=== PATIENT | female | born 1950 | race Caucasian/White ===

== ENCOUNTER 2018-09-29 16:20 | Outpatient (CLI) | payer MEDICARE, BC, SELFPAY ==
[2018-09-29 18:20] LABS: BUN 15 mg/dL (7-18); CREATININE 1.19 mg/dL (0.55-1.02); Chloride 104 mmol/L (98-107); Cholesterol 222 mg/dL (50-200); Estimated GFR 44.97 (mL/min/1.73m2); Glucose 95 mg/dL (70-100); HDL Cholesterol 60 mg/dL (40-60); LDL CHOLESTEROL 135 mg/dL (<100); Sodium 141 mmol/L (136-145); Triglyceride 174 mg/dL (30-150)
== END 2018-09-29 16:40 ==
PROVIDERS: PCP Family Medicine; Visit Provider Family Medicine
DX: E78.5 Hyperlipidemia, unspecified (principal); E74.39 Other disorders of intestinal carbohydrate absorption
CPT/HCPCS: 36415; 80048; 80061; 83721

== ENCOUNTER 2018-10-05 07:52 | Outpatient (CLI) | payer MEDICARE, BC, SELFPAY ==
--- NOTE | 2018-10-05 08:30 | DI.MAMMO_ITS ---
SYMPTOM/DIAGNOSIS: SCREENING, Z12.31 MAMMOGRAMS: Mammograms were interpreted according to the usual protocol including computer analysis with CAD system, tomosynthesis and C view imaging. Comparison is made with prior examinations. Breast density, category B. No suspicious masses or microcalcifications are seen. There is no definite evidence of malignancy. IMPRESSION: Negative mammogram. Routine screening is recommended. Category 1. BI-RADS category B. There are scattered areas of fibroglandular density.
== END 2018-10-05 08:12 ==
PROVIDERS: PCP Family Medicine; Visit Provider Family Medicine
DX: Z12.31 Encounter for screening mammogram for malignant neoplasm of breast (principal)
CPT/HCPCS: 77063; 77067

== ENCOUNTER 2018-11-07 06:18 | Day surgery (SDC) | payer MEDICARE, BC, SELFPAY ==
[2018-11-07 06:34] VITALS: BP 143/102; PULSE 85; RESP 18; TEMP 37; O2SAT 99
--- NOTE | 2018-11-07 07:09 | W.COLOREPORT ---
Date of service: 11/07/18 Time of Service: 07:40 Colonoscopy Report Date of procedure: 11/07/18 Pre-op diagnosis general: Family History of colon Cancer/ Colon Cancer Screening Procedure: Colonoscopy with polypectomy by cold forceps Surgeon: Sarai Lebron Anesthesia proc note operative: MAC (Estella Tay, ANUEL/ ASA 2) Estimated blood loss (mL): 3 Pathology: other (descending polyp) Complications: None Disposition: same day Indications: Mrs. Duque is a 68 year old female with a family history of rectal cancer and BRCA positive. Her last Colonoscopy was in 1998 and was normal. Risks, benefits and complications have been reviewed. Complications include but are not limited to bleeding, pain, perforation, missed small lesion/polyp, sore throat, aspiration and adverse reaction to the medications. Questions were entertained and answered to their satisfaction and they wished to proceed. No guarantees were given or implied. Prep: Miralax/Dulcolax Procedure Start Time: 07:40 Procedure End Time: 08:04 Retraction Time: 19 minutes Findings: small polyp in the descending colon Procedure Description: After informed consent was obtained the patient was taken to the procedure room and placed in a left decubitous position. Monitors were applied and a time out was done. The patients name, date of , procedure, allergies to medications and metal in their body was reviewed. The patient was then sedated. Once sedated and comfortable a rectal exam was done. External exam was normal. Internal exam revealed a normal sphincter tone and no palpable masses. The scope was then introduced and retro-flexed. No internal hemorrhoids were identified. The scope was then advanced to the cecum without difficulty. The TI and appendiceal orifice were identified. The prep was good. The scope was then slowly retracted over 19 minutes back into the rectum. Polyps were removed in the descending colon. The scope was removed and the patient was woken up and taken back to Same day surgery in stable condition. The patient tolerated the procedure well and there were no immediate complications. Follow up: The patient should follow up in 3-5 years unless they develop changes in bowel habits or other new gastrointestinal complaints.
[2018-11-07] MEDS: Lactated Ringers 1,000 ML 80 ML IV (07:11)
--- NOTE | 2018-11-07 07:25 | W.PM.DSUDISC ---
Discharge Plan Disposition Patient Disposition: HOME Condition: Good Discharge Details Reason For Visit: colonoscopy Attending Provider: Sarai Lebron Primary Care Provider: Edin Conner Home Meds and New Rx's Prescriptions: Continued lisinopril 20 mg tablet 20 mg PO DAILY Qty: 90 RF: 4 Prevnar 13 (PF) 0.5 mL syringe 0.5 ml IM ONCE Qty: 0.5 RF: 0 Shingrix Adjuvant Component-PF suspension 0.5 ml IM DAILY Qty: 0.5 RF: 1 multivitamin [Once Daily] 1 EACH tablet 1 ea PO DAILY RF: 0 aspirin [Aspir-81] 81 MG tablet,delayed release (DR/EC) 81 mg PO DAILY RF: 0 GELATIN 1 EACH tablet 1 ea PO DAILY RF: 0 lamotrigine [Lamictal] 200 MG tablet 200 mg PO DAILY Qty: 90 RF: 3 lamotrigine [Lamictal] 25 MG tablet 50 mg PO DAILY Qty: 180 RF: 3 pravastatin [Pravachol] 80 MG tablet 80 mg PO DAILY Qty: 90 RF: 4 Discontinued bisacodyl [Dulcolax (bisacodyl)] 5 mg tablet,delayed release (DR/EC) 5 mg PO ONCE Qty: 4 RF: 0 polyethylene glycol 3350 17 gram/dose powder 255 g PO ONCE Qty: 255 RF: 0 Discharge Instructions Instructions: Colonoscopy (DC), Colorectal Polyps (DC) Additional Instructions: Findings: one polyp- I will send you a letter in the mail with the pathology results and my final recommendation for when to have another colonoscopy Follow up:3-5 years Please call if you develop: fevers >101.5 Nausea or Vomiting Abdominal pain that is not transient DAY SURGERY UNIT POST COLONOSCOPY INSTRUCTIONS 1. Because there will be medication in your system for the next 24 hours, you may feel a little sleepy. Your coordination will be affected. Therefore: a. Do not drive or operate dangerous equipment for 24 hours. b. Do not drink alcohol beverages for 24 hours (not even beer). c. Plan to go home and rest for the day. 2. Generally there are no restrictions on your activity after a day or so has gone by, but you may feel a bit fatigued for a few days. 3 After you arrive home you may have a light meal and return to a normal diet as you can tolerate it without feeling sick to your stomach. 4. After surgery, you may feel pain or discomfort. This should be only transient, but if it persists please contact your doctor. 5. If there are any questions regarding the findings of your procedure, please feel free to contact your doctor. 6. If you are unable to contact your doctor with a problem, contact the hospital at [phone]. 7. Continue all your regular medications unless directed otherwise. I understand the above instructions and have no questions. Signature of Patient or Responsible Adult Escort Date/Time Name of Responsible Adult Escort Signature of Nurse Date/Time Activity:: Activity as Tolerated Diet:: As Tolerated DS: Diagnosis Discharge Diagnosis (1) S/P colonoscopy: Status: Acute (2) Colorectal polyps: Status: Acute
--- NOTE | 2018-11-07 07:56 | BOWEL_PTH ---
PATIENT: Dorene Duque LOC: [facility] U#:[id number] AGE/SX: 68/F ROOM: RE11/07/[address]: Sarai Lebron MD : 1950 BED: DIS: 11/07/2018 SPEC #: [id number] RECD: 11/07/18 12:52 STATUS: KAT REQ #: [id number] JOHANNY: 11/07/18 07:[address]: Sarai Lebron DEPT: Surgical Specimen RECD BY: Mare Monson ENTERED: 11/07/18 12:53 SP TYPE: Bowel OTHR DR: Edin Conner MD Tissues: 1 - BIOPSY BOWEL Procedures: GROSS AND MICRO LEVEL 4 Comments: [id number]
[2018-11-07 08:41] VITALS: BP 155/80; PULSE 68; RESP 16; TEMP 36; O2SAT 100
== END 2018-11-07 09:26 | disposition home or self-care (01) ==
PROVIDERS: PCP Family Medicine; Visit Provider Surgery
PROC: 0DJD8ZZ Inspection of Lower Intestinal Tract, Via Natural or Artificial Opening Endoscopic (ICD-10-PCS; CPT 45378; principal; 2018-11-07 07:30)
DX: Z12.11 Encounter for screening for malignant neoplasm of colon (principal); D12.4 Benign neoplasm of descending colon; Z80.0 Family history of malignant neoplasm of digestive organs
CPT/HCPCS: 45380; 88305

== ENCOUNTER → 2019-01-02 10:37 | Outpatient (BNVA) | payer MEDICARE, BC, SELFPAY | PROVIDERS: PCP Family Medicine; Visit Provider Psychiatry & Neurology Neurology | DX: G40.109 Localization-related (focal) (partial) symptomatic epilepsy and epileptic syndromes with simple partial seizures, not intractable, without status epilepticus (principal); I10 Essential (primary) hypertension | CPT/HCPCS: 99213 ==

== ENCOUNTER 2019-10-02 12:45 | Outpatient (CLI) | payer MEDICARE, BC, SELFPAY ==
[2019-10-02 13:56] LABS: CREATININE 1.13 mg/dL (0.55-1.02); Calculated LDL 140 mg/dL; Cholesterol 220 mg/dL (<200); Glucose 100 mg/dL (74-106); HDL Cholesterol 61 mg/dL (40-60); Potassium 4.4 mmol/L (3.5-5.1); Triglyceride 95 mg/dL (<150)
== END 2019-10-02 13:05 ==
PROVIDERS: PCP Family Medicine; Visit Provider Family Medicine
DX: E78.5 Hyperlipidemia, unspecified (principal); I63.9 Cerebral infarction, unspecified
CPT/HCPCS: 36415; 80061; 82947; 82565; 84132

== ENCOUNTER → 2020-01-07 10:56 | Outpatient (BNVA) | payer MEDICARE, BC, SELFPAY | PROVIDERS: PCP Family Medicine; Referring Provider Family Medicine; Visit Provider Psychiatry & Neurology Neurology | DX: G40.109 Localization-related (focal) (partial) symptomatic epilepsy and epileptic syndromes with simple partial seizures, not intractable, without status epilepticus (principal); G25.0 Essential tremor | CPT/HCPCS: 99214 ==

== ENCOUNTER 2020-10-07 04:15 | Outpatient (CLI) | payer MEDICARE, BC, SELFPAY ==
[2020-10-07 13:04] LABS: CREATININE 1.26 mg/dL (0.55-1.02); Calculated LDL 140 mg/dL (<100); Cholesterol 233 mg/dL (<200); Estimated GFR 41.86 (mL/min/1.73m2); HDL Cholesterol 67 mg/dL (40-60); Potassium 4.5 mmol/L (3.5-5.1); Triglyceride 130 mg/dL (<150)
[2020-10-07 14:59] LABS: BUN 17 mg/dL (7-18)
== END 2020-10-07 04:35 ==
PROVIDERS: PCP Family Medicine; Visit Provider Family Medicine
DX: I10 Essential (primary) hypertension (principal); E78.5 Hyperlipidemia, unspecified; G40.109 Localization-related (focal) (partial) symptomatic epilepsy and epileptic syndromes with simple partial seizures, not intractable, without status epilepticus; Z51.81 Encounter for therapeutic drug level monitoring; Z79.899 Other long term (current) drug therapy
CPT/HCPCS: 36415; 80061; 80175; 84520; 82565; 84132

== ENCOUNTER → 2021-01-05 07:58 | Outpatient (BNVA) | payer MEDICARE, BC, SELFPAY | PROVIDERS: PCP Family Medicine; Referring Provider Family Medicine; Visit Provider Psychiatry & Neurology Neurology | DX: G40.109 Localization-related (focal) (partial) symptomatic epilepsy and epileptic syndromes with simple partial seizures, not intractable, without status epilepticus (principal); G25.0 Essential tremor | CPT/HCPCS: 99443 ==

== ENCOUNTER 2021-03-18 13:59 | Outpatient (CLI) | payer MEDICARE, BC, SELFPAY ==
--- NOTE | 2021-03-18 13:45 | RT.EKG_ITS ---
APPROVED REPORT Exam: Resting ECG Reason for Exam: shortness of breath Patient Location: O HR:68 bpm ECG Measurements Heart Rate 68 AXIS NV 186 P 17 QRSd 79 QRS 2 QT 387 T 62 QTc 412 Conclusion Sinus rhythm...normal P axis, V-rate 60- 99
== END 2021-03-18 14:00 | disposition home or self-care (01) ==
LOC: DI.CM 14:00
PROVIDERS: PCP Family Medicine; Visit Provider Nurse Practitioner Family
DX: R07.89 Other chest pain (principal)
CPT/HCPCS: 93010

== ENCOUNTER 2021-03-27 10:46 | Inpatient (IN) | payer MEDICARE, BC, SELFPAY ==
[2021-03-27] VITALS (71 sets, daily range): BP systolic 130–191; BP diastolic 56–136; PULSE 54–90; RESP 7–32; TEMP 36–37; O2SAT 96–100
--- NOTE | 2021-03-27 10:45 | RT.EKG_ITS ---
APPROVED REPORT Exam: Resting ECG Reason for Exam: dizzy Patient Location: E HR:69 bpm ECG Measurements Heart Rate 69 AXIS DE 186 P 51 QRSd 75 QRS 4 QT 406 T 84 QTc 434 Conclusion Sinus rhythm...normal P axis, V-rate 60- 99. I have reviewed and interpreted ECG and agree with software generated interpretation.
[2021-03-27 11:12] LABS: Abs Immature Grans 0.01 10^3/uL (0.0-0.06); Absolute Basophil Count 0.03 10^3/uL (0.0-0.2); Absolute Eosinophil Count 0.16 10^3/uL (0.0-0.7); Absolute Lymphocyte Count 2.17 10^3/uL (1.2-3.4); Absolute Monocyte Count 0.53 10^3/uL (0.1-0.8); Absolute Neutrophil Count 3.44 10^3/uL (1.2-6.7); Basophils % 0.5; Eosinophils % 2.5; HCT 43.9 % (36.0-46.0); Immature Grans % 0.2; Lymphocytes % 34.2; MCH 30.3 pg (27.0-33.0); MCHC 34.2 % (32.0-36.0); MCV 88.7 fL (80-95); MPV 10.2 fL (8.0-11.0); Monocytes % 8.4; Neutrophils % 54.2; Nucleated RBC 0 %; Platelet Count 264 10^3/uL (130-400); RBC 4.95 10^6/uL (3.93-5.22); RDW 12.1 % (11.7-14.6); WBC 6.34 10^3/uL (4.4-10.8)
--- NOTE | 2021-03-27 11:20 | ED.GENADUL_ITS ---
Discharge Plan Disposition Patient Disposition: [facility] INPATIENT Condition: Stable Discharge Details Clinical Impression: NSTEMI (non-ST elevated myocardial infarction), Vertigo, Vomiting Admit Date/Time: 03/27/21 12:36 Admit Provider: Pete Nunez Attending Provider: Pete Nunez Primary Care Provider: Edin Conner ED Provider: Allegra Vera Medical Decision Making 70-year-old female with a history of hypertension, hyperlipidemia, CVA presents for 2 weeks of dyspnea on exertion, worse over the past week and associated with bilateral arm heaviness and weakness, intermittent chest tightness and 1 day of vertigo and vomiting x3 times today EKG on arrival notes a rate of 69, sinus with [address] depression and T wave inversion in aVL. No STEMI, nondiagnostic. Patient has nystagmus and appears uncomfortable with dizziness and nausea. Differential diagnosis includes vertigo, ACS, CVA, TIA, electrolyte abnormality, arrhythmia. Will place an IV, bolus IV fluids, meclizine, Zofran, screening labs, CT head and chest. Labs reviewed. White blood cell count 6. Troponin 0.24. BNP 172. Concern for NSTEMI. Contacted [facility] and [facility] transfer centers and no beds available for transfer, [facility] looking at 24 hours and [facility] at 24-48hrs. CT head notes an old occipital CVA but no acute findings. Chest x-ray negative for acute findings. Discussed with [facility] cardiology who agrees that patient needs transfer there for NSTEMI. There are currently no beds available there but can accept in the next 24 hours. Agrees with plan for 325mg aspirin, 300 mg Plavix and heparin bolus and drip. Discussed with patient and she is agreeable with plan. Discussed with hospitalist who accepts patient for admission to the floor while awaiting transfer to [facility]. Medical Records Medical records reviewed: Yes I reviewed the patient's medical records. Imaging Data Radiologic Study: Radiologist's impression: CT HEAD WO CLINICAL HISTORY: dizziness, vomiting, r/o cva. TECHNIQUE: Imaging Protocol: Axial computed tomography images with coronal and sagittal reformatted images were created and reviewed COMPARISON: CT HEAD WITHOUT STROKE PROTOCOL from 04/01/2016 FINDINGS: There is moderate generalized cerebral atrophy. Note is made of an old right temporal occipital infarct, presumed subcortical insular infarcts, and small bilateral basal ganglia infarcts. No interval change in appearance comparison with prior scan of March 2016. No evidence of acute intracranial hemorrhage, mass effect, or midline shift. The orbital structures are unremarkable. The temporal bone structures appear intact. Calvarium: Normal. Visualized Paranasal sinuses/Mastoids: Clear. IMPRESSION: No evidence of acute intracranial process. XR CHEST 2V PA LATERAL CLINICAL HISTORY: shortness of breath, dizzy, r/o acute disease TECHNIQUE: 2D digital imaging was performed. COMPARISON: CR CHEST 2 VIEWS PA,LAT from 11/05/2016 FINDINGS: The heart is not enlarged. The lungs are clear and well expanded. No pleural effusion seen. Mediastinal contours appear intact. IMPRESSION: Normal chest. Lab Data Lab results reviewed: Yes I reviewed the patient's lab results. ECG Data Attestation: I personally reviewed and interpreted this ECG (s) as follows: Interpretation: rate of 69, sinus, [address] depression and T wave inversion in aVL. No STEMI. HPI General Mode of arrival: ambulatory . Date/Time Provider Initiated Documentation: 03/27/21 10:50 . Limitations to Documentation: no limitations . Information obtained by: patient . HPI Narrative: Patient is a 70-year-old female with a history of hypertension, high cholesterol, TIA and CVA presents for dyspnea on exertion for the past 2 weeks, worse over the past week and associated with occasional chest tightness, heaviness and weakness in both arms with dizziness and vomiting x3 today. Patient states the dizziness feels like a spinning sensation. She denies any fever or cough. She denies any abdominal pain, urinary symptoms or diarrhea. Related Data Home Medications Medication Instructions Recorded Confirmed Gelatin 1 ea PO DAILY 04/04/13 03/27/21 aspirin [Aspir-81] 81 mg PO DAILY tab-cap 04/04/13 03/27/21 multivitamin [Once Daily] 1 ea PO DAILY 04/04/13 03/27/21 pravastatin 80 mg tablet 80 mg PO DAILY #90 tab-cap 04/04/20 03/27/21 lisinopril 20 mg tablet 20 mg PO DAILY #90 tab-cap 10/06/20 03/27/21 lamotrigine 200 mg tablet 200 mg PO DAILY #90 tab-cap 01/08/21 03/27/21 lamotrigine 25 mg tablet 50 mg PO DAILY #180 tab-cap 01/08/21 03/27/21 Previous Rx's Medication Instructions Recorded pravastatin 80 mg tablet 80 mg PO DAILY #90 tab-cap 04/04/20 lisinopril 20 mg tablet 20 mg PO DAILY #90 tab-cap 10/06/20 lamotrigine 200 mg tablet 200 mg PO DAILY #90 tab-cap 01/08/21 lamotrigine 25 mg tablet 50 mg PO DAILY #180 tab-cap 01/08/21 Allergies Allergy/AdvReac Type Severity Reaction Status Date / Time amoxicillin Allergy Intermediate Verified 03/27/21 10:56 latex Allergy Verified 03/27/21 10:56 atorvastatin AdvReac Unknown ELEVATED Verified 03/27/21 10:56 LFT'S General Stated Complaint: SOB SUMMER: 2 Review of Systems All systems reviewed & are unremarkable except as noted in HPI and below Constitutional Constitutional: Reports as per HPI, Denies chills and Denies fever(s) Eyes Eyes: Denies blurry vision ENT Ears, Nose, Mouth, and Throat: Reports dizziness, Denies sore throat and Denies throat swelling Cardiovascular Cardiovascular: Denies chest pain and Reports dyspnea Respiratory Respiratory: Denies cough and Reports dyspnea Gastrointestinal Gastrointestinal: Denies abdominal pain, Denies diarrhea and Denies vomiting Genitourinary Genitourinary: Denies hematuria and Denies dysuria Musculoskeletal Musculoskeletal: Denies back pain and Denies numbness Integumentary/Breasts Skin/Breast: Denies lesions and Denies rash Neurologic Neurologic: Reports dizziness, Denies localized weakness and Denies numbness Allergic/Immunologic Allergic/Immunologic: Denies throat swelling [facility] Medical History (Updated 03/27/21 @ 15:38 by Allegra Vera DO) Anemia Complete edentulism, unspecified upper CVA (cerebral vascular accident) (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 Essential hypertension (10/04/13) Essential tremor Family history of breast cancer gene mutation in first degree relative BRCA2 gene carrier Family history of colon cancer son Focal epilepsy Gastritis (09/29/02) per EGD Hyperlipidemia (04/09/13) Kidney stone Tubular adenoma of colon (~10/2018) Surgical History Abdominal hysterectomy and bladder suspension; endometriosis S/P colonoscopy (~11/07/18) Family History Mother , age 74 Stroke Sister Breast cancer BRCA-2 Ovarian cancer Father , age 69 Prostate cancer Sister No problems noted. Sister No problems noted. Brother , age 69 Stroke Brother , age 70+ Pancreatic cancer Brother No problems noted. Brother No problems noted. Brother No problems noted. Brother No problems noted. Brother No problems noted. Son Rectal cancer Son Stroke Daughter No problems noted. Daughter , 27 hours No problems noted. Paternal Grandfather Cancer Maternal Grandmother , age 70+ No problems noted. Paternal Grandmother No problems noted. 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 Pets and animals: No Sexually active: No Do you think of yourself as: straight/heterosexual Current gender identity: female What is your relationship status?: How often do you talk on the phone with friends or family?: three or more times per week How often do you attend zoroastrianism or caodaism services?: 4 or more times per year Do you belong to any clubs or organized social groups?: no Panel score (0-1 are the most socially isolated patients): 3 What type of physical activity do you participate in: walking Duration: 60-90 minutes/day Frequency: daily Minerva/Yazidi: Zoroastrian Seatbelt use: always Helmet use: Yes Helmet use: always Drive intox or ride w/intox tow motor driver: No Do you feel safe in your relationship?: Yes Victim of physical abuse: No Victim of emotional abuse: No Victim of sexual abuse: No Would you like helpful sources: No Exam Const General: cooperative and no acute distress HENMT Head: normal to inspection Face and sinus: normal facial exam Eyes General: appearance normal, both eyes and all related structures Pupils: PERRL EOM: EOM intact bilaterally Neck Neck: normal visual inspection and No submandibular swelling Lymphatic: no lymphadenopathy noted Chest Chest: normal inspection of the chest and no tenderness Resp Effort & Inspection: normal respiratory effort and able to speak in complete sentences Auscultation: clear to auscultation bilaterally Cardio Rate: regular rate Rhythm: regular rhythm GI Inspection: normal to inspection Palpation: soft, not firm, not rigid and nontender Auscultation: normal bowel sounds Skin General skin exam: no rashes or lesions noted Neuro General: patient alert, patient awake, patient oriented x3, moves all extremities, no meningeal signs and no focal motor deficits Cranial Nerves: CN's II-XI intact bilaterally and nystagmus horizontal Cognition: normal cognition Speech: speech normal Motor: muscle tone normal throughout Sensory Exam: no sensory deficits noted Extrem General: normal to inspection, full ROM, capillary refill normal, no calf tenderness bilaterally and no edema Psych Appearance: grossly normal Mental Status: mental status grossly normal Speech and Movement: speech and movement normal Affect: normal affect Course Vital Signs Vital signs: Vital Signs Temperature 98.1 F 03/27/21 10:54 Pulse 70 03/27/21 10:54 Respiratory Rate 22 03/27/21 10:54 Blood Pressure 166/93 H 03/27/21 10:54 Pulse Oximetry 99 03/27/21 10:54 Temperature 98.1 F 03/27/21 10:54 Temperature Source Skin 03/27/21 10:54 Pulse 70 03/27/21 10:54 Respiratory Rate 22 03/27/21 10:59 Respiratory Effort 03/27/21 10:59 Respiratory Depth Shallow 03/27/21 10:59 Respiratory Pattern Normal 03/27/21 10:59 Blood Pressure 166/93 H 03/27/21 10:54 Blood Pressure Position Supine 03/27/21 10:54 Pulse Oximetry 99 03/27/21 10:54 Oxygen Delivery Method Room Air 03/27/21 10:54 Oxygen Flow Rate 0 03/27/21 10:54 Pain Level 0 03/27/21 10:54 Lab/Test Results Lab/Test Results: Laboratory Tests Range/Units 03/27/21 11:00 WBC (4.4-10.8) 10^3/uL 6.34 RBC (3.93-5.22) 10^6/uL 4.95 Hgb (11.2-15.7) g/dL 15.0 Hct (36.0-46.0) % 43.9 MCV (80-95) fL 88.7 MCH (27.0-33.0) pg 30.3 MCHC (32.0-36.0) % 34.2 RDW (11.7-14.6) % 12.1 Plt Count (130-400) 10^3/uL 264 MPV (8.0-11.0) fL 10.2 Immature Gran % 0.2 Neutrophils % 54.2 Lymphocytes % 34.2 Monocytes % 8.4 Eosinophils % 2.5 Basophils % 0.5 Nucleated RBC % % 0 Absolute Neutrophils (1.2-6.7) 10^3/uL 3.44 Absolute Lymphocytes (1.2-3.4) 10^3/uL 2.17 Absolute Monocytes (0.1-0.8) 10^3/uL 0.53 Absolute Eosinophils (0.0-0.7) 10^3/uL 0.16 Absolute Basophils (0.0-0.2) 10^3/uL 0.03
[2021-03-27 11:25] LABS: ALT 35 U/L (14-59); AST 24 U/L (15-37); Alkaline Phosphatase 98 U/L (46-116); Anion Gap 10.8 mmol/L (3-11); BUN 11 mg/dL (7-18); Bilirubin, Total 0.6 mg/dL (0.2-1.0); CO2 25.2 mmol/L (21.0-32.0); CREATININE 1.2 mg/dL (0.55-1.02); Calcium 9.6 mg/dL (8.5-10.1); Chloride 106 mmol/L (98-107); Estimated GFR 44.29 (mL/min/1.73m2); Glucose 130 mg/dL (74-106); Magnesium 2.1 mg/dL (1.8-2.4); Potassium 3.7 mmol/L (3.5-5.1); Sodium 142 mmol/L (136-145); Total Protein 7.6 g/dL (6.4-8.2)
[2021-03-27 11:27] LABS: Troponin I 0.24 ng/mL (<0.06)
[2021-03-27 11:29] LABS: NT-proBNP 172 pg/mL (<300)
--- NOTE | 2021-03-27 11:30 | DI.CT_ITS ---
Exam(s) CT HEAD WO EXAM: CT HEAD WO CLINICAL HISTORY: dizziness, vomiting, r/o cva. TECHNIQUE: Imaging Protocol: Axial computed tomography images with coronal and sagittal reformatted images were created and reviewed COMPARISON: CT HEAD WITHOUT STROKE PROTOCOL from 04/01/2016 FINDINGS: There is moderate generalized cerebral atrophy. Note is made of an old right temporal occipital infa rct, presumed subcortical insular infarcts, and small bilateral basal ganglia infarcts. No interval change in appearance comparison with prior scan of March 2016. No evidence of acute intracranial hemorrhage, mass effect, or midline shift. The orbital structures are unremarkable. The temporal bone structures appear intact. Calvarium: Normal. Visualized Paranasal sinuses/Mastoids: Clear. IMPRESSION: No evidence of acute intracranial process. RADIATION DOSE DELIVERED: 706.88mGy.cm Total DLP 706.88mGy.cm Total DLP DATA REPOSITORY: All CT scans at this facility are submitted to the National Radiology Data Registry (NRDR) Dose Index Registry (DIR) with the [employer] (ACR). RADIATION OPTIMIZATION: All CT scans at this facility use at least one of these dose optimization te chniques: automated exposure control; mA and/or kV adjustment per patient size (includes targeted exa ms where dose is matched to clinical indication); or iterative reconstruction.
[2021-03-27 11:33] LABS: PTT Activated 21.3 sec (21.0-27.5); Prothrombin Time 9.9 sec (9.3-11.0)
[2021-03-27] MEDS: Ondansetron 4 MG/2 ML VIAL IVP (11:53)
[2021-03-27] MEDS: Aspirin 325 MG TAB PO (11:53)
[2021-03-27] MEDS: Normal Saline 500 ML IV (11:53)
[2021-03-27] MEDS: Meclizine 25 MG TAB PO (11:53)
--- NOTE | 2021-03-27 12:34 | DI.RAD_ITS ---
Exam(s) XR CHEST 2V PA LATERAL EXAM: XR CHEST 2V PA LATERAL CLINICAL HISTORY: shortness of breath, dizzy, r/o acute disease TECHNIQUE: 2D digital imaging was performed. COMPARISON: CR CHEST 2 VIEWS PA,LAT from 11/05/2016 FINDINGS: The heart is not enlarged. The lungs are clear and well expanded. No pleural effusion seen. Mediastin al contours appear intact. IMPRESSION: Normal chest. RADIATION DOSE DELIVERED: Total DLP
[2021-03-27 13:18] LABS: Source Nasal/Nares
[2021-03-27] MEDS: Clopidogrel 300 MG TAB PO (13:22)
[2021-03-27 13:26] LABS: Troponin I 0.22 ng/mL (<0.06)
--- NOTE | 2021-03-27 13:56 | W.PM.HP.N ---
Date of service: 03/27/21 Time of Service: 13:56 Assessment and Plan Assessment and plan (1) CVA (cerebral vascular accident): Status: Acute Assessment and plan: Pt presented on aspirin 81mg daily and pravastatin 80mg daily; continue both CT head was performed because of vertiginous sxs. No acute findings. (2) Essential hypertension: Status: Acute Assessment and plan: No significant elevations noted on presentation Cont lisinopril 20mg daily. Monitor (3) Hyperlipidemia: Status: Acute Assessment and plan: Continuing Pravastatin 80mg daily. (4) Seizure disorder: Status: Acute Assessment and plan: Controlled on Lamictal; continue. (5) NSTEMI (non-ST elevated myocardial infarction): Status: Acute Assessment and plan: ASA, statin, heparin drip. Has been accepted at [facility] but bed likely not available until appx 24H. ICU admission. Serial troponin levels: 0.24 > 0.22 > pending. History of Present Illness History of Present Illness Chief Complaint: Chest tightness and dyspnea on exertion Narrative: This is a 70 yo female with a PMH of TIA/CVA, HTN, HLD, essential tremor, seizure disorder. She endorsed not feeling right for appx 2 weeks. She described chest tightness with exertion as if she wasn't getting a full breath. She also endorsed feeling more weak/tired. Over the previous 24 hours she described vertigo / spinning sensation and then had emesis x 3 on day of admission. She denied palpitations, cough, F/C, abd pain. CT head w/o any acute processes noted. EKG showed NSR with rate of 69. There was [address] depression and T wave inversion in aVL. No ST elevation. Troponin elevated at 0.24. Creatinine of 1.2, BUN 11. CBC normal. CXR was normal. She was accepted at [facility] when bed available; estimated wait of 24 hours. She was ASA 81mg, Plavix 300mg and a heparin drip initiated. Admitted to the ICU for monitoring, serial troponin levels. 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 Essential hypertension (10/04/13) Essential tremor Family history of breast cancer gene mutation in first degree relative BRCA2 gene carrier Family history of colon cancer son Focal epilepsy Gastritis (09/29/02) per EGD Hyperlipidemia (04/09/13) Kidney stone Tubular adenoma of colon (~10/2018) Surgical History Abdominal hysterectomy and bladder suspension; endometriosis S/P colonoscopy (~11/07/18) Family History Mother , age 74 Stroke Sister Breast cancer BRCA-2 Ovarian cancer Father , age 69 Prostate cancer Sister No problems noted. Sister No problems noted. Brother , age 69 Stroke Brother , age 70+ Pancreatic cancer Brother No problems noted. Brother No problems noted. Brother No problems noted. Brother No problems noted. Brother No problems noted. Son Rectal cancer Son Stroke Daughter No problems noted. Daughter , 27 hours No problems noted. Paternal Grandfather Cancer Maternal Grandmother , age 70+ No problems noted. Paternal Grandmother No problems noted. 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 Pets and animals: No Sexually active: No Do you think of yourself as: straight/heterosexual Current gender identity: female What is your relationship status?: How often do you talk on the phone with friends or family?: three or more times per week How often do you attend orthodox or sabianist services?: 4 or more times per year Do you belong to any clubs or organized social groups?: no Panel score (0-1 are the most socially isolated patients): 3 What type of physical activity do you participate in: walking Duration: 60-90 minutes/day Frequency: daily Minerva/Orthodoxy: Temple Seatbelt use: always Helmet use: Yes Helmet use: always Drive intox or ride w/intox jukebox route driver: No Do you feel safe in your relationship?: Yes Victim of physical abuse: No Victim of emotional abuse: No Victim of sexual abuse: No Would you like helpful sources: No Meds Allergies and Home Medications Allergies Allergy/AdvReac Type Severity Reaction Status Date / Time amoxicillin Allergy Intermediate Verified 03/27/21 10:56 latex Allergy Verified 03/27/21 10:56 atorvastatin AdvReac Unknown ELEVATED Verified 03/27/21 10:56 LFT'S Home Medications Medication Instructions Recorded Confirmed Type Gelatin 1 ea PO DAILY 04/04/13 03/27/21 History aspirin [Aspir-81] 81 mg PO DAILY tab-cap 04/04/13 03/27/21 History multivitamin [Once Daily] 1 ea PO DAILY 04/04/13 03/27/21 History pravastatin 80 mg tablet 80 mg PO DAILY #90 tab-cap 04/04/20 03/27/21 Rx lisinopril 20 mg tablet 20 mg PO DAILY #90 tab-cap 10/06/20 03/27/21 Rx lamotrigine 200 mg tablet 200 mg PO DAILY #90 tab-cap 01/08/21 03/27/21 Rx lamotrigine 25 mg tablet 50 mg PO DAILY #180 tab-cap 01/08/21 03/27/21 Rx Exam Const General: cooperative and no acute distress Nutritional Appearance: overweight Orientation: alert and oriented x3 HENMT Head: normocephalic and atraumatic Neck Neck: full ROM and no JVD Resp Effort & Inspection: normal respiratory effort Auscultation: clear to auscultation bilaterally Cardio Rate: regular rate Rhythm: regular rhythm Heart Sounds: S1 normal and S2 normal GI Palpation: soft and nontender Neuro General: no focal motor deficits Cognition: normal cognition Speech: speech normal Extrem General: no pedal edema and no calf tenderness Results Labs Result diagrams: 03/27/21 11:00 03/27/21 11:00 Labs: Laboratory Results - last 24 hr 03/27/21 03/27/21 03/27/21 11:00 11:00 11:00 WBC 6.34 RBC 4.95 Hgb 15.0 Hct 43.9 MCV 88.7 MCH 30.3 MCHC 34.2 RDW 12.1 Plt Count 264 MPV 10.2 Immature Gran % 0.2 Neutrophils % 54.2 Lymphocytes % 34.2 Monocytes % 8.4 Eosinophils % 2.5 Basophils % 0.5 Nucleated RBC % 0 Absolute Neutrophils 3.44 Absolute Lymphocytes 2.17 Absolute Monocytes 0.53 Absolute Eosinophils 0.16 Absolute Basophils 0.03 PT 9.9 INR 1.0 APTT 21.3 Sodium 142 Potassium 3.7 Chloride 106 Carbon Dioxide 25.2 Anion Gap 10.8 BUN 11 Creatinine 1.2 H Estimated GFR/1.73 m2 44.29 Glucose 130 H Calcium 9.6 Magnesium 2.1 Total Bilirubin 0.6 AST 24 ALT 35 Alkaline Phosphatase 98 Troponin I 0.24 H* NT-Pro-B Natriuret Pep Total Protein 7.6 Albumin 4.0 COVID-19 Source 03/27/21 03/27/21 03/27/21 11:00 13:05 13:05 WBC RBC Hgb Hct MCV MCH MCHC RDW Plt Count MPV Immature Gran % Neutrophils % Lymphocytes % Monocytes % Eosinophils % Basophils % Nucleated RBC % Absolute Neutrophils Absolute Lymphocytes Absolute Monocytes Absolute Eosinophils Absolute Basophils PT INR APTT Sodium Potassium Chloride Carbon Dioxide Anion Gap BUN Creatinine Estimated GFR/1.73 m2 Glucose Calcium Magnesium Total Bilirubin AST ALT Alkaline Phosphatase Troponin I 0.22 H* NT-Pro-B Natriuret Pep 172 Total Protein Albumin COVID-19 Source Nasal/nares Last Vital Signs Temp 36.7 C 03/27/21 10:54 Pulse 54 L 03/27/21 11:46 Resp 13 03/27/21 11:40 BP 148/74 H 03/27/21 11:46 Pulse Ox 98 03/27/21 11:50 COVID-19 Screening Have you, or household traveled for leisure in last 14 days?: No Had IN PERSON contact w/suspected or confirmed C-19 person: No
[2021-03-27 15:34] LABS: Troponin I 0.23 ng/mL (<0.06)
[2021-03-27 17:21] LABS: Troponin I 0.23 ng/mL (<0.06)
[2021-03-27 20:13] LABS: PTT Activated 68.4 sec (21.0-27.5)
[2021-03-27 20:49] LABS: COVID-19 PCR Negative (Negative)
[2021-03-28] VITALS (30 sets, daily range): BP systolic 117–153; BP diastolic 53–124; PULSE 49–106; RESP 6–25; TEMP 36.2–36.6; O2SAT 95–99
[2021-03-28 03:13] LABS: PTT Activated 53.3 sec (21.0-27.5)
[2021-03-28 06:57] LABS: Anion Gap 8.6 mmol/L (3-11); BUN 17 mg/dL (7-18); CO2 26.4 mmol/L (21.0-32.0); CREATININE 1.2 mg/dL (0.55-1.02); Calcium 9.1 mg/dL (8.5-10.1); Chloride 109 mmol/L (98-107); Estimated GFR 44.29 (mL/min/1.73m2); Glucose 116 mg/dL (74-106); Potassium 4.3 mmol/L (3.5-5.1); Sodium 144 mmol/L (136-145)
--- NOTE | 2021-03-28 08:00 | RT.EKG_ITS ---
APPROVED REPORT Exam: Resting ECG Reason for Exam: f/u NSTEMI Patient Location: I HR:58 bpm ECG Measurements Heart Rate 58 AXIS RI 180 P -2 QRSd 79 QRS 11 QT 403 T 97 QTc 395 Conclusion Sinus bradycardia...rate< 60 Nonspecific T abnrm, anterolateral leads...T <-0.10mV, I aVL V2-V6
--- NOTE | 2021-03-28 08:24 | PDOC.CMIN ---
- If Service Date Differs Date of service: 03/28/21 Time of Service: 08:24 Care Management Initial Assess REASON FOR HOSPITALIZATION:: Non ST elevation myocardial infarction PAST MEDICAL HISTORY/PAST SURGICAL HISTORY:: Medical History: Anemia, Complete edentulism, unspecified - upper,. CVA (cerebral vascular accident) (10/08/13) - 2005 with residual left upper quadrantanopsia, Essential hypertension (10/04/13), Essential tremor,. Family history of breast cancer gene mutation in first degree relative - BRCA2 gene carrier, Family history of colon cancer - son, Focal epilepsy,. Gastritis (09/29/02) - per EGD, Hyperlipidemia (04/09/13), Kidney stone, and Tubular adenoma of colon (~10/2018). Surgical History: Abdominal hysterectomy, and bladder suspension; endometriosis, and S/P colonoscopy (~11/07/18). PREVIOUS FUNCTIONAL STATUS/SOCIAL/FAMILY SUPPORTS:: Dorene lives in [facility] with her , Josué. ADVANCE DIRECTIVES:: On file; Josué Duque, , is appointed as Health Care Agent. Has patient been provided with info about the portal/API?: Yes CODE STATUS:: Full Code INSURANCE COVERAGE / FINANCIAL ISSUES:: BCBS and Medicare. PRIMARY CARE PHYSICIAN:: Edin Conner MD. POTENTIAL DISCHARGE NEEDS:: Follow up appointments with PCP and perch machine inspector. PATIENT/FAMILY EDUCATION NEEDS:: Discharge instructions, limitations, follow up plan of care, including Ask Me Three and self-management. ANTICIPATED BARRIERS TO DISCHARGE:: None anticipated at this time. TRANSPORTATION:: Via ambulance coordinated by nursing polymerization supervisor. PLAN:: Plan is for Dorene to be transferred to [facility] when a bed becomes available. She will transport via ambulance coordinated by nursing polymerization supervisor. Dorene will follow the plan of care as prescribed by [facility] providers.
--- NOTE | 2021-03-28 08:27 | PGE_ITS ---
Subjective Subjective Interval history since last seen: SB mid 50s at night when asleep, 70s when awake. SBP 130s-140s. No CP, no nausea, no SOB overnight. Awaiting a bed at [facility]. Heparin gtt. Objective Last Vital Signs Temp 36.3 C L 03/28/21 03:18 Pulse 99 H 03/28/21 08:01 Resp 13 03/28/21 08:01 BP 146/124 H 03/28/21 08:01 Pulse Ox 97 03/28/21 08:01 Laboratory Results - last 24 hr 03/27/21 03/27/21 03/27/21 11:00 11:00 11:00 WBC 6.34 RBC 4.95 Hgb 15.0 Hct 43.9 MCV 88.7 MCH 30.3 MCHC 34.2 RDW 12.1 Plt Count 264 MPV 10.2 Immature Gran % 0.2 Neutrophils % 54.2 Lymphocytes % 34.2 Monocytes % 8.4 Eosinophils % 2.5 Basophils % 0.5 Nucleated RBC % 0 Absolute Neutrophils 3.44 Absolute Lymphocytes 2.17 Absolute Monocytes 0.53 Absolute Eosinophils 0.16 Absolute Basophils 0.03 PT 9.9 INR 1.0 APTT 21.3 Sodium 142 Potassium 3.7 Chloride 106 Carbon Dioxide 25.2 Anion Gap 10.8 BUN 11 Creatinine 1.2 H Estimated GFR/1.73 m2 44.29 Glucose 130 H Calcium 9.6 Magnesium 2.1 Total Bilirubin 0.6 AST 24 ALT 35 Alkaline Phosphatase 98 Troponin I 0.24 H* NT-Pro-B Natriuret Pep Total Protein 7.6 Albumin 4.0 COVID-19 Source SARS-CoV-2 (PCR) 03/27/21 03/27/21 03/27/21 11:00 13:05 13:05 WBC RBC Hgb Hct MCV MCH MCHC RDW Plt Count MPV Immature Gran % Neutrophils % Lymphocytes % Monocytes % Eosinophils % Basophils % Nucleated RBC % Absolute Neutrophils Absolute Lymphocytes Absolute Monocytes Absolute Eosinophils Absolute Basophils PT INR APTT Sodium Potassium Chloride Carbon Dioxide Anion Gap BUN Creatinine Estimated GFR/1.73 m2 Glucose Calcium Magnesium Total Bilirubin AST ALT Alkaline Phosphatase Troponin I 0.22 H* NT-Pro-B Natriuret Pep 172 Total Protein Albumin COVID-19 Source Nasal/nares SARS-CoV-2 (PCR) Negative 03/27/21 03/27/21 03/27/21 15:10 16:55 19:40 WBC RBC Hgb Hct MCV MCH MCHC RDW Plt Count MPV Immature Gran % Neutrophils % Lymphocytes % Monocytes % Eosinophils % Basophils % Nucleated RBC % Absolute Neutrophils Absolute Lymphocytes Absolute Monocytes Absolute Eosinophils Absolute Basophils PT INR APTT 68.4 H D Sodium Potassium Chloride Carbon Dioxide Anion Gap BUN Creatinine Estimated GFR/1.73 m2 Glucose Calcium Magnesium Total Bilirubin AST ALT Alkaline Phosphatase Troponin I 0.23 H* 0.23 H* NT-Pro-B Natriuret Pep Total Protein Albumin COVID-19 Source SARS-CoV-2 (PCR) 03/28/21 03/28/21 02:55 06:36 WBC RBC Hgb Hct MCV MCH MCHC RDW Plt Count MPV Immature Gran % Neutrophils % Lymphocytes % Monocytes % Eosinophils % Basophils % Nucleated RBC % Absolute Neutrophils Absolute Lymphocytes Absolute Monocytes Absolute Eosinophils Absolute Basophils PT INR APTT 53.3 H D Sodium 144 Potassium 4.3 Chloride 109 H Carbon Dioxide 26.4 Anion Gap 8.6 BUN 17 D Creatinine 1.2 H Estimated GFR/1.73 m2 44.29 Glucose 116 H Calcium 9.1 Magnesium Total Bilirubin AST ALT Alkaline Phosphatase Troponin I NT-Pro-B Natriuret Pep Total Protein Albumin COVID-19 Source SARS-CoV-2 (PCR)
[2021-03-28 09:36] LABS: Calculated LDL 127 mg/dL (<100); Cholesterol 212 mg/dL (<200); HDL Cholesterol 60 mg/dL (40-60); Triglyceride 129 mg/dL (<150)
[2021-03-28] MEDS: lamoTRIgine 100 MG TAB 200 MG PO (09:41)
[2021-03-28] MEDS: Pravastatin 40 MG TAB 80 MG PO (09:41)
[2021-03-28] MEDS: Clopidogrel 75 MG TAB PO (09:41)
[2021-03-28] MEDS: Lisinopril 20 MG TAB PO (09:42)
[2021-03-28] MEDS: Pantoprazole 40 MG TABCR PO (09:43)
[2021-03-28] MEDS: Aspirin E.C. 81 MG TABEC PO (09:45)
[2021-03-28] MEDS: lamoTRIgine 25 MG TAB 50 MG PO (09:46)
--- NOTE | 2021-03-28 10:33 | PHA.REVIEW ---
Pharmacy Admission Review - Admission Clinical Review (Last Reviewed 03/27/21 @ 14:08 by Pete Nunez MD) NSTEMI (non-ST elevated myocardial infarction) (Acute) Vertigo (Acute) Vomiting (Acute) NSTEMI (non-ST elevated myocardial infarction) (Acute) CVA (cerebral vascular accident) (Acute 10/08/13) Essential hypertension (Acute 10/04/13) Hyperlipidemia (Acute 04/09/13) Seizure disorder (Acute 04/05/16) amoxicillin Allergy (Intermediate, Verified 03/27/21 10:56) latex Allergy (Verified 03/27/21 10:56) atorvastatin Adverse Reaction (Unknown, Verified 03/27/21 10:56) ELEVATED LFT'S Height 5 ft 5 in Weight 80.5 kg - Renal Dosing Renal Dosing: BUN 17 mg/dL (7-18) D 03/28/21 06:36 Creatinine 1.2 mg/dL (0.55-1.02) H 03/28/21 06:36 Medications needing adjustments: Reviewed List of meds needing interventions: eCrCL 38.7 ml/min, current orders ok - Anticoagulation Anticoagulation: Hgb 15.0 g/dL (11.2-15.7) 03/27/21 11:00 Hct 43.9 % (36.0-46.0) 03/27/21 11:00 Plt Count 264 10^3/uL (130-400) 03/27/21 11:00 INR 1.0 (0.9-1.1) 03/27/21 11:00 Creatinine 1.2 mg/dL (0.55-1.02) H 03/28/21 06:36 DVT Prohphylaxis: Reviewed Medications: Heparin - Opiate Usage Evaluate Pain Scale/Pains Meds: N/A - Relevant Labs Sodium 144 mmol/L (136-145) 03/28/21 06:36 Potassium 4.3 mmol/L (3.5-5.1) 03/28/21 06:36 Chloride 109 mmol/L (98-107) H 03/28/21 06:36 Magnesium 2.1 mg/dL (1.8-2.4) 03/27/21 11:00 Electrolytes, C-Reactive P, ESR: Reviewed - DM Control DM Control: Glucose 116 mg/dL (74-106) H 03/28/21 06:36 Insulin Dosing: N/A - Heart Failure/MN Heart Failure/MN: Troponin I 0.23 ng/mL (<0.06) H* 03/27/21 16:55 NT-Pro-B Natriuret Pep 172 pg/mL (<300) 03/27/21 11:00 EF%, ANNAMARIE's, B-Blockers, Diuretics: Reviewed (lisinopril, hydralazine prn) - BP Control BP Control: Blood Pressure 146/124 Blood Pressure 139/65 Blood Pressure 144/63 Blood Pressure 137/69 Blood Pressure 125/69 Blood Pressure 127/67 Blood Pressure 117/53 Blood Pressure 128/60 Blood Pressure 146/68 Blood Pressure 153/64 Blood Pressure 158/69 If elevated: Reviewed (hydralazine prn for SBP > 180) - Qtc Review If Elevated: Reviewed List meds needing interventions: QTc 434 on admission - IV to PO Switch IV Medications: Reviewed - Home Meds Home Med List reviewed: Reviewed Relevent Home Meds Not ordered & why?: MVI, otherwise all ordered - Current meds Current Medication Order Review: Reviewed - Comments Comments/Follow Ups: waiting for bed to open @ [facility]
--- NOTE | 2021-03-28 12:51 | W.PM.DS.N ---
Date of service: 03/28/21 Time of Service: 12:51 DS: Diagnosis Discharge Diagnosis (1) NSTEMI (non-ST elevated myocardial infarction): Status: Acute (2) Vertigo: Status: Acute Asessment and Plan: BPPV vs central, resolved (3) Essential hypertension: Status: Chronic (4) Hyperlipidemia: Status: Chronic (5) Seizure disorder: Status: Chronic (6) COVID-19 ruled out by laboratory testing: Status: Ruled-out Discharge Plan Disposition Patient Disposition: [facility] Condition: Stable Discharge Details Reason For Visit: Non ST elevation myocardial infarction Admit Date/Time: 03/27/21 12:36 Admit Provider: Pete Nunez Attending Provider: Pete Nunez Primary Care Provider: Edin Conner Hospital Course Hospital Course: Ms Duque is a 70 year old female with PMHx of prior CVA, HTN, hyperlipidemia, and epilepsy, who was admitted to [facility] ICU under the hospitalist service on 03/27/21 having presented with vertiginous symptoms accompanied by vomiting as well as chest tightness and burning. She did have an elevated troponin I of 0.24 and her EKG showed ST depression and T wave inversion in AVL. She as initiated on aspirin, plavix, and heparin gtt and accepted in transfer at [facility] by Dr Vega of cardiology for an evaluation for a cardiac catheterization, unavailable at our facility. Repeat troponins were 0.24, 0.22, and 0.23. Her traffic monitor specialist did not reveal arrhythmias. Her EKG today is unchanged from yesterday. Her vertiginous symptoms as well as her chest tightness and burning have now resolved. Meclizine seems to have resolved her vertiginous symptoms. Her workup of this consisted of negative CT and physical exam (did have nystagmus in the ED). She may benefit from outpatient follow up for vertigo if this recurs. She is hemodynamically stable for transfer and agrees to transfer to [facility] today. Care for patient as well as completion of her transfer summary on day of transfer took 45 minutes. Please, see MAR for list of outpatient medications. The list below reflects the patient's outpatient medications. Home Meds and New Rx's Prescriptions: No Action multivitamin [Once Daily] 1 EACH tablet 1 ea PO DAILY RF: 0 aspirin [Aspir-81] 81 MG tablet,delayed release (DR/EC) 81 mg PO DAILY RF: 0 GELATIN 1 EACH tablet 1 ea PO DAILY RF: 0 pravastatin 80 mg tablet 80 mg PO DAILY Qty: 90 RF: 4 lisinopril 20 mg tablet 20 mg PO DAILY Qty: 90 RF: 4 lamotrigine [Lamictal] 200 mg tablet 200 mg PO DAILY Qty: 90 RF: 3 lamotrigine [Lamictal] 25 mg tablet 50 mg PO DAILY Qty: 180 RF: 3 Discharge Instructions Activity:: OOB to chair Diet:: heart healthy Discharge Orders Discharge Orders: Discharge Order (Routine); Ordered 03/28/21 Ordered By: Celina Sandoval DS: Summary Time Spent with Patient providing and/or coordinating discharge services: Greater than 30 minutes Status at Discharge Functional status at discharge: independent ambulation Overall status at discharge: patient is progressing back to baseline Mental Status: mental status grossly normal Speech and Movement: speech and movement normal Mood: congruent mood Affect: normal affect Exam Narrative Exam Narrative: General: Pleasant elderly female who appears comfortable in bed HEENT: EOMI, MMM Heart: RRR, no m/r/g Lungs: very slightly coarse breath sounds B, no crackles Abdomen: soft, nontender, nondistended Extremities: trace edema BLE's, +1 pedal pulses B, felt better on the R. no c/c. Psych Mental Status: mental status grossly normal Speech and Movement: speech and movement normal Mood: congruent mood Affect: normal affect DS: Data Vitals/I&O Vitals and I&O: Vital Signs Temperature 36.2 C L 03/28/21 08:30 Temperature Source Tympanic 03/28/21 08:30 Pulse 99 H 03/28/21 08:01 Pulse 67 03/28/21 08:01 Respiratory Rate 13 03/28/21 08:01 Respiratory Effort 03/28/21 08:30 Respiratory Depth Normal 03/28/21 08:30 Respiratory Pattern Normal 03/28/21 08:30 Blood Pressure 146/124 H 03/28/21 08:01 Blood Pressure Mean 128 03/28/21 08:01 Blood Pressure Position Supine 03/28/21 08:30 Pulse Oximetry 97 03/28/21 08:01 Oxygen Delivery Method Room Air 03/28/21 08:30 Oxygen Flow Rate 0 03/28/21 08:30 Pain Level 0 05/29/21 08:30 Intake & Output 03/27/21 03/28/21 03/28/21 23:59 11:59 23:59 Intake Total 1433.167 / 1443.167 Output Total 700 / 700 600 / 600 Balance 733.167 / 743.167 -600 / -600 Weight 81.647 kg 80.5 kg Intake: IV 1073.167 / 1083.167 Oral 360 / 360 Output: Urine 700 / 700 600 / 600 Other: Urine Color Light Steffi Yellow Urine Appearance Clear Clear Urine Odor Normal Normal Stool Size Small Stool Characteristics Soft Voiding Methods Bedside Commode Bedside Commode Data Completed and Pending Completed studies during hospitalization [Text1]: CT head: No evidence of acute intracranial process. CXR: The heart is not enlarged. The lungs are clear and well expanded. No pleural effusion seen. Mediastinal contours appear intact. Labs on day of discharge: Labs from last 24 hours 03/28/21 03/28/21 03/28/21 10:13 06:36 02:55 APTT 53.0 H 53.3 H D Sodium 144 Potassium 4.3 Chloride 109 H Carbon Dioxide 26.4 Anion Gap 8.6 BUN 17 D Creatinine 1.2 H Estimated GFR/1.73 m2 44.29 Glucose 116 H Calcium 9.1 Troponin I Triglycerides 129 Total Cholesterol 212 H LDL Cholesterol, Calc 127 H HDL Cholesterol 60 COVID-19 Source SARS-CoV-2 (PCR) 03/27/21 03/27/21 03/27/21 19:40 16:55 15:10 APTT 68.4 H D Sodium Potassium Chloride Carbon Dioxide Anion Gap BUN Creatinine Estimated GFR/1.73 m2 Glucose Calcium Troponin I 0.23 H* 0.23 H* Triglycerides Total Cholesterol LDL Cholesterol, Calc HDL Cholesterol COVID-19 Source SARS-CoV-2 (PCR) 03/27/21 03/27/21 13:05 13:05 APTT Sodium Potassium Chloride Carbon Dioxide Anion Gap BUN Creatinine Estimated GFR/1.73 m2 Glucose Calcium Troponin I 0.22 H* Triglycerides Total Cholesterol LDL Cholesterol, Calc HDL Cholesterol COVID-19 Source Nasal/nares SARS-CoV-2 (PCR) Negative [facility] Medical History (Updated 03/28/21 @ 13:02 by Ceilna Sandoval MD) Anemia Complete edentulism, unspecified upper CVA (cerebral vascular accident) (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 Essential hypertension (10/04/13) Essential tremor Family history of breast cancer gene mutation in first degree relative BRCA2 gene carrier Family history of colon cancer son Focal epilepsy Gastritis (09/29/02) per EGD Hyperlipidemia (04/09/13) Kidney stone Tubular adenoma of colon (~10/2018) Surgical History Abdominal hysterectomy and bladder suspension; endometriosis S/P colonoscopy (~11/07/18) Family History Mother , age 74 Stroke Sister Breast cancer BRCA-2 Ovarian cancer Father , age 69 Prostate cancer Sister No problems noted. Sister No problems noted. Brother , age 69 Stroke Brother , age 70+ Pancreatic cancer Brother No problems noted. Brother No problems noted. Brother No problems noted. Brother No problems noted. Brother No problems noted. Son Rectal cancer Son Stroke Daughter No problems noted. Daughter , 27 hours No problems noted. Paternal Grandfather Cancer Maternal Grandmother , age 70+ No problems noted. Paternal Grandmother No problems noted. 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 Pets and animals: No Sexually active: No Do you think of yourself as: straight/heterosexual Current gender identity: female What is your relationship status?: How often do you talk on the phone with friends or family?: three or more times per week How often do you attend jain or congregation services?: 4 or more times per year Do you belong to any clubs or organized social groups?: no Panel score (0-1 are the most socially isolated patients): 3 What type of physical activity do you participate in: walking Duration: 60-90 minutes/day Frequency: daily Minerva/Cheondoism: Yazidi Seatbelt use: always Helmet use: Yes Helmet use: always Drive intox or ride w/intox route delivery driver: No Do you feel safe in your relationship?: Yes Victim of physical abuse: No Victim of emotional abuse: No Victim of sexual abuse: No Would you like helpful sources: No
== END 2021-03-28 14:20 | disposition short-term general hospital (02) | DRG 281 ==
LOC: ER 13:01 → ICU 14:16
PROVIDERS: Internal Medicine; Admitting Provider Family Medicine; Emergency Provider Physician Assistant; PCP Family Medicine; Visit Provider Family Medicine
DX: I21.4 Non-ST elevation (NSTEMI) myocardial infarction (principal); G40.109 Localization-related (focal) (partial) symptomatic epilepsy and epileptic syndromes with simple partial seizures, not intractable, without status epilepticus; I10 Essential (primary) hypertension; E78.5 Hyperlipidemia, unspecified; H53.462 Homonymous bilateral field defects, left side; E78.00 Pure hypercholesterolemia, unspecified; D64.9 Anemia, unspecified; H81.10 Benign paroxysmal vertigo, unspecified ear; G25.0 Essential tremor; Z20.822 Contact with and (suspected) exposure to COVID-19; Z87.891 Personal history of nicotine dependence; Z87.442 Personal history of urinary calculi; Z86.010 Personal history of colon polyps
CPT/HCPCS: 36415; 80048; 80053; 80061; 87635; 93005; 70450; 71046; 83735; 83880; 84484; 85025; 85610; 85730; 93010; 99223; 99239; J2405

== ENCOUNTER 2021-04-24 08:42 | Outpatient (CLI) | payer MEDICARE, BC, SELFPAY ==
[2021-04-24 12:47] LABS: Anion Gap 5.1 mmol/L (3-11); BUN 17 mg/dL (7-18); CO2 28.9 mmol/L (21.0-32.0); CREATININE 1.1 mg/dL (0.55-1.02); Calcium 9.4 mg/dL (8.5-10.1); Chloride 108 mmol/L (98-107); Estimated GFR 48.96 (mL/min/1.73m2); Glucose 114 mg/dL (74-106); Potassium 4.3 mmol/L (3.5-5.1); Sodium 142 mmol/L (136-145)
== END 2021-04-24 08:43 | disposition home or self-care (01) ==
PROVIDERS: PCP Family Medicine; Referring Provider Internal Medicine; Visit Provider Orthopaedic Surgery
DX: I21.4 Non-ST elevation (NSTEMI) myocardial infarction (principal)
CPT/HCPCS: 36415; 80048

== ENCOUNTER 2021-10-13 02:59 | Outpatient (CLI) | payer MEDICARE, BC, SELFPAY ==
[2021-10-15 11:01] LABS: Lamotrigine 8.9 mcg/mL (2.5 - 15.0)
== END 2021-10-13 03:00 | disposition home or self-care (01) ==
LOC: LBO 02:59
PROVIDERS: PCP Family Medicine; Visit Provider Family Medicine
DX: G40.909 Epilepsy, unspecified, not intractable, without status epilepticus (principal); Z51.81 Encounter for therapeutic drug level monitoring
CPT/HCPCS: 36415; 80175

== ENCOUNTER 2021-11-13 08:20 | Outpatient (CLI) | payer MEDICARE, BC, SELFPAY ==
--- NOTE | 2021-11-13 08:15 | RT.EKG_ITS ---
APPROVED REPORT Exam: Resting ECG Reason for Exam: mi Patient Location: O HR:60 bpm ECG Measurements Heart Rate 60 AXIS NC 207 P 7 QRSd 78 QRS -3 QT 398 T 58 QTc 398 Conclusion Sinus rhythm...normal P axis, V-rate 50- 99 Abnormal R-wave progression, early transition...QRS area>0 in V2 Baseline wander in lead(s) I,III,aVL,V2,V4,V6 Borderline first-degree AV block
== END 2021-11-13 08:21 | disposition home or self-care (01) ==
LOC: DI.CARD 08:21
PROVIDERS: PCP Family Medicine; Visit Provider Internal Medicine Cardiovascular Disease
DX: I25.2 Old myocardial infarction (principal); R94.31 Abnormal electrocardiogram [ECG] [EKG]
CPT/HCPCS: 93010

== ENCOUNTER → 2021-11-13 09:27 | Outpatient (BNVA) | payer MEDICARE, BC, SELFPAY | PROVIDERS: PCP Family Medicine; Referring Provider Family Medicine; Visit Provider Internal Medicine Cardiovascular Disease | DX: I25.2 Old myocardial infarction (principal); I10 Essential (primary) hypertension; I25.10 Atherosclerotic heart disease of native coronary artery without angina pectoris | CPT/HCPCS: 93005; 99203; 99213 ==

== ENCOUNTER → 2022-01-04 11:33 | Outpatient (BNVA) | payer MEDICARE, BC, SELFPAY | PROVIDERS: PCP Family Medicine; Referring Provider Family Medicine; Visit Provider Psychiatry & Neurology Neurology | DX: G40.109 Localization-related (focal) (partial) symptomatic epilepsy and epileptic syndromes with simple partial seizures, not intractable, without status epilepticus (principal); G25.0 Essential tremor | CPT/HCPCS: 99213 ==

== ENCOUNTER 2022-04-07 10:59 | Outpatient (CLI) | payer MEDICARE, BC, SELFPAY ==
[2022-04-07 15:04] LABS: Anion Gap 10.4 mmol/L (3-11); BUN 15 mg/dL (7-18); CO2 25.6 mmol/L (21.0-32.0); CREATININE 1.3 mg/dL (0.55-1.02); Calcium 9.4 mg/dL (8.5-10.1); Calculated LDL 116 mg/dL (<100); Chloride 104 mmol/L (98-107); Cholesterol 211 mg/dL (<200); Estimated GFR 40.26 (mL/min/1.73m2); Glucose 115 mg/dL (74-106); HDL Cholesterol 59 mg/dL (40-60); Potassium 5.2 mmol/L (3.5-5.1); Sodium 140 mmol/L (136-145); Triglyceride 183 mg/dL (<150)
== END 2022-04-07 11:00 | disposition home or self-care (01) ==
LOC: LOS 10:59
PROVIDERS: PCP Family Medicine; Referring Provider Family Medicine; Visit Provider Family Medicine
DX: E87.1 Hypo-osmolality and hyponatremia (principal); E78.5 Hyperlipidemia, unspecified
CPT/HCPCS: 36415; 80048; 80061

== ENCOUNTER → 2022-05-11 09:24 | Outpatient (BNVA) | payer MEDICARE, BC, SELFPAY | PROVIDERS: PCP Family Medicine; Referring Provider Family Medicine; Visit Provider Internal Medicine Cardiovascular Disease | DX: I25.10 Atherosclerotic heart disease of native coronary artery without angina pectoris (principal); I10 Essential (primary) hypertension; E78.5 Hyperlipidemia, unspecified | CPT/HCPCS: 99214; 99213 ==

== ENCOUNTER 2022-07-16 12:07 | Outpatient (CLI) | payer MEDICARE, BC, SELFPAY ==
[2022-07-16 12:29] LABS: Potassium 4.2 mmol/L (3.5-5.1)
== END 2022-07-16 12:08 | disposition home or self-care (01) ==
LOC: LBO 12:12
PROVIDERS: PCP Family Medicine; Visit Provider Family Medicine
DX: I10 Essential (primary) hypertension (principal)
CPT/HCPCS: 36415; 84132

== ENCOUNTER 2022-09-14 03:28 | Outpatient (CLI) | payer MEDICARE, BC, SELFPAY ==
[2022-09-14 09:15] LABS: ALT 26 U/L (14-59); AST 21 U/L (15-37); Albumin 3.8 g/dL (3.4-5.0); Alkaline Phosphatase 85 U/L (46-116); Bilirubin, Direct 0.2 mg/dL (0.0-0.2); Bilirubin, Total 0.5 mg/dL (0.2-1.0); Total Protein 7.4 g/dL (6.4-8.2)
== END 2022-09-14 03:29 | disposition home or self-care (01) ==
LOC: LBO 03:28
PROVIDERS: PCP Family Medicine; Visit Provider Family Medicine
DX: G72.89 Other specified myopathies (principal)
CPT/HCPCS: 36415; 80076

== ENCOUNTER 2022-10-13 10:02 | Outpatient (CLI) | payer MEDICARE, BC, SELFPAY ==
[2022-10-13 12:35] LABS: Calculated LDL 96 mg/dL (<100); Cholesterol 200 mg/dL (<200); HDL Cholesterol 60 mg/dL (40-60); Triglyceride 221 mg/dL (<150)
[2022-10-14 09:35] LABS: Lyme Ab w Rflx to Lyme Confirm Negative (Negative)
== END 2022-10-13 10:03 | disposition home or self-care (01) ==
LOC: LOS 10:02
PROVIDERS: PCP Family Medicine; Visit Provider Family Medicine
DX: E78.5 Hyperlipidemia, unspecified (principal); R53.83 Other fatigue
CPT/HCPCS: 36415; 80061; 86618

== ENCOUNTER → 2023-01-05 11:07 | Outpatient (BNVA) | payer MEDICARE, BC, SELFPAY | PROVIDERS: PCP Family Medicine; Visit Provider Psychiatry & Neurology Neurology | DX: I69.398 Other sequelae of cerebral infarction (principal); I10 Essential (primary) hypertension; G43.109 Migraine with aura, not intractable, without status migrainosus; G25.0 Essential tremor | CPT/HCPCS: 99214 ==

== ENCOUNTER 2023-05-13 08:15 | Outpatient (CLI) | payer MEDICARE, BC, SELFPAY | END 2023-05-13 08:16 | disposition home or self-care (01) | LOC: DI.CARD 08:16 | PROVIDERS: PCP Family Medicine; Visit Provider Internal Medicine Cardiovascular Disease | DX: I25.10 Atherosclerotic heart disease of native coronary artery without angina pectoris (principal) | CPT/HCPCS: 93010 ==

== ENCOUNTER → 2023-05-13 10:03 | Outpatient (BNVA) | payer MEDICARE, BC, SELFPAY | PROVIDERS: PCP Family Medicine; Visit Provider Internal Medicine Cardiovascular Disease | DX: I25.10 Atherosclerotic heart disease of native coronary artery without angina pectoris (principal); I10 Essential (primary) hypertension; E78.5 Hyperlipidemia, unspecified | CPT/HCPCS: 99214 ==

== ENCOUNTER 2023-11-03 04:08 | Outpatient (CLI) | payer MEDICARE, BC, SELFPAY ==
[2023-11-03 13:31] LABS: Calculated LDL 106 mg/dL (<100); Cholesterol 204 mg/dL (<200); HDL Cholesterol 64 mg/dL (40-60); Triglyceride 173 mg/dL (<150)
[2023-11-03 14:01] LABS: Lab Add On Test DONE
[2023-11-03 14:07] LABS: CREATININE 1.5 mg/dL (0.55-1.02); Estimated GFR 36.34 (mL/min/1.73m2); Potassium 4.2 mmol/L (3.5-5.1)
[2023-11-05 12:43] LABS: Lamotrigine 8.2 mcg/mL (3.0-15.0)
== END 2023-11-03 04:09 | disposition home or self-care (01) ==
LOC: LOS 04:08
PROVIDERS: PCP Family Medicine; Visit Provider Family Medicine
DX: E11.51 Type 2 diabetes mellitus with diabetic peripheral angiopathy without gangrene (principal); I70.209 Unspecified atherosclerosis of native arteries of extremities, unspecified extremity; G40.909 Epilepsy, unspecified, not intractable, without status epilepticus; E78.5 Hyperlipidemia, unspecified; I10 Essential (primary) hypertension
CPT/HCPCS: 36415; 80061; 80175; 82565; 83036; 84132

== ENCOUNTER → 2024-01-18 10:47 | Outpatient (BNVA) | payer MEDICARE, BC, SELFPAY | PROVIDERS: PCP Family Medicine; Referring Provider Family Medicine; Visit Provider Psychiatry & Neurology Neurology | DX: G40.109 Localization-related (focal) (partial) symptomatic epilepsy and epileptic syndromes with simple partial seizures, not intractable, without status epilepticus (principal); G25.0 Essential tremor | CPT/HCPCS: 99214 ==

== ENCOUNTER 2024-04-12 13:01 | Outpatient (CLI) | payer MEDICARE, BC, SELFPAY ==
--- NOTE | 2024-04-12 13:00 | RT.EKG_ITS ---
APPROVED REPORT Exam: Resting ECG Reason for Exam: CAD Patient Location: O HR:66 bpm ECG Measurements Heart Rate 66 AXIS MT 205 P 11 QRSd 75 QRS -16 QT 386 T 42 QTc 405 Conclusion Sinus rhythm...normal P axis, V-rate 50- 99 Normal Electrocardiogram
== END 2024-04-12 13:02 | disposition home or self-care (01) ==
LOC: DI.CARD 13:02
PROVIDERS: PCP Family Medicine; Visit Provider Internal Medicine Cardiovascular Disease
DX: I25.10 Atherosclerotic heart disease of native coronary artery without angina pectoris (principal)
CPT/HCPCS: 93010

== ENCOUNTER → 2024-04-12 13:14 | Outpatient (BNVA) | payer MEDICARE, BC, SELFPAY | PROVIDERS: PCP Family Medicine; Visit Provider Internal Medicine Cardiovascular Disease | DX: I25.10 Atherosclerotic heart disease of native coronary artery without angina pectoris (principal); I10 Essential (primary) hypertension; E78.5 Hyperlipidemia, unspecified | CPT/HCPCS: 93005; 99213 ==

== ENCOUNTER 2024-05-25 09:40 | Day surgery (SDC) | payer MEDICARE, BC, SELFPAY ==
[2024-05-25 10:38] VITALS: BP 171/82; PULSE 58; RESP 16; TEMP 36.5; O2SAT 98
[2024-05-25] MEDS: Tropicam./Phenyleph. (1/2.5%) 5 ML BTL OD ×3 (10:48→11:00)
--- NOTE | 2024-05-25 11:23 | ANES.PREOP_ITS ---
General Info Date of Service Date Performed: 05/25/24 Height: 5 ft 4.75 in Weight: 81.5 kg Body Mass Index (BMI): 30.1 Surgical Procedure: Operation Date: 05/25/24 12:40 Proposed Procedure Side Surgeon p Cataract Extraction with IOL Implant Right Pete Fernando MD Meds Allergies and Home Medications Allergies Allergy/AdvReac Type Severity Reaction Status Date / Time amoxicillin Allergy Intermediate Other (See Verified 05/25/24 10:27 Comment) latex Allergy Other (See Verified 05/25/24 10:27 Comment) atorvastatin AdvReac Unknown ELEVATED Verified 05/25/24 10:27 LFT'S Home Medication ?Medication ?Instructions ?Recorded Gelatin 1 ea PO DAILY 04/04/13 aspirin 81 mg tablet,delayed 81 mg PO DAILY 04/04/13 release (Aspir-) nitroglycerin 0.4 mg sublingual 0.4 mg sublingual Q5M PRN 04/03/21 tablet lisinopril 20 mg tablet 20 mg PO DAILY #90 tabs 04/20/23 rosuvastatin 40 mg tablet 40 mg PO DAILY #90 tabs 06/15/23 lamotrigine 200 mg tablet 200 mg PO DAILY #90 tab-caps 10/18/23 (Lamictal) lamotrigine 25 mg tablet (Lamictal) 50 mg (2 x 25 mg) PO DAILY #180 10/18/23 tab-caps metoprolol succinate 25 mg 25 mg PO DAILY #90 tabs 10/18/23 tablet,extended release 24 hr (Toprol XL) vitamins A,C,X-srkh-hvfrlw 4,296 1 cap PO DAILY 01/18/24 mcg-226 mg-90 mg capsule (PreserVision AREDS) ibuprofen 200 mg capsule 200 mg PO ONCE 05/25/24 Current Visit Medications: Current Medications Generic Name Dose Route Start Last Admin Trade Name Freq PRN Reason Stop Dose Admin Acetaminophen 1,000 mg 05/25/24 06:00 Acetaminophen 500 Mg Tab PO 06/24/24 05:59 Q4H PRN PRN Balanced Salt Solution 500 ml 05/25/24 06:00 Balanced Salt Soln.-Plus 500 Ml Bag OP 06/24/24 05:59 DIRECTED AUN Miscellaneous Medication 0 ml 05/25/24 06:00 Prednisolone 1%, Moxifloxacin 0.5%, Bromfenac 0.09% 5ml Btl OD 06/24/24 05:59 DIRECTED [facility] Miscellaneous Medication 0 ml 05/25/24 06:00 05/25/24 11:00 Tropicam./Phenyleph. (1/2.5%) 5 Ml Btl OD 06/24/24 05:59 1 drp DIRECTED ANU Administration Tetracaine HCl 0 ml 05/25/24 06:00 Tetracaine 0.5% 4 Ml Btl OD 06/24/24 05:59 DIRECTED [facility] PFSH Active Problems Active Problems: Problem Status Onset Code Cortical age-related cataract, right eye Acute H25.011 Nuclear age-related cataract, right eye Acute H25.11 Prediabetes Acute R73.03 Sciatica Acute M54.30 Cold sore Acute B00.1 Skin lesion Acute L98.9 Fatigue Acute R53.83 Low back pain Acute M54.50 Coronary artery disease Chronic I25.10 Gait disturbance Acute R26.9 NSTEMI (non-ST elevated myocardial infarction) Acute I21.4 Vertigo Acute R42 Vomiting Acute R11.10 NSTEMI (non-ST elevated myocardial infarction) Acute I21.4 Essential tremor Acute G25.0 Anemia Acute D64.9 Complete edentulism, unspecified Acute K08.109 CVA (cerebral vascular accident) Acute 10/08/13 I63.9 Essential hypertension Chronic 10/04/13 I10 Gastritis Acute 09/29/02 K29.70 Hyperlipidemia Chronic 04/09/13 E78.5 Kidney stone Acute N20.0 Family history of colon cancer Acute Z80.0 Tubular adenoma of colon Acute ~10/2018 D12.6 Focal epilepsy Chronic G40.109 Family history of breast cancer gene mutation in first degree relative Acute Z84.81 S/P colonoscopy Acute ~11/07/18 Z98.890 Seizure disorder Chronic 04/05/16 G40.909 Surgical History Surgical History Hx of bladder repair surgery Abdominal hysterectomy and bladder suspension; endometriosis Tobacco Smoking/Tobacco Use Status: Former Tobacco Use Passive smoking exposure: Yes Second hand exposure: Yes Alcohol Alcohol Intake: current Alcohol intake frequency: holidays/special occasions only Alcohol type: beer and wine Substance Use Substance use: Never Substance use type: does not use Details: alcohol: a week ago Vital Signs and Lab Results Vital Signs Most Recent Vital Signs in EMR: Most Recent Vital Signs Temp Pulse Resp BP Pulse Ox 36.5 C 58 L 16 171/82 H 98 05/25/24 10:38 05/25/24 10:38 05/25/24 10:38 05/25/24 10:38 05/25/24 10:38 Lab Results Blood Type / Crossmatch: No Data to Display Complete Blood Count: No Data to Display Complete Metabolic Panel: Hemoglobin A1c 6.4 % (4.5-5.7) H 04/26/24 09:20 Liver Function Panel: No Data to Display Coagulation Panel: No Data to Display Cardiac Panel: No Data to Display Arterial Blood Gas: No Data to Display Venous Blood Gas: No Data to Display Pancreas Panel: No Data to Display Thyroid Panel: No Data to Display Infectious Disease: No Data to Display Blood Cultures: No Data to Display Toxicology Panel: No Data to Display Anesthesia Assessment and Plan Anesthesia History Personal History: No History of Anesthesia Complications Family History: No Family History of Anesthesia Complications Exercise Tolerance Exercise Tolerance: Metabolic Equivalents>4 Pertinent Negatives Pertinent Negatives: No Symptoms of GERD and No Major Pulmonary Symptoms or Complaints Cardiac & Pulmonary Exam Cardiac Exam: Normal S1/S2 Heart Sounds Pulmonary Exam: Clear Bilateral Breath Sounds Implantable Cardiac Device Does patient have a Pacemaker or an ICD?: No Airway Exam Known Difficult Airway: No Mallampati Class: 2 Mouth Opening: Normal (> 3cm) Thyromental Distance: Greater than 3 cm Neck Range of Motion: Full ROM Neck Circumference: Normal Teeth Condition: Normal Dentition ASA Classification ASA Score: ASA 3 Emergency Case?: No NPO Status NPO Status: NPO Clears >2 hours, Solids >8 hours Anesthesia Plan Resuscitation Status: Full Code Anesthesia Technique: MAC Anesthesia Airway Planned: Natural Airway Monitors Used: Standard Monitors Preoperative Comments:: 2 stents for previous IN
[2024-05-25 11:29] VITALS: BMI 30.1
[2024-05-25] MEDS: Tetracaine 0.5% 4 ML BTL OD (12:25)
[2024-05-25] MEDS: Povidone-Iodine Ophth 30 ML BTL (12:26)
[2024-05-25] MEDS: Duovisc Viscoelastic System EACH 1 EACH (12:31)
[2024-05-25] MEDS: Balanced Salt Soln.-PLUS 500 ML BAG OP (12:32)
[2024-05-25] MEDS: Lidocaine 1% Pres-Free 5 ML VIAL (12:32)
--- NOTE | 2024-05-25 12:51 | W.PM.DSUDISC ---
Date of service: 05/25/24 Time of Service: 12:51 Discharge Plan Disposition Patient Disposition: Home Discharge Details Attending Provider: Pete Fernando Primary Care Provider: Edin Conner Home Meds and New Rx's Prescriptions: No Action PreserVision AREDS 4,296 mcg-226 mg-90 mg capsule 1 cap PO DAILY nitroglycerin 0.4 mg tablet, sublingual 0.4 mg sublingual Q5M PRN Rx Instructions: do not exceed 3 doses per episode lamotrigine [Lamictal] 200 mg tablet 200 mg PO DAILY Qty: 90 3RF lamotrigine [Lamictal] 25 mg tablet 50 mg PO DAILY Qty: 180 3RF Rx Instructions: In addition to 200mg tab. Total daily dose = 250mg daily. metoprolol succinate [Toprol XL] 25 mg tablet extended release 24 hr 25 mg PO DAILY Qty: 90 3RF aspirin [Aspir-81] 81 MG tablet,delayed release (DR/EC) 81 mg PO DAILY GELATIN 1 EACH tablet 1 ea PO DAILY lisinopril 20 mg tablet 20 mg PO DAILY Qty: 90 3RF rosuvastatin 40 mg tablet 40 mg PO DAILY Qty: 90 3RF ibuprofen 200 mg capsule 200 mg PO ONCE Discharge Instructions Stand Alone Forms: DSU Post-Op CataractJose (DSU) Discharge Orders Discharge Orders: Discharge Order (Routine); Ordered 05/25/24 Ordered By: Pete Fernando DS: Diagnosis Discharge Diagnosis (1) Cortical age-related cataract, right eye: Status: Resolved (2) Nuclear age-related cataract, right eye: Status: Resolved (3) Posterior subcapsular age-related cataract, right eye: Status: Resolved
[2024-05-25 12:52] VITALS: BP 158/70; PULSE 53; RESP 16; TEMP 36.3; O2SAT 100
--- NOTE | 2024-05-25 12:52 | ROE_ITS ---
Date of service: 05/25/24 Time of Service: 12:52 Operative Note Operative Note DATE OF PROCEDURE: 05/25/24 PRE-OP DIAGNOSIS: Nuclear/cortical/posterior subcapsular cataract, right eye POST-OP DIAGNOSIS: same PROCEDURE: Cataract extraction using phacoemulsification with intraocular lens implant, right eye SURGEON: Pete Fernando ANESTHESIA TYPE: Local By Surgeon and MAC Refer to Anesthesia Record ESTIMATED BLOOD LOSS: 0 PATHOLOGY: none sent COMPLICATIONS: None Patient was transported to: same day Patient's condition: stable Implants: Braden Clareon [id number] Indications: Progressive decreased vision due to cataract, right eye Procedure Description: CATARACT SURGERY OPERATIVE REPORT PREOPERATIVE DIAGNOSIS: Nuclear/cortical/posterior subcapsular cataract, right eye POSTOPERATIVE DIAGNOSIS: Same OPERATION: Cataract extraction using phacoemulsification with posterior chamber intraocular lens implant, right eye. IOL: IOL Aircraft Landing Gear Inspector/Model: Braden Clareon [id number] IOL Power: + 19.5 diopters IOL Serial Number: [id number] Optic Diameter: 6.0mm Haptic/Overall Diameter: 13.0mm PHACO INFO: Braden Atigeourion Vision System with OZil and Active Fluidics Cumulative Dispersed Energy (CDE): 14.51 seconds SURGEON: Pete Fernando MD, SHIRA ANESTHESIA: Monitored Anesthesia Care (MAC), with local sub-tenon's anesthetic infiltration COMPLICATIONS: None SPECIMENS: None INDICATIONS FOR PROCEDURE: The patient is a 73-year-old lady with history of diminished visual acuity in her right eye secondary to the development of nuclear/cortical/posterior subcapsular cataract. She is significantly symptomatic that she desires c ataract surgery and attempt to improve and maximize her vision. The option of surgery was offered to the patient and she wished to proceed. See office notes for detailed information. PROCEDURE: The correct surgical eye was identified and marked as the right eye and the pupil was dilated in the preoperative area using mydriatics and cycloplegics. The dilated pupil size was 7.0 mm. The patient elected to proceed without oral sedation. The patient was brought to the operating room where cardiopulmonary monitoring was instituted and surgical time-out was performed, confirming the correct operative eye and IOL power. Topical anesthesia was administered and ophthalmic povidone-iodine 5% was instilled into the conjunctival fornices. The alexis-ocular area was prepped with Betadine 10% solution and draped in the usual sterile fashion for intraocular surgery, including an aperture drape. A Tegaderm transparent film dressing was cut in half and used to cover the lashes and lid margins. Care was taken to sequester the lashes and lid margins under the Tegaderm dressing. A lid speculum was placed between the lids of the operative eye and the Braden LuxOR Revalia operating microscope was maneuvered into position. Vj scissors were then used to make a conjunctival buttonhole approximately 6mm posterior to the limbus in the inferonasal quadrant. Blunt dissection was carried out to expose bare sclera, and a blunt-tipped sub-tenon?s anesthesia cannula was introduced and passed posteriorly along the globe where non- preserved plain lidocaine was injected into posterior sub-Tenon?s space. A sideport knife was used to make a paracentesis port. Intraocular phenylephrine/lidocaine was injected into the anterior chamber. The anterior chamber was then filled with viscoelastic. A keratome knife was used to construct a two--plane clear corneal tunnel extending 2.0mm into clear cornea. A flap was raised on the anterior capsule and capsulorhexis forceps were used to complete a continuous curvilinear capsulorhexis of 5.0 mm. Balanced salt solution was then used to perform cortical cleaving hydrodissection and nuclear hydrodelineation until the lens could be freely rotated within the capsular bag. The lens nucleus was then disassembled and removed within the capsular bag and iris plane using phacoemulsification. Residual cortical material was removed using the I/A handpiece. The posterior capsule was carefully polished to remove as much residual lens epithelial cells as safely possible. The capsular bag was then inflated and the anterior chamber deepened with cohesive viscoelastic. The lens implant described above was inserted into the capsular bag using the Braden Autonome Injector. A Kuglen hook was used to dial the IOL into position. Residual viscoelastic was then removed first from posterior to the IOL, then from the anterior chamber using the I/A handpiece. The lens implant was noted to center nicely within the capsular bag. The incisions were stromally hydrated, and the anterior chamber was reformed using BSS. Then 0.5cc of moxifloxacin 1.0mg/ml were injected into the capsular bag and anterior chamber. The incisions were checked with a Weck spear and found to be secure. Several drops of ophthalmic povidone-iodine 5% were then applied to the eye followed by two drops of combination steroid/NSAID/antibiotic solution. The drapes were removed and a clear plastic protective eye shield was placed over the eye. The patient was then returned to Same Day Surgery in stable condition.
--- NOTE | 2024-05-25 13:15 | W.ANESPOSTOP ---
Postoperative Evaluation Date, Time and Location Date Performed: 05/25/24 Time Performed: 13:05 Patient Location: Day Surgery Unit Vital Signs Most Recent Imported Vital Signs: Most Recent Vital Signs Temp Pulse Resp BP Pulse Ox 36.3 C L 53 L 16 158/70 H 100 05/25/24 12:52 05/25/24 12:52 05/25/24 12:52 05/25/24 12:52 05/25/24 12:52 Pain Score Most Recent Pain Score: Most Recent Pain Score Pain Level 0 05/25/24 12:52 Assessment Mental Status: Awake (Alert & Oriented to Patient Baseline) Airway and Respiratory Function: Patent airway with normal (patient baseline) respiratory exam Cardiovascular Function: Hemodynamically Stable Hydration Status: Adequately Hydrated Nausea & Vomiting: No Nausea or Vomiting Pain: Pt. Denies Any Pain Peripheral Nerve Block: Patient did not receive a nerve block
== END 2024-05-25 13:25 | disposition home or self-care (01) ==
PROVIDERS: PCP Family Medicine; Visit Provider Ophthalmology
PROC: (CPT 66984; principal; 2024-05-25 12:30)
DX: H25.011 Cortical age-related cataract, right eye (principal); H25.11 Age-related nuclear cataract, right eye; H25.041 Posterior subcapsular polar age-related cataract, right eye
CPT/HCPCS: 66984; 00123; V2632; J2003

== ENCOUNTER 2024-09-14 00:22 | Outpatient (CLI) | payer MEDICARE, BC, SELFPAY ==
--- OUTSIDE RECORDS SUMMARY | 2024-09-14 00:24 | XMS_ITS | Encounter Summary ---
[place] [address] Care Team Providers Care Crystalizer Tender Name Role Phone Edin Conner MD Primary Care Provider [phone] Reason for Referral * Consultation (Routine) - Closed Specialty Diagnoses / Procedures Referred By Contact Referred To Contact Cardiac Rehabilitation Diagnoses S/P coronary artery stent placement Kevon Vega MD [facility] [place] [address] Cardiac Rehab, [address] [place] [address] Referral ID Status Reason Start Date Expiration Date V isits Requested Visits Authorized [id number] Closed Consult, Test & Treat 04/06/2021 10/03/2021 36 36 Encounter Details Date Type Department Care Team (Late st Contact Info) Description 04/06/2021 Orders [place] [address] Sirisha Gifford RN S/p bare metal coronary artery stent; S/P coronary artery stent placement Social History Tobacco Use Types Packs/Day Years Used Date Smoking Tobacco: Former Cigarettes Q uit: 07/23/2006 Smokeless Tobacco: Never Comments:social smoker for 1 0 years, about 3 cigarettes a week Alcohol Use Standard Drinks/Week Comments Yes 0 (1 standard drink = 0.6 oz pur e alcohol) 1 drink every other week Sex and Gender Information Value Date Recorded Sex Assigned at Not on file Gender Identity Not on file Sexual Orientation Not on file documented as of this encounter Progress Notes * Sirisha Gifford RN - 04/06/2021 12:18 PM EDT Cardiac rehab referral sent to [facility] per patient request. documented in this encounter Plan of Treatment Scheduled Referrals Name Type Priority Associated Diagnoses Orde r Schedule Referral to Cardiac Rehab Outpatient Referral Routine S/P coronary artery stent placement Ordered: 04/06/2021 documented as of this encounter Visit Diagnoses Diagnosis S/p bare metal coronary artery stent S/P coronary artery stent placement Postsurgical percutaneous transluminal coronary angioplasty status documented in this encounter Care Teams Crystalizer Tender Relationship Specialty Start Date End Date Edin Conner MD [address] [place] [address] PCP - General Family Medicine 02/28/21 documented as of this encounter
--- OUTSIDE RECORDS SUMMARY | 2024-09-14 00:24 | XMS_ITS | Encounter Summary ---
Author Organization [facility] Address [address] [place] [address] Care Team Providers Care Doughmaker Name Role Phone Teofilo Aguila MD Primary Care Provider [phone] Encounter Details Date Type Department Care Team (Late st Contact Info) Description 10/13/2022 Lab Requisition [facility] Pathology & Laboratory Medicine - [facility] [address], [place] [id number] Outr Resulting Lab, Provider Social History Tobacco Use Types Packs/Day Years Used Date Smoking Tobacco: Never Assessed Interpersonal Safety Answer Date Record ed Physically Hurt Never 06/01/2020 Verbally Threaten Not on file 06/01/2020 Comments Unknown Sex and Gender Information Value Date Recorded Sex Assigned at Not on file Legal Sex Female 18:23 EST Gender Identity Not on file Sexual Orientation Not on file documented as of this encounter Plan of Treatment Not on file documented as of this encounter Procedures Procedure Name Priority Date/Time Associated Diagnosis Comments LYME AB Routine 10/13/2022 10:46 EST documented in this encounter Results * LYME AB (10/13/2022 10:46 EST) Lyme Ab Negative Negative 10/14/2022 9:30 EST [facility] Blood VENOUS BLOOD / Unknown 10/13/2022 10:46 EST 10/13/2022 21:42 EST us Provider Outr Resulting Lab IMMUNOLOGY AND SEROL OGY ORDERABLES Final Result [facility] [address] [place] [address] documented in this encounter Visit Diagnoses Not on filedocumented in this encounter Care Teams Doughmaker Relationship Specialty Start Date End Date Teofilo Aguila MD PCP - General 07/10/15 documented as of this encounter
--- OUTSIDE RECORDS SUMMARY | 2024-09-14 00:24 | XMS_ITS | Encounter Summary ---
Author Organization [facility] [place] [address] Care Team Providers Care Cleaning Professional Name Role Phone Edin Conner MD Primary Care Provider [phone] Encounter Details Date Type Department Care Team (Latest Contact Info) Description 01/13/2023 Travel Social History Tobacco Use Types Packs/Day Years [...] on file documented as of this encounter Visit Diagnoses Not on filedocumented in this encounter Care Teams Cleaning Professional Relationship Specialty Start Date End Date Edin Conner MD [address] [place], [place] [id number] PCP - General Family Medicine 02/28/21 documented as of this encounter
--- OUTSIDE RECORDS SUMMARY | 2024-09-14 00:24 | XMS_ITS | Encounter Summary ---
Author Organization [facility] [address] Care Team Providers Care Human Resources Hr Generalist Name Role Phone Edin Conner MD Primary Care Provider [phone] Encounter Details Date Type Department Care Team (Latest Contact Info) Description 12/31/2022 8:39 PM EST - 12/31/2022 11:59 PM EST Hospital [place] [id number] Discharge Disposition: Home Social History Tobacco Use Types Packs/Day Years [...] on file documented as of this encounter Medications at Time of Discharge Medication Sig Dispensed Refills Start Date End Date lisinopriL (Zestril) 10 mg Tablet Take 10 mg by mouth daily. 11/14/2022 rosuvastatin (Crestor) 40 mg Tablet Take 40 mg by mouth daily. 12/11/2022 aspirin EC 81 mg Tablet, Delayed Release (E.C.) Take 81 mg by mouth daily. 04/04/2013 lamoTRIgine (LaMICtal) 25 mg Tablet Take 50 mg by mouth daily. 01/22/2021 lamoTRIgine (LaMICtal) 200 mg Tablet Take 200 mg by mouth daily. 01/10/2021 metoprolol succinate XL (Toprol-XL) 25 mg Tablet Sustained Release 24 hr Take 1 tablet by mouth daily. 30 tablet 12 03/30/2021 nitroGLYcerin (Nitrostat) 0.4 mg Tablet, Sublingual Place 1 tablet under the tongue every 5 minutes as needed for Chest pain. 90 tablet 12 03/30/2021 documented as of this encounter Plan of Treatment Not on file documented as of this encounter Procedures Procedure Name Priority Date/Time Associated Diagnosis Comments SURGICAL PATHOLOGY REPORT Routine 12/31/2022 11:20 AM EST documented in this encounter Results * Surgical Pathology Report (12/31/2022 11:20 AM EST) Final Diagnosis [id number] ? Location: [facility] The signing pathologist has (i) examined the relevant preparation(s) for the specimen(s) and (ii) rendered or confirmed the diagnosis(es). . ?Surgical Pathology DIAGNOSIS Right breast, skin punch biopsy: - Superficial dermal pigment incontinence and sparse superficial perivascular lymphocytic infiltrate (see discussion) Electronically signed by: ?Janis NAVAS, PhD, Frandy Salvador Verified: ??01/18/2023 11:31 ??Dermatopathologist, Bone & Soft Tissue Pathologist Performed at: ??-[facility] [place], [place] [address] Squadron Worker: Ainsley Bowers MD, FCAP, ??CLIA Certificate: [id number] DISCUSSION The histopathologic findings are non-specific. There is prominent pigment incontinence in the dermis likely leading to the clinical appearance of a pigmented lesion. The histologic and immunohistochemical sections do not show a melanocytic proliferation. The differential diagnosis includes a resolving inflammatory process leading to post-inflammatory hyperpigmentation. The etiology of the inciting inflammatory process is not identified in the biopsy. Clinical correlation is recommended. ADDITIONAL STUDIES No fungi are seen in PAS-reacted sections. Immunohistochemistry Studies: Formalin-fixed, paraffin-embedded tissue sections are studied using the polymer technique with appropriate positive and negative controls. ?These IHC studies provide the pathologist with adjunctive diagnostic information. Antibody specificity has been verified by testing antibodies on a series of in-house tissues with known immunohistochemical performance characteristics. The clinical interpretation of any antibody positive staining or its absence is evaluated within the context of clinical presentation, morphology, histopathological criteria and other diagnostic tests. Block ? Antibody ?Result (Positive/Negative) A1 ? [id number] ?No increase in melanocytes SPECIMEN(S) SUBMITTED A - R breast, 4 mm punch Referring Identifier: ?(not provided) CLINICAL INFORMATION 2 cm pigmented patch; favor lentigo, seborrheic keratosis SPECIMEN PROCESSING A - Labeled/Fixative: Patient demographics, formalin. Quantity/Size: ??Single, 0.5 cm excised to a depth of 0.3 cm. Tissue Description: Punch of coleman skin. Sections/Processing: Bisected and entirely submitted in 1 cassette labeled A1. ??sdy 01/18/2023 11:31 AM EDT [facility] SPECIMEN FROM SKIN / Unknown 12/31/2022 11:20 AM EST 12/31/2022 11:20 AM EST Josué Hernandez MD PATHOLOGY/CYTOLOGY [facility] [place] [id number] [facility] [place] [address] documented in this encounter Visit Diagnoses Not on filedocumented in this encounter Care Teams Human Resources Hr Generalist Relationship Specialty Start Date End Date Edin Conner MD [address] [place] [address] PCP - General Family Medicine 02/28/21 documented as of this encounter
--- OUTSIDE RECORDS SUMMARY | 2024-09-14 00:24 | XMS_ITS | Encounter Summary ---
[place] [address] Care Team Providers Care Marine Firer Name Role Phone Edin Conner MD Primary Care Provider [phone] Reason for Visit * Auth/Cert Specialty Diagnoses / Procedures Referred By Charisma vergara Referred To Contact Diagnoses NSTEMI, initial episode of care NSTEMI Procedures PRO PERC TRLUML CORONRY TOT OCCLUS REVASC MO ONE VESSEL Referral ID Status Reason Start Date Expiration Date Visits Re quested Visits Authorized [id number] 1 1 Encounter Details Date Type Department Care Team (Late st Contact Info) Description 03/29/2021 11:55 AM EDT - 03/29/2021 1:29 PM EDT Surgery [place] [address] Tl Johnston MD [facility] [address] CARDIAC CATHETERIZATION Social History Tobacco Use Types Packs/Day Years [...] on file documented as of this encounter Last Filed Vital Signs Vital Sign Reading Time Taken Comments Blood Pressure 149/81 03/29/2021 1:20 PM EDT Pulse 64 03/29/2021 1:20 PM EDT Temperature 36.7 ??C (98.1 ??F) 03/29/2021 11:51 AM E DT Respiratory Rate 9 03/29/2021 1:05 PM EDT Oxygen Saturation 95% 03/29/2021 1:20 PM EDT Inhaled Oxygen Concentration - - Weight 79.9 kg (176 lb 2.4 oz) 03/29/2021 4:00 A M EDT Height 162.6 cm (5' 4) 03/28/2021 6:28 PM EDT Body Mass Index 30.31 03/28/2021 6:28 PM EDT documented in this encounter Discharge Summaries * Taran Kim MD - 03/30/2021 10:37 AM EDT Inpatient - Discharge Summary Patient Name: Deysi Strange Patient Age: 70 y.o. Birthdate: 1950 Admit date: 03/28/2021 Discharge date and time: 03/30/21, 10am Attending Physician: Clair att. providers found Follow-up Recommendations for Providers: - FYI Patient was admitted with NSTEMI. Had PCI to pLAD and mRCA. Discharged on guideline directed medical therapy (see below for list of new meds). Please ensure patient is taking her medications asdirected. - Please ensure patient is on appropriate dose of lisinopril. Patient was confused about her dose though confirmed that it was 20 mg daily. She was normotensive on the morning of discharge soshe was advised to continue on lisinopril 10 mg daily and follow up with her PCP. Discharge Diagnoses (Hospital Problems) and Secondary Diagnoses (Chronic Problems): Active Hospital Problems Diagnosis ??? NSTEMI (non-ST elevated myocardial infarction) Resolved Hospital Problems No resolved problems to display. There are no active non-hospital problems to display for this patient. Operations/Major Procedures: Operations: Procedure(s): CARDIAC CATHETERIZATION Procedures: * Coronary Angiography * Left Heart Catheterization * Coronary Stent Insertion History DEYSI STRANGE is a 70 year old woman. The patient's smoking status is Former. The patient has hypercholesterolemia. She has diabetes managed with oral medication. The patient is also status post a recent non-ST elevation myocardial infarction. Prior to the initiation of this procedure, the patient was designated as ASA Class III. The [facility] clinical frailty scale is 3: Managing Well. Diagnostic Tests: Medications Prior to Procedure: Aspirin, Beta Alicia and Statin. Indications for Diagnostic Cath: The priority of the diagnostic procedure was Urgent. The indication for the slabber visit is ACS less than or equal to 24 hrs. Chest pain symptom assessment was: Typical Angina. Technique: A 6 SLFr sheath was inserted in the right radial artery utilizing the Seldinger technique. The left coronary artery was injected utilizing a 5Fr SONIA RADIAL catheter. A 5Fr SONIA RADIAL catheter was used to inject the right coronary artery. Left ventricular pressure was performed with a 5Fr SONIA RADIAL catheter. Coronary stent insertion was performed and the equipment utilized will be described in the intervention summary section. 7,000 units of heparin were administered. A total of 200cc of Omnipaque were opened, 130cc of Omnipaque were administered and 70cc of Omnipaque were wasted. Radiation: Fluoro time was 14.8 minutes, dose area product was 58,600 mGYcm2 and air kerma was 773 mGY. See the case log for additional details. The patient received the following medications prior to and during the procedure: Unfractionated Heparin and Clopidogrel. Hemodynamics: Left Heart Pressures Resting: Syst Diast EDP a v m Ao 131 59 86 LV 126 20 Comments: Ao Opening- 108/54(76). Coronary Angiography: Dominance: Right Left Main There was mild diffuse (<=25% stenosis) disease of the entire vessel segment of the left main artery. Left Anterior Descending There was mild diffuse (<=25% stenosis) disease of the entire vessel segment of the left anterior descending artery (LAD). The proximal segment of the LAD had a hazy single discrete 90% stenosis. Very tortuous LAD. Left Circumflex There was mild diffuse (<=25% stenosis) disease of the entire vessel segment of the left circumflex artery (LCX). Very tortuos Lcx. Right Coronary Artery There was mild diffuse (<=25% stenosis) disease of the entire vessel segment of the right coronary artery (RCA). The mid segment of the RCA had a hazy 75% stenosis. As a consequence of the catheterization/intervention procedures, a 99% single discrete stenosis developed in the proximal segment of the acute marginal branch (AcM) of the RCA. Very tortuos RCA. Indication for Intervention: Coronary intervention was indicated for treatment of high risk unstable angina. The priority for the procedure was Urgent. The NCDR indication for the procedure was NSTE-ACS. Syntax Score was Low. Intervention Summary: Left Anterior Descending Artery Proximal 90% Stent insertion was performed on the 90% stenosis in the proximal segment of the LAD. This was a de andrei lesion. According to the ACC/AHA classification system, this lesion was a type B2 moderate risk lesion. Primary prevention of restenosis was the indication for stent insertion. This was the culprit lesion. A guidewire was placed across this lesion. Vessel flow pre intervention was JUANITA 3. Lesion length was 10mm. Stent insertion was accomplished through a 6 Fr. EBU 3.0 guide. The lesion was predilated with a 2.25mm NC EUPHORA 12 MM balloon with a maximum inflation pressure of 20 atmospheres. A premounted 2.50 x 12 mm Resolute JAN (ENMANUEL) was deployed with a maximum inflation pressure of 20 atmospheres. Following stent deployment, the lesion was dilated using a 3.00mm NC EUPHORA 08 MM balloon with a maximum inflation pressure of 25 atmospheres. The final outcome was defined as successful. The residual stenosis following this intervention was 5%. The final JUANITA flow was 3. Right Coronary Artery Mid 75% Stent insertion was performed on the 75% stenosis in the mid segment of the RCA. This was a de andrei lesion. This lesion was designated a type B1 moderate risk lesion based on ACC/AHA classification system. Primary prevention of restenosis was the indication for stent insertion. This was the culprit lesion. A guidewire was placed across this lesion. Vessel flow pre intervention was JUANITA 3. Lesion length was 12mm. Stent insertion was accomplished through a 6 Fr. JR 4.0 guide. The lesion was predilated with a 2.25mm EUPHORA 12 MM balloon with a maximum inflation pressure of 20 atmospheres. A premounted 2.50 x 15 mm Resolute JAN (ENMANUEL) was deployed with a maximum inflation pressure of 18 atmospheres. The final outcome was defined as successful. The residual stenosis following this intervention was 5%. The final JUANITA flow was 3. Vascular Access: Vascular Access Management: Mechanical Compression of the right radial artery access site was performed. Dual Antiplatelet (DAPT) Recommendations: Drug eluting stent (ENMANUEL) inserted. P2Y12 Loading dose administered prior to arrival in the slabber. Recommended anti-platelet/anti-thrombotic regimen: Start aspirin 81 mg daily now and continue for indefinitely. Start clopidogrel 75 mg daily now and continue for 12 months then stop. These recommendations are made at the time of the intervention. Patient and provider preferences or a changing clinical situation may require modification of this regimen. Consult [facility] Interventional Cardiology for questions. The 1 year bleeding risk as calculated by the PRECISE DAPT score is High risk. This patient may be at high bleeding risk. In patients treated with DAPT after coronary stent implantation who develop a high risk of bleeding, or are at high risk of severe bleeding complication, or develop significant overt bleeding, discontinuation of P2Y12 inhibitor therapy after 3 months for stable ischemic heart disease (SIHD) or after 6 months for acute coronary syndrome (ACS) may be reasonable. 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 At baseline, she is very active, shovels, gardens, snowshoes, walks 2.5 miles, walks up 2+ flights of stairs without symptoms. ?? On 03/24, she had repeated and persitent symptoms, that concerned her where she felt like chest tightness where she could not get enough air in and it felt like sucking in cold air, but denies anychest pain. This prompted her to go to [facility] on 03/24 and had an EKG that was reportedly normal and she was discharged home. ?? On , patient was mowing her lawn and she had another episode of chest tightness, that improved with rest. On Tuesday, she developed dizziness with vision changes and nausea which led to 3 episodes of clear emesis, which prompted her to present to the [facility]. At that time, she reported some chest tightness, but denies any shortness of breath. ?? In the [facility] ED, EKG notable for HR 69, 1mm STD and TWI in aVL. On exam patient had nystagmus. Labs notable for WBC 6, Hgb 15, Plt 264, Bun 11, Cr 1.2, CO2 25, K 3.7, Ca 9.6, Mag 2.1, Troponin 0.24, BNP 172 with concern for NSTEMI. CT head demonstrated an old ocipital CV. CXR negative. Patient was given fluids, meclizine, ASA 325mg, plavix 300mg and started on a heparin bolus and gtt. Patient was initially admitted to the [facility] ICU. Troponin-I remained flat (0.24, 0.22, 0.23). Heparin gtt was continued, and patient's vertiginous symptoms and chest pain resolved. Patient was transferred to [facility]. ?? At [facility], patient reports feeling well, back to her baseline. She reports mild chest tightness with deep inspiration. Otherwise, patient denied any chest pain, palpitations, shortness of breath, cough, nausea, vomiting, abdominal pain, constipation, diarrhea, dysuria, numbness or tingling, vision changes. ?? Currently lives in [place], [place] with her . Able to perform ADLs. Is the youngest of 11 children, has 8 siblings in the area. Family history notable for several CVAs, brother with an MO in 50s.Hx of smoking 3cigarettes/week x 10 years. Drinks 1 alcoholic beverage every other week. Hospital Course: #NSTEMI Patient was admitted to cardiology. Troponin was reported to be 0.24 at the outside hospital but was negative on recheck here. She was hemodynamically stable and largely asymptomatic upon arrival here. Cardiac catheterization was performed on 03/29 (see above for full report). In short, had successful uncomplicated stent insertion of the proximal LAD and mid RCA.. Patient was monitored after the procedure and continued to do well. She was transitioned off of the heparin drip to DAPT. An echo wasalso obtained during her admission which did not show any new wall motion abnormalities and an LVEFof 67% (see below for full report). Was deemed appropriate for discharge the following day on guidel ine directed medical therapy. She was discharged with careful instructions to take her dual antiplatelet medications. Follow up was scheduled with her PCP and with cardiology here at [facility]. Important Studies and Lab Data: Labs: Recent Labs 03/30/21 0532 03/29/21 0352 WBC 7.6 5.7 HGB 13.1 13.5 HCT 39.0 40.4 PLATELET 208 209 Recent Labs 03/30/21 0532 03/29/21 0352 NA 140 139 K 4.3 4.2 CL 106 107 CO2 24 23 BUN 15 19* CREATININE 1.09 1.26* GLUCOSE 114 111 Recent Labs 03/30/21 0532 03/29/21 0352 CALCIUM 9.4 9.4 MAGNESIUM 0.89 0.89 Recent Labs 03/30/21 0636 03/30/21 0532 03/29/21 0352 AST 42* Not Perf 19 ALT -- 28 19 ALKPHOS -- 77 77 BILITOT -- 0.4 0.3 BILIDIR 0.1 Not Perf 0.1 Studies: ECHO: SUMMARY: 1. The left ventricular chamber size is normal. There is normal global left ventricular systolic function. The quantitative left ventricular ejection fraction by biplane Carter's method is 67%. There are no left ventricular segmental wall motion abnormalities. 2. The right ventricle is normal in size. Right ventricular global systolic function is normal. The estimated pulmonary artery systolic pressure is 32 mmHg. 3. The atria are normal in size. 4. There is mild (1+/4+) mitral regurgitation. 5. There is mild (1+/4+) tricuspid regurgitation. 6. See remainder of report for additional findings. No prior study for comparison. ? Findings : ?? Study Quality: Adequate ?? Left Ventricle: The left ventricular chamber size is normal. Basal septal hypertrophy is observed. There is no evidence of LVOT obstruction. No ventricular septal defect is visualized. There is normal global left ventricular systolic function. The quantitative left ventricular ejection fraction by biplane Carter's method is 67%. There are no left ventricular segmental wall motion abnormalities. The left ventricular diastolic filling pattern is consistent with impaired LV relaxation. Left sided filling pressure could not be assessed by Doppler. ?? Left Atrium: The left atrium is normal in size.25.3 ml/m2 ?? Right Ventricle: The right ventricle is normal in size. Right ventricular global systolic function is normal. The estimated pulmonary artery systolic pressure is 32 mmHg. The estimated right atrial pressure is 15 mmHg. ?? Right Atrium: The right atrium appears normal. ?? Aortic Valve: The aortic valve is tricuspid. Systolic excursion of the aortic valve is normal. There is aortic annular calcification. There is no evidence of aortic valve stenosis. There is no evidence of aortic regurgitation. ?? Mitral Valve: The mitral valve leaflets are mildly thickened. There is posterior mitral annular calcification. There is no evidence of mitral stenosis. There is mild (1+/4+) mitral regurgitation present. ?? Tricuspid Valve: The tricuspid valve appears normal in structure and function. There is mild (1+/4+) tricuspid regurgitation present. ?? Pulmonic Valve: The pulmonic valve is not well visualized. The pulmonic valve is probably normal. There is trace pulmonic regurgitation present. ?? Pericardium: There is no pericardial effusion. A pericardial fat pad is visualized. ?? Aorta: The aortic root is normal in size. The ascending aorta is normal in size. ?? Pulmonary Artery: The main pulmonary artery is not well visualized. ?? Venous: The inferior vena cava appears dilated. There is less than 50% respiratory change in the inferior vena cava dimension consistent with elevated right atrial pressure. ?? Misc: There is no hemodynamically significant valve disease. See remainder of report for additional findings. Two-dimensional echo, spectral Doppler and color Doppler performed. ? Chambers 2D Value Units (Range) IVSd (2D) 1.12 cm LVPWd (2D) 1.02 cm IVS:LVPW ratio (2D) 1.1 ratio RWT (2D) 0.55 ratio RWT PW (2D) 0.53 ratio LVIDd (2D) 3.87 cm LVIDs (2D) 2.63 cm LVIDd (2D) index 2.08 cm/m2 LVIDs (2D) index 1.42 cm/m2 LV FS (2D) 32.04 % EF Teichholz (2D) 60.88 % Ao root diameter (2D2.8 cm (2.1 - 3.6) Ascending Ao 3.4 cm (2 - 3.5) Aortic arch 2.7 cm ?? Volumes/Mass Value Units (Range) LA Area 4 CH 16 cm2 (<21) RA AREA 4CH 12 cm2 LA ESV BP (MOD) inde25.3 ml/m2 LV ESV SP 4CH (MOD) 22.8 ml LV ESV SP 2CH (MOD) 17.8 ml LV EDV BP 62.2 ml LV ESV BP 20.6 ml LV EDV BP index 33.48 ml/m2 LV ESV BP index 11.09 ml/m2 BP EF (MOD) 66.88 % LV mass (2D) 132.99 g LV mass (2D) index 71.58 g/m2 ?? Diastolic/Systolic Function Value Units (Range) MV E-wave Vmax 0.73 m/sec MV deceleration [id number] msec MV A-wave Vmax 0.79 m/sec MV E:A ratio 0.92 ratio LV septal e' Vmax 0.05 m/sec LV lateral e' Vmax 0.06 m/sec LV average e' Vmax 0.06 m/sec LV E:e' septal ratio14.56 ratio LV E:e' lateral rati12.13 ratio LV average E:e' rati13.24 ratio ?? Aortic Valve Value Units (Range) LVOT diameter 1.8 cm ?? Mitral Valve Value Units (Range) MV PHT 62 msec MVA (PHT) 3.55 cm2 ?? Tricuspid Valve Value Units (Range) TR Vmax 2.09 m/sec TR peak gradient 17.47 mmHg RAP 15 mmHg RVSP 32 mmHg ? Wall Motion: ?? Segment Name Rest ?? Base-Anteroseptal Normal Base-Anterior Normal Base-Anterolateral Normal Base-Posterolateral Normal Base-Inferior Normal Base-Inferoseptal Normal Mid-Anteroseptal Normal Mid-Anterior Normal Mid-Anterolateral Normal Mid-Posterolateral Normal Mid-Inferior Normal Mid-Inferoseptal Normal [place]-Septal Normal [place]-Anterior Normal [place]-Lateral Normal [place]-Inferior Normal [place]-Tip Normal ?? Pending Studies and Lab Data: No current labs Discharge Conditions/Prognosis: Stable. Discharge to: Home Discharge Medications: Your Medications New Medications Dose Details clopidogreL 75 mg Tab Commonly known as: Plavix Take 1 tablet by mouth daily. 75 mg Quantity: 90 tablet Refills: 3 metoprolol succinate XL 25 mg Tablet sr Commonly known as: Toprol-XL Take 1 tablet by mouth daily. 25 mg Quantity: 30 tablet Refills: 12 nitroGLYcerin 0.4 mg Subl Commonly known as: Nitrostat Place 1 tablet under the tongue every 5 minutes as needed for Chest pain. 0.4 mg Quantity: 90 tablet Refills: 12 rosuvastatin 20 mg Tab Commonly known as: Crestor Take 1 tablet by mouth daily. 20 mg Quantity: 90 tablet Refills: 3 Continued medications with new dosing Dose Details lisinopriL 10 mg Tab Commonly known as: Prinivil;Zestril Take 1 tablet by mouth daily. What changed: See the new instructions. 10 mg Quantity: 30 tablet Refills: 3 Continued medications, unchanged Dose Details aspirin 81 mg Chew Refills: 0 STOPPED Medications PravachoL 20 mg Tab Generic drug: pravastatin Updated Allergies/ADRs: Allergies Allergen Reactions ??? Latex CIS - Localized Reaction ??? Amoxicillin Trihydrate CIS - Rash ??? Gloves, Latex CIS - Localized Reaction ??? Latex Dams CIS - Localized Reaction Instructions Given to Patient at Discharge: Patient Instructions Patient Instructions on Discharge to Home Why you were hospitalized: You had a heart attack, which was caused by a blockage in one of your heart arteries. This was fixed with a stent that was placed during a cardiac catheretization. Because you had this procedure, youshouldn't lift anything greater than 10 lbs for the next week and nothing greater than 20 lbs for 2 weeks. After that time you may go back to regular activity and work. Call your doctor if your Right groin pain gets worse, or you develop swelling or redness in that area. Also, call your doctor if you develop sudden chest pain or shortness of breath, especially chestpain that does not go away with nitroglycerin. It is important that you take your aspirin 81mg daily forever and clopidogrel 75mg daily for at least 1 year. Do not miss any doses of these medicationsor the stent could clog and cause another heart attack which could be deadly. New Medications: Clopidogrel (Plavix): this is a second platelet inhibitor that will help prevent clot build up inthe stent that was placed. It is very important that you take this medication every day at least for one year to help keep your stent open. Follow up with your doctor before stopping this medication. Rosuvastatin (Crestor): this is a cholesterol-lowering medication that helps prevent build up of plaque in your arteries. Take this every evening. Metoprolol (Toprol): this is a beta alicia, that helps protect your heart. Take this every day. Nitroglycerin: this is a medication that can be placed under your tongue as needed for chest pain. If you experience chest pain, especially that similar to what you had before you were admitted to the hospital, sit down and place one tab under your tongue (it may make you dizzy, so sitting down before taking this is safest). If your chest pain does not improve, call your doctor. Continue taking: Aspirin: this is a platelet inhibitor that will help prevent clot build up in your arteries, as well as in the stent that was placed. Continue taking 81mg daily indefinitely. Medication Changes: STOP taking pravastatin (we are replacing this with the rosuvastatin aka Crestor) Lisinopril: Increase to 10 mg daily. This is an ANNAMARIE inhibitor that also helps protect your heart, as well as help control your blood pressure. Take this every day. When to call your doctor: - Chest pain, worsening shortness of breath, fatigue with usual exertion, or new rest/night time symptoms. - Weigh yourself daily and record; if you note an increase of more than 2-3 pounds in 2 days, or 5 pounds over a week, contact your health care provider. - If you become short of breath, cannot lie down to sleep, or have swelling in your legs/ankles or abdomen, contact your health care provider. - Call if you have reduced urination during the day or increased urination at night. - Call for signs of increased wound drainage, redness, swelling, or increased pain at the site of your cardiac cath. - Call if you develop a temperature of >100.5 If you have non-emergent questions between now and the time of your follow up appointments: During 8am-5pm Tuesday through Tuesday call [phone] to speak with a nurse in the cardiology clinic All other times call [phone] and ask to speak to the chain splitter bridge ironworker helper. Activity level: - No heavy lifting (more than five pounds) for 48 hours; no more than 10 pounds for one week. - You may return to work in 1 week. Use common sense. Don't exhaust yourself. - No hunting, skiing, jogging, snow shoveling, snowmobiling, lawn mowing, swimming, golf or tennis until after your return appointment with your primary care doctor. - Do not ride motorcycles, tractors or horses until cleared by your doctor. Diet: - Heart healthy diet: low salt, low fat, low concentrated sweets. Remember to avoid added salt, canned foods, processed foods (ie hot dogs, sausage, cold meats), and foods naturally high in salt, such as potato chips or pizza. Driving: - Per your routine after [address] if you feel dizzy, light headed, or are taking narcotic medications (ie/ Oxycodone, Morphine, Dilaudid, etc). Shower/Bath: - You may shower 24 hours after cardiac catheterization. - You may not sit in water for 5 days (tub bath, hot tub or pool). Wound Care: - Cath site dressing may be removed in 24 hours. Site may be washed with soap/water. A dressing does not need to be reapplied unless irritation occurs with underclothes. If irritation occurs, apply clean band-aid daily. Exercise: - Exercise 5-7 days per week as tolerated with gradual increase to 30 minutes per day. Smoking cessation: - If you are currently a smoker, you are strongly urged to stop smoking! Smoking increases the severity and incidence of heart disease, and is a risk factor for cancer and emphysema. Your health careprovider can provide specific measures to assist you, including nicotine supplements, anti-anxiety meds, and support groups in your community. Home oxygen therapy: none Arrangements for VNA/home care: none Follow up Appointments: Reproductive Endocrinologist: 04/10/[address] Haider at [facility] Cardiology PCP: scheduled for 03/03/21 Your Inpatient Doctor(s) at [facility]: MD Taran Rodriguez MD Your Primary Care Provider: Edin Conner MD [address] [place] [address] / [facility] [id number] For questions regarding issues relating to your hospitalization on the Hospital Medicine Service, please contact your inpatient physician through the [facility] Sliding Joint Maker [phone]. Issues after hours and on weekends will be handled by the Hospitalist staff on-call. General Instructions None Future Appointments and Orders Future Appointments and Orders Future Appointments Provider Department Dept Phone 04/10/2021 11:20 AM El Sawyer MD Cardiology at [facility] Arrive at: Remedial Teacher Area 4A [phone] Discharge References/Attachments: Discharge References/Attachments Cardiac Rehabilitation (Fijian) PCI (Percutaneous Coronary Intervention): Post-op (Fijian) Heart Attack: Medicine for Secondary Prevention (Fijian) Statins (Fijian) Inpatient Provider Contact Information: Please call the hospital power sweeper operator at [phone] and ask to be connected with Cardiology Team S1 (pager [phone]). Electronically Signed By: Taran Kim MD 03/31/2021 Associated attestation - Kevon Vega MD - 04/01/2021 10:37 AM EDT Dear Colleagues, I was the attending at the time of discharge. Please call or email me if you have questions. Kevon Vega MD, SHIRA Cardiovascular Medicine [phone] documented in this encounter Discharge Instructions * Patient Instructions* Luis E Najera MD - 03/30/2021 10:23 AM EDT Patient Instructions on Discharge to Home Why you were hospitalized: You had a heart attack, which was caused by a blockage in one of your heart arteries. This was fixed with a stent that was placed during a cardiac catheretization. Because you had this procedure, youshouldn't lift anything greater than 10 lbs for the next week and nothing greater than 20 lbs for 2 weeks. After that time you may go back to regular activity and work. Call your doctor if your Right groin pain gets worse, or you develop swelling or redness in that area. Also, call your doctor if you develop sudden chest pain or shortness of breath, especially chestpain that does not go away with nitroglycerin. It is important that you take your aspirin 81mg daily forever and clopidogrel 75mg daily for at least 1 year. Do not miss any doses of these medicationsor the stent could clog and cause another heart attack which could be deadly. New Medications: Clopidogrel (Plavix): this is a second platelet inhibitor that will help prevent clot build up inthe stent that was placed. It is very important that you take this medication every day at least for one year to help keep your stent open. Follow up with your doctor before stopping this medication. Rosuvastatin (Crestor): this is a cholesterol-lowering medication that helps prevent build up of plaque in your arteries. Take this every evening. Metoprolol (Toprol): this is a beta alicia, that helps protect your heart. Take this every day. Nitroglycerin: this is a medication that can be placed under your tongue as needed for chest pain. If you experience chest pain, especially that similar to what you had before you were admitted to the hospital, sit down and place one tab under your tongue (it may make you dizzy, so sitting down before taking this is safest). If your chest pain does not improve, call your doctor. Continue taking: Aspirin: this is a platelet inhibitor that will help prevent clot build up in your arteries, as well as in the stent that was placed. Continue taking 81mg daily indefinitely. Medication Changes: STOP taking pravastatin (we are replacing this with the rosuvastatin aka Crestor) Lisinopril: Increase to 10 mg daily. This is an ANNAMARIE inhibitor that also helps protect your heart, as well as help control your blood pressure. Take this every day. When to call your doctor: - Chest pain, worsening shortness of breath, fatigue with usual exertion, or new rest/night time symptoms. - Weigh yourself daily and record; if you note an increase of more than 2-3 pounds in 2 days, or 5 pounds over a week, contact your health care provider. - If you become short of breath, cannot lie down to sleep, or have swelling in your legs/ankles or abdomen, contact your health care provider. - Call if you have reduced urination during the day or increased urination at night. - Call for signs of increased wound drainage, redness, swelling, or increased pain at the site of your cardiac cath. - Call if you develop a temperature of >100.5 If you have non-emergent questions between now and the time of your follow up appointments: During 8am-5pm Tuesday through Tuesday call [phone] to speak with a nurse in the cardiology clinic All other times call [phone] and ask to speak to the chain splitter bridge ironworker helper. Activity level: - No heavy lifting (more than five pounds) for 48 hours; no more than 10 pounds for one week. - You may return to work in 1 week. Use common sense. Don't exhaust yourself. - No hunting, skiing, jogging, snow shoveling, snowmobiling, lawn mowing, swimming, golf or tennis until after your return appointment with your primary care doctor. - Do not ride motorcycles, tractors or horses until cleared by your doctor. Diet: - Heart healthy diet: low salt, low fat, low concentrated sweets. Remember to avoid added salt, canned foods, processed foods (ie hot dogs, sausage, cold meats), and foods naturally high in salt, such as potato chips or pizza. Driving: - Per your routine after [address] if you feel dizzy, light headed, or are taking narcotic medications (ie/ Oxycodone, Morphine, Dilaudid, etc). Shower/Bath: - You may shower 24 hours after cardiac catheterization. - You may not sit in water for 5 days (tub bath, hot tub or pool). Wound Care: - Cath site dressing may be removed in 24 hours. Site may be washed with soap/water. A dressing does not need to be reapplied unless irritation occurs with underclothes. If irritation occurs, apply clean band-aid daily. Exercise: - Exercise 5-7 days per week as tolerated with gradual increase to 30 minutes per day. Smoking cessation: - If you are currently a smoker, you are strongly urged to stop smoking! Smoking increases the severity and incidence of heart disease, and is a risk factor for cancer and emphysema. Your health careprovider can provide specific measures to assist you, including nicotine supplements, anti-anxiety meds, and support groups in your community. Home oxygen therapy: none Arrangements for VNA/home care: none Follow up Appointments: No future appointments. Reproductive Endocrinologist: Our Cardiology department will call you to set up an appointment. PCP: Edin Conner MD at [phone] Your Inpatient Doctor(s) at [facility]: MD Taran Rodriguez MD Your Primary Care Provider: Edin Conner MD [address] [place] [address] 1 / [facility] [id number] For questions regarding issues relating to your hospitalization on the Hospital Medicine Service, please contact your inpatient physician through the [facility] Sliding Joint Maker [phone]. Issues after hours and on weekends will be handled by the Hospitalist staff on-call. * Attachments The following attachments cannot be sent through Care Everywhere. * Cardiac Rehabilitation (Fijian) * PCI (Percutaneous Coronary Intervention): Post-op (Fijian) * Heart Attack: Medicine for Secondary Prevention (Fijian) * Statins (Fijian) documented in this encounter Medications at Time of Discharge Medication Sig Dispensed Refills Start Date End Date aspirin EC 81 mg Tablet, Delayed Release [...] for Chest pain. 90 tablet 12 03/30/2021 lisinopriL (Prinivil;Zestril) 10 mg Tablet TAKE ONE TABLET BY MOUTH EVERY DAY 03/30/2021 04/10/2021 clopidogreL (Plavix) 75 mg Tablet Take 1 tablet by mouth daily. 90 tablet 3 03/31/2021 12/31/2022 rosuvastatin (Crestor) 20 mg Tablet Take 1 tablet by mouth daily. 90 tablet 3 03/30/2021 12/31/2022 lisinopriL (Prinivil;Zestril) 5 mg Tablet Take 1 tablet by mouth daily. 30 tablet 3 03/30/2021 04/10/2021 aspirin 81 mg chewable tablet 12/27/2006 04/10/2021 documented as of this encounter Progress Notes * Shira Ha MD - 03/29/2021 8:18 PM EDT Post-Catheterization Progress Note Subjective: Patient denies lightheadedness, dyspnea, chest pain, palpitations, abdominal pain, wrist pain, or back pain. Dressing clean and dry, no signs of infection, no bleeding from right radial access site. Objective: Vitals: Last value Range last 8 hrs Temperature Temp: 36.6 ??C (97.9 ??F) Temp: [36.5 ??C (97.7 ??F)-36.6 ??C (97.9 ??F)] Heart Rate Heart Rate: 64 Heart Rate: [53-96] Blood Pressure BP: 146/75 BP: (114-177)/(59-92) Respiratory Rate Resp: 16 Resp: [7-16] SpO2 SpO2: 97 % SpO2: [93 %-100 %] Gen: Laying in bed in NAD Wrist: Right radial access site without hematoma or ecchymosis. No active bleeding. Dressing c/d/i.No tenderness to palpation. Abd: No Divide's sign. Ext: UE and LE warm with warm and well perfused. Sensation intact in all extremities. Back: No flank or back tenderness. No retroperitoneal ecchymosis/ Goff Pruett's sign. A/P: S/p cardiac catheterization with benign appearing right radial access site. Shira Ha MD Internal Medicine, PGY-2 S1 Team, Pager #[phone] * Serge Palaico RN - 03/29/2021 6:52 PM EDT OUTCOME EVALUATION NOTE: OUTCOME SUMMARY: VSS. RA. AUOP, occurences. -BM. Tolerating diet. Denies pain. TR band removed following guidelines. Some swelling noted and outlined, team notified and assessed.Plan to monitor overnight. labor/excavator with stenting today. Tolerated well. See OR notes for details. Tele: S: I feel fine O: pt denies chest pain, nausea and SOB A: Tolerating current rate and rythm P: Continue to monitor See tele sheet in pt's chart for details. PLAN MOVING FORWARD: Assess R radial site, encourage ambulation. Monitor for signs and symptoms of infection, bleeding, and pain. Encourage IS. INDIVIDUALIZED FALL PREVENTION INTERVENTIONS: Patient-specific fall risk factors per assessment: [current deficits]: IV lines, recent surgery, generalized weakness, chronic conditio, age extreme. Assistance [level of assistance required for transfers and ambulation]: SBA. Supervision [direct monitoring required during toileting and ADLs]: Eyes on. Surveillance [continuous indirect monitoring]: Call baig in reach, purposeful rounding, masimo. Patient-specific fall prevention interventions for sensory deficits provided, if applicable: [X] Yes Lighting adjusted for tasks, nonskid socks when out of bed. CPG GOAL OUTCOME EVALUATION: Ongoing. Thank you for the opportunity to participate in this patient's care. * Serge Palacio RN - 03/29/2021 2:06 PM EDT Report received, Pt returned from slabber, A+O, VSS. RA. TR band intact. Denies Numbness/ [place]lingon R hand. CMST intact, hand appropriately cool. R arm labeled, no BP's for 24 hrs post cath. TR band to remain on per conversation with charger tester r/t ACT level. Patient updated. Per report: 7K units Heparin contrast 130/ limit 102 ACT 283 @ 1303 LVEDP 20 TR band on at 1310 with 12 cc air EKG completed Will continue to monitor. * Kevon Vega MD - 03/29/2021 1:56 PM EDT Inpatient Cardiology Progress Note Patient Name: Deysi Strange Date of Admission: 03/28/2021 ( Hospital Day 1 day ) Service: S1 ID: Deysi Strange is a 70 y.o. female with history of prior CVA, HTN, HLD, and epilepsy who was transferred from [facility] for an NSTEMI. 24 hr events/Subjective: -Changed from pravastatin to rosuvastatin 40mg qd -Started on metoprolol 12.5mg BID -Cathed today, with stents put in pLAD (95% stenosis) and mRCA (75% stenosis) Telemetry: NSR, with some nate to 50s Meds: Continuous Infusions: ??? sodium chloride 0.9% 50 mL/hr (03/29/21 1340) ??? heparin (porcine) infusion 850 Units/hr (03/29/21 1154) Scheduled Meds: ??? aspirin 81 mg Oral Daily ??? clopidogreL 75 mg Oral Daily ??? metoprolol tartrate 12.5 mg Oral 2 times per day ??? lamoTRIgine 250 mg Oral Daily ??? rosuvastatin 40 mg Oral QAM PRN Meds:.atropine, midazolam (PF), fentaNYL (PF), acetaminophen, oxyCODONE- acetaminophen, nitroGLYcerin, heparin (porcine) AND heparin (porcine) infusion, meclizine Physical Exam: Last value Range last 24 hrs Temperature Temp: 36.7 ??C (98.1 ??F) Temp: [36.5 ??C (97.7 ??F)-36.7 ??C (98.1 ??F)] Heart Rate Heart Rate: 64 Heart Rate: [50-96] Blood Pressure BP: 149/81 BP: (112-177)/(62-92) Respiratory Rate Resp: 9 Resp: [7-20] SpO2 SpO2: 95 % SpO2: [93 %-100 %] Intake/Output Summary (Last 24 hours) at 03/29/2021 1400 Last data filed at 03/29/2021 1152 Gross per 24 hour Intake 358 ml Output -- Net 358 ml Patient Vitals for the past 168 hrs: Weight 03/29/21 0400 79.9 kg (176 lb 2.4 oz) 03/28/21 1828 80.4 kg (177 lb 4 oz) 03/28/21 1546 80.4 kg (177 lb 4 oz) General: Comfortable-appearing female laying in bed in no acute distress. HEENT: Normocephalic and atraumatic. Mucosal membranes are moist. Cardiovascular: Regular rate and rhythm, no gallops or murmurs. Respiratory: Lungs clear to auscultation bilaterally. Abdomen: Soft, non-tender, and non-distended. Extremities: Warm and well-perfused. No cyanosis or peripheral edema. Integument: Skin is warm and dry, no rashes or lesions. Neurological: Awake, alert, and fully oriented. No focal deficits. Labs Recent Labs 03/29/21 0352 03/28/21 1658 WBC 5.7 5.8 HGB 13.5 13.7 HCT 40.4 41.6 PLATELET 209 235 Recent Labs 03/29/21 0352 03/28/21 1658 NA 139 140 K 4.2 4.0 CL 107 106 CO2 23 23 BUN 19* 16 CREATININE 1.26* 1.40* Recent Labs 03/29/21 0352 03/28/21 1658 AST 19 21 ALT 19 23 ALKPHOS 77 84 BILITOT 0.3 0.3 BILIDIR 0.1 0.1 Recent Labs 03/29/21 0352 03/28/21 1658 CALCIUM 9.4 9.8 MAGNESIUM 0.89 0.86 No results for input(s): INR, PT, PTT in the last 168 hours. Recent Labs 03/28/21 1658 TROPONINT <0.01 No results for input(s): POCGLU in the last 168 hours. Imaging/Studies: EKG w/ NSR here ASSESSMENT: Deysi Strange is a 70 y.o. female with history of prior CVA, HTN, HLD, and epilepsy who was transferred from [facility] for an NSTEMI. Received two stents today in slabber without apparent complication. Will monitor overnight post-cath, no further need for heparin gtt. Will start ANNAMARIE/ARB tomorrow AM to fully capitulate GDMT if renal function continues to improve. Rest of plan per below. PLAN: #Acute scp-DE-litywqqcc myocardial infarction #Hypertension #Hyperlipidemia #History of cerebrovascular accident -Aspirin 81mg qd -Plavix 75mg qd -Rosuvastatin 40mg qhs -Metoprolol 12.5mg BID -Will likely start lisinopril 20mg qd back up tomorrow AM (day team's discretion) -TTE pending #Epilepsy -Lamotrigine 250mg qd Code Status: FULL Dispo: Floors Tl Chowdhury MD Internal Medicine PGY-2 Cardiology S1, Pager #[phone] 03/29/2021 Cardiology Staff Addendum ?? Deysi Strange is a 70 y.o. female whom I saw today with Dr. Chowdhury. ??I have personally interviewed and examined the patient and reviewed appropriate data, including labs, ECGs, and other diagnosticstudies. I agree with the principal findings documented above, with additions and exceptions as below. ??The assessment and plan were formulated in discussion with me. ?? Patient admitted in transfer for management of NSTE-ACS. Now status post PCI to a very tight proximal LAD, likely culprit, as well as severe RCA stenosis. Clinically stable and without cardiac complaints. ?? Kevon Vega MD, SHIRA, FACC, FACP Cardiovascular Medicine documented in this encounter H&P Notes * Kevon Vega MD - 03/28/2021 3:58 PM EDT Images from the original note were not included. Cardiology H&P Patient info: Name: Deysi Strange : 1950 PCP: Edin Conner MD PCP phone number: [phone] Date of Admission: 03/28/2021 ( Hospital Day 0 days ) Attending:Kevon Vega MD ID: Deysi Strange is a 70 y.o. female with history of prior CVA, HTN, HLD, CKD 3, epilepsy who [facility]. HPI: Patient initially presented with 2 weeks of dyspnea on exertion after walking 1 mile associated with bilateral arm heaviness and weakness, which is not normal for her. At baseline, she is very active, shovels, gardens, snowshoes, walks 2.5 miles, walks up 2+ flights of stairs without symptoms. On 03/24, she had repeated and persitent symptoms, that concerned her where she felt like chest tightness where she could not get enough air in and it felt like sucking in cold air, but denies anychest pain. This prompted her to go to [facility] on 03/24 and had an EKG that was reportedly normal and she was discharged home. On , patient was mowing her lawn and she had another episode of chest tightness, that improved with rest. On Tuesday, she developed dizziness with vision changes and nausea which led to 3 episodes of clear emesis, which prompted her to present to the [facility]. At that time, she reported some chest tightness, but denies any shortness of breath. In the [facility] ED, EKG notable for HR 69, 1mm STD and TWI in aVL. On exam patient had nystagmus. Labs notable for WBC 6, Hgb 15, Plt 264, Bun 11, Cr 1.2, CO2 25, K 3.7, Ca 9.6, Mag 2.1, Troponin 0.24, BNP 172 with concern for NSTEMI. CT head demonstrated an old ocipital CV. CXR negative. Patient was given fluids, meclizine, ASA 325mg, plavix 300mg and started on a heparin bolus and gtt. Patient was initially admitted to the [facility] ICU. Troponin-I remained flat (0.24, 0.22, 0.23). Heparin gtt was continued, and patient's vertiginous symptoms and chest pain resolved. Patient was transferred to [facility]. At [facility], patient reports feeling well, back to her baseline. She reports mild chest tightness with deep inspiration. Otherwise, patient denied any chest pain, palpitations, shortness of breath, cough, nausea, vomiting, abdominal pain, constipation, diarrhea, dysuria, numbness or tingling, vision changes. Currently lives in [place], [place] with her . Able to perform ADLs. Is the youngest of 11 children, has 8 siblings in the area. Family history notable for several CVAs, brother with an MO in 50s.Hx of smoking 3cigarettes/week x 10 years. Drinks 1 alcoholic beverage every other week. Home meds: Asa 81mg qAM pravastatin 80mg qAM Lisinopril 20mg qAM lamotirigne 250mg qAM Hx of transaminitis with atorvastatin reported at OSH Review of Systems Per HPI PMH No past medical history on file. PSH No past surgical history on file. Family History No family history on file. Social History Social History Socioeconomic History ??? Marital status: Spouse name: Not on file ??? Number of children: Not on file ??? Years of education: Not on file ??? Highest education level: Not on file Occupational History ??? Not on file Tobacco Use ??? Smoking status: Not on file Substance and Sexual Activity ??? Alcohol use: Not on file ??? Drug use: Not on file ??? Sexual activity: Not on file Other Topics Concern ??? Not on file Social History Narrative ??? Not on file Social Determinants of Health Financial Resource Strain: ??? Difficulty of Paying Living Expenses: Food Insecurity: ??? Worried About Running Out of Food in the Last Year: ??? Ran Out of Food in the Last Year: Transportation Needs: ??? Lack of Transportation (Medical): ??? Lack of Transportation (Non-Medical): Physical Activity: ??? Days of Exercise per Week: ??? Minutes of Exercise per Session: Allergies: Allergies Allergen Reactions ??? Latex CIS - Localized Reaction ??? Amoxicillin Trihydrate CIS - Rash ??? Gloves, Latex CIS - Localized Reaction ??? Latex Dams CIS - Localized Reaction Meds ??? heparin (porcine) nitroGLYcerin, acetaminophen, heparin (porcine) AND heparin (porcine) infusion ??? heparin (porcine) infusion Objective: Vitals Last value Range last 24 hrs Temperature Temp: 36.6 ??C (97.9 ??F) Temp: [36.6 ??C (97.9 ??F)] Heart Rate Heart Rate: 60 Heart Rate: [60] Blood Pressure BP: 126/70 BP: (126)/(70) Art Line BP BP (Arterial Line): -- MAP (NBP): [82 mmHg] Respiratory Rate Resp: -- SpO2 SpO2: 98 % SpO2: [98 %] Oxygen Delivery Oxygen Therapy O2 Device: None (Room air) No intake or output data in the 24 hours ending 03/28/21 1558 Patient Vitals for the past 168 hrs: Weight 03/28/21 1546 80.4 kg (177 lb 4 oz) Admit wt: 80.4 kg Physical Exam: Gen: in bed in NAD. HEENT: anicteric, EOMI intact, CV: RRR, no murmurs/rubs/gallops Resp: CTAB, no crackles/wheezes/ronchi, normal work of breathing Abd: normal bowel sounds, soft, non-tender to palpation, no rebound or guarding Ext: 2+ distal pulses, trace pedal edema Neuro: no focal deficits noted, CN II-XII grossly intact, moves all extremities spontaneously Psych: cooperative. Skin: no rashes, lesions, or ulcerations noted Lines/Drains/Airways Lines: Labs: No results for input(s): WBC, HGB, HCT, PLATELET, MCV in the last 168 hours. No results for input(s): NA, CL, CO2, K, MAGNESIUM, PHOS, CALCIUM, BUN, CREATININE in the last 168 hours. LFTs No results for input(s): PROT, ALBUMIN, AST, ALT, ALKPHOS, BILITOT, BILIDIR in the last 168 hours. Coags No results for input(s): INR, PT, PTT, FIBRINOGEN, DDIMER in the last 168 hours. Invalid input(s): THROMBIN TIME Cardiac Enzymes No results for input(s): CK, TROPONINT, PROBNP in the last 168 hours. Endocrine No results for input(s): TSH, CORTISOL in the last 7068 hours. Invalid input(s): [id number] No results for input(s): POCGLU in the last 168 hours. Heme No results for input(s): LDH, HAPTOGLOBIN, URICACID in the last 168 hours. ABG (Arterial Blood Gas) No results found for: PHART, PO2ART, APM2AEC, BTL1VNN Microbiology: Microbiology Results (Last 30 days) No results found for the last 720 hours. Imaging: No results found for this visit on 03/28/21. Medications Scheduled Meds: ??? heparin (porcine) Continuous Infusions: ??? heparin (porcine) infusion PRN Meds:.nitroGLYcerin, acetaminophen, heparin (porcine) AND heparin (porcine) infusion Assessment & Plan: Deysi Strange is a 70 y.o. female with history of prior CVA, HTN, HLD, epilepsy who was transferred from [facility] for an NSTEMI. Patient initially presented with 2 weeks of dyspnea on exertion after walking 1 mile associated with chest tightness and bilateral arm heaviness and weakness; at baseline she is able to walk 2.5 miles + without symptoms. On Tuesday, she developed dizziness with vision changes and nausea which led to3 episodes of clear emesis, which prompted her to present to the [facility]. In the [facility] ED, EKG notable for HR 69, 1mm STD and TWI in aVL. On exam patient had nystagmus. Labs notable for WBC 6, Hgb 15, Plt 264, Bun 11, Cr 1.2, CO2 25, K 3.7, Ca 9.6, Mag 2.1, Troponin 0.24, BNP 172 with concern for N[address]I. CT head demonstrated an old ocipital CV. CXR negative. Patient was given fluids, meclizine, ASA 325mg, plavix 300mg and started on a heparin bolus and gtt. Patient was initially admitted to the [facility] ICU. Troponin-I remained flat (0.24, 0.22, 0.23). Heparin gtt was continued, and patient's vertiginous symptoms and chest pain resolved. Patient was transferred to [facility]. Anticipate cardiac cath tomorrow. Plan to continue ASA 81mg qd indefinitely and clopidogrel 75mg qd for 1 year. Will start low-dose metoprolol today given HR in 60s. Holding home lisinopril pending cath. Will also check HbA1c, TSH, Lipid panel for cardiac risk stratification and plan for cardiac rehab. #NSTEMI, type I vs II #HTN #HLD #Hx of CVA --ASA 81mg qd --clopidogrel 75mg --switch pravastatin 80mg qd to rosuvastatin 40mg qhs --start Metoprolol 12.5mg bid --restart home lisinopril 20mg qd after cath --Heparin gtt x48h (started on 03/27 ~afternoon? at OSH) --TTE --Troponin q6h to peak --Chest pain protocol: nitro, ekg prn --Daily EKGs Cardiac Risk Stratification --HbA1c: Pending --TSH: Pending --Lipid panel: Pending #Epilepsy --lamotrigine 250mg qd #Routine Diet: NPO diet (Give Meds) DVT Prophylaxis: heparin gtt GI Prophylaxis: not indicated Code Status: Attempt Cardiopulmonary Resuscitation - Inpatient Dispo: Pending clinical course Rosalee Birmingham MD Internal Medicine, PGY-2 Cardiology, M1-S1, #[id number] 03/28/21 3:58 PM Cardiology Staff Addendum Deysi Strange is a 70 y.o. female whom I saw today with Dr. Birmingham. I have personally interviewed and examined the patient and reviewed appropriate data, including labs, ECGs, and other diagnostic studies. I agree with the principal findings documented above, with additions and exceptions as below. The assessment and plan were formulated in discussion with me. Patient admitted in transfer for management of NSTEACS. Chest pain free. Plan for early invasive management. Kevon Vega MD, SHIRA, FACC, FACP Cardiovascular Medicine documented in this encounter Miscellaneous Notes * Initial Assessments - Romi Mayo RN - 03/30/2021 10:04 AM EDT Office of Care Management Initial Assessment & DC note Romi Mayo RN reviewed record and discussed patient with Care Team. Source of Information: Team, bedside nurse, medical record, and Patient Introduced self/reviewed role; services accepted. Reason for Hospitalization: problems with the heart Last COVID test: Lab Results Component Value Date [id number] Not Detected 03/28/2021 Past medical History: Past Medical History: Diagnosis Date ??? BRCA gene mutation positive ??? CVA (cerebral vascular accident) 2005 ??? HLD (hyperlipidemia) ??? HTN (hypertension) ??? NSTEMI (non-ST elevated myocardial infarction) ??? Seizure Hospitalizations Within the Past 30 Days: no previous admission in last 30 days Current Decision-Making Capacity: Self Advance Care Planning: Attempt Cardiopulmonary Resuscitation - Inpatient <no information> -Advanced Directive: No, declines If AD's have not been completed spouse would be surrogate decision maker per [place] surrogate decision making law. (Only good for 90 days) Any patient receiving care at [facility] must abide by [place] law. The hierarchy for surrogate decision making is: (a) Patient???s spouse, or civil union partner or common law spouse unless there is a divorce proceeding, separation agreement, or restraining order limiting that person???s relationship with the patient. (b) Any adult son or daughter of the patient. (c) Either parent of the patient. (d) Any adult brother or sister of the patient. (e) Any adult grandchild of the patient. (f) Any grandparent of the patient. (g) Any adult aunt, uncle, niece, or nephew of the patient. (h) A close friend of the patient. (i) The agent with financial power of corrugator helper or a conservator appointed in accordance with RSA 464-A. (j) The guardian of the patient???s estate. Current Coping/Education/Information Needs: No questions or concerns Current Functional Ability: Independent Functional Status Prior to Admission: Independent Home Environment: People in home: spouse. Current Living Arrangements: home/apartment/condo. Accessibility Concerns:2 story home. No reported issues with mobility. Current DME: none Home Address confirmed as: [address] [facility] [address] Social & Family Supports: All names listed below confirmed with patient as current and correct Extended Emergency Contact Information Primary Emergency Contact: JOSUÉ STRANGE Address: [address] [place], [place] [id number] [place] [address] Mobile Relation: Spouse Secondary Emergency Contact: GILDARDO STRANGE Address: [address] [place] [address] [facility] [employer] [facility] Mobile Relation: Child Current Care Provided by: self Provides Primary Care For: no one Caregiver if needed: spouse Quality of Family relationships: helpful, involved, supportive Community Resources being provided currently: none Behavioral Health History: Substance Use/Abuse listed: Social History Tobacco Use Smoking Status Former Smoker ??? Types: Cigarettes ??? Quit date: 07/23/2006 ??? Years since quittin.6 Tobacco Comment social smoker for 10 years, about 3 cigarettes a week Substance Use Screen In the past year have you used an illegal drug or used a prescription medication for non-medical reaons?: No In the past year have you used opioids (oxycodone, Vicodin, heroin, fentanyl, buprenorphine, methadone, etc.) for non-medical reasons?: No Alcohol Use Screen In the past year have you had 4 or more drinks a day containing alcohol?: No Other Pertinent/Service Specific Information: None Health/Prescription Coverage: Primary Insurance: MEDICARE Payor: MEDICARE / Plan: MEDICARE PART A & B / Product Type: *No Product type* / Secondary Insurance: [employer] [facility] Prescription Coverage: Yes Preferred Pharmacy: [email or web address] [address] [address] Status: Patient is a : No Primary Care Provider: Edin Conner MD [phone] Patient/Caregiver Goals of Treatment: DC home Potential Needs for Transition of Care: none Agency Referrals: none Transportation: car, none Transportation Anticipated: family or friend will provide Concerns to be Addressed: no discharge needs identified, denies needs/concerns at this time Assessment: Patient is admitted to cardiology service for NSTEMI. Got a cardiac cath and reported as stable this AM and anticipate discharge today. Plan: DC home with family. Patient with no apparent RNCM/SW needs at this time. No housing, transportation, insurance, resources concerns identified at this time. Supports in place to achieve a safe post-hospital transition. No identified barriers to accessing necessary care and/or follow-up after discharge. A member of the Care Management team will continue to monitor progress, follow for continuity of care and assist with transition of care planning. Romi Mayo RN, MSN Special Education Teaching Assistant - Cardiology Office of Care Management Pager: [phone] * Brief Op Note - Tl Johnston MD - 03/29/2021 1:14 PM EDT Images from the original note were not included. Preliminary Cardiac Catheterization Procedure Note: Patient Name: Deysi Strange : [id number] MR#: [id number] Case Date: 03/29/2021 Sliding Joint Maker: Surgeon(s) and Role: * Tl Johnston MD - Primary * Srinivas Moore MD - Fellow Preoperative diagnosis: NSTEMI Postoperative diagnosis: * NSTEMI* Procedure(s) performed: Coronary angio Left heart cath Stent insertion, coronary Access: right radial A time-out was conducted prior to the start of the procedure to verify the correct patient and procedure, procedure location, and all relevant critical information. Preliminary findings: Right dominant LM: mild LAD: proximal 95%, distal mild Lcx: mild RCA: mid 75% LVEDP 15 Stents placed in proximal LAD and mid RCA: The patient tolerated the procedures smoothly and was transferred from the cardiac catheterization lab to the next level of care in stable condition. No evident early complications. Full report to follow. Tl Johnston MD * Plan of Care - Dane Reaves MD - 03/29/2021 9:39 AM EDTSummary: Cath consent Pre Cardiac Catheterization Note 70 y.o. female presents for NSTEMI. Please see H&P dated 03/28 for full details No planned upcoming surgeries. No recent or ongoing bleeding events. No black stools. BP 112/64 (BP Location (NBP): Left arm) Pulse 57 Temp 36.6 ??C (97.9 ??F) (Oral) Resp 18 Ht162.6 cm (5' 4) Wt 79.9 kg (176 lb 2.4 oz) SpO2 97% BMI 30.24 kg/m?? Gen: Pleasant female in no apparent distress, able to lay flat Cor: rrr, s1/s2 of nl character and amplitude, no m/r/g. jvp not elevated Pulm: CTAB Ext: Bilateral Agusto's Test positive (both the radial and ulnar arteries alone provide ample circulation to the hand arcade). Femoral arteries are with adequate upstroke and without overlying evidence of infection. DP/PT ++ Neuro: No focal deficit ASA: 3: Patient with severe systemic disease Mallampati: III: only the base of the uvula can be seen Last 3 wbc, hgb, hct plt Recent Labs 03/29/21 0352 03/28/21 1658 WBC 5.7 5.8 HGB 13.5 13.7 HCT 40.4 41.6 PLATELET 209 235 Last 3 Lytes Recent Labs 03/29/21 0352 03/28/21 1658 NA 139 140 K 4.2 4.0 CL 107 106 CO2 23 23 BUN 19* 16 CREATININE 1.26* 1.40* Previous Catheterization: None The indications, expected benefits, and potential risks of heart catheterization were reviewed in detail with the patient. The potential for , heart attack, stroke, kidney failure, hemorrhage, allergic reaction, vascular complications and infection were reviewed in detail. The possibility of stenting and other percutaneous intervention, with associated risk, was reviewed. The possible need for emergent coronary artery bypass surgery was reviewed. Alternatives were discussed and the patient's questions were answered in full. Following this discussion, the patient consented to the procedure and signed a form attesting to this, which is in the chart. Plan: Coronary Angio via Radial vs. Femoral No C/I to long-term DAPT Moderate Sedation OK Dane Reaves MD 03/29/2021 documented in this encounter Plan of Treatment Not on file documented as of this encounter Procedures Procedure Name Priority Date/Time Associated Diagnosis Comments ECHO COMPLETE Routine 03/30/2021 12:48 PM EDT NSTEMI (non-ST elevated myocardial infarction) HC BILIRUBIN DIRECT Routine 03/30/2021 6 :36 AM EDT HC VENIPUNCTURE Routine 03/30/2021 6:36 AM EDT HEMOGRAM Routine 03/30/2021 5:32 AM EDT DIFFERENTIAL, AUTOMATED Routine 03/30/20 5:32 AM EDT HC CBC,PLT & AUTO DIFF Routine 5:32 AM EDT HC MAGNESIUM, SERUM Routine 03/30/2021 5 :32 AM EDT HC VENIPUNCTURE Routine 03/30/2021 5:32 AM EDT BASIC METABOLIC PANEL Routine 03/30/2021 5:32 AM EDT CARDIAC CATHETERIZATION Routine 03/29/20 1:10 PM EDT HC UNFRACTIONATED HEPARIN (HEP UFH) STAT 03/29/2021 11:19 AM EDT HC VENIPUNCTURE STAT 03/29/2021 3:52 AM EDT HEMOGRAM Routine 03/29/2021 3:52 AM EDT DIFFERENTIAL, AUTOMATED Routine 03/29/20 3:52 AM EDT HC CBC,PLT & AUTO DIFF Routine 3:52 AM EDT HC MAGNESIUM, SERUM Routine 03/29/2021 3 :52 AM EDT HEPATIC FUNCTION PANEL Routine 3:52 AM EDT LIPID PANEL (REFLEX DIRECT LDL) Routine 03/29/2021 3:52 AM EDT BASIC METABOLIC PANEL Routine 03/29/2021 3:52 AM EDT HC VENIPUNCTURE STAT 03/28/2021 9:44 PM EDT EKG 12-LEAD Routine 03/28/2021 5:49 PM EDT NSTEMI (non-ST elevated myocardial infarction) RAPID COVID-19 PCR ([facility]) Routine 03/28/2021 5:38 PM EDT HC THYROID STIMULATING HORMONE, SERUM Routine 03/28/2021 4:58 PM EDT HEMOGRAM Routine 03/28/2021 4:58 PM EDT DIFFERENTIAL, AUTOMATED Routine 03/28/20 4:58 PM EDT HC VENIPUNCTURE Routine 03/28/2021 4:58 PM EDT HC TROPONIN T STAT 03/28/2021 4:58 PM EDT HC MAGNESIUM, SERUM Routine 03/28/2021 4 :58 PM EDT HC HEMOGLOBIN A1C Routine 03/28/2021 4:5 8 PM EDT HEPATIC FUNCTION PANEL Routine 4:58 PM EDT BASIC METABOLIC PANEL Routine 03/28/2021 4:58 PM EDT documented in this encounter Results * ECHO COMPLETE (03/30/2021 12:48 PM EDT) Anatomical Region Laterality Modality Other 03/30/2021 Narrative 03/30/2021 12:57 PM EDT Procedure: ?Transthoracic Echocardiogram Patient: ?CAMBER DEYSI R ?(Age): 1950(70y) Med Rec#: ? [id number] ?Sex: ?F ? Site Loc: ? [facility] ?Ht / Wt: ??163(cm)/80(kg) Pt. Loc: ?Adult Floor ? BSA: ?1.86 Study Date: ?? 03/30/2021 ?Pt. Type: Inpatient Tape: ? Referring: GLENNETAJ Reading: Kevon Vega ??([id number]) Research Project Manager: Gildardo Lowe RDCS Diagnosis: *Non-ST elevation (NSTEMI) myocardial infarction (I21.4) BP: ? 115/54 SUMMARY: 1. The left ventricular chamber size is normal. There is normal global left ventricular systolic function. The quantitative left ventricular ejection fraction by biplane Carter's method is 67%. There are no left ventricular segmental wall motion abnormalities. 2. The right ventricle is normal in size. Right ventricular global systolic function is normal. The estimated pulmonary artery systolic pressure is 32 mmHg. 3. The atria are normal in size. 4. There is mild (1+/4+) mitral regurgitation. 5. There is mild (1+/4+) tricuspid regurgitation. 6. See remainder of report for additional findings. No prior study for comparison. Findings ? : Study Quality: ? Adequate Left Ventricle: ? The left ventricular chamber size is normal. ?Basal septal hypertrophy is observed. ?There is no evidence of LVOT obstruction. ?No ventricular septal defect is visualized. ?There is normal global left ventricular systolic function. ?The quantitative left ventricular ejection fraction by biplane Carter's method is 67%. ?There are no left ventricular segmental wall motion abnormalities. ?The left ventricular diastolic filling pattern is consistent with impaired LV relaxation. ?Left sided filling pressure could not be assessed by Doppler. Left Atrium: ? The left atrium is normal in size.25.3 ml/m2 Right Ventricle: ? The right ventricle is normal in size. ?Right ventricular global systolic function is normal. ?The estimated pulmonary artery systolic pressure is 32 mmHg. ?The estimated right atrial pressure is 15 mmHg. Right Atrium: ? The right atrium appears normal. Aortic Valve: ? The aortic valve is tricuspid. ?Systolic excursion of the aortic valve is normal. ?There is aortic annular calcification. ?There is no evidence of aortic valve stenosis. ?There is no evidence of aortic regurgitation. Mitral Valve: ? The mitral valve leaflets are mildly thickened. ?There is posterior mitral annular calcification. ?There is no evidence of mitral stenosis. ?There is mild (1+/4+) mitral regurgitation present. Tricuspid Valve: ? The tricuspid valve appears normal in structure and function. ?There is mild (1+/4+) tricuspid regurgitation present. Pulmonic Valve: ? The pulmonic valve is not well visualized. ?The pulmonic valve is probably normal. ?There is trace pulmonic regurgitation present. Pericardium: ? There is no pericardial effusion. ?A pericardial fat pad is visualized. Aorta: ? The aortic root is normal in size. ?The ascending aorta is normal in size. Pulmonary Artery: ? The main pulmonary artery is not well visualized. Venous: ? The inferior vena cava appears dilated. ?There is less than 50% respiratory change in the inferior vena cava dimension consistent with elevated right atrial pressure. Misc: ? There is no hemodynamically significant valve disease. ?See remainder of report for additional findings. ?Two-dimensional echo, spectral Doppler and color Doppler performed. Chambers 2D ?Value ?Units (Range) ? IVSd (2D) ? 1.12 ? cm ? LVPWd (2D) ?1.02 ? cm ? IVS:LVPW ratio (2D) 1.1 ?ratio ? RWT (2D) ?0.55 ? ratio ? RWT PW (2D) ? 0.53 ? ratio ? LVIDd (2D) ?3.87 ? cm ? LVIDs (2D) ?2.63 ? cm ? LVIDd (2D) index ?2.08 ? cm/m2 ? LVIDs (2D) index ?1.42 ? cm/m2 ? LV FS (2D) ?32.04 ?% ? EF Teichholz (2D) ?? 60.88 ?% ? Ao root diameter (2D2.8 ?cm (2.1 - 3.6) ? Ascending Ao ?3.4 ?cm (2 - 3.5) ? Aortic arch ? 2.7 ?cm ? Volumes/Mass ?Value ?Units (Range) ? LA Area 4 CH ?16 ? cm2 (<21) ? RA AREA 4CH ? 12 ? cm2 ? LA ESV BP (MOD) inde25.3 ? ml/m2 ? LV ESV SP 4CH (MOD) 22.8 ? ml ? LV ESV SP 2CH (MOD) 17.8 ? ml ? LV EDV BP ? 62.2 ? ml ? LV ESV BP ? 20.6 ? ml ? LV EDV BP index ? 33.48 ?ml/m2 ? LV ESV BP index ? 11.09 ?ml/m2 ? BP EF (MOD) ? 66.88 ?% ? LV mass (2D) ?132.99 ? g ? LV mass (2D) index ??71.58 ?g/m2 ? Diastolic/Systolic Function ?Value ?Units (Range) ? MV E-wave Vmax ?0.73 ? m/sec ? MV deceleration [id number] ?msec ? MV A-wave Vmax ?0.79 ? m/sec ? MV E:A ratio ?0.92 ? ratio ? LV septal e' Vmax ?? 0.05 ? m/sec ? LV lateral e' Vmax ??0.06 ? m/sec ? LV average e' Vmax ??0.06 ? m/sec ? LV E:e' septal ratio14.56 ?ratio ? LV E:e' lateral rati12.13 ?ratio ? LV average E:e' rati13.24 ?ratio ? Aortic Valve ?Value ?Units (Range) ? LVOT diameter ? 1.8 ?cm ? Mitral Valve ?Value ?Units (Range) ? MV PHT ?62 ? msec ? MVA (PHT) ? 3.55 ? cm2 ? Tricuspid Valve ?Value ?Units (Range) ? TR Vmax ? 2.09 ? m/sec ? TR peak gradient ?17.47 ?mmHg ? RAP ? 15 ? mmHg ? RVSP ?32 ? mmHg ? Wall Motion: Segment Name ?Rest ? Base-Anteroseptal ?? Normal ? Base-Anterior ? Normal ? Base-Anterolateral ??Normal ? Base-Posterolateral Normal ? Base-Inferior ? Normal ? Base-Inferoseptal ?? Normal ? Mid-Anteroseptal ?Normal ? Mid-Anterior ?Normal ? Mid-Anterolateral ?? Normal ? Mid-Posterolateral ??Normal ? Mid-Inferior ?Normal ? Mid-Inferoseptal ?Normal ? [place]-Septal ? Normal ? [place]-Anterior ? Normal ? [place]-Lateral ?Normal ? [place]-Inferior ? Normal ? [place]-Tip ?Normal ? This report has been electronically signed by: Kevon Vega MD ? 03/30/2021 12:56:23 Images reviewed and interpretation verified [facility] Cardiac Ultrasound Laboratory Procedure Note Kevon Vega MD - 03/30/2021 Procedure: Transthoracic Echocardiogram Patient: ALIE Quintana DOB(Age): 1950(70y) Med Rec#: [id number] Sex: F Site Loc: [facility] Ht / Wt: 163(cm)/80(kg) Pt. Loc: Adult Floor BSA: 1.86 Study Date: 03/30/2021 Pt. Type: Inpatient Tape: Referring: KENJIBEETARAMarlon Reading: Kevon Vega ([id number]) Research Project Manager: Gildardo Lowe [facility] Diagnosis: *Non-ST elevation (NSTEMI) myocardial infarction (I21.4) BP: 115/54 SUMMARY: 1. The left ventricular chamber size is normal. There is normal global left ventricular systolic function. The quantitative left ventricular ejection fraction by biplane Carter's method is 67%. There are no left ventricular segmental wall motion abnormalities. 2. The right ventricle is normal in size. Right ventricular global systolic function is normal. The estimated pulmonary artery systolic pressure is 32 mmHg. 3. The atria are normal in size. 4. There is mild (1+/4+) mitral regurgitation. 5. There is mild (1+/4+) tricuspid regurgitation. 6. See remainder of report for additional findings. No prior study for comparison. Findings : Study Quality: Adequate Left Ventricle: The left ventricular chamber size is normal. Basal septal hypertrophy is observed. There is no evidence of LVOT obstruction. No ventricular septal defect is visualized. There is normal global left ventricular systolic function. The quantitative left ventricular ejection fraction by biplane Carter's method is 67%. There are no left ventricular segmental wall motion abnormalities. The left ventricular diastolic filling pattern is consistent with impaired LV relaxation. Left sided filling pressure could not be assessed by Doppler. Left Atrium: The left atrium is normal in size.25.3 ml/m2 Right Ventricle: The right ventricle is normal in size. Right ventricular global systolic function is normal. The estimated pulmonary artery systolic pressure is 32 mmHg. The estimated right atrial pressure is 15 mmHg. Right Atrium: The right atrium appears normal. Aortic Valve: The aortic valve is tricuspid. Systolic excursion of the aortic valve is normal. There is aortic annular calcification. There is no evidence of aortic valve stenosis. There is no evidence of aortic regurgitation. Mitral Valve: The mitral valve leaflets are mildly thickened. There is posterior mitral annular calcification. There is no evidence of mitral stenosis. There is mild (1+/4+) mitral regurgitation present. Tricuspid Valve: The tricuspid valve appears normal in structure and function. There is mild (1+/4+) tricuspid regurgitation present. Pulmonic Valve: The pulmonic valve is not well visualized. The pulmonic valve is probably normal. There is trace pulmonic regurgitation present. Pericardium: There is no pericardial effusion. A pericardial fat pad is visualized. Aorta: The aortic root is normal in size. The ascending aorta is normal in size. Pulmonary Artery: The main pulmonary artery is not well visualized. Venous: The inferior vena cava appears dilated. There is less than 50% respiratory change in the inferior vena cava dimension consistent with elevated right atrial pressure. Misc: There is no hemodynamically significant valve disease. See remainder of report for additional findings. Two-dimensional echo, spectral Doppler and color Doppler performed. Chambers 2D Value Units (Range) IVSd (2D) 1.12 cm LVPWd (2D) 1.02 cm IVS:LVPW ratio (2D) 1.1 ratio RWT (2D) 0.55 ratio RWT PW (2D) 0.53 ratio LVIDd (2D) 3.87 cm LVIDs (2D) 2.63 cm LVIDd (2D) index 2.08 cm/m2 LVIDs (2D) index 1.42 cm/m2 LV FS (2D) 32.04 % EF Teichholz (2D) 60.88 % Ao root diameter (2D2.8 cm (2.1 - 3.6) Ascending Ao 3.4 cm (2 - 3.5) Aortic arch 2.7 cm Volumes/Mass Value Units (Range) LA Area 4 CH 16 cm2 (<21) RA AREA 4CH 12 cm2 LA ESV BP (MOD) inde25.3 ml/m2 LV ESV SP 4CH (MOD) 22.8 ml LV ESV SP 2CH (MOD) 17.8 ml LV EDV BP 62.2 ml LV ESV BP 20.6 ml LV EDV BP index 33.48 ml/m2 LV ESV BP index 11.09 ml/m2 BP EF (MOD) 66.88 % LV mass (2D) 132.99 g LV mass (2D) index 71.58 g/m2 Diastolic/Systolic Function Value Units (Range) MV E-wave Vmax 0.73 m/sec MV deceleration [id number] msec MV A-wave Vmax 0.79 m/sec MV E:A ratio 0.92 ratio LV septal e' Vmax 0.05 m/sec LV lateral e' Vmax 0.06 m/sec LV average e' Vmax 0.06 m/sec LV E:e' septal ratio14.56 ratio LV E:e' lateral rati12.13 ratio LV average E:e' rati13.24 ratio Aortic Valve Value Units (Range) LVOT diameter 1.8 cm Mitral Valve Value Units (Range) MV PHT 62 msec MVA (PHT) 3.55 cm2 Tricuspid Valve Value Units (Range) TR Vmax 2.09 m/sec TR peak gradient 17.47 mmHg RAP 15 mmHg RVSP 32 mmHg Wall Motion: Segment Name Rest Base-Anteroseptal Normal Base-Anterior Normal Base-Anterolateral Normal Base-Posterolateral Normal Base-Inferior Normal Base-Inferoseptal Normal Mid-Anteroseptal Normal Mid-Anterior Normal Mid-Anterolateral Normal Mid-Posterolateral Normal Mid-Inferior Normal Mid-Inferoseptal Normal [place]-Septal Normal [place]-Anterior Normal [place]-Lateral Normal [place]-Inferior Normal [place]-Tip Normal This report has been electronically signed by: Kevon Vega MD 03/30/2021 12:56:23 Images reviewed and interpretation verified [facility] Cardiac Ultrasound Laboratory Kevon Vega MD ECHO ORDERABLES * Bilirubin, Direct (03/30/2021 6:36 AM EDT) Bilirubin, Direct 0.1 0.0 - 0.3 mg/dL [facility] Blood 03/30/2021 6:36 AM EDT 03/30/2021 6:41 AM EDT Narrative Resulting Agency Comment Spec In Lab Kevon Vega MD CHEMISTRY ORDERABLES Performing Organization Address City/[facility]/ZIP Co de Phone Number [facility] [place] [place] [address] * (ABNORMAL) Aspartate Aminotransferase (03/30/2021 6:36 AM EDT) Aspartate Aminotransferase 42(H) 0 - 30 unit/L [facility] Comment:result rechecked- vh Blood 03/30/2021 6:36 AM EDT 03/30/2021 6:41 AM EDT Narrative Resulting Agency Comment Spec In Lab Kevon Vega [place] [address] * Differential, Automated (03/30/2021 5:32 AM EDT) Pathologist [facility] Neutrophil % 73.4 % [facility] Neutrophil Absolute 5.60 1.70 - 6.10 x10(3)/[facility] Lymph % 16.5 % [facility] Lymphocytes Abs 1.3 0.9 - 3.2 x10(3)/[facility] Monocyte % 7.1 % [facility] Monocyte Abs 0.5 0.3 - 0.9 x10(3)/[facility] Eos % 2.5 % [facility] Eosinophils Abs 0.2 0.0 - 0.4 x10(3)/[facility] Basophil % 0.4 % [facility] Baso Absolute 0.0 0.0 - 0.1 x10(3)/[facility] Immature Gran % 0.10 % [facility] Comment: Immature granulocytes(IG's)percentage and absolute count will include metamyelocytes, myelocytes, and promyelocytes. Blood smears from CBCs yielding IG's will be scanned manually for concordance. If this scan disagrees with the automated IG or if promyelocytes are noted, a manual differential will be performed. Immature Gran Absolute 0.01 0.00 - 0.04 x10(3)/[facility] Blood 03/30/2021 5:32 AM EDT 03/30/2021 5:44 AM EDT Narrative Resulting Agency Comment Spec In Lab Rosalee Birmingham MD [place] [address] * Hemogram (03/30/2021 5:32 AM EDT) [facility] White Blood Cell 7.6 4.0 - 9.5 x10(3)/[facility] [facility] Red Blood Cell 4.31 4.00 - 5.21 x10(6)/[facility] LABORATORY Hemoglobin 13.1 11.7 - 15.5 gm/dL [facility] Hematocrit 39.0 35.7 - 45.8 % [facility] Mean Cell Volume 90.5 82.6 - 94.4 fL [facility] Mean Cell Hemoglobin 30.4 27.1 - 32.0 pg [facility] Mean Cell Hemoglobin Concentration 33.6 31.7 - 35.0 gm/dL [facility] Platelet 208 145 - 357 x10(3)/[facility] LABORATORY RDW Standard Deviation 40.3 37.0 - 46.0 [facility] LABORATORY RDW coefficient of variation 12.1 11.5 - 14.1 % [facility] Mean Platelet Volume 10.4 7.6 - 12.9 [facility] LABORATORY NRBC% auto 0.0 % [facility] LABOR[facility] NRBC Absolute 0.000 0.000 - 0.000 x10(3)/[facility] LABORATORY Blood 03/30/2021 5:32 AM EDT 03/30/2021 5:44 AM EDT Narrative Resulting Agency Comment Spec In Lab Rosalee Birmingham MD HEMATOLOGY ORDERAB LES [facility] [place] [address] * (ABNORMAL) Basic Metabolic Panel (non-fasting) (03/30/2021 5:32 AM EDT) Glucose 114 65 - 199 mg/dL [facility] Comment:Diabetes: >=200 mg/d L plus symptoms Blood Urea Nitrogen 15 8 - 18 mg/dL [facility] Creatinine 1.09 0.70 - 1.20 mg/dL [facility] Sodium 140 135 - 145 mmol/L [facility] Potassium 4.3 3.5 - 5.0 mmol/L [facility] Comment: Please note: ??Patients with WBC >100,000 may have falsely elevated Potassium levels. ??For accurate Potassium quantification in these patients send serum separator tube (gold top) for subsequent determinations. ??Contact the Clinical Chemistry Laboratory if there are any questions. Chloride 106 98 - 107 mmol/L [facility] Carbon Dioxide 24 22 - 31 mmol/L [facility] Anion Gap 10 5 - 15 mmol/L [facility] Calcium 9.4 8.5 - 10.5 mg/dL [facility] Est Glomerular Filtration Rate 51(L) >=60 mL/min/1. 73 m?? [facility] Comment: This patient? s estimated glomerular filtration rate (eGFR) is between 51 mL/min/1.73 m2 (patients with less muscle mass) and 59 mL/min/1.73 m2 (patients with more muscle mass) as determined by the CKD-EPI equation. Assessment of eGFR is not appropriate when creatinine concentrations are rapidly changing. For clinical decisions where creatinine clearance will affect therapy, a 24-hour urine creatinine clearance may be advised. Assignment of CKD stage 1 - 5 for patients with an eGFR near the transition point between stages may be based on clinical assessment of muscle mass and symptoms in addition to eGFR. Blood 03/30/2021 5:32 AM EDT 03/30/2021 5:44 AM EDT Narrative Resulting Agency Comment Spec In Lab Kevon Vega MD CHEMISTRY ORDERABLES [facility] [place] [address] * Magnesium (03/30/2021 5:32 AM EDT) Magnesium 0.89 0.69 - 1.07 mmol/L [facility] Blood 03/30/2021 5:32 AM EDT 03/30/2021 5:44 AM EDT Narrative Resulting Agency Comment Spec In Lab Kevon Vega MD CHEMISTRY ORDERABLES Performing Organization Address [facility] Co de Phone Number [facility] [place] [address] * Hepatic Function Panel (03/30/2021 5:32 AM EDT) Protein, Total 6.4 6.1 - 8.0 gm/dL [facility] Albumin 3.9 3.2 - 5.2 gm/dL [facility] Aspartate Aminotransferase Not Perf 0 - 30 [facility] Comment: Unable to quantitate due to sample hemolysis. ??Sample redraw suggested. Called by: cliff, Read back by: jorje casillas, Date/Time:03/30/21 06:19. Alanine Aminotransferase 28 0 - 30 unit/L [facility] Alkaline Phosphatase 77 35 - 105 unit/L [facility] Bilirubin, Total 0.4 0.2 - 1.3 mg/dL [facility] Bilirubin, Direct Not Perf 0.0 - 0.3 [facility] Comment: Unable to quantitate due to sample hemolysis. ??Sample redraw suggested. Called by: cliff, Read back by: jorje casillas, Date/Time:03/30/21 06:19. Blood 03/30/2021 5:32 AM EDT 03/30/2021 5:44 AM EDT Narrative Resulting Agency Comment Spec In Lab Kevon Vega MD CHEMISTRY ORDERABLES Performing Organization Address [facility]/ZIP Co de Phone Number [facility] [place] [address] * CARDIAC CATHETERIZATION (03/29/2021 1:10 PM EDT) Anatomical Region Laterality Modality Other Narrative 03/29/2021 3:29 PM EDT ?[facility] ? Cardiac Catheterization/Intervention Report ? Patient Name: CAMBER, DEYSI R. ? Procedure Date: 03/29/2021 ? A #: [id number] ? Primary Physician: Preston, Tl T ? Case #: [id number] ? File Name: [id number] ? Catheterization Order Number: [id number] ? [facility] ? Final Report [place], [place] ? Patient Name: ? DEYSI R. CAMBER ?ID#: ?[id number] ? : ?1950 ? Procedure Date: ? March 29, 2021 ? Case #: ? [id number] ? Room: ? 6 ? Case Physician: ? Tl Johnston M.D. ?Start: ?12:24 ?Fellow: ? Srinivas Moore M.D. ?Admission: ??03/28/2021 ? Discharge: ??03/30/2021 ? Referring Physician: ??Edin Conner M.D. ? Procedures: ?* Coronary Angiography ?* Left Heart Catheterization ?* Coronary Stent Insertion ? History ?DEYSI STRANGE is a 70 year old woman. She has a family history of ?coronary artery disease. The patient's smoking status is Former. She has ?hypercholesterolemia. The patient has diabetes managed with oral ?medication. She is also status post a recent non-ST elevation myocardial ?infarction. Prior to the initiation of this procedure, the patient was ?designated as ASA Class III. The CSHA clinical frailty scale is 3: ?Managing Well. ? Diagnostic Tests: ?Electrocardiography: ? EKG was assessed by ECG. EKG was Abnormal. EKG showed other ? abnormality. ?Medications Prior to Procedure: ? Aspirin, Beta Alicia and Statin. ? Indications for Diagnostic Cath: ?The priority of the diagnostic procedure was Urgent. The indication for ?the slabber visit is ACS less than or equal to 24 hrs. Chest pain ?symptom assessment was: Typical Angina. ? Technique: ?A 6 SLFr sheath was inserted in the right radial artery utilizing the ?Seldinger technique. The left coronary artery was injected utilizing a ?5Fr SONIA RADIAL catheter. A 5Fr SONIA RADIAL catheter was used to inject ?the right coronary artery. Left ventricular pressure was performed with a ?5Fr SONIA RADIAL catheter. Coronary stent insertion was performed and the ?equipment utilized will be described in the intervention summary section. ?7,000 units of heparin were administered. A total of 200cc of Omnipaque ?were opened, 130cc of Omnipaque were administered and 70cc of Omnipaque ?were wasted. Radiation: Fluoro time was 14.8 minutes, dose area product ?was 58,600 mGYcm2 and air kerma was 773 mGY. See the case log for ?additional details. ?The patient received the following medications prior to and during the ?procedure: ? Unfractionated Heparin and Clopidogrel. ? Hemodynamics: ?Left Heart Pressures ? Resting: ? Syst Diast ? EDP ?a ?v ? m ?Ao 131 ?? 59 ?86 ?LV 126 ? 20 ?Comments: ??Ao Opening- 108/54(76). ? Coronary Angiography: ?Dominance: Right ?Left Main ? There was mild diffuse (<=25% stenosis) disease of the entire vessel ? segment of the left main artery. ?Left Anterior Descending ? There was mild diffuse (<=25% stenosis) disease of the entire vessel ? segment of the left anterior descending artery (LAD). ??The proximal ? segment of the LAD had a hazy single discrete 90% stenosis. ? Very tortuous LAD. ?Left Circumflex ? There was mild diffuse (<=25% stenosis) disease of the entire vessel ? segment of the left circumflex artery (LCX). ? Very tortuos Lcx. ?Right Coronary Artery ? There was mild diffuse (<=25% stenosis) disease of the entire vessel ? segment of the right coronary artery (RCA). ??The mid segment of the ? RCA had a hazy 75% stenosis. ? As a consequence of the catheterization/intervention procedures, a ? 99% single discrete stenosis developed in the proximal segment of ? the acute marginal branch (AcM) of the RCA. ? Very tortuos RCA. ? Indication for Intervention: ?Coronary intervention was indicated for treatment of high risk unstable ?angina. The priority for the procedure was Urgent. The NCDR indication ?for the procedure was NSTE-ACS. Syntax Score was Low. ? Intervention Summary: ?Left Anterior Descending Artery ? Proximal 90% ? Stent insertion was performed on the 90% stenosis in the ? proximal segment of the LAD. This was a de andrei lesion. ? According to the ACC/AHA classification system, this lesion ? was a type B2 moderate risk lesion. Primary prevention of ? restenosis was the indication for stent insertion. This was ? the culprit lesion. A guidewire was placed across this lesion. ? Vessel flow pre intervention was JUANITA 3. Lesion length was ? 10mm. ? Stent insertion was accomplished through a 6 Fr. EBU 3.0 ? guide. ??The lesion was predilated with a 2.25mm NC EUPHORA 12 ? MM balloon with a maximum inflation pressure of 20 ? atmospheres. ??A premounted 2.50 x 12 mm Resolute JAN (ENMANUEL) ? was deployed with a maximum inflation pressure of 20 ? atmospheres. ??Following stent deployment, the lesion was ? dilated using a 3.00mm NC EUPHORA 08 MM balloon with a maximum ? inflation pressure of 25 atmospheres. ? The final outcome was defined as successful. The residual ? stenosis following this intervention was 5%. The final JUANITA ? flow was 3. ?Right Coronary Artery ? Mid 75% ? Stent insertion was performed on the 75% stenosis in the mid ? segment of the RCA. This was a de andrei lesion. This lesion was ? designated a type B1 moderate risk lesion based on ACC/AHA ? classification system. Primary prevention of restenosis was ? the indication for stent insertion. This was the culprit ? lesion. A guidewire was placed across this lesion. Vessel flow ? pre intervention was JUANITA 3. Lesion length was 12mm. ? Stent insertion was accomplished through a 6 Fr. JR 4.0 guide. ?The lesion was predilated with a 2.25mm EUPHORA 12 MM balloon ? with a maximum inflation pressure of 20 atmospheres. ??A ? premounted 2.50 x 15 mm Resolute JAN (ENMANUEL) was deployed with ? a maximum inflation pressure of 18 atmospheres. ? The final outcome was defined as successful. The residual ? stenosis following this intervention was 5%. The final JUANITA ? flow was 3. ? Vascular Access: ?Vascular Access Management: ? Mechanical Compression of the right radial artery access site was ? performed. ? Dual Antiplatelet (DAPT) Recommendations: ?Drug eluting stent (ENMANUEL) inserted. ?P2Y12 Loading dose administered prior to arrival in the slabber. ?Recommended anti-platelet/anti-thrombotic regimen: ?Start aspirin 81 mg daily now and continue for indefinitely. ?Start clopidogrel 75 mg daily now and continue for 12 months then stop. ?These recommendations are made at the time of the intervention. Patient ?and provider preferences or a changing clinical situation may require ?modification of this regimen. Consult [facility] Interventional Cardiology for ?questions. ?The 1 year bleeding risk as calculated by the PRECISE DAPT score is High ?risk. ?This patient may be at high bleeding risk. In patients treated with DAPT ?after coronary stent implantation who develop a high risk of bleeding, or ?are at high risk of severe bleeding complication, or develop significant ?overt bleeding, discontinuation of P2Y12 inhibitor therapy after 3 months ?for stable ischemic heart disease (SIHD) or after 6 months for acute ?coronary syndrome (ACS) may be reasonable. ? 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 Complications/Events: ?The patient had no complications during these procedures. ?The attending physician was present for the entire procedure. ?Dr. Tl Johnston M.D. was present during the moderate sedation ?intraservice time as documented by the sedation nurse. ??Case time = 00:46. ?Dr. Tl Johnston M.D. performed the coronary angiography, left heart ?catheterization and stent insertion-coronary. ? Tl Johnston M.D. ? Electronically Signed by: Tl Johnston M.D. ? Report Finalized: 03/29/2021 ??15:26 ? Report Last Ammended: 06/04/2021 ??16:27 ? Procedure Note Tl Johnston MD - 06/04/2021 [facility] Cardiac Catheterization/Intervention Report Patient Name: DEYSI STRANGE Procedure Date: 03/29/2021 A #: [id number] Primary Physician: Tl Johnston Case #: [id number] File Name: [id number] Catheterization Order Number: [id number] [facility] FinalReport [place], [place] Patient Name: DEYSI STRANGE ID#:[id number] :1950 Procedure Date: March 29, 2021 Case #: [id number] Room: 6 Case Physician: Tl Johnston M.D. Start: 12:24 Fellow: Srinivas Moore M.D. Admission:03/28/2021 Discharge:03/30/2021 Referring Physician: Edin Conner M.D. Procedures: * Coronary Angiography * Left Heart Catheterization * Coronary Stent Insertion History DEYSI STRANGE is a 70 year old woman. She has a family history of coronary artery disease. The patient's smoking status is Former. Shehas hypercholesterolemia. The patient has diabetes managed with oral medication. She is also status post a recent non-ST elevationmyocardial infarction. Prior to the initiation of this procedure, the patientwas designated as ASA Class III. The [facility] clinical frailty scale is 3: Managing Well. Diagnostic Tests: Electrocardiography: EKG was assessed by ECG. EKG was Abnormal. EKG showed other abnormality. Medications Prior to Procedure: Aspirin, Beta Alicia and Statin. Indications for Diagnostic Cath: The priority of the diagnostic procedure was Urgent. The indicationfor the slabber visit is ACS less than or equal to 24 hrs. Chest pain symptom assessment was: Typical Angina. Technique: A 6 SLFr sheath was inserted in the right radial artery utilizingthe Seldinger technique. The left coronary artery was injected utilizinga 5Fr SONIA RADIAL catheter. A 5Fr SONIA RADIAL catheter was used toinject the right coronary artery. Left ventricular pressure was performedwith a 5Fr SONIA RADIAL catheter. Coronary stent insertion was performedand the equipment utilized will be described in the intervention summarysection. 7,000 units of heparin were administered. A total of 200cc ofOmnipaque were opened, 130cc of Omnipaque were administered and 70cc ofOmnipaque were wasted. Radiation: Fluoro time was 14.8 minutes, dose areaproduct was 58,600 mGYcm2 and air kerma was 773 mGY. See the case log for additional details. The patient received the following medications prior to and duringthe procedure: Unfractionated Heparin and Clopidogrel. Hemodynamics: Left Heart Pressures Resting: Syst Diast EDP a v m Ao 131 59 86 LV 126 20 Comments: Ao Opening- 108/54(76). Coronary Angiography: Dominance: Right Left Main There was mild diffuse (<=25% stenosis) disease of the entirevessel segment of the left main artery. Left Anterior Descending There was mild diffuse (<=25% stenosis) disease of the entirevessel segment of the left anterior descending artery (LAD). Theproximal segment of the LAD had a hazy single discrete 90% stenosis. Very tortuous LAD. Left Circumflex There was mild diffuse (<=25% stenosis) disease of the entirevessel segment of the left circumflex artery (LCX). Very tortuos Lcx. Right Coronary Artery There was mild diffuse (<=25% stenosis) disease of the entirevessel segment of the right coronary artery (RCA). The mid segment ofthe RCA had a hazy 75% stenosis. As a consequence of the catheterization/interventionprocedures, a 99% single discrete stenosis developed in the proximal segmentof the acute marginal branch (AcM) of the RCA. Very tortuos RCA. Indication for Intervention: Coronary intervention was indicated for treatment of high riskunstable angina. The priority for the procedure was Urgent. The NCDRindication for the procedure was NSTE-ACS. Syntax Score was Low. Intervention Summary: Left Anterior Descending Artery Proximal 90% Stent insertion was performed on the 90% stenosis in the proximal segment of the LAD. This was a de andrei lesion. According to the ACC/AHA classification system, thislesion was a type B2 moderate risk lesion. Primary prevention of restenosis was the indication for stent insertion. Thiswas the culprit lesion. A guidewire was placed across thislesion. Vessel flow pre intervention was JUANITA 3. Lesion lengthwas 10mm. Stent insertion was accomplished through a 6 Fr. EBU 3.0 guide. The lesion was predilated with a 2.25mm NCEUPHORA 12 MM balloon with a maximum inflation pressure of 20 atmospheres. A premounted 2.50 x 12 mm Resolute JAN(ENMANUEL) was deployed with a maximum inflation pressure of 20 atmospheres. Following stent deployment, the lesion was dilated using a 3.00mm NC EUPHORA 08 MM balloon with amaximum inflation pressure of 25 atmospheres. The final outcome was defined as successful. The residual stenosis following this intervention was 5%. The finalTIMI flow was 3. Right Coronary Artery Mid 75% Stent insertion was performed on the 75% stenosis in themid segment of the RCA. This was a de andrei lesion. Thislesion was designated a type B1 moderate risk lesion based onACC/AHA classification system. Primary prevention of restenosiswas the indication for stent insertion. This was the culprit lesion. A guidewire was placed across this lesion. Vesselflow pre intervention was JUANITA 3. Lesion length was 12mm. Stent insertion was accomplished through a 6 Fr. JR 4.0guide. The lesion was predilated with a 2.25mm EUPHORA 12 MMballoon with a maximum inflation pressure of 20 atmospheres. A premounted 2.50 x 15 mm Resolute JAN (ENMANUEL) was deployedwith a maximum inflation pressure of 18 atmospheres. The final outcome was defined as successful. The residual stenosis following this intervention was 5%. The finalTIMI flow was 3. Vascular Access: Vascular Access Management: Mechanical Compression of the right radial artery access sitewas performed. Dual Antiplatelet (DAPT) Recommendations: Drug eluting stent (ENMANUEL) inserted. P2Y12 Loading dose administered prior to arrival in the slabber. Recommended anti-platelet/anti-thrombotic regimen: Start aspirin 81 mg daily now and continue for indefinitely. Start clopidogrel 75 mg daily now and continue for 12 months thenstop. These recommendations are made at the time of the intervention.Patient and provider preferences or a changing clinical situation mayrequire modification of this regimen. Consult [facility] Interventional Cardiologyfor questions. The 1 year bleeding risk as calculated by the PRECISE DAPT score isHigh risk. This patient may be at high bleeding risk. In patients treated withDAPT after coronary stent implantation who develop a high risk ofbleeding, or are at high risk of severe bleeding complication, or developsignificant overt bleeding, discontinuation of P2Y12 inhibitor therapy after 3months for stable ischemic heart disease (SIHD) or after 6 months for acute coronary syndrome (ACS) may be reasonable. Conclusions: * Two vessel coronary artery disease (LAD and RCA) * Elevated left ventricular end diastolic pressure * Successful stent insertion of the proximal LAD lesion * Successful stent insertion of the mid RCA lesion * See Dual Antiplatelet (DAPT) Recommendations above Complications/Events: The patient had no complications during these procedures. The attending physician was present for the entire procedure. Dr. Tl Johnston M.D. was present during the moderate sedation intraservice time as documented by the sedation nurse. Case time =00:46. Dr. Tl Johnston M.D. performed the coronary angiography, leftheart catheterization and stent insertion-coronary. Tl Johnston M.D. Electronically Signed by: Tl Johnston M.D. Report Finalized: 03/29/2021 15:26 Report Last Ammended: 06/04/2021 16:27 Tl Johnston MD CARDIAC CATH ORDERAB LES * Heparin (unfractionated) Level (03/29/2021 11:19 AM EDT) UF Heparin 0.62 IU/mL [facility] Comment: Guidelines for therapeutic unfractionated heparin levels are summarized below. Heparin (Anti-Xa) levels should be determined in a plasma sample that has been drawn 6 hours after a dose change i.e., steady-state has been reached. DRUG ?Dosing Schedule ? Target Peak Steady-State ?Heparin (Anti-Xa) Levels (Units/mL) Unfractionated ?Continuous infusion ?0.3-0.7 Heparin ?0.3-0.6 for some neurology indications Blood 03/29/2021 11:1 9 AM EDT 03/29/2021 11:35 AM EDT Narrative Resulting Agency Comment Spec In Lab Kevon Vega MD HEMATOLOGY ORDERABLE S [facility] [place] [address] * Differential, Automated (03/29/2021 3:52 AM EDT) Pathologist [facility] Neutrophil % 53.7 % [facility] Neutrophil Absolute 3.07 1.70 - 6.10 x10(3)/[facility] Lymph % 34.6 % [facility] Lymphocytes Abs 2.0 0.9 - 3.2 x10(3)/[facility] Monocyte % 7.7 % [facility] Monocyte Abs 0.4 0.3 - 0.9 x10(3)/[facility] Eos % 3.1 % [facility] Eosinophils Abs 0.2 0.0 - 0.4 x10(3)/[facility] Basophil % 0.7 % [facility] Baso Absolute 0.0 0.0 - 0.1 x10(3)/[facility] Immature Gran % 0.20 % [facility] Comment: Immature granulocytes(IG's)percentage and absolute count will include metamyelocytes, myelocytes, and promyelocytes. Blood smears from CBCs yielding IG's will be scanned manually for concordance. If this scan disagrees with the automated IG or if promyelocytes are noted, a manual differential will be performed. Immature Gran Absolute 0.01 0.00 - 0.04 x10(3)/[facility] Blood 03/29/2021 3:52 AM EDT 03/29/2021 4:16 AM EDT Narrative Resulting Agency Comment Spec In Lab Rosalee Birmingham MD HEMATOLOGY ORDERAB LES [facility] [place] [address] * Hemogram (03/29/2021 3:52 AM EDT) [facility] White Blood Cell 5.7 4.0 - 9.5 x10(3)/[facility]OR[facility] Red Blood Cell 4.42 4.00 - 5.21 x10(6)/[facility] Hemoglobin 13.5 11.7 - 15.5 gm/dL [facility] Hematocrit 40.4 35.7 - 45.8 % [facility] Mean Cell Volume 91.4 82.6 - 94.4 fL [facility] Mean Cell Hemoglobin 30.5 27.1 - 32.0 pg [facility] Mean Cell Hemoglobin Concentration 33.4 31.7 - 35.0 gm/dL [facility] Platelet 209 145 - 357 x10(3)/[facility] RDW Standard Deviation 40.9 37.0 - 46.0 fL [facility] RDW coefficient of variation 12.2 11.5 - 14.1 % [facility] Mean Platelet Volume 10.5 7.6 - 12.9 fL [facility] LABORATORY NRBC% auto 0.0 % [facility] NRBC Absolute 0.000 0.000 - 0.000 x10(3)/[facility] LABORATORY Blood 03/29/2021 3:52 AM EDT 03/29/2021 4:16 AM EDT Narrative Resulting Agency Comment Spec In Lab Rosalee Birmingham MD HEMATOLOGY ORDERAB LES [facility] [place] [place] [address] * Heparin (unfractionated) Level (03/29/2021 3:52 AM EDT) UF Heparin 0.75 IU/mL [facility] Comment: Guidelines for therapeutic unfractionated heparin levels are summarized below. Heparin (Anti-Xa) levels should be determined in a plasma sample that has been drawn 6 hours after a dose change i.e., steady-state has been reached. DRUG ?Dosing Schedule ? Target Peak Steady-State ?Heparin (Anti-Xa) Levels (Units/mL) Unfractionated ?Continuous infusion ?0.3-0.7 Heparin ?0.3-0.6 for some neurology indications Blood 03/29/2021 3:52 AM EDT 03/29/2021 4:16 AM EDT Narrative Resulting Agency Comment Spec In Lab Kevon Vega MD HEMATOLOGY ORDERABLE S Performing Organization Address [facility] de Phone Number [facility] [place] [place] [address] * Hepatic Function Panel (03/29/2021 3:52 AM EDT) Protein, Total 6.2 6.1 - 8.0 gm/dL [facility] Albumin 3.8 3.2 - 5.2 gm/dL [facility] Aspartate Aminotransferase 19 0 - 30 unit/L [facility] Alanine Aminotransferase 19 0 - 30 unit/L [facility] Alkaline Phosphatase 77 35 - 105 unit/L [facility] Bilirubin, Total 0.3 0.2 - 1.3 mg/dL [facility] Bilirubin, Direct 0.1 0.0 - 0.3 mg/dL [facility] Blood 03/29/2021 3:52 AM EDT 03/29/2021 4:16 AM EDT Narrative Resulting Agency Comment Spec In Lab Kevon Vega MD CHEMISTRY ORDERABLES Performing Organization Address [facility] Phone Number [facility] [place] [place] [address] * (ABNORMAL) Basic Metabolic Panel (non-fasting) (03/29/2021 3:52 AM EDT) Glucose 111 65 - 199 mg/dL [facility] Comment:Diabetes: >=200 mg/d L plus symptoms Blood Urea Nitrogen 19(H) 8 - 18 mg/dL [facility] Creatinine 1.26(H) 0.70 - 1.20 mg/dL [facility] Sodium 139 135 - 145 mmol/L [facility] Potassium 4.2 3.5 - 5.0 mmol/L [facility] Comment: Please note: ??Patients with WBC >100,000 may have falsely elevated Potassium levels. ??For accurate Potassium quantification in these patients send serum separator tube (gold top) for subsequent determinations. ??Contact the Clinical Chemistry Laboratory if there are any questions. Chloride 107 98 - 107 mmol/L [facility] Carbon Dioxide 23 22 - 31 mmol/L [facility] Anion Gap 9 5 - 15 mmol/L [facility] Calcium 9.4 8.5 - 10.5 mg/dL [facility] Est Glomerular Filtration Rate 43(L) >=60 mL/min/1. 73 m?? [facility] Comment: This patient? s estimated glomerular filtration rate (eGFR) is between 43 mL/min/1.73 m2 (patients with less muscle mass) and 50 mL/min/1.73 m2 (patients with more muscle mass) as determined by the CKD-EPI equation. Assessment of eGFR is not appropriate when creatinine concentrations are rapidly changing. For clinical decisions where creatinine clearance will affect therapy, a 24-hour urine creatinine clearance may be advised. Assignment of CKD stage 1 - 5 for patients with an eGFR near the transition point between stages may be based on clinical assessment of muscle mass and symptoms in addition to eGFR. Blood 03/29/2021 3:52 AM EDT 03/29/2021 4:16 AM EDT Narrative Resulting Agency Comment Spec In Lab Kevon Vega MD CHEMISTRY ORDERABLES [facility] [place] [place] [address] * Magnesium (03/29/2021 3:52 AM EDT) Magnesium 0.89 0.69 - 1.07 mmol/L [facility] Blood 03/29/2021 3:52 AM EDT 03/29/2021 4:16 AM EDT Narrative Resulting Agency Comment Spec In Lab Kevon Vega MD CHEMISTRY ORDERABLES [facility] [place] [place] [address] * Lipid Panel (Reflex Direct LDL) (03/29/2021 3:52 AM EDT) Cholesterol, Total 187 mg/dL [facility] Comment: Lower Risk: <200 mg/dL Average Risk: 200-239 mg/dL Higher Risk: >ks=848 mg/dL Triglyceride 144 mg/dL [facility] Comment: Average Risk/Lower Risk: <150 mg/dL Borderline High Risk: 150-199 mg/dL High Risk: 200-499 mg/dL Very High Risk: >kx=751 mg/dL HDL Cholesterol 57 mg/dL [facility] Comment: Males: ?? Higher Risk: <40 mg/dL Females: ?? Higher Risk: <50 mg/dL LDL Cholesterol 101 mg/dL [facility] Comment: Lowest Risk: <100 mg/dL Lower Risk: 100-129 mg/dL Borderline High Risk: 130-159 mg/dL High Risk: 160-189 mg/dL Very High Risk: >ye=342 mg/dL Cholesterol/HDL Ratio 3.3 ratio [facility] Lipid Interpretation See Note [facility] Comment: Lipid management should be guided by a patient? s ASCVD risk, goals and preferences. ACC/AHA Guidelines recommend high intensity statin if clinical ASCVD or LDL greater than or equal to 190 mg/dL. http://Ecozen Solutionsurl.com/BRN-ZML-Cwxiizxqx Adults aged 40-75 with LDL 70-189 mg/dL should have their 10 year ASCVD risk estimated with the ACC/AHA ASCVD risk semaphore operator http://tools.acc.org/IYKUK-Wesz-Anskjaftc/ Statin should be discussed if risk greater than or equal to 7.5% in non-diabetics. With diabetes, moderate intensity statin is recommended if risk less than 7.5%, high intensity if risk greater than or equal to 7.5%. Annual lipid monitoring on statins is not necessary. Evaluate secondary causes of Triglycerides greater than 500 mg/dL or LDL greater than 190 mg/dL: See table 6 of ACC/AHA Guideline. Lifestyle modification is a critical component of ASCVD risk reduction. Blood 03/29/2021 3:52 AM EDT 03/29/2021 4:16 AM EDT Narrative Resulting Agency Comment Spec In Lab Kevon Vega MD CHEMISTRY ORDERABLES [facility] [place] [place] [address] * Heparin (unfractionated) Level (03/28/2021 9:44 PM EDT) UF Heparin 0.65 IU/mL [facility] Comment: Guidelines for therapeutic unfractionated heparin levels are summarized below. Heparin (Anti-Xa) levels should be determined in a plasma sample that has been drawn 6 hours after a dose change i.e., steady-state has been reached. DRUG ?Dosing Schedule ? Target Peak Steady-State ?Heparin (Anti-Xa) Levels (Units/mL) Unfractionated ?Continuous infusion ?0.3-0.7 Heparin ?0.3-0.6 for some neurology indications Blood 03/28/2021 9:44 PM EDT 03/28/2021 9:50 PM EDT Narrative Resulting Agency Comment Spec In Lab Kevon Vega MD HEMATOLOGY ORDERABLE S Performing Organization Address [facility] Co de Phone Number [facility] [place] [address] * EKG 12 Lead (03/28/2021 5:49 PM EDT) Pathologist [facility] Ventricular rate 62 BPM MUSE SYSTEM Atrial Rate 62 BPM MUSE SYSTEM P-R Interval 178 ms MUSE SYSTEM QRS Duration 74 ms MUSE SYSTEM Q-T Interval 408 ms MUSE SYSTEM QTC Calculated (Bezet) 414 ms MUSE SYSTEM Calculated P [place] 35 degrees MUSE SYSTEM Calculated R [place] 7 degrees MUSE SYSTEM Calculated T [place] 83 degrees MUSE SYSTEM INTERPRETATION Normal sinus rhythm Nonspecific ST and T wave abnormality Abnormal ECG No previous ECGs available Confirmed by MD Edmond, Camilo Quintana () on 03/29/2021 9:41:01 AM MUSE SYSTEM 03/28/2021 5:49 PM EDT 03/29/2021 9:41 AM EDT Kevon Vega MD ECG ORDERABLES Performing Organization Address [facility] de Phone Number MUSE SYSTEM * COVID-19 PCR (03/28/2021 5:38 PM EDT) [facility] SARS-CoV-2 RNA (Rapid) Not Detected Not Detected [facility] Comment: This result should be interpreted in combination with the clinical observations, patient history and epidemiological information. For testing of asymptomatic individuals, assay performance characteristics and clinical utility have not been evaluated. Testing for SARS-CoV-2 (Severe acute respiratory syndrome coronavirus 2, formerly known as 2019 novel coronavirus or 2019-nCoV) to aid in the diagnosis of COVID-19 is performed using the Simplexa COVID-19 Direct Assay by [employer] as authorized by the FDA issued Emergency Use Authorization (EUA). This assay is intended for In-vitro Diagnostic (IVD) use with nasopharyngeal swabs collected from individuals meeting the CDC criteria for testing. The assay is performed based on the instructions for use and additional guidance provided by the FDA. Testing is performed in the Microbiology Laboratory within the Department of Pathology and Laboratory Medicine at [facility], certified under the Clinical Laboratory Improvement Amendments of 1988 (CLIA), 42 U.S.C. section 263a, to perform high complexity tests. Assay performance has been verified according to clinical laboratory regulatory requirements. Test results are provided above. A result of Not Detected indicates that the viral RNA target is not present but does not preclude SARS-CoV-2 infection. False negative results may occur if a specimen is improperly collected, transported or handled; if amplification inhibitors are present; or if inadequate numbers of viral particles are present in the specimen. A result of Detected suggests a current or recent infection and the patient is presumed to be infected. Positive and negative predictive values for this test are highly dependent on disease prevalence. A result of Invalid indicates the inability to conclusively determine the presence or absence of SARS-CoV-2 RNA in the sample which can be due to a variety of factors. Recollection is recommended in the case of an invalid result. CDC COVID-19 criteria for testing on human specimens and clinical management guidance information are available at the CDC Coronavirus Disease 2019 (COVID-19) webpage under Information for Healthcare Professionals (https://www.cdc.gov/coronavirus/2019-ncov/hcp/index.html). Additional information about this and other EUA tests can be found in provider and patient fact sheets at the following FDA website: https://www.fda.gov/medical-devices/iytgmrxedrz-jdjieer-4480-ioudx-90-uhzbicnen- use-a ywqypkvwadcpl-krtbenn-enqsera/fxwez-xvkpnmpwlob-sgoi SARS-CoV-2 Source [employer] Swab [facility] Nasopharyngeal Swab 03/28/20 5:38 PM EDT 03/28/2021 6:03 PM EDT Comment:Symptoms->Surveillan ce Narrative Resulting Agency Comment Spec In Lab Kevon Vega MD MICROBIOLOGY - GENER AL ORDERABLES [facility] [place] [place] [address] * Hepatic Function Panel (03/28/2021 4:58 PM EDT) [facility] Protein, Total 6.8 6.1 - 8.0 gm/dL [facility] Albumin 4.4 3.2 - 5.2 gm/dL [facility] Aspartate Aminotransferase 21 0 - 30 unit/L [facility] Alanine Aminotransferase 23 0 - 30 unit/L [facility] Alkaline Phosphatase 84 35 - 105 unit/L [facility] Bilirubin, Total 0.3 0.2 - 1.3 mg/dL [facility] Bilirubin, Direct 0.1 0.0 - 0.3 mg/dL [facility] Blood Venous Draw / Unknown 03/28/2021 4:58 PM EDT 03/28/2021 5:09 PM EDT Narrative Resulting Agency Comment Spec In Lab Rosalee Birmingham MD CHEMISTRY ORDERABL ES Performing Organization Address City/State/[facility] Co de Phone Number [facility] [place] [phone] * Differential, Automated (03/28/2021 4:58 PM EDT) [facility] Neutrophil % 54.7 % [facility] Neutrophil Absolute 3.18 1.70 - 6.10 x10(3)/[facility] Lymph % 32.9 % [facility] Lymphocytes Abs 1.9 0.9 - 3.2 x10(3)/[facility] Monocyte % 8.1 % [facility] Monocyte Abs 0.5 0.3 - 0.9 x10(3)/[facility] Eos % 3.3 % [facility] Eosinophils Abs 0.2 0.0 - 0.4 x10(3)/[facility] Basophil % 0.7 % [facility] Baso Absolute 0.0 0.0 - 0.1 x10(3)/[facility] Immature Gran % 0.30 % [facility] Comment: Immature granulocytes(IG's)percentage and absolute count will include metamyelocytes, myelocytes, and promyelocytes. Blood smears from CBCs yielding IG's will be scanned manually for concordance. If this scan disagrees with the automated IG or if promyelocytes are noted, a manual differential will be performed. Immature Gran Absolute 0.02 0.00 - 0.04 x10(3)/[facility]ATORY Blood 03/28/2021 4:58 PM EDT 03/28/2021 5:04 PM EDT Narrative Resulting Agency Comment Spec In Lab Rosalee Birmingham MD HEMATOLOGY ORDERAB LES [facility] [place] [place] [address] * Hemogram (03/28/2021 4:58 PM EDT) White Blood Cell 5.8 4.0 - 9.5 x10(3)/[facility] Red Blood Cell 4.61 4.00 - 5.21 x10(6)/[facility] Hemoglobin 13.7 11.7 - 15.5 gm/dL [facility] Hematocrit 41.6 35.7 - 45.8 % [facility] Mean Cell Volume 90.2 82.6 - 94.4 fL [facility] Mean Cell Hemoglobin 29.7 27.1 - 32.0 pg [facility] Mean Cell Hemoglobin Concentration 32.9 31.7 - 35.0 gm/dL [facility] Platelet 235 145 - 357 x10(3)/[facility] RDW Standard Deviation 40.5 37.0 - 46.0 fL [facility] RDW coefficient of variation 12.2 11.5 - 14.1 % [facility] Mean Platelet Volume 10.0 7.6 - 12.9 fL [facility] NRBC% auto 0.0 % [facility] NRBC Absolute 0.000 0.000 - 0.000 x10(3)/mcL [facility] Blood 03/28/2021 4:58 PM EDT 03/28/2021 5:04 PM EDT Narrative Resulting Agency Comment Spec In Lab Rosalee Birmingham MD HEMATOLOGY ORDERAB LES Performing Organization Address City/[facility]/ZIP Co de Phone Number [facility] [place] [place] [address] * Troponin (03/28/2021 4:58 PM EDT) Pathologist [facility] Troponin-T <0.01 0.00 - 0.00 ng/mL [facility] Comment: The 99th percentile for Troponin T is less than 0.01 ng/mL, any detectable cTnT concentration using this assay should be considered elevated. According to the third universal definition of myocardial infarction the following criteria with a clinical presentation consistent with acute myocardial ischemia meets the diagnosis for a myocardial infarction (MO). Detection of a rise and/or fall of cTnT, with at least one value greater than the 99th percentile (> or = 0.01) and with at least one of the following ?? Symptoms of ischemia ?? New or presumed new significant AJ-ufaifbn-N wave (ST-T) changes or new left bundle branch block (LBBB) ?? Development of pathologic Q waves in the ECG ?? Imaging evidence of new loss of viable myocardium or new regional wall motion abnormality ?? Identification of an intracoronary thrombus by angiography or autopsy Samples for cTnT testing should be obtained serially upon first assessment and again 3 to 6 hours later. If the clinical suspicion is high and previous samples have been negative an additional sample may be indicated. Reference: Third Cheney Definition of Myocardial Infarction. Journal of the [place] [employer] 2012;60:1581-98 Blood 03/28/2021 4:58 PM EDT 03/28/2021 5:04 PM EDT Narrative Resulting Agency Comment Spec In Lab Kevon Vega MD CHEMISTRY ORDERABLES Performing Organization Address [facility]/ZIP Co de Phone Number [facility] [place] [place] [address] * (ABNORMAL) Basic Metabolic Panel (non-fasting) (03/28/2021 4:58 PM EDT) Glucose 97 65 - 199 mg/dL [facility] Comment:Diabetes: >=200 mg/d L plus symptoms Blood Urea Nitrogen 16 8 - 18 mg/dL [facility] Creatinine 1.40(H) 0.70 - 1.20 mg/dL [facility] Sodium 140 135 - 145 mmol/L [facility] Potassium 4.0 3.5 - 5.0 mmol/L [facility] Comment: Please note: ??Patients with WBC >100,000 may have falsely elevated Potassium levels. ??For accurate Potassium quantification in these patients send serum separator tube (gold top) for subsequent determinations. ??Contact the Clinical Chemistry Laboratory if there are any questions. Chloride 106 98 - 107 mmol/L [facility] Carbon Dioxide 23 22 - 31 mmol/L [facility] Anion Gap 11 5 - 15 mmol/L [facility] Calcium 9.8 8.5 - 10.5 mg/dL [facility] Est Glomerular Filtration Rate 38(L) >=60 mL/min/1. 73 m?? [facility] Comment: This patient? s estimated glomerular filtration rate (eGFR) is between 38 mL/min/1.73 m2 (patients with less muscle mass) and 44 mL/min/1.73 m2 (patients with more muscle mass) as determined by the CKD-EPI equation. Assessment of eGFR is not appropriate when creatinine concentrations are rapidly changing. For clinical decisions where creatinine clearance will affect therapy, a 24-hour urine creatinine clearance may be advised. Assignment of CKD stage 1 - 5 for patients with an eGFR near the transition point between stages may be based on clinical assessment of muscle mass and symptoms in addition to eGFR. Blood 03/28/2021 4:58 PM EDT 03/28/2021 5:04 PM EDT Narrative Resulting Agency Comment Spec In Lab Kevon Vega MD CHEMISTRY ORDERABLES [facility] [place] [place] [address] * Magnesium (03/28/2021 4:58 PM EDT) Pathologist [facility] Magnesium 0.86 0.69 - 1.07 mmol/L [facility] Blood 03/28/2021 4:58 PM EDT 03/28/2021 5:04 PM EDT Narrative Resulting Agency Comment Spec In Lab Kevon Vega MD CHEMISTRY ORDERABLES Performing Organization Address [facility] Co de Phone Number [facility] [place] [address] * Hemoglobin A1c (03/28/2021 4:58 PM EDT) [facility] Hemoglobin A1c 5.5 4.3 - 5.6 % [facility] Comment: Reference Range: 4.3 - 5.6% 5.7 - 6.4% - Increased Risk of Developing Diabetes Mellitus >= 6.5% - Consistent with diagnosis of Diabetes Mellitus In the absence of hyperglycemia (i.e. plasma glucose > 200 mg/dL) or classic symptoms of hyperglycemia a repeat measurement of HbA1c should be performed on a separate sample to confirm the diagnosis. Diagnosis and Classification of Diabetes Mellitus, Diabetes Care 2013; 36: Suppl. 1, S67-73 Estimated Average Glucose See note mg/dL [facility] Comment: Estimated Average Glucose not appropriate for patients over 70 years of age. eAG equivalents for HbA1c percentages: HbA1c(%) ?eAG(mg/dL) 6.0 ?126 6.5 ?140 7.0 ?154 7.5 ?169 8.0 ?183 8.5 ?197 9.0 ?212 9.5 ?226 10.0 ? 240 Limitations: The eAG calculation has not been validated on women, individuals below 18 years old and above 70 years old, and individuals with hemoglobinopathies. Additional resources are available on the ADA website. Eamon MADRIGAL, Marcus J, Stefan R, et al. ??Translating the A1C assay into estimated average glucose values. ??Diabetes Care 2008:31(8):6997-2007. Blood 03/28/2021 4:58 PM EDT 03/28/2021 5:04 PM EDT Narrative Resulting Agency Comment Spec In Lab Kevon Vega MD CHEMISTRY ORDERABLES Performing Organization Address [facility] Co de Phone Number [facility] [place] [address] * TSH [place] (03/28/2021 4:58 PM EDT) Thyroid Stimulating Hormone 2.05 0.27 - 4.20 mcIU/mL [facility] Blood 03/28/2021 4:58 PM EDT 03/28/2021 5:04 PM EDT Narrative Resulting Agency Comment Spec In Lab Kevon Vega MD CHEMISTRY ORDERABLES Performing Organization Address [facility] Co de Phone Number [facility] [place] [address] documented in this encounter Visit Diagnoses Not on filedocumented in this encounter Admitting Diagnoses Diagnosis NSTEMI (non-ST elevated myocardial infarction) Acute myocardial infarction, subendocardial infarction, episode of care unspecified documented in this encounter Administered Medications Inactive Administered Medications - up to 3 most recent administrations Medication Order MAR Action Action Date Dose Rate Site aspirin chewable tablet 81 mg 81 mg, Oral, DAILY, First dose on 03/29/21 at 0900, Until Discontinued, Routine Given 03/30/2021 8:58 AM EDT 81 mg Given 03/29/2021 8:51 AM EDT 81 mg clopidogreL (Plavix) tablet 75 mg 75 mg, Oral, DAILY, First dose on 03/29/21 at 0900, Until Discontinued, Routine Given 03/30/2021 8:58 AM EDT 75 mg Given 03/29/2021 8:51 AM EDT 75 mg fentaNYL (pf) (50 mcg/mL) multi-dose injection ONCE PRN, Starting on 03/29/21 at 1218, Until Snyder 03/29/21 at 1316, Cath (Intra-Procedure), Routine Given 03/29/2021 12:49 PM EDT 25 mcg Given 03/29/2021 12:19 PM EDT 25 mcg heparin (porcine) (1,000 units/mL) injection 0-4,000 Units 0-4,000 Units, Intravenous, BOLUS PER HEPARIN PROTOCOL, Starting on 03/28/21 at 1609, Until 03/30/21 at 1537, Per Protocol, START ADJUSTMENT SCHEDULE 6 HOURS AFTER STARTING INFUSION Heparin UFH Level between 0.1 - 0.29 IU/mL: Bolus 2,000 units Heparin UFH Level less than 0.1 IU/mL: Bolus 4,000 units, Routine heparin (porcine) (1,000 units/mL) injection ONCE PRN, Starting on 03/29/21 at 1228, Until Snyder 03/29/21 at 1316, Cath (Intra-Procedure), Routine Given 03/29/2021 1:05 PM EDT 1,500 Units Given 03/29/2021 12:28 PM EDT 5,500 Units heparin (porcine) 50 units/mL in sodium chloride 0.45% 500 mL infusion 0-5,000 Units/hr (0-100 mL/hr), Intravenous, CONTINUOUS, Starting on 03/28/21 at 1700, Until 03/30/21 at 1537, BEGIN infusion at 950 units per hr (12 units/kg/hr). MAX INITIAL infusion rate is 1,000 units/hr. Target Heparin UFH Level (anti-Xa activity) = 0.3 - 0.7 IU/mL Start adjustment schedule 6 hours after starting infusion. If Heparin UFH Level is: - less than 0.1 IU/mL, administer PRN bolus and increase rate by 300 units per hr (4 units/kg/hr) - 0.1 - 0.29 IU/mL, administer PRN bolus and increase rate by 150 units per hr (2 units/kg/hr) - 0.3 - 0.7 IU/mL, No Change - 0.71 - 0.85 IU/mL, decrease rate by 100 units per hr (1 units/kg/hr) - 0.86 - 1.05 IU/mL, stop infusion for 30 minutes, then decrease rate by 150 units per hr (2 units/kg/hr) - Greater than 1.05 IU/mL, stop infusion for 60 minutes, then decrease rate by 250 units per hour (3 units/kg/hr) Repeat Heparin UFH Level 6 hours after initiating heparin. Then 6 hours after each dose adjustment. When 2 consecutive Heparin UFH Level within target range of 0.3 - 0.7 IU/mL, change Heparin UFH Level to once every 24 hours with A.M. labs while on heparin. RN to order required Heparin UFH Level - Per Protocol, Routine Rate/Dose Verify 03/29/2021 11:54 AM EDT 850 Units/hr 17 mL/hr Rate/Dose Verify 03/29/2021 9:05 AM EDT 850 Units/hr 17 mL /hr Rate/Dose Change 03/29/2021 4:32 AM EDT 850 Units/hr 17 mL /hr iohexoL (Omnipaque) (350 mg/mL) injection solution ONCE PRN, Starting on 03/29/21 at 1312, Until 03/29/21 at 1316, Cath (Intra-Procedure), Routine Given 03/29/2021 1:12 PM EDT 130 mLs lamoTRIgine (LaMICtal) tablet 250 mg 250 mg, Oral, DAILY, First dose on 03/29/21 at 0900, Until Discontinued, Routine Given 03/30/2021 9:00 AM EDT 250 mg Given 03/29/2021 8:51 AM EDT 250 mg meclizine (Antivert) tablet 25 mg 25 mg, Oral, 3 TIMES DAILY PRN, Starting on 03/28/21 at 1614, Until 03/30/21 at 1537, Dizziness, Routine melatonin tablet 6 mg 6 mg, Oral, NIGHTLY, First dose on 03/30/21 at 0130, Until Discontinued, Routine Given 03/30/2021 1:27 AM EDT 6 mg metoprolol tartrate (Lopressor) tablet 12.5 mg 12.5 mg, Oral, EVERY 12 HOURS SCHEDULED (2 times per day), First dose on 03/28/21 at 1715, Until Discontinued, Routine Given 03/29/2021 9:12 PM EDT 12.5 mg Given 03/29/2021 8:54 AM EDT 12.5 mg Given 03/28/2021 5:19 PM EDT 12.5 mg midazolam (pf) (Versed) (1 mg/mL) multi-dose injection ONCE PRN, Starting on 03/29/21 at 1218, Until Snyder 03/29/21 at 1316, Cath (Intra-Procedure), Routine Given 03/29/2021 12:49 PM EDT 1 mg Given 03/29/2021 12:18 PM EDT 1 mg nitroGLYcerin (Nitrostat) disintegrating tablet 0.4 mg 0.4 mg, Sublingual, EVERY 5 MIN PRN, Starting on 03/29/21 at 1337, Until 03/30/21 at 1537, Chest pain, May repeat every 5 minutes for a total of three doses. Notify provider if chest pain not relieved with nitroglycerin. Do not administer nitroglycerin if the patient has received or taken phosphodiesterase (PDE-5) inhibitors such as sildenafil, tadalafil or vardenafil within the last 24 to 72 hours., Recovery (Recovery-Hospital Unit), Routine nitroGLYcerin 100 mcg/mL intracoronary dilution ONCE PRN, Starting on 03/29/21 at 1225, Until Snyder 03/29/21 at 1316, Cath (Intra-Procedure), Routine Given 03/29/2021 12:58 PM EDT 150 mcg Given 03/29/2021 12:25 PM EDT 150 mcg rosuvastatin (Crestor) tablet 40 mg 40 mg, Oral, EVERY MORNING, First dose on 03/29/21 at 0900, Until Discontinued, Routine Given 03/30/2021 8:59 AM EDT 40 mg Given 03/29/2021 8:51 AM EDT 40 mg verapamiL (Isoptin) (2.5 mg/mL) injection ONCE PRN, Starting on 03/29/21 at 1225, Until 03/29/21 at 1316, Administer over 2 Minutes, Cath (Intra-Procedure) Given 03/29/2021 12:25 PM EDT 2.5 mg documented in this encounter Active and Recently Administered Medications Times are shown in EDT. Scheduled Medication Order 03/28/2021 03/29/2021 03/30/2021 aspirin chewable tablet 81 mg 81 mg, Oral, DAILY, First dose on 03/29/21 at 0900, Until Discontinued, Routine 0851 (Given - Provider: Serge Palacio RN)1228 ([facility] Hold - Provider: Admin Adt - Reason: Transfer to a Procedural area)1339 ([facility] Unhold - Provider: Admin Adt) 0858 (Given - Provider: Elvia Lui RN) clopidogreL (Plavix) tablet 75 mg 75 mg, Oral, DAILY, First dose on 03/29/21 at 0900, Until Discontinued, Routine 0851 (Given - Provider: Serge Palacio RN)1228 ([facility] Hold - Provider: Admin Adt - Reason: Transfer to a Procedural area)1339 ([facility] Unhold - Provider: Admin Adt) 0858 (Given - Provider: Elvia Lui RN) lamoTRIgine (LaMICtal) tablet 250 mg 250 mg, Oral, DAILY, First dose on 03/29/21 at 0900, Until Discontinued, Routine 0851 (Given - Provider: Serge Palacio RN)1228 ([facility] Hold - Provider: Admin Adt - Reason: Transfer to a Procedural area)1339 ([facility] Unhold - Provider: Admin Adt) 0900 (Given - Provider: Elvia Lui RN) melatonin tablet 6 mg 6 mg, Oral, NIGHTLY, First dose on 03/30/21 at 0130, Until Discontinued, Routine 0127 (Given - Provider: Alexi Guzman RN) metoprolol tartrate (Lopressor) tablet 12.5 mg 12.5 mg, Oral, EVERY 12 HOURS SCHEDULED (2 times per day), First dose on 03/28/21 at 1715, Until Discontinued, Routine 1719 (Given - Provider: Mariajose Luong RN) 0854 (Given - Provider: Serge Palacio RN)1228 ([facility] Hold - Provider: Admin Adt - Reason: Transfer to a Procedural area)1339 ([facility] Unhold - Provider: Admin Adt)2112 (Given - Provider: Alexi Guzman, RN) 0900 (Not Given - Provider: Elvia Lui, TREY - Reason: See comment - Comment: HR in low 40s overnight) rosuvastatin (Crestor) tablet 40 mg 40 mg, Oral, EVERY MORNING, First dose on 03/29/21 at 0900, Until Discontinued, Routine 0851 (Given - Provider: Serge Palacio RN)1228 ([facility] Hold - Provider: Admin Adt - Reason: Transfer to a Procedural area)1339 ([facility] Unhold - Provider: Admin Adt) 0859 (Given - Provider: Elvia Lui, TREY) Continuous Medication Order 03/28/2021 03/29/2021 03/30/2021 heparin (porcine) 50 units/mL in sodium chloride 0.45% 500 mL infusion(Linked Group 1) 0-5,000 Units/hr (0-100 mL/hr), Intravenous, CONTINUOUS, Starting on 03/28/21 at 1700, Until 03/30/21 at 1537, BEGIN infusion at 950 units per hr (12 units/kg/hr). MAX INITIAL infusion rate is 1,000 units/hr. Target Heparin UFH Level (anti-Xa activity) = 0.3 - 0.7 IU/mL Start adjustment schedule 6 hours after starting infusion. If Heparin UFH Level is: - less than 0.1 IU/mL, administer PRN bolus and increase rate by 300 units per hr (4 units/kg/hr) - 0.1 - 0.29 IU/mL, administer PRN bolus and increase rate by 150 units per hr (2 units/kg/hr) - 0.3 - 0.7 IU/mL, No Change - 0.71 - 0.85 IU/mL, decrease rate by 100 units per hr (1 units/kg/hr) - 0.86 - 1.05 IU/mL, stop infusion for 30 minutes, then decrease rate by 150 units per hr (2 units/kg/hr) - Greater than 1.05 IU/mL, stop infusion for 60 minutes, then decrease rate by 250 units per hour (3 units/kg/hr) Repeat Heparin UFH Level 6 hours after initiating heparin. Then 6 hours after each dose adjustment. When 2 consecutive Heparin UFH Level within target range of 0.3 - 0.7 IU/mL, change Heparin UFH Level to once every 24 hours with A.M. labs while on heparin. RN to order required Heparin UFH Level - Per Protocol, Routine 1619 (New Bag - Provider: Mariajose Luong RN) 0432 (Rate/Dose Change - Provider: Alexi Guzman RN)0905 (Rate/Dose Verify - Provider: Serge Palacio RN)1154 (Rate/Dose Verify - Provider: Serge Palacio RN)1228 ([facility] Hold - Provider: Admin Adt - Reason: Transfer to a Procedural area)1339 ([facility] Unhold - Provider: Admin Adt)1817 (Stopped - Provider: Serge Palacio RN - Comment: per discussion with care team) sodium chloride 0.9% infusion () 50 mL/hr, Intravenous, CONTINUOUS, Starting on 03/29/21 at 1400, Until 03/29/21 at 1759, Recovery (Recovery-Hospital Unit) 1340 (New Bag - Provider: Serge Palacio RN)1816 (Stopped - Provider: Serge Palacio RN) PRN Medication Order 03/28/2021 03/29/2021 03/30/2021 fentaNYL (pf) (50 mcg/mL) multi-dose injection (CANCELED) ONCE PRN, Starting on 03/29/21 at 1218, Until 03/29/21 at 1316, Cath (Intra-Procedure), Routine 1219 (Given - Provider: Devika Smith RN)1249 (Given - Provider: Suleman Smith RN) heparin (porcine) (1,000 units/mL) injection 0-4,000 Units(Linked Group 1) 0-4,000 Units, Intravenous, BOLUS PER HEPARIN PROTOCOL, Starting on 03/28/21 at 1609, Until 03/30/21 at 1537, Per Protocol, START ADJUSTMENT SCHEDULE 6 HOURS AFTER STARTING INFUSION Heparin UFH Level between 0.1 - 0.29 IU/mL: Bolus 2,000 units Heparin UFH Level less than 0.1 IU/mL: Bolus 4,000 units, Routine 1228 ([facility] Hold - Provider: Admin Adt - Reason: Transfer to a Procedural area)1339 ([facility] Unhold - Provider: Admin Adt) heparin (porcine) (1,000 units/mL) injection (CANCELED) ONCE PRN, Starting on 03/29/21 at 1228, Until 03/29/21 at 1316, Cath (Intra-Procedure), Routine 1228 (Given - Provider: Devika Smith RN)1305 (Given - Provider: Suleman Smith RN) iohexoL (Omnipaque) (350 mg/mL) injection solution (CANCELED) ONCE PRN, Starting on 03/29/21 at 1312, Until 03/29/21 at 1316, Cath (Intra-Procedure), Routine 1312 (Given - Provider: Tl Johnston MD) meclizine (Antivert) tablet 25 mg 25 mg, Oral, 3 TIMES DAILY PRN, Starting on 03/28/21 at 1614, Until 03/30/21 at 1537, Dizziness, Routine 1228 ([facility] Hold - Provider: Admin Adt - Reason: Transfer to a Procedural area)1339 ([facility] Unhold - Provider: Admin Adt) midazolam (pf) (Versed) (1 mg/mL) multi-dose injection (CANCELED) ONCE PRN, Starting on 03/29/21 at 1218, Until 03/29/21 at 1316, Cath (Intra-Procedure), Routine 1218 (Given - Provider: Devika Smith RN)1249 (Given - Provider: Suleman Smith RN) nitroGLYcerin (Nitrostat) disintegrating tablet 0.4 mg 0.4 mg, Sublingual, EVERY 5 MIN PRN, Starting on 03/29/21 at 1337, Until 03/30/21 at 1537, Chest pain, May repeat every 5 minutes for a total of three doses. Notify provider if chest pain not relieved with nitroglycerin. Do not administer nitroglycerin if the patient has received or taken phosphodiesterase (PDE-5) inhibitors such as sildenafil, tadalafil or vardenafil within the last 24 to 72 hours., Recovery (Recovery-Hospital Unit), Routine nitroGLYcerin 100 mcg/mL intracoronary dilution (CANCELED) ONCE PRN, Starting on 03/29/21 at 1225, Until 03/29/21 at 1316, Cath (Intra-Procedure), Routine 1225 (Given - Provider: Tl Johnston MD)1258 (Given - Provider: Srinivas Moore MD) verapamiL (Isoptin) (2.5 mg/mL) injection (CANCELED) ONCE PRN, Starting on 03/29/21 at 1225, Until 03/29/21 at 1316, Administer over 2 Minutes, Cath (Intra-Procedure) 1225 (Given - Provider: Tl Johnston MD) Linked Groups Order Group 1: heparin (porcine) (1,000 units/mL) injection 0-4,000 UnitsJump to med 0-4,000 Units, Intravenous, BOLUS PER HEPARIN PROTOCOL, Starting on 03/28/21 at 1609, Until 03/30/21 at 1537, Per Protocol, START ADJUSTMENT SCHEDULE 6 HOURS AFTER STARTING INFUSION Heparin UFH Level between 0.1 - 0.29 IU/mL: Bolus 2,000 units Heparin UFH Level less than 0.1 IU/mL: Bolus 4,000 units, Routine And heparin (porcine) 50 units/mL in sodium chloride 0.45% 500 mL infusionJump to med 0-5,000 Units/hr (0-100 mL/hr), Intravenous, CONTINUOUS, Starting on 03/28/21 at 1700, Until 03/30/21 at 1537, BEGIN infusion at 950 units per hr (12 units/kg/hr). MAX INITIAL infusion rate is 1,000 units/hr. Target Heparin UFH Level (anti-Xa activity) = 0.3 - 0.7 IU/mL Start adjustment schedule 6 hours after starting infusion. If Heparin UFH Level is: - less than 0.1 IU/mL, administer PRN bolus and increase rate by 300 units per hr (4 units/kg/hr) - 0.1 - 0.29 IU/mL, administer PRN bolus and increase rate by 150 units per hr (2 units/kg/hr) - 0.3 - 0.7 IU/mL, No Change - 0.71 - 0.85 IU/mL, decrease rate by 100 units per hr (1 units/kg/hr) - 0.86 - 1.05 IU/mL, stop infusion for 30 minutes, then decrease rate by 150 units per hr (2 units/kg/hr) - Greater than 1.05 IU/mL, stop infusion for 60 minutes, then decrease rate by 250 units per hour (3 units/kg/hr) Repeat Heparin UFH Level 6 hours after initiating heparin. Then 6 hours after each dose adjustment. When 2 consecutive Heparin UFH Level within target range of 0.3 - 0.7 IU/mL, change Heparin UFH Level to once every 24 hours with A.M. labs while on heparin. RN to order required Heparin UFH Level - Per Protocol, Routine documented in this encounter Care Teams Marine Firer Relationship Specialty Start Date End Date Edin Conner MD [address] [place] [address] PCP - General Family Medicine 02/28/21 documented as of this encounter
--- OUTSIDE RECORDS SUMMARY | 2024-09-14 00:24 | XMS_ITS | Encounter Summary ---
Author Organization [facility] [place] [address] Care Team Providers Care Technology Instructor Name Role Phone Edin Conner MD Primary Care Provider [phone] Encounter Details Date Type Department Care Team (Late st Contact Info) Description 04/10/2021 11:20 AM EDT Office Visit Cardiology at [address] [id number] El Sawyer MD [facility] [address] NSTEMI (non-ST elevated myocardial infarction) Social History Tobacco Use Types Packs/Day Years [...] Sign Reading Time Taken Comments Blood Pressure 152/68 04/10/2021 11:29 AM EDT Pulse 50 04/10/2021 11:29 AM EDT Temperature - - Respiratory Rate - - Oxygen Saturation 100% 04/10/2021 11:29 AM EDT Inhaled Oxygen Concentration - - Weight 80.3 kg (177 lb) 04/10/2021 11:29 AM EDT Height 162.6 cm (5' 4) 04/10/2021 11:29 AM EDT Body Mass Index 30.38 04/10/2021 11:29 AM EDT documented in this encounter Patient Instructions * Patient Instructions* El Sawyer MD - 04/10/2021 11:20 AM EDT Increase your lisinopril to 20mg daily. Call me with your blood pressures. Our goal is that all of them are <130/80. [phone] Get your labs done at [facility] in 2 weeks. documented in this encounter Progress Notes * El Sawyer MD - 04/10/2021 11:20 AM EDT Images from the original note were not included. CARDIOLOGY OUTPATIENT NEW PATIENT NOTE PRIMARY CARE PROVIDER: Edin Conner MD Chief Complaint: Dorene Duque is a 70 y.o. female here for the evaluation of CAD. 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 LVEF 67%. Normal diastolic function. Mild MR/TR -LHC: 02/2021: PCI to proximal LAD and mid RCA 02/2021 (2.5 x 15 mm resolute [place] x 2). No residual obstructive disease. Constellation of symptoms over the course of a week prior to [place]: [place] like I had been running and sucking in cold air. No chest heaviness, back pain, diaphoresis, chest pain/pressure. Fatigue. [place] with stomach upset,vomiting, cold sweats. Since discharge, she has not returned to work. She's been gardening. Has been walking daily increasing up to 20 minutes. Cardiac rehab has not yet started. Denies interim hospitalizations, procedures, cardiac testing, new allergies. HR at home: 50s. BP 129-140/60s. Cardiac ROS: Denies chest pain, chest tightness, chest pressure, dyspnea on exertion, orthopnea, PND, LE edema, palpitations, presyncope, syncope Bleeding ROS: Denies nose bleeding, GI bleeding, bleeding GI ROS: Denies stomach upset, nausea, vomiting Systemic: Denies side effects to medications. Social: Work at the [employer] 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 Lives with Josué. She is 1 of 11 children. OB: 3 children, 1 other full term pregnancies: no medical issues FH: Brother: Jani POTTER, age [id number] Brother: Joe, 3 stents, physically fit, non-smoker Brother: Jarred, smoked, 2 stents Brother: Kortney, stroke between age 60-70 Sisters: Two heavy smokers, no events Mother: Stroke 54, smoker Father: smoker MEDICATIONS: Current Outpatient Medications Medication Sig Dispense Refill ??? aspirin EC 81 mg Tablet, Delayed Release (E.C.) Take 81 mg by mouth daily. ??? lamoTRIgine (LaMICtal) 25 mg Tablet Take 50 mg by mouth daily. ??? lamoTRIgine (LaMICtal) 200 mg Tablet Take 200 mg by mouth daily. ??? lisinopriL (Prinivil;Zestril) 20 mg Tablet Take 1 tablet by mouth daily. 90 tablet 3 ??? clopidogreL (Plavix) 75 mg Tablet Take 1 tablet by mouth daily. 90 tablet 3 ??? metoprolol succinate XL (Toprol-XL) 25 mg Tablet Sustained Release 24 hr Take 1 tablet by mouthdaily. 30 tablet 12 ??? nitroGLYcerin (Nitrostat) 0.4 mg Tablet, Sublingual Place 1 tablet under the tongue every 5 minutes as needed for Chest pain. 90 tablet 12 ??? rosuvastatin (Crestor) 20 mg Tablet Take 1 tablet by mouth daily. 90 tablet 3 No current facility-administered medications for this visit. Family history: Family History Problem Relation Age of Onset ??? Cerebrovascular Accident Mother ??? Cerebrovascular Accident Sister ??? Breast Cancer Sister ??? Ovarian Cancer Sister ??? Uterine Cancer Sister ??? Cerebrovascular Accident Brother ??? Diabetes Brother ??? Cerebrovascular Accident Maternal Grandmother ??? Prostate Cancer Father ??? Myocardial Infarction Brother [place] in 50-60s ??? Heart Disease Neg Hx Social history: Social History Tobacco Use ??? Smoking status: Former Smoker Types: Cigarettes Quit date: 07/23/2006 Years since quittin.7 ??? Smokeless tobacco: Never Used ??? Tobacco comment: social smoker for 10 years, about 3 cigarettes a week Vaping Use ??? Vaping Use: Never used Substance Use Topics ??? Alcohol use: Yes Comment: 1 drink every other week ??? Drug use: Never ROS: 11 point ros either negative or per HPI Objective: Patient Vitals for the past 24 hrs: Pulse BP SpO2 04/10/21 1129 50 152/68 100 % Gen: pleasant female in NAD Eyes: Non-injected, no scleral icterus HEENT: atraumatic, MMM Cor: rrr, s1/s2 of nl character and amplitude, no m/r/g. Estimated RAP 5. Carotids without bruit. Pulm: CTAB. Normal diaphragmatic movement without use of accessory muscles Ab: soft, nt, no hernias Ext: no c/c/e. Dp/pt ++, right radial site c/d/intact Neuro: without focal deficit Skin: WWP, no rashes nor ulcers Psych: Well kempt, normal affect and insight TESTING: I have reviewed the pertinent outside records, laboratory data, and imaging studies. I personally reviewed the images and developed my own interpretation of the echocardiogram, stress tests,and CT scan if available, as well as the chest xray, and ECG. Pertinent results for this evaluationinclude: TTE: Per HPI LHC: Images reviewed with Timothy. Assessment and Plan: CAD status post recent NSTEMI with PCI x2. Normal ventricular function. CCS 0. NYHA I. -Continue aspirin, statin, clopidogrel, metoprolol -increase lisinopril to 20mg daily. Call in with Bps. If <130/80 will get BMP in 1 week and leave at that dose. RTC 6 months El Sawyer MD 04/10/2021 12:55 PM Thank you for the opportunity to participate in this patient's cardiovascular care. All questions were answered and I look forward to the next visit. documented in this encounter Plan of Treatment Not on file documented as of this encounter Visit Diagnoses Diagnosis NSTEMI (non-ST elevated myocardial infarction) Acute myocardial infarction, subendocardial infarction, episode of care unspecified documented in this encounter Care Teams Technology Instructor Relationship Specialty Start Date End Date Edin Conner MD [address] [place] [address] PCP - General Family Medicine 02/28/21 documented as of this encounter
--- OUTSIDE RECORDS SUMMARY | 2024-09-14 00:24 | XMS_ITS | Encounter Summary ---
Author Organization [facility] Address [address] [place] [address] Care Team Providers Care Surgical Instrument Mechanic Name Role Phone Teofilo Aguila MD Primary Care Provider [phone] Encounter Details Date Type Department Care Team (Late st Contact Info) Description 11/07/2018 Results Only [facility] [phone] Danilo Brown MD [address] [place] [address] [place] [address] Social History Tobacco Use Types Packs/Day Years Used Date Smoking Tobacco: Never Assessed Comments Unknown Sex and Gender Information Value Date Recorded Sex Assigned at Not on file Legal Sex Female 18:23 EST Gender Identity Not on file Sexual Orientation Not on file documented as of this encounter Plan of Treatment Not on file documented as of this encounter Procedures Procedure Name Priority Date/Time Associated Diagnosis Comments SURGICAL PATHOLOGY Routine 11/07/2018 9:11 EST documented in this encounter Results * SURGICAL PATHOLOGY (11/07/2018 9:11 EST) Pathology Report: SURGICAL PATHOLOGY REPORT Reports generated via electronic interface contain original data; however they are lacking the format of the original report. Caution should be taken when reading/interpret ing unformatted reports. Name: ? DORENE STRANGE ? Accession #: ? [id number] ? : ? 1950 (Age: 68) ??F ? Collect Date: ? 11/07/2018 ? Location: ? [facility] ? Receive Date: ? 11/07/2018 ? Provider: DANILO BROWN MD Copy to: KEN SAINZ MD ? Final Pathologic Diagnosis: COLON, DESCENDING, POLYP, BIOPSY: - Fragment of tubular adenoma. Document reviewed and electronically signed by: SINAN WOODS MD PHD Report ??Date: 11/09/2018 16:38 By the signature above, the attending physician certifies that he/she has personally conducted a gross and/or microscopic examination of the described specimens and rendered or confirmed the above diagnosis. Specimen(s) Received: Descending colon polyp Clinical History: F/H rectal cancer; P/H BRCA gene Gross Description: ? Received in formalin labelled with proper patient identification (initials C, D) and descending colon polyp is a single coleman-brown tissue fragment (0.3 x 0.3 x 0.2 cm). Submitted intact in 1Sarwat Arnold 11/08/2018 9:20 AM End of Report [facility] 11/07/2018 9:11 EST 11/07/2018 9:11 EST us Danilo Brown MD PATHOLOGY ORDERABLES Fin al Result [facility] [address] [place] [address] documented in this encounter Visit Diagnoses Not on filedocumented in this encounter Care Teams Surgical Instrument Mechanic Relationship Specialty Start Date End Date Teofilo Aguila MD PCP - General 07/10/15 documented as of this encounter
--- OUTSIDE RECORDS SUMMARY | 2024-09-14 00:24 | XMS_ITS | Encounter Summary ---
Author Organization [facility] Address [address] [place] [address] Care Team Providers Care Fact Checker Name Role Phone Unavailable Primary Care Provider Unavailabl e Encounter Details Date Type Department Care Team (Late st Contact Info) Description 12/05/2000 Results Only [facility] [address] [place] [address] Teofilo Bird MD [address] [place], [place] [id number] Social History Tobacco Use Types Packs/Day Years [...] Date/Time Associated Diagnosis Comments SURGICAL PATHOLOGY Routine 12/05/2000 0:00 EST documented in this encounter Results * SURGICAL PATHOLOGY (12/05/2000 0:00 EST) Pathology Report: SURGICAL PATHOLOGY REPORT Reports generated via electronic interface contain original data; however they are lacking the format of the original report. Caution should be taken when reading/interpreti ng unformatted reports. Name: ? DORENE STRANGE ? Accession #: ? [id number] ? : ? 1950 (Age: 50) ??F ? Collect Date: ? 12/05/2000 ? Location: ? [facility] ? Receive Date: ? 12/06/2000 ? Provider: TEOFILO BIRD MD Copy to: GWEN CHEUNG MD ? Final Pathologic Diagnosis: ? Vaginal mucosa, excision: - Mild acanthosis with mild focal chronic inflammation. Document reviewed and electronically signed by: [facility] Report ??Date: 12/08/2000 17:37 By the signature above, the attending physician certifies that he/she has personally conducted a gross and/or microscopic examination of the described specimens and rendered or confirmed the above diagnosis. Specimen(s) Received: ? Vaginal mucosa Clinical History: ? Vaginal enterocele Gross Description: ? Received in formalin labelled [place] and #1 vaginal mucosa are two firm irregular portions of coleman-white mucosal covered tissue measuring 3.2 x 0.6 x 0.4 cm and 2.6 x 1.3 x 0.7 cm. ??Neither portion of tissue bears grossly discernible mucosal lesions. ??The smaller portion of tissue is bisected and submitted entirely as (A1), and the larger portion of tissue is trisected and submitted entirely as (A2). ??(Dr. Noonan)/lawrence End of Report TAMER[facility] PEREZ 12/05/2000 12/06/2000 15: 48 EST us Teofilo Bird MD PATHOLOGY ORDERABLES Final Resul t TAMERA PEREZ [address] [place] [address] documented in this encounter Visit Diagnoses Not on filedocumented in this encounter
--- OUTSIDE RECORDS SUMMARY | 2024-09-14 00:24 | XMS_ITS | Encounter Summary ---
Author Organization [facility] Address [address] [place] [address] Care Team Providers Care Product Development Assistant Name Role Phone Unavailable Primary Care Provider Unavailabl e Encounter Details Date Type Department Care Team (Late st Contact Info) Description 02/19/2008 Results Only [facility] [address] [place] [address] El Goetz MD [address] [place] [address] [address] [place] [address] Social History Tobacco Use Types Packs/Day Years [...] Procedure Name Priority Date/Time Associated Diagnosis Comments CYTOPATHOLOGY Routine 02/19/2008 0:00 EDT documented in this encounter Results * CYTOPATHOLOGY (02/19/2008 0:00 EDT) Pathology Report: CYTOPATHOLOGY REPORT Reports generated via electronic interface contain original data; however they are lacking the format of the original report. Caution should be taken when reading/interpreti ng unformatted reports. Name: ? DORENE STRANGE ? Accession #: ? [id number] : ? 1950 (Age: 57) ??F ?Collect Date: ? 02/19/2008 Location: ? [facility] ? Receive Date: ? 02/19/2008 Provider: ?EL GOETZ MD Copy to: ? Specimen/Source: ?ThinPrep Pap Test, Vagina, processed on 8th Story ThinPrep Imaging System, with manual evaluation Last Menstrual Period: ? Treatment History: ? Hysterectomy Other: ? HPVA - HPV testing requested if ASC-US on the current ThinPrep Pap test. ? SPECIMEN ADEQUACY ? Unsatisfactory for Evaluation - obscuring contamination, possibly lubricant, which precludes interpretation of 75% or more of the epithelial cells GENERAL CATEGORIZATION ? Specimen processed and examined, but unsatisfactory for evaluation of epithelial abnormality. Recommend repeat Pap test or further follow up, as clinically indicated. ? Document reviewed and electronically signed by: ? DEREK Stack(ASCP) ? Report Date: ??02/27/2008 08:07 End of Report TAMERA PEREZ 02/19/2008 02/19/2008 us El Goetz MD PATHOLOGY ORDERABLES Final Resu lt TAMERA PEREZ [address] [place] [address] documented in this encounter Visit Diagnoses Not on filedocumented in this encounter
--- OUTSIDE RECORDS SUMMARY | 2024-09-14 00:24 | XMS_ITS | Encounter Summary ---
Author Organization [facility] [address] Care Team Providers Care Geothermal Electrical Engineer Name Role Phone Edin Conner MD Primary Care Provider [phone] Reason for Visit * Auth/Cert Specialty Diagnoses / Procedures Referred By Charisma t Referred To Contact Diagnoses NSTEMI, initial episode of care NSTEMI Procedures PRO PERC TRLUML CORONRY TOT OCCLUS REVASC TX ONE VESSEL Referral ID Status Reason Start Date Expiration Date Visits Re quested Visits Authorized [id number] 1 1 Encounter Details Date Type Department Care Team (Latest Contact Info) Description 03/28/2021 3:35 PM EDT - 03/30/2021 1:37 PM EDT Hospital Encounter Intermediate [place] [phone] Wallace Vega MD [facility] [place] [address] NSTEMI (non-ST elevated myocardial infarction) Discharge Disposition: Home Social History Tobacco Use [...] Sign Reading Time Taken Comments Blood Pressure 115/54 03/30/2021 10:51 AM EDT Pulse 61 03/30/2021 10:51 AM EDT Temperature 36.6 ??C (97.9 ??F) 03/30/2021 10:51 AM E DT Respiratory Rate 18 03/30/2021 10:51 AM EDT Oxygen Saturation 98% 03/30/2021 10:51 AM EDT Inhaled Oxygen Concentration - - Weight 80.1 kg (176 lb 9.4 oz) 03/30/2021 3:58 A M EDT Height 162.6 cm (5' 4) 03/28/2021 6:28 PM EDT Body Mass Index 30.31 03/28/2021 6:28 PM EDT documented in this encounter Discharge Summaries * Taran Kim MD - 03/30/2021 10:37 AM EDT Inpatient - Discharge Summary Patient Name: Deysi Strange Patient Age: 70 y.o. Birthdate: 1950 Admit date: 03/28/2021 Discharge date and time: 03/30/21, 10am Attending Physician: Clair boyd. providers found Follow-up Recommendations for Providers: - [...] was designated as ASA Class III. The [facility] clinical frailty scale is 3: Managing Well. Diagnostic Tests: Medications Prior to Procedure: Aspirin, Beta Alicia and Statin. Indications for Diagnostic Cath: The priority of the diagnostic procedure was Urgent. The indication for the technology lab teacher visit is ACS less than or equal [...] dose administered prior to arrival in the technology lab teacher. Recommended anti-platelet/anti-thrombotic regimen: Start aspirin 81 mg daily now and continue for indefinitely. Start clopidogrel 75 mg daily now and continue for 12 months then stop. These recommendations are made at the time of the intervention. Patient and provider preferences or a changing clinical situation may require modification of this regimen. Consult [facility] Interventional Cardiology for questions. The 1 year [...] pain. This prompted her to go to [facility] on 03/24 and had an EKG that was reportedly normal and she was discharged home. ?? On , patient was mowing her lawn and she had another episode of chest tightness, that improved with rest. On Tuesday, she developed dizziness with vision changes and nausea which led to 3 episodes of clear emesis, which prompted her to present to the [facility]. At that time, she reported some chest tightness, but denies any shortness of breath. ?? In the [facility] ED, EKG notable for HR 69, 1mm [...] gtt. Patient was initially admitted to the [facility] ICU. Troponin-I remained flat (0.24, 0.22, 0.23). Heparin gtt was continued, and patient's vertiginous symptoms and chest pain resolved. Patient was transferred to [facility]. ?? At [facility], patient reports feeling well, back to her baseline. She reports mild chest tightness with deep inspiration. Otherwise, patient denied any chest pain, palpitations, shortness of breath, cough, nausea, vomiting, abdominal pain, constipation, diarrhea, dysuria, numbness or tingling, vision changes. ?? Currently lives in [place], [place] with her . Able to perform ADLs. Is the youngest of 11 children, has 8 siblings in the area. Family history notable for several CVAs, brother with an TX in 50s.Hx of smoking 3cigarettes/week x 10 [...] her PCP and with cardiology here at [facility]. Important Studies and Lab Data: Labs: Recent [...] MV E-wave Vmax 0.73 m/sec MV deceleration [id number] msec MV A-wave Vmax 0.79 m/sec MV [...] Normal Mid-Posterolateral Normal Mid-Inferior Normal Mid-Inferoseptal Normal Thornfield-Septal Normal Thornfield-Anterior Normal Thornfield-Lateral Normal Thornfield-Inferior Normal Thornfield-Tip Normal ?? Pending Studies and Lab Data: [...] appointments: During 8am-5pm Tuesday through Tuesday call [phone] to speak with a nurse in the cardiology clinic All other times call [phone] and ask to speak to the golf superintendent animal control supervisor. Activity level: - No heavy lifting (more [...] for VNA/home care: none Follow up Appointments: Mill Feeder: 04/10/[address] Haider at [facility] Cardiology PCP: scheduled for 03/03/21 Your Inpatient Doctor(s) at [facility]: MD Taran Rodriguez MD Your Primary Care Provider: Edin Conner MD [address] [facility] [id number] For questions regarding issues relating to your hospitalization on the Hospital Medicine Service, please contact your inpatient physician through the [facility] Kapok Machine Operator [phone]. Issues after hours and on weekends will be handled by the Hospitalist staff on-call. General Instructions None Future Appointments and Orders Future Appointments and Orders Future Appointments Provider Department Dept Phone 04/10/2021 11:20 AM El Sawyer MD Cardiology at [facility] Arrive at: Resolution Analyst Area 4A [phone] Discharge References/Attachments: Discharge References/Attachments Cardiac Rehabilitation (Pakistani) PCI (Percutaneous Coronary Intervention): Post-op (Pakistani) Heart Attack: Medicine for Secondary Prevention (Pakistani) Statins (Pakistani) Inpatient Provider Contact Information: Please call the hospital tracer bullet charging machine operator at [phone] and ask to be connected with Cardiology Team S1 (pager [phone]). Electronically Signed By: Taran Kim MD 03/31/2021 Associated attestation - Wallace Vega MD - 04/01/2021 10:37 AM EDT Dear Colleagues, I was the attending at the time of discharge. Please call or email me if you have questions. Wallace Vega MD, SHIRA Cardiovascular Medicine [phone] documented in this encounter Discharge Instructions * [...] appointments: During 8am-5pm Tuesday through Tuesday call [phone] to speak with a nurse in the cardiology clinic All other times call [phone] and ask to speak to the golf superintendent animal control supervisor. Activity level: - No heavy lifting (more [...] none Follow up Appointments: No future appointments. Mill Feeder: Our Cardiology department will call you to set up an appointment. PCP: Edin Conner MD at [phone] Your Inpatient Doctor(s) at [facility]: MD Taran Rodriguez MD Your Primary Care Provider: Edin Conner MD [address] [facility] [id number] For questions regarding issues relating to your hospitalization on the Hospital Medicine Service, please contact your inpatient physician through the [facility] Kapok Machine Operator [phone]. Issues after hours and on weekends will be handled by the Hospitalist staff on-call. * Attachments The following attachments cannot be sent through Care Everywhere. * Cardiac Rehabilitation (Pakistani) * PCI (Percutaneous Coronary Intervention): Post-op (Pakistani) * Heart Attack: Medicine for Secondary Prevention (Pakistani) * Statins (Pakistani) documented in this encounter Medications at Time [...] Dressing c/d/i.No tenderness to palpation. Abd: No Feliz's sign. Ext: UE and LE warm with warm and well perfused. Sensation intact in all extremities. Back: No flank or back tenderness. No retroperitoneal ecchymosis/ Goff Pruett's sign. A/P: S/p cardiac catheterization with benign appearing right radial access site. Shira Ha MD Internal Medicine, PGY-2 S1 Team, Pager #[phone] * Serge Palacio RN - 03/29/2021 6:52 PM EDT OUTCOME EVALUATION NOTE: OUTCOME SUMMARY: VSS. RA. AUOP, occurences. -BM. Tolerating diet. Denies pain. TR band removed following guidelines. Some swelling noted and outlined, team notified and assessed.Plan to monitor overnight. analytical lab analyst with stenting today. Tolerated well. See OR [...] PM EDT Report received, Pt returned from technology lab teacher, A+O, VSS. RA. TR band intact. Denies Numbness/ [place]lingon R hand. CMST intact, hand appropriately cool. R arm labeled, no BP's for 24 hrs post cath. TR band to remain on per conversation with harvesting manager r/t ACT level. Patient updated. Per report: 7K units Heparin contrast 130/ limit 102 ACT 283 @ 1303 LVEDP 20 TR band on at 1310 with 12 cc air EKG completed Will continue to monitor. * Wallace Vega MD - 03/29/2021 1:56 PM EDT Inpatient Cardiology Progress Note Patient Name: Deysi Strange Date of Admission: 03/28/2021 ( Hospital Day 1 day ) Service: S1 ID: Deysi Strange is a 70 y.o. female with history of prior CVA, HTN, HLD, and epilepsy who was transferred from [facility] for an NSTEMI. 24 hr events/Subjective: [...] HLD, and epilepsy who was transferred from [facility] for an NSTEMI. Received two stents today in technology lab teacher without apparent complication. Will monitor overnight post-cath, no further need for heparin gtt. Will start ANNAMARIE/ARB tomorrow AM to fully capitulate GDMT if renal function continues to improve. Rest of plan per below. PLAN: #Acute eit-FS-gmocjrghr myocardial infarction #Hypertension #Hyperlipidemia #History of cerebrovascular accident -Aspirin 81mg qd -Plavix 75mg qd -Rosuvastatin 40mg qhs -Metoprolol 12.5mg BID -Will likely start lisinopril 20mg qd back up tomorrow AM (day team's discretion) -TTE pending #Epilepsy -Lamotrigine 250mg qd Code Status: FULL Dispo: Floors Tl Chowdhury MD Internal Medicine PGY-2 Cardiology S1, Pager #[phone] 03/29/2021 Cardiology Staff Addendum ?? Deysi Strange [...] Clinically stable and without cardiac complaints. ?? Wallace Vega MD, SHIRA, FACC, FACP Cardiovascular Medicine documented in this encounter H&P Notes * Wallace Vega MD - 03/28/2021 3:58 PM EDT Images from the original note were not included. Cardiology H&P Patient info: Name: Deysi Strange : 1950 PCP: Edin Conner MD PCP phone number: [phone] Date of Admission: 03/28/2021 ( Hospital Day 0 days ) Attending:Wallace Vega MD ID: Deysi Strange is a 70 y.o. female with history of prior CVA, HTN, HLD, CKD 3, epilepsy who wastransferred from [facility] for an NSTEMI. HPI: Patient initially [...] pain. This prompted her to go to [facility] on 03/24 and had an EKG that was reportedly normal and she was discharged home. On , patient was mowing her lawn and she had another episode of chest tightness, that improved with rest. On Tuesday, she developed dizziness with vision changes and nausea which led to 3 episodes of clear emesis, which prompted her to present to the [facility]. At that time, she reported some chest tightness, but denies any shortness of breath. In the [facility] ED, EKG notable for HR 69, 1mm [...] gtt. Patient was initially admitted to the [facility] ICU. Troponin-I remained flat (0.24, 0.22, 0.23). Heparin gtt was continued, and patient's vertiginous symptoms and chest pain resolved. Patient was transferred to [facility]. At [facility], patient reports feeling well, back to her baseline. She reports mild chest tightness with deep inspiration. Otherwise, patient denied any chest pain, palpitations, shortness of breath, cough, nausea, vomiting, abdominal pain, constipation, diarrhea, dysuria, numbness or tingling, vision changes. Currently lives in [place], [place] with her . Able to perform ADLs. Is the youngest of 11 children, has 8 siblings in the area. Family history notable for several CVAs, brother with an TX in 50s.Hx of smoking 3cigarettes/week x 10 [...] in the last 7068 hours. Invalid input(s): [id number] No results for input(s): POCGLU in the last 168 hours. Heme No results for input(s): LDH, HAPTOGLOBIN, URICACID in the last 168 hours. ABG (Arterial Blood Gas) No results found for: PHART, PO2ART, FAG0SIC, TPL0PPA Microbiology: Microbiology Results (Last 30 days) No [...] HTN, HLD, epilepsy who was transferred from [facility] for an NSTEMI. Patient initially presented [...] which prompted her to present to the [facility]. In the [facility] ED, EKG notable for HR 69, 1mm [...] gtt. Patient was initially admitted to the [facility] ICU. Troponin-I remained flat (0.24, 0.22, 0.23). Heparin gtt was continued, and patient's vertiginous symptoms and chest pain resolved. Patient was transferred to [facility]. Anticipate cardiac cath tomorrow. Plan to continue [...] pain free. Plan for early invasive management. Wallace Vega MD, SHIRA, FACC, FACP Cardiovascular Medicine [...] COVID test: Lab Results Component Value Date [id number] Not Detected 03/28/2021 Past medical History: Past [...] spouse would be surrogate decision maker per [place] surrogate decision making law. (Only good for 90 days) Any patient receiving care at [facility] must abide by [place] law. The hierarchy for surrogate decision making [...] (i) The agent with financial power of attorney at law or a conservator appointed in accordance with RSA 464-A. (j) The guardian of the patient???s estate. Current Coping/Education/Information Needs: No questions or concerns Current Functional Ability: Independent Functional Status Prior to Admission: Independent Home Environment: People in home: spouse. Current Living Arrangements: home/apartment/condo. Accessibility Concerns:2 story home. No reported issues with mobility. Current DME: none Home Address confirmed as: [address] [address] Social & Family Supports: All names listed below confirmed with patient as current and correct Extended Emergency Contact Information Primary Emergency Contact: ALIEJOSUÉ Address: [address] [place] [address] [facility] [place] Relation: Spouse Secondary Emergency Contact: GILDARDO STRANGE Address: [address] [place] [address] [facility] Mobile Relation: Child Current Care Provided by: [...] Type: *No Product type* / Secondary Insurance: [employer] [facility] Prescription Coverage: Yes Preferred Pharmacy: [facility] [address] [address] Status: Patient is a : No Primary Care Provider: Edin Conner MD [phone] Patient/Caregiver Goals of Treatment: DC home Potential [...] of care planning. Romi Mayo RN, MSN Records Management Manager - Cardiology Office of Care Management Pager: [phone] * Brief Op Note - Tl Johnston MD - 03/29/2021 1:14 PM EDT Images from the original note were not included. Preliminary Cardiac Catheterization Procedure Note: Patient Name: Deysi Strange : [id number] MR#: [id number] Case Date: 03/29/2021 Kapok Machine Operator: Surgeon(s) and Role: * Tl Johnston MD [...] DEYSI R ?(Age): 1950(70y) Med Rec#: ? [id number] ?Sex: ?F ? Site Loc: ? [facility] ?Ht / Wt: ??163(cm)/80(kg) Pt. Loc: ?Adult Floor ? BSA: ?1.86 Study Date: ?? 03/30/2021 ?Pt. Type: Inpatient Tape: ? Referring: RITESH Reading: Wallace Vega ??([id number]) Daytime Babysitter: Gildardo Lowe [facility] Diagnosis: *Non-ST elevation (NSTEMI) myocardial infarction (I21.4) [...] Vmax ?0.73 ? m/sec ? MV deceleration [id number] ?msec ? MV A-wave Vmax ?0.79 ? [...] ? Mid-Inferior ?Normal ? Mid-Inferoseptal ?Normal ? Thornfield-Septal ? Normal ? [place]-Anterior ? Normal ? [place]field-Lateral ?Normal ? [place]field-Inferior ? Normal ? Thornfield-Tip ?Normal ? This report has been electronically signed by: Wallace Vega MD ? 03/30/2021 12:56:23 Images reviewed and interpretation verified [facility] Cardiac Ultrasound Laboratory Procedure Note Wallace Vega MD - 03/30/2021 Procedure: Transthoracic Echocardiogram Patient: ALIE Quintana (Age): 1950(70y) Med Rec#: [id number] Sex: F Site Loc: [facility] Ht / Wt: 163(cm)/80(kg) Pt. Loc: Adult Floor BSA: 1.86 Study Date: 03/30/2021 Pt. Type: Inpatient Tape: Referring: RITESH Reading: Wallace Vega ([id number]) Daytime Babysitter: Gildardo Lowe, [facility] Diagnosis: *Non-ST elevation (NSTEMI) myocardial infarction (I21.4) [...] MV E-wave Vmax 0.73 m/sec MV deceleration [id number] msec MV A-wave Vmax 0.79 m/sec MV [...] Normal Mid-Posterolateral Normal Mid-Inferior Normal Mid-Inferoseptal Normal Thornfield-Septal Normal Thornfield-Anterior Normal [place]-Lateral Normal Thornfield-Inferior Normal Thorn[place]-Tip Normal This report has been electronically signed by: Wallace Vega MD 03/30/2021 12:56:23 Images reviewed and interpretation verified [facility] Cardiac Ultrasound Laboratory Wallace Vega MD ECHO ORDERABLES * Bilirubin, Direct (03/30/2021 6:36 AM EDT) Bilirubin, Direct 0.1 0.0 - 0.3 mg/dL [facility] Blood 03/30/2021 6:36 AM EDT 03/30/2021 6:41 AM EDT Narrative Resulting Agency Comment Spec In Lab Wallace Vega MD CHEMISTRY ORDERABLES [facility] [place] [address] * (ABNORMAL) Aspartate Aminotransferase (03/30/2021 6:36 AM EDT) Aspartate Aminotransferase 42(H) 0 - 30 unit/L [facility] Comment:result rechecked- Blood 03/30/2021 6:36 AM EDT 03/30/2021 6:41 AM EDT Narrative Resulting Agency Comment Spec In Lab Wallace Vega MD CHEMISTRY ORDERABLES Performing Organization Address City/[facility]/ZIP Co de Phone Number [facility] [place] [address] * Differential, Automated (03/30/2021 5:32 AM EDT) [facility] Neutrophil % 73.4 % [facility] Neutrophil Absolute 5.60 1.70 - 6.10 x10(3)/[facility] Lymph % 16.5 % [facility] Lymphocytes Abs 1.3 0.9 - 3.2 x10(3)/[facility] Monocyte % 7.1 % [facility] Monocyte Abs 0.5 0.3 - 0.9 x10(3)/[facility] Eos % 2.5 % [facility] Eosinophils Abs 0.2 0.0 - 0.4 x10(3)/[facility] Basophil % 0.4 % [facility] Baso Absolute 0.0 0.0 - 0.1 x10(3)/[facility] Immature Gran % 0.10 % [facility] Comment: Immature granulocytes(IG's)percentage and absolute count will include metamyelocytes, myelocytes, and promyelocytes. Blood smears from CBCs yielding IG's will be scanned manually for concordance. If this scan disagrees with the automated IG or if promyelocytes are noted, a manual differential will be performed. Immature Gran Absolute 0.01 0.00 - 0.04 x10(3)/[facility] Blood 03/30/2021 5:32 AM EDT 03/30/2021 5:44 AM EDT Narrative Resulting Agency Comment Spec In Lab Rosalee Birmingham MD HEMATOLOGY ORDERAB LES Performing Organization Address City/[facility]/ZIP Co de Phone Number [facility] [place] [address] * Hemogram (03/30/2021 5:32 AM EDT) [facility] White Blood Cell 7.6 4.0 - 9.5 x10(3)/[facility] Red Blood Cell 4.31 4.00 - 5.21 x10(6)/[facility] Hemoglobin 13.1 11.7 - 15.5 gm/dL [facility] Hematocrit 39.0 35.7 - 45.8 % [facility] Mean Cell Volume 90.5 82.6 - 94.4 fL [facility] Mean Cell Hemoglobin 30.4 27.1 - 32.0 pg [facility] Mean Cell Hemoglobin Concentration 33.6 31.7 - 35.0 gm/dL [facility] Platelet 208 145 - 357 x10(3)/[facility] RDW Standard Deviation 40.3 37.0 - 46.0 fL [facility] RDW coefficient of variation 12.1 11.5 - 14.1 % [facility] Mean Platelet Volume 10.4 7.6 - 12.9 fL [facility] NRBC% auto 0.0 % [facility] NRBC Absolute 0.000 0.000 - 0.000 x10(3)/[facility] Blood 03/30/2021 5:32 AM EDT 03/30/2021 5:44 AM EDT Narrative Resulting Agency Comment Spec In Lab Rosalee Birmingham MD HEMATOLOGY ORDERAB LES [facility] [place] [address] * (ABNORMAL) Basic Metabolic Panel (non-fasting) (03/30/2021 5:32 AM EDT) [facility] Glucose 114 65 - 199 mg/dL [facility] Comment:Diabetes: >=200 mg/d L plus symptoms Blood Urea Nitrogen 15 8 - 18 mg/dL [facility] Creatinine 1.09 0.70 - 1.20 mg/dL [facility] Sodium 140 135 - 145 mmol/L [facility] Potassium 4.3 3.5 - 5.0 mmol/L [facility] Comment: Please note: ??Patients with WBC >100,000 may have falsely elevated Potassium levels. ??For accurate Potassium quantification in these patients send serum separator tube (gold top) for subsequent determinations. ??Contact the Clinical Chemistry Laboratory if there are any questions. Chloride 106 98 - 107 mmol/L [facility] Carbon Dioxide 24 22 - 31 mmol/L [facility] Anion Gap 10 5 - 15 mmol/L [facility] Calcium 9.4 8.5 - 10.5 mg/dL [facility] Est Glomerular Filtration Rate 51(L) >=60 mL/min/1. 73 m?? [facility] Comment: This patient? s estimated glomerular [...] Narrative Resulting Agency Comment Spec In Lab Wallace Vega MD CHEMISTRY ORDERABLES [facility] [place] [address] * Magnesium (03/30/2021 5:32 AM EDT) Magnesium 0.89 0.69 - 1.07 mmol/L [facility] Blood 03/30/2021 5:32 AM EDT 03/30/2021 5:44 AM EDT Narrative Resulting Agency Comment Spec In Lab Wallace Vega MD CHEMISTRY ORDERABLES Performing Organization Address [facility] Co de Phone Number [facility] [place] [address] * Hepatic Function Panel (03/30/2021 5:32 AM EDT) Protein, Total 6.4 6.1 - 8.0 gm/dL [facility] Albumin 3.9 3.2 - 5.2 gm/dL [facility] Aspartate Aminotransferase Not Perf 0 - 30 [facility] Comment: Unable to quantitate due to sample hemolysis. ??Sample redraw suggested. Called by: cliff, Read back by: jorje casillas, Date/Time:03/30/21 06:19. Alanine Aminotransferase 28 0 - 30 unit/L [facility] Alkaline Phosphatase 77 35 - 105 unit/L [facility] Bilirubin, Total 0.4 0.2 - 1.3 mg/dL [facility] Bilirubin, Direct Not Perf 0.0 - 0.3 [facility] Comment: Unable to quantitate due to sample hemolysis. ??Sample redraw suggested. Called by: cliff, Read back by: jorje casillas, Date/Time:03/30/21 06:19. Blood 03/30/2021 5:32 AM EDT 03/30/2021 5:44 AM EDT Narrative Resulting Agency Comment Spec In Lab Wallace Vega MD CHEMISTRY ORDERABLES Performing Organization Address [facility] Co de Phone Number [facility] [place] [address] * CARDIAC CATHETERIZATION (03/29/2021 1:10 PM EDT) Anatomical Region Laterality Modality Other Narrative 03/29/2021 3:29 PM EDT ?[facility] ? Cardiac Catheterization/Intervention Report ? Patient Name: EMERALDER, DEYSI R. ? Procedure Date: 03/29/2021 ? A #: [id number] ? Primary Physician: Preston, Tl T ? Case #: [id number] ? File Name: [id number] ? Catheterization Order Number: [id number] ? [facility] ? Final Report [place], [place] ? Patient Name: ? DEYSI R. CAMBER ?ID#: ?[id number] ? : ?1950 ? Procedure Date: ? [...] procedure was Urgent. The indication for ?the technology lab teacher visit is ACS less than or equal [...] dose administered prior to arrival in the technology lab teacher. ?Recommended anti-platelet/anti-thrombotic regimen: ?Start aspirin 81 mg daily now and continue for indefinitely. ?Start clopidogrel 75 mg daily now and continue for 12 months then stop. ?These recommendations are made at the time of the intervention. Patient ?and provider preferences or a changing clinical situation may require ?modification of this regimen. Consult [facility] Interventional [facility]iology for ?questions. ?The 1 year [...] Procedure Note Tl Johnston MD - 06/04/2021 [facility] Cardiac Catheterization/Intervention Report Patient Name: EMERALDPATRIZIADEYSI Procedure Date: 03/29/2021 A #: [id number] Primary Physician: Tl Johnston Case #: File Name: [id number] Catheterization Order Number: [id number] [facility] FinalReport [place], [place] Patient Name: DEYSI STRANGE ID#:[id number] :1950 Procedure Date: March 29, 2021 Case #: [id number] Room: 6 Case Physician: Tl Johnston M.D. [...] patientwas designated as ASA Class III. The [facility] clinical frailty scale is 3: Managing Well. Diagnostic Tests: Electrocardiography: EKG was assessed by ECG. EKG was Abnormal. EKG showed other abnormality. Medications Prior to Procedure: Aspirin, Beta Alicia and Statin. Indications for Diagnostic Cath: The priority of the diagnostic procedure was Urgent. The indicationfor the technology lab teacher visit is ACS less than or equal [...] dose administered prior to arrival in the technology lab teacher. Recommended anti-platelet/anti-thrombotic regimen: Start aspirin 81 mg daily now and continue for indefinitely. Start clopidogrel 75 mg daily now and continue for 12 months thenstop. These recommendations are made at the time of the intervention.Patient and provider preferences or a changing clinical situation mayrequire modification of this regimen. Consult [facility]iologyfor questions. The 1 year bleeding [...] 11:19 AM EDT) UF Heparin 0.62 IU/mL [facility] Comment: Guidelines for therapeutic unfractionated heparin [...] Narrative Resulting Agency Comment Spec In Lab Wallace Vega MD [place] [address] * Differential, Automated (03/29/2021 3:52 AM EDT) Pathologist [facility] [place] Neutrophil % 53.7 % [facility] Neutrophil Absolute 3.07 1.70 - 6.10 x10(3)/[facility] LAB[facility] Lymph % 34.6 % [facility] Lymphocytes Abs 2.0 0.9 - 3.2 x10(3)/[facility] LABOR[facility]ORY Monocyte % 7.7 % [facility] Monocyte Abs 0.4 0.3 - 0.9 x10(3)/[facility]OR[facility] Eos % 3.1 % [facility] Eosinophils Abs 0.2 0.0 - 0.4 x10(3)/[facility] Basophil % 0.7 % [facility] Baso Absolute 0.0 0.0 - 0.1 x10(3)/[facility] Immature Gran % 0.20 % [facility] Comment: Immature granulocytes(IG's)percentage and absolute count will include metamyelocytes, myelocytes, and promyelocytes. Blood smears from CBCs yielding IG's will be scanned manually for concordance. If this scan disagrees with the automated IG or if promyelocytes are noted, a manual differential will be performed. Immature Gran Absolute 0.01 0.00 - 0.04 x10(3)/[facility] Blood 03/29/2021 3:52 AM EDT 03/29/2021 4:16 AM EDT Narrative Resulting Agency Comment Spec In Lab Rosalee Birmingham MD [place] [address] * Hemogram (03/29/2021 3:52 AM EDT) [facility] White Blood Cell 5.7 4.0 - 9.5 x10(3)/[facility] Red Blood Cell 4.42 4.00 - 5.21 x10(6)/[facility] Hemoglobin 13.5 11.7 - 15.5 gm/dL [facility] Hematocrit 40.4 35.7 - 45.8 % [facility] Mean Cell Volume 91.4 82.6 - 94.4 fL [facility] Mean Cell Hemoglobin 30.5 27.1 - 32.0 pg [facility] Mean Cell Hemoglobin Concentration 33.4 31.7 - 35.0 gm/dL [facility] Platelet 209 145 - 357 x10(3)/[facility] RDW Standard Deviation 40.9 37.0 - 46.0 [facility] LAB[facility]ORY RDW coefficient of variation 12.2 11.5 - 14.1 % [facility] Mean Platelet Volume 10.5 7.6 - 12.9 [facility] LAB[facility]ORY NRBC% auto 0.0 % [facility] NRBC Absolute 0.000 0.000 - 0.000 x10(3)/[facility] Blood 03/29/2021 3:52 AM EDT 03/29/2021 4:16 AM EDT Narrative Resulting Agency Comment Spec In Lab Rosalee Birmingham MD HEMATOLOGY ORDERAB LES Performing Organization Address City/State/[facility] Co de Phone Number [facility] [place] [address] * Heparin (unfractionated) Level (03/29/2021 3:52 AM EDT) UF Heparin 0.75 IU/mL [facility] Comment: Guidelines for therapeutic unfractionated heparin [...] Narrative Resulting Agency Comment Spec In Lab Wallace Vega MD HEMATOLOGY ORDERABLE S Performing Organization Address [facility] de Phone Number [facility] [place] [address] * Hepatic Function Panel (03/29/2021 3:52 AM EDT) Protein, Total 6.2 6.1 - 8.0 gm/dL [facility] Albumin 3.8 3.2 - 5.2 gm/dL [facility] Aspartate Aminotransferase 19 0 - 30 unit/L [facility] Alanine Aminotransferase 19 0 - 30 unit/L [facility] Alkaline Phosphatase 77 35 - 105 unit/L [facility] Bilirubin, Total 0.3 0.2 - 1.3 mg/dL [facility] Bilirubin, Direct 0.1 0.0 - 0.3 mg/dL [facility] Blood 03/29/2021 3:52 AM EDT 03/29/2021 4:16 AM EDT Narrative Resulting Agency Comment Spec In Lab Wallace Vega MD CHEMISTRY ORDERABLES Performing Organization Address [facility] de Phone Number [facility] [place] [address] * (ABNORMAL) Basic Metabolic Panel (non-fasting) (03/29/2021 3:52 AM EDT) Glucose 111 65 - 199 mg/dL [facility] Comment:Diabetes: >=200 mg/d L plus symptoms Blood Urea Nitrogen 19(H) 8 - 18 mg/dL [facility] Creatinine 1.26(H) 0.70 - 1.20 mg/dL [facility] Sodium 139 135 - 145 mmol/L [facility] Potassium 4.2 3.5 - 5.0 mmol/L [facility] Comment: Please note: ??Patients with WBC >100,000 may have falsely elevated Potassium levels. ??For accurate Potassium quantification in these patients send serum separator tube (gold top) for subsequent determinations. ??Contact the Clinical Chemistry Laboratory if there are any questions. Chloride 107 98 - 107 mmol/L [facility] Carbon Dioxide 23 22 - 31 mmol/L [facility] Anion Gap 9 5 - 15 mmol/L [facility] Calcium 9.4 8.5 - 10.5 mg/dL [facility] Est Glomerular Filtration Rate 43(L) >=60 mL/min/1. 73 m?? [facility] Comment: This patient? s estimated glomerular [...] Narrative Resulting Agency Comment Spec In Lab Wallace Vega MD CHEMISTRY ORDERABLES [facility] [place] [address] * Magnesium (03/29/2021 3:52 AM EDT) Magnesium 0.89 0.69 - 1.07 mmol/L [facility] Blood 03/29/2021 3:52 AM EDT 03/29/2021 4:16 AM EDT Narrative Resulting Agency Comment Spec In Lab Wallace Vega MD CHEMISTRY ORDERABLES Performing Organization Address City/[facility]/ZIP Co de Phone Number [facility] [place] [address] * Lipid Panel (Reflex Direct LDL) (03/29/2021 3:52 AM EDT) Cholesterol, Total 187 mg/dL [facility] Comment: Lower Risk: <200 mg/dL Average Risk: 200-239 mg/dL Higher Risk: >mo=748 mg/dL Triglyceride 144 mg/dL [facility] Comment: Average Risk/Lower Risk: <150 mg/dL Borderline High Risk: 150-199 mg/dL High Risk: 200-499 mg/dL Very High Risk: >sy=033 mg/dL HDL Cholesterol 57 mg/dL [facility] Comment: Males: ?? Higher Risk: <40 mg/dL Females: ?? Higher Risk: <50 mg/dL LDL Cholesterol 101 mg/dL [facility] Comment: Lowest Risk: <100 mg/dL Lower Risk: 100-129 mg/dL Borderline High Risk: 130-159 mg/dL High Risk: 160-189 mg/dL Very High Risk: >sc=165 mg/dL Cholesterol/HDL Ratio 3.3 ratio [facility] Lipid Interpretation See Note [facility] Comment: Lipid management should be guided by a patient? s ASCVD risk, goals and preferences. ACC/AHA Guidelines recommend high intensity statin if clinical ASCVD or LDL greater than or equal to 190 mg/dL. http://Springrurl.com/BSN-KKY-Ywmpgheix Adults aged 40-75 with LDL 70-189 mg/dL should have their 10 year ASCVD risk estimated with the ACC/AHA ASCVD risk periodontal assistant http://tools.acc.org/AXEBV-Ttep-Fbfofpqjo/ Statin should be discussed if risk greater [...] Narrative Resulting Agency Comment Spec In Lab Wallace Vega MD CHEMISTRY ORDERABLES Performing Organization Address City/State/[facility] Co de Phone Number [facility] [place] [address] * Heparin (unfractionated) Level (03/28/2021 9:44 PM EDT) UF Heparin 0.65 IU/mL [facility] Comment: Guidelines for therapeutic unfractionated heparin [...] Narrative Resulting Agency Comment Spec In Lab Wallace Vega MD HEMATOLOGY ORDERABLE S Performing Organization Address [facility] Co de Phone Number [facility] [place] [address] * EKG 12 Lead (03/28/2021 5:49 PM EDT) Pathologist [facility] [place] Ventricular rate 62 BPM MUSE SYSTEM Atrial Rate 62 BPM MUSE SYSTEM P-R Interval 178 ms MUSE SYSTEM QRS Duration 74 ms MUSE SYSTEM Q-T Interval 408 ms MUSE SYSTEM QTC Calculated (Bezet) 414 ms MUSE SYSTEM Calculated P Jasper 35 degrees MUSE SYSTEM Calculated R Jasper 7 degrees MUSE SYSTEM Calculated T Jasper 83 degrees MUSE SYSTEM INTERPRETATION Normal sinus rhythm Nonspecific ST and T wave abnormality Abnormal ECG No previous ECGs available Confirmed by MD Edmond, Camilo Quintana () on 03/29/2021 9:41:01 AM MUSE SYSTEM 03/28/2021 5:49 PM EDT 03/29/2021 9:41 AM EDT Wallace Vega MD ECG ORDERABLES Performing Organization Address [facility] Phone Number MUSE SYSTEM * COVID-19 PCR (03/28/2021 5:38 PM EDT) [facility] SARS-CoV-2 RNA (Rapid) Not Detected Not Detected [facility] Comment: This result should be interpreted [...] using the Simplexa COVID-19 Direct Assay by Angelantoni as authorized by the FDA issued Emergency [...] Department of Pathology and Laboratory Medicine at [facility], certified under the Clinical Laboratory Improvement Amendments [...] fact sheets at the following FDA website: https://www.fda.gov/medical-devices/inhqhfiewjk-gibzcev-3045-ongaa-85-gndcjsqdy- use-a usznuqvfepztl-nrnqkhk-fsocpbb/lgfdl-pffwihyirot-ppml SARS-CoV-2 Source [employer]LEMENT[employer] Swab [facility] Nasopharyngeal Swab 03/28/20 5:38 PM EDT 03/28/2021 6:03 PM EDT Comment:Symptoms->Surveillan ce Narrative Resulting Agency Comment Spec In Lab Wallace Vega MD MICROBIOLOGY - GENER AL ORDERABLES [facility] [place] [address] * Hepatic Function Panel (03/28/2021 4:58 PM EDT) [facility] Protein, Total 6.8 6.1 - 8.0 gm/dL [facility] Albumin 4.4 3.2 - 5.2 gm/dL [facility] Aspartate Aminotransferase 21 0 - 30 unit/L [facility] Alanine Aminotransferase 23 0 - 30 unit/L [facility] Alkaline Phosphatase 84 35 - 105 unit/L [facility] Bilirubin, Total 0.3 0.2 - 1.3 mg/dL [facility] Bilirubin, Direct 0.1 0.0 - 0.3 mg/dL [facility] Blood Venous Draw / Unknown 03/28/2021 4:58 PM EDT 03/28/2021 5:09 PM EDT Narrative Resulting Agency Comment Spec In Lab Rosalee Birmingham MD CHEMISTRY ORDERABL ES [facility] [place] [address] * Differential, Automated (03/28/2021 4:58 PM EDT) [facility] Neutrophil % 54.7 % [facility] Neutrophil Absolute 3.18 1.70 - 6.10 x10(3)/[facility] Lymph % 32.9 % [facility] Lymphocytes Abs 1.9 0.9 - 3.2 x10(3)/[facility] Monocyte % 8.1 % [facility] Monocyte Abs 0.5 0.3 - 0.9 x10(3)/[facility] Eos % 3.3 % [facility] Eosinophils Abs 0.2 0.0 - 0.4 x10(3)/[facility] Basophil % 0.7 % [facility] Baso Absolute 0.0 0.0 - 0.1 x10(3)/[facility] Immature Gran % 0.30 % [facility] Comment: Immature granulocytes(IG's)percentage and absolute count will include metamyelocytes, myelocytes, and promyelocytes. Blood smears from CBCs yielding IG's will be scanned manually for concordance. If this scan disagrees with the automated IG or if promyelocytes are noted, a manual differential will be performed. Immature Gran Absolute 0.02 0.00 - 0.04 x10(3)/[facility] Blood 03/28/2021 4:58 PM EDT 03/28/2021 5:04 PM EDT Narrative Resulting Agency Comment Spec In Lab Rosalee Birmingham MD HEMATOLOGY ORDERAB LES [facility] [place] [address] * Hemogram (03/28/2021 4:58 PM EDT) White Blood Cell 5.8 4.0 - 9.5 x10(3)/[facility] Red Blood Cell 4.61 4.00 - 5.21 x10(6)/[facility] Hemoglobin 13.7 11.7 - 15.5 gm/dL [facility] Hematocrit 41.6 35.7 - 45.8 % [facility] Mean Cell Volume 90.2 82.6 - 94.4 fL [facility] Mean Cell Hemoglobin 29.7 27.1 - 32.0 pg [facility] Mean Cell Hemoglobin Concentration 32.9 31.7 - 35.0 gm/dL [facility] Platelet 235 145 - 357 x10(3)/[facility] RDW Standard Deviation 40.5 37.0 - 46.0 [facility] LABORATORY RDW coefficient of variation 12.2 11.5 - 14.1 % [facility] Mean Platelet Volume 10.0 7.6 - 12.9 fL [facility] NRBC% auto 0.0 % [facility] NRBC Absolute 0.000 0.000 - 0.000 x10(3)/mcL [facility] Blood 03/28/2021 4:58 PM EDT 03/28/2021 5:04 PM EDT Narrative Resulting Agency Comment Spec In Lab Rosalee Birmingham MD HEMATOLOGY ORDERAB LES Performing Organization Address [facility] Co de Phone Number [facility] [place] [address] * Troponin (03/28/2021 4:58 PM EDT) Troponin-T <0.01 0.00 - 0.00 ng/mL [facility] Comment: The 99th percentile for Troponin T is less than 0.01 ng/mL, any detectable cTnT concentration using this assay should be considered elevated. According to the third universal definition of myocardial infarction the following criteria with a clinical presentation consistent with acute myocardial ischemia meets the diagnosis for a myocardial infarction ([place]). Detection of a rise and/or fall of cTnT, with at least one value greater than the 99th percentile (> or = 0.01) and with at least one of the following ?? Symptoms of ischemia ?? New or presumed new significant MB-oiaazzb-P wave (ST-T) changes or new left bundle [...] additional sample may be indicated. Reference: Third [place] Definition of Myocardial Infarction. Journal of the [place] [employer] 2012;60:1581-98 Blood 03/28/2021 4:58 PM EDT 03/28/2021 5:04 PM EDT Narrative Resulting Agency Comment Spec In Lab Wallace Vega MD CHEMISTRY ORDERABLES Performing Organization Address [facility]/ZIP Co de Phone Number [facility] [place] [address] * (ABNORMAL) Basic Metabolic Panel (non-fasting) (03/28/2021 4:58 PM EDT) Glucose 97 65 - 199 mg/dL [facility] Comment:Diabetes: >=200 mg/d L plus symptoms Blood Urea Nitrogen 16 8 - 18 mg/dL [facility] Creatinine 1.40(H) 0.70 - 1.20 mg/dL [facility] Sodium 140 135 - 145 mmol/L [facility] Potassium 4.0 3.5 - 5.0 mmol/L [facility] Comment: Please note: ??Patients with WBC >100,000 may have falsely elevated Potassium levels. ??For accurate Potassium quantification in these patients send serum separator tube (gold top) for subsequent determinations. ??Contact the Clinical Chemistry Laboratory if there are any questions. Chloride 106 98 - 107 mmol/L [facility] Carbon Dioxide 23 22 - 31 mmol/L [facility] Anion Gap 11 5 - 15 mmol/L [facility] Calcium 9.8 8.5 - 10.5 mg/dL [facility] Est Glomerular Filtration Rate 38(L) >=60 mL/min/1. 73 m?? [facility] Comment: This patient? s estimated glomerular [...] Narrative Resulting Agency Comment Spec In Lab Wallace Vega MD CHEMISTRY ORDERABLES Performing Organization Address City/[facility]/ZIP Co de Phone Number [facility] [place] [address] * Magnesium (03/28/2021 4:58 PM EDT) Pathologist [facility] [place] Magnesium 0.86 0.69 - 1.07 mmol/L [facility] Blood 03/28/2021 4:58 PM EDT 03/28/2021 5:04 PM EDT Narrative Resulting Agency Comment Spec In Lab Wallace Vega MD CHEMISTRY ORDERABLES Performing Organization Address [facility] Co de Phone Number [facility] [place] [address] * Hemoglobin A1c (03/28/2021 4:58 PM EDT) [facility] Hemoglobin A1c 5.5 4.3 - 5.6 % [facility] Comment: Reference Range: 4.3 - 5.6% [...] Mellitus, Diabetes Care 2013; 36: Suppl. 1, S67-74 Estimated Average Glucose See note mg/dL [facility] Comment: Estimated Average Glucose not appropriate [...] into estimated average glucose values. ??Diabetes Care 2008:31(8):5087-3433. Blood 03/28/2021 4:58 PM EDT 03/28/2021 5:04 PM EDT Narrative Resulting Agency Comment Spec In Lab Wallace Vega MD CHEMISTRY ORDERABLES Performing Organization Address [facility] Co de Phone Number [facility] [place] [address] * TSH [place] (03/28/2021 4:58 PM EDT) Thyroid Stimulating Hormone 2.05 0.27 - 4.20 mcIU/mL [facility] Blood 03/28/2021 4:58 PM EDT 03/28/2021 5:04 PM EDT Narrative Resulting Agency Comment Spec In Lab Wallace Vega MD CHEMISTRY ORDERABLES Performing Organization Address [facility] Co de Phone Number [facility] [place] [address] documented in this encounter Visit Diagnoses Diagnosis NSTEMI (non-ST elevated myocardial infarction) Acute myocardial infarction, subendocardial infarction, episode of care unspecified NSTEMI (non-ST elevated myocardial infarction) Acute myocardial infarction, subendocardial infarction, episode of care unspecified documented in this encounter Admitting Diagnoses Diagnosis NSTEMI [...] Given 03/29/2021 8:51 AM EDT 75 mg heparin (porcine) (1,000 units/mL) injection 0-4,000 Units 0-4,000 Units, Intravenous, BOLUS PER HEPARIN PROTOCOL, Starting on 03/28/21 at 1609, Until 03/30/21 at 1537, Per Protocol, START ADJUSTMENT SCHEDULE 6 HOURS AFTER STARTING INFUSION Heparin UFH Level between 0.1 - 0.29 IU/mL: Bolus 2,000 units Heparin UFH Level less than 0.1 IU/mL: Bolus 4,000 units, Routine heparin (porcine) 25,000 unit/500 mL infusion 1 dose, Starting on 03/28/21 at 1536, Until 03/28/21 at 1619, Sage Ramirez: cabinet override heparin (porcine) 50 units/mL in sodium chloride [...] AM EDT 850 Units/hr 17 mL /hr lamoTRIgine (LaMICtal) tablet 250 mg 250 mg, Oral, DAILY, First dose on Tue03/29/21 at 0900, Until Discontinued, Routine Given 03/30/2021 9:00 AM EDT 250 mg Given 03/29/2021 8:51 AM EDT 250 mg meclizine (Antivert) tablet 25 mg 25 mg, Oral, 3 TIMES DAILY PRN, Starting on 03/28/21 at 1614, Until Tue03/30/21 at 1537, Dizziness, Routine melatonin tablet 6 [...] Given 03/28/2021 5:19 PM EDT 12.5 mg nitroGLYcerin (Nitrostat) disintegrating tablet 0.4 mg [...] to 72 hours., Recovery (Recovery-Hospital Unit), Routine rosuvastatin (Crestor) tablet 40 mg 40 mg, Oral, EVERY MORNING, First dose on 03/29/21 at 0900, Until Discontinued, Routine Given 03/30/2021 8:59 AM EDT 40 mg Given 03/29/2021 8:51 AM EDT 40 mg sodium chloride 0.9% infusion 50 mL/hr, Intravenous, CONTINUOUS, Starting on Tue03/29/21 at 1400, Until Tue03/29/21 at 1759, Recovery (Recovery-Hospital Unit) New Bag 03/29/2021 1:40 PM EDT 50 mL/h r 50 mL/hr documented in this encounter Active and Recently [...] area)1339 (DEC Unhold - Provider: Admin Adt) 0858 (Given - Provider: Elvia Lui RN) clopidogreL (Plavix) tablet 75 mg 75 mg, Oral, DAILY, First dose on 03/29/21 at 0900, Until Discontinued, Routine 0851 (Given - Provider: Serge Palacio RN)1228 (DEC Hold - Provider: Admin Adt - Reason: Transfer to a Procedural area)1339 (DEC Unhold - Provider: Admin Adt) 0858 (Given - Provider: Elvia Lui RN) lamoTRIgine (LaMICtal) tablet 250 mg 250 mg, Oral, DAILY, First dose on 03/29/21 at 0900, Until Discontinued, Routine 0851 (Given - Provider: Serge Palacio RN)1228 (DEC Hold - Provider: Admin Adt - Reason: Transfer to a Procedural area)1339 ([facility] Unhold - Provider: Admin Adt) 0900 (Given - Provider: Elvia Lui, RN) melatonin tablet 6 mg 6 mg, Oral, NIGHTLY, First dose on 03/30/21 at 0130, Until Discontinued, Routine 0127 (Given - Provider: Alexi Guzman, TREY) metoprolol tartrate (Lopressor) tablet 12.5 mg 12.5 mg, Oral, EVERY 12 HOURS SCHEDULED (2 times per day), First dose on 03/28/21 at 1715, Until Discontinued, Routine 1719 (Given - Provider: Mariajose Luong RN) 0854 (Given - Provider: Serge Palacio RN)1228 (DEC Hold - Provider: Admin Adt - Reason: Transfer to a Procedural area)1339 ([facility] Unhold - Provider: Admin Adt)2112 (Given - Provider: Alexi Guzman, TREY) 0900 (Not Given - Provider: Elvia Lui RN - Reason: See comment - Comment: HR in low 40s overnight) rosuvastatin (Crestor) tablet 40 mg 40 mg, Oral, EVERY MORNING, First dose on 03/29/21 at 0900, Until Discontinued, Routine 0851 (Given - Provider: Serge Palacio RN)1228 (DEC Hold - Provider: Admin Adt - Reason: Transfer to a Procedural area)1339 ([facility] Unhold - Provider: Admin Adt) 0859 (Given [...] 0.1 IU/mL: Bolus 4,000 units, Routine 1228 (MAR Hold - Provider: Admin [...] Routine documented in this encounter Care Teams Geothermal Electrical Engineer Relationship Specialty Start Date End Date Edin Conner MD [address] [place] [address] PCP - General Family Medicine 02/28/21 documented as of this encounter
--- OUTSIDE RECORDS SUMMARY | 2024-09-14 00:24 | XMS_ITS | Referral Summary ---
Author Organization [facility] Address [address] [place] [address] Care Team Providers Care Florist Supplies Salesperson Name Role Phone Teofilo Aguila MD Primary Care Provider [phone] Social History Tobacco Use Types Packs/Day Years Used Date Smoking Tobacco: Never Assessed Interpersonal Safety Answer Date Record ed Physically Hurt Never 06/01/2020 Verbally Threaten Not on file 06/01/2020 Comments Unknown Sex and Gender Information Value Date Recorded Sex Assigned at Not on file Legal Sex Female 18:23 EST Gender Identity Not on file Sexual Orientation Not on file Plan of Treatment Not on file Care Teams Florist Supplies Salesperson Relationship Specialty Start Date End Date Teofilo Aguila MD PCP - General 07/10/15
--- OUTSIDE RECORDS SUMMARY | 2024-09-14 00:24 | XMS_ITS | Encounter Summary ---
Author Organization [facility] Address [address] [facility] [place] [address] Care Team Providers Care Communications Planner Name Role Phone Edin Conner MD Primary Care Provider [phone] Encounter Details Date Type Department Care Team (Late st Contact Info) Description 01/18/2023 Telephone Dermatology at [address] [address] Nickie Jerome LPN Social History Tobacco Use Types Packs/Day Years [...] on file documented as of this encounter Miscellaneous Notes * Telephone Encounter - Nickie Jerome LPN - 01/18/2023 1:29 PM EDT 01/13/23 Right breast skin punch biopsy Bx: Area of benign pigment accumulation, perhaps results of irritation to area previously. Should fade with time. No further treatment necessary. Return to clinic as needed. Reviewed biopsy results and Dr. Rizzo recommendations with patient. She voiced understanding. documented in this encounter Plan of Treatment Not on file documented as of this encounter Visit Diagnoses Not on filedocumented in this encounter Care Teams Communications Planner Relationship Specialty Start Date End Date Edin Conner MD [address] [place] [address] PCP - General Family Medicine 02/28/21 documented as of this encounter
--- OUTSIDE RECORDS SUMMARY | 2024-09-14 00:24 | XMS_ITS | Encounter Summary ---
[place] [address] Care Team Providers Care Windows Vmware Engineer Name Role Phone Edin Conner MD Primary Care Provider [phone] Encounter Details Date Type Department Care Team (Late st Contact Info) Description 04/06/2021 Telephone [place] [id number] Beth Camejo RN Social History Tobacco Use Types Packs/Day Years [...] encounter Miscellaneous Notes * Telephone Encounter - Beth Camejo RN - 04/06/2021 11:53 AM EDT Second attempt to contact this patient in regards to participation in outpatient cardiac rehab. Sheis s/p PCI and was discharged home on 03/30/2021. Left a voice message asking her to return my call at her earliest convenience. documented in this encounter Plan of Treatment Not on file documented as of this encounter Visit Diagnoses Not on filedocumented in this encounter Care Teams Windows Vmware Engineer Relationship Specialty Start Date End Date Edin Conner MD [address] [place] [address] PCP - General Family Medicine 02/28/21 documented as of this encounter
--- OUTSIDE RECORDS SUMMARY | 2024-09-14 00:24 | XMS_ITS | Clinical Summary ---
Author Organization [facility] Address [address] [place] [address] Care Team Providers Care Income Tax Preparer Name Role Phone Teofilo Aguila MD Primary Care Provider [phone] Social History Tobacco Use Types Packs/Day Years Used Date Smoking Tobacco: Never Assessed Interpersonal Safety Answer Date Record ed Physically Hurt Never 06/01/2020 Verbally Threaten Not on file 06/01/2020 Comments Unknown Sex and Gender Information Value Date Recorded Sex Assigned at Not on file Legal Sex Female 18:23 EST Gender Identity Not on file Sexual Orientation Not on file Plan of Treatment Health Maintenance Due Date Last Done Comments Hepatitis C Screen 1950 Fall Risk Screening 2014 COVID-19 Vaccine ( season) 2024 RSV Immunization ( o r 60+ Years) (1 - 1-dose 75+ series) 2024 Care Teams Income Tax Preparer Relationship Specialty Start Date End Date Teofilo Aguila MD PCP - General 07/10/15
--- OUTSIDE RECORDS SUMMARY | 2024-09-14 00:24 | XMS_ITS | Encounter Summary ---
Author Organization [facility] [place] [address] Care Team Providers Care Manager Heavy Duty Name Role Phone Edin Conner MD Primary Care Provider [phone] Reason for Referral * Consultation (Routine) - Closed Specialty Diagnoses / Procedures Referred By Contac t Referred To Contact Dermatology Diagnoses Skin lesion Edin Conner MD [address] [place] [address] Josué Hernandez MD [address] [place] [address], [place] [address] Referral ID Status Reason Start Date Expiration Date V isits Requested Visits Authorized [id number] Closed Consult, Test & Treat PCP Updated and/or Approved 11/08/2022 11/08/2023 6 6 Encounter Details Date Type Department Care Team (Late st Contact Info) Description 11/08/2022 Transcribe Orders eDH Incoming Referrals [phone] Edin Conner MD [address] [place] [address] Skin lesion Social History Tobacco Use Types Packs/Day Years [...] as of this encounter Plan of Treatment Scheduled Referrals Name Type Priority Associated Diagnoses Order Schedule Referral to Dermatology Outpatient Referral Routine Skin lesion Ordered: 11/08/2022 documented as of this encounter Visit Diagnoses Diagnosis Skin lesion Unspecified disorder of skin and subcutaneous tissue documented in this encounter Care Teams Manager Heavy Duty Relationship Specialty Start Date End Date Edin Conner MD [address] [place] [address] PCP - General Family Medicine 02/28/21 documented as of this encounter
--- OUTSIDE RECORDS SUMMARY | 2024-09-14 00:24 | XMS_ITS | Encounter Summary ---
Author Organization [facility] [place] [address] Care Team Providers Care Locomotive Driver Name Role Phone Edin Conner MD Primary Care Provider [phone] Encounter Details Date Type Department Care Team (Latest Contact Info) Description 12/31/2022 Travel Social History Tobacco Use Types Packs/Day [...] on filedocumented in this encounter Care Teams Locomotive Driver Relationship Specialty Start Date End Date Edin Conner MD [address] [place], [place] [id number] PCP - General Family Medicine 02/28/21 documented as of this encounter
--- OUTSIDE RECORDS SUMMARY | 2024-09-14 00:24 | XMS_ITS | Encounter Summary ---
[place] [address] Care Team Providers Care Wind Turbine Machinist Name Role Phone Edin Conner MD Primary Care Provider [phone] Encounter Details Date Type Department Care Team (Late st Contact Info) Description 03/31/2021 Telephone [place] [phone] Sirisha Gifford RN Social History Tobacco Use Types Packs/Day [...] encounter Miscellaneous Notes * Telephone Encounter - Sirisha Gifford RN - 03/31/2021 11:29 AM EDT Cardiac rehab- LM for patient to call us regarding outpatient cardiac rehab. DX: She was discharged over the holiday w/e with NSTEMI with PCI to LAD. documented in this encounter Plan of Treatment Not on file documented as of this encounter Visit Diagnoses Not on filedocumented in this encounter Care Teams Wind Turbine Machinist Relationship Specialty Start Date End Date Edin Conner MD [address] [facility] [address] [place] [address] PCP - General Family Medicine 02/28/21 documented as of this encounter
--- OUTSIDE RECORDS SUMMARY | 2024-09-14 00:24 | XMS_ITS | Encounter Summary ---
Author Organization [facility] Address [address] [place] [address] Care Team Providers Care Roving Teller Name Role Phone Unavailable Primary Care Provider Unavailabl e Encounter Details Date Type Department Care Team (Late st Contact Info) Description 11/09/2000 Results Only [facility] [address] [place] [address] Teofilo Bird MD [address] [place], [place] [id number] Social History Tobacco Use Types Packs/Day Years [...] Priority Date/Time Associated Diagnosis Comments CYTOPATHOLOGY Routine 11/09/2000 0:00 EST documented in this encounter Results * CYTOPATHOLOGY (11/09/2000 0:00 EST) Pathology Report: CYTOPATHOLOGY REPORT Reports generated via electronic interface contain original data; however they are lacking the format of the original report. Caution should be taken when reading/interpreti ng unformatted reports. Name: ? DORENE STRANGE ? Accession #: ? [id number] : ? 1950 (Age: 50) ??F ?Collect Date: ? 11/09/2000 Location: ? [facility] ? Receive Date: ? 11/11/2000 Provider: ?TEOFILO BIRD MD Copy to: ? Specimen/Source: ?ThinPrep Pap Test, Vagina Last Menstrual Period: ? Other: ? Additional clinical information: No hormone contraceptive use for 2 months. ? SPECIMEN ADEQUACY ? Satisfactory for evaluation. GENERAL CATEGORIZATION ? Within Normal Limits ? Document reviewed and electronically signed by: ? DEREK Brock(ASCP) ? Report Date: ??11/14/2000 09:50 End of Report TAMERA PEREZ 11/09/2000 11/11/2000 us Teofilo Bird MD PATHOLOGY ORDERABLES Final Resul t TAMERA PEREZ [address] [place] [address] documented in this encounter Visit Diagnoses Not on filedocumented in this encounter
--- OUTSIDE RECORDS SUMMARY | 2024-09-14 00:24 | XMS_ITS | Encounter Summary ---
Author Organization [facility] [place] [address] Care Team Providers Care Flame Cutting Machine Operator Name Role Phone Edin Conner MD Primary Care Provider [phone] Reason for Visit * Reason Comments Skin Lesion * Consultation (Routine) - Closed Specialty Diagnoses / Procedures Referred By Contstiven t Referred To Contact Dermatology Diagnoses Skin lesion Edin Conner MD [address] [place] [address] Josué Hernandez MD [address] [facility], [facility] [place] [address] Referral ID Status Reason Start Date Expiration Date V isits Requested Visits Authorized [id number] Closed Consult, Test & Treat PCP Updated and/or Approved 11/08/2022 11/08/2023 6 6 Encounter Details Date Type Department Care Team (Late st Contact Info) Description 12/31/2022 10:45 AM EST Office Visit Dermatology at [address] [address] Josué Hernandez MD [address] [facility], [facility] [place] [address] Solar lentigo; Nevus of abdominal wall Social History Tobacco Use Types Packs/Day Years [...] as of this encounter Progress Notes * Josué Hernandez MD - 12/31/2022 10:45 AM EST Problem: New patient, initial visit Dorene presents today for evaluation of a lesion on her breast. It is relatively new and she shows me photographs on her cell phone of an erythematous patch with some slight desquamation and scaling which then becomes more hyperpigmented with time. 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 She has no known history of cancer. She states that [place] with 7 brothers and 4 sisters. She had a lot of sun exposure. She was the baby of the family. She is seen today in consultation for Edin Conner MD. Physical examination reveals a pleasant 72-year-old woman who today has a reddish but tanned almost2 cm round patch without any overlying desquamation or hyperkeratosis/scaling on her right breast. She has a solar lentigo on her right faith and 1 on her right lateral cheek. She also has 1 on the right upper anterior chest. Examination of her back is unremarkable. Assessment plan: Pigmented patch right breast 1. After obtaining informed consent site was anesthetized and a 4 mm punch biopsy was obtained fromthe site 2. Closed with one 4-0 Ethilon suture 3. Wound care instructions and supplies given return to clinic in 10 to 14 days for suture removal and biopsy results. Benign skin lesions face upper chest in a patient with a BRAF 2 gene 1. Patient reassured about her benign examination of the face chest and back. CC: Edin Conner MD documented in this encounter Plan of Treatment Not on file documented as of this encounter Visit Diagnoses Diagnosis Solar lentigo Other dyschromia Nevus of abdominal wall Benign neoplasm of skin of trunk, except scrotum documented in this encounter Care Teams Flame Cutting Machine Operator Relationship Specialty Start Date End Date Edin Conner MD [address] [place] [address] PCP - General Family Medicine 02/28/21 documented as of this encounter
--- OUTSIDE RECORDS SUMMARY | 2024-09-14 00:24 | XMS_ITS | Clinical Summary ---
Author Organization [facility] Address One [facility] [place] [address] Care Team Providers Care Chief Engineer'S Helper Name Role Phone Edin Conner MD Primary Care Provider [phone] Allergies Active Allergy Reactions Criticality Noted Date Comments Amoxicillin Trihydrate Rash Atorvastatin Other (See Comments) High 12/31/2022 Elevated LFT's Gloves, Latex CIS - Localized Reaction Latex Rash Latex Dams CIS - Localized Reaction Medications Medication Sig Dispensed Refills Start Date End Date Status metoprolol succinate XL (Toprol-XL) 25 mg Tablet Sustained Release 24 hr Take 1 tablet by mouth daily. 30 tablet 12 03/30/2021 Active nitroGLYcerin (Nitrostat) 0.4 mg Tablet, Sublingual Place 1 tablet under the tongue every 5 minutes as needed for Chest pain. 90 tablet 12 03/30/2021 Active aspirin EC 81 mg Tablet, Delayed Release (E.C.) Take 81 mg by mouth daily. 04/04/2013 Active lamoTRIgine (LaMICtal) 25 mg Tablet Take 50 mg by mouth daily. 01/22/2021 Active lamoTRIgine (LaMICtal) 200 mg Tablet Take 200 mg by mouth daily. 01/10/2021 Active lisinopriL (Zestril) 10 mg Tablet Take 10 mg by mouth daily. 11/14/2022 Active rosuvastatin (Crestor) 40 mg Tablet Take 40 mg by mouth daily. 12/11/2022 Active Active Problems Problem Noted Date Diagnosed Date NSTEMI (non-ST elevated myocardial infarction) 0 03/28/2021 Immunizations Name Administration Dates Next Due Td Adult (not absorbed) 11/29/2006 Family History Medical History Relation Comments Cerebrovascular Accident Brother 1 Diabetes Brother 1 Myocardial Infarction Brother 2 DE in 50-6 0s Prostate Cancer Father Cerebrovascular Accident Maternal Grandmother Cerebrovascular Accident Mother Breast Cancer Sister Cerebrovascular Accident Sister Ovarian Cancer Sister Uterine Cancer Sister Heart Disease Neg Hx Relation Status Comments Brother 1 Brother 2 Father Maternal Grandmother Mother Sister Social History Tobacco Use Types Packs/Day Years [...] on file Sexual Orientation Not on file Last Filed Vital Signs Vital Sign Reading Time Taken Comments Blood Pressure 152/68 04/10/2021 11:29 AM EDT Pulse 50 04/10/2021 11:29 AM EDT Temperature 36.6 ??C (97.9 ??F) 03/30/2021 10:51 AM E DT Respiratory Rate 18 03/30/2021 10:51 AM EDT Oxygen Saturation 100% 04/10/2021 11:29 AM EDT Inhaled Oxygen Concentration - - Weight 80.3 kg (177 lb) 04/10/2021 11:29 AM EDT Height 162.6 cm (5' 4) 04/10/2021 11:29 AM EDT Body Mass Index 30.38 04/10/2021 11:29 AM EDT Plan of Treatment Health Maintenance Due Date Last Done Comments CT Colonography 1950 Colonoscopy 1950 Colorectal Cancer Screening 1950 FIT DNA 1950 FIT 1950 Sigmoidoscopy (10 year) with FIT yearly 1950 Sigmoidoscopy 1950 Pneumoccocal Vaccine: 65+ (1 of 2 - PCV) 1955 Hepatitis C Screening 1967 Zoster vaccine (1 of 2) 1999 Tetanus/Diphtheria/Pertussis Vaccines (1 - Tdap) 11/3011/29/2006 Bone Density Scan 2014 Covid-19 Vaccine (2023- season) 2024 Influenza (Flu) vaccine (1 o f 1 - Influenza standard series) 07/01/2024 Advance Directives Documents on File Type Date Recorded Patient Bell Spinner Sousaphones Expl anation Advance Directives and Livin g Will 04/03/2021 11:35 AM * Attempt Cardiopulmonary Resuscitation - Inpatient (Latest Code Status on File) Date Activated Date Inactivated Comments 03/28/2021 3:58 PM 03/30/2021 3:42 PM Question Answer Comments Code Status decision made by: Patient Care Teams Chief Engineer'S Helper Relationship Specialty Start Date End Date Edin Conner MD [address] [place] [address] PCP - General Family Medicine 02/28/21
--- OUTSIDE RECORDS SUMMARY | 2024-09-14 00:24 | XMS_ITS | Encounter Summary ---
Author Organization [facility] [place] [address] Care Team Providers Care Gym Teacher Name Role Phone Edin Conner MD Primary Care Provider [phone] Encounter Details Date Type Department Care Team (Late st Contact Info) Description 03/27/2021 Telephone Cardiology at [address] [address] Jenny Solomon, BIBLICAL LANGUAGES PROFESSOR [facility] [place] [address] Social History Tobacco Use Types Packs/Day Years Used Date Smoking Tobacco: Never Assessed Sex and Gender Information Value Date Recorded Sex Assigned at Not on file Gender Identity Not on file Sexual Orientation Not on file documented as of this encounter Miscellaneous Notes * Telephone Encounter - Jenny Solmoon APRN - 03/27/2021 12:05 PM EDT 03/27/2021 Dorene Duque Initial Contact Date: 03/27/2021 Initial contact time: 12:05 PM Referring Provider: Dr. Vera Patient Location: [facility] Past Medical History: HTN HLD Remote CVA, no residual Presenting Symptoms per OSH: Patient presented with reports of worsening THOMPSON and chest tightness/heaviness over the past two weeks. Symptoms progressed over the last several days, with dyspnea, chest tightness, and heaviness in the bilateral arms occurring with activity and occasionally at rest. Episodes resolved without intervention/with rest. She awoke this morning with similar symptoms, but also felt dizzy and vomited once. On arrival to the ED, vitals were stable: BP 168/79 (SBP now 140s), HR 61, spO2 100% on RA, temp 98.1 F. EKG showed NSR without acute ischemic changes. Troponin-I was elevated at 0.24 (ULN 0.06). Labs were otherwise wnl. A head CT was ordered and is pending given episode of dizziness this morning. Pertinent Diagnostic Findings: EKG: HR 69, SR, no acute changes Troponin-I 0.24 (ULN 0.06) Cr 1.2 (at baseline), electrolytes wnl BNP 172 Hgb 15, plts 264, WBC nml Head CT pending OSH Interventions: Aspirin 324 mg Fluids Meclizine, Zofran Planning to initiate heparin gtt + bolus and Plavix 300 mg load pending Head CT results Plan: Accepted for transfer for further work up and management of NSTEMI with typical symptoms, includingprogressive dyspnea, chest tightness, and arm heaviness. Dizziness and vomiting this morning may ormay not be related. Dr. Vera will call back if the head CT is abnormal. - above recommendations were based on my discussion with Dr. Vera; I have not personally interviewed or examined this patient. Jenny Solomon, DAVE, SUPPLY TECH-BC, BIBLICAL LANGUAGES PROFESSOR [facility] documented in this encounter Plan of Treatment Not on file documented as of this encounter Visit Diagnoses Not on filedocumented in this encounter Care Teams Gym Teacher Relationship Specialty Start Date End Date Edin Conner MD [address] [facility] 1 [place] [address] PCP - General Family Medicine 02/28/21 documented as of this encounter
--- OUTSIDE RECORDS SUMMARY | 2024-09-14 00:24 | XMS_ITS | Encounter Summary ---
Author Organization [facility] [place] [address] Care Team Providers Care Carpet Finishing Supervisor Name Role Phone Edin Conner MD Primary Care Provider [phone] Reason for Visit * Reason Comments Suture / Staple Removal Encounter Details Date Type Department Care Team (Late st Contact Info) Description 01/13/2023 9:15 AM EDT Office Visit Dermatology at [place] [address] [place] [address] Josué Hernandez MD [address] [facility], [facility] A DERMATOLOGY [place], [place] [id number] Nevus of abdominal wall; Solar lentigo; Visit for suture removal Social History Tobacco Use Types Packs/Day Years [...] Progress Notes * Josué Hernandez MD - 01/13/2023 9:15 AM EDT Problem: Follow-up for suture moved by results Dorene follows up by results are not yet available. Physical examination reveals good healing of the punch biopsy site on the right breast. Assessment plan: Pigmented patch right breast 1. Suture removed 2. May DC wound care instruction 3. Await results of punch biopsy to pathology 4. If benign, her follow-up can be on an as needed basis CC: Edin Conner MD documented in this encounter Plan of Treatment Not on file documented as of this encounter Visit Diagnoses Diagnosis Nevus of abdominal wall Benign neoplasm of skin of trunk, except scrotum Solar lentigo Other dyschromia Visit for suture removal Encounter for removal of sutures documented in this encounter Care Teams Carpet Finishing Supervisor Relationship Specialty Start Date End Date Edin Conner MD [address] [place] [address] PCP - General Family Medicine 02/28/21 documented as of this encounter
--- OUTSIDE RECORDS SUMMARY | 2024-09-14 00:24 | XMS_ITS | Encounter Summary ---
Author Organization [facility] Address [address] [place] [address] Care Team Providers Care Director Of Front Office Name Role Phone Teofilo Aguila MD Primary Care Provider [phone] Encounter Details Date Type Department Care Team (Latest Contact Info) Description 11/07/2018 14:51 EST - 11/07/2018 23:59 EST Hospital Encounter [address] [address] Unknown, Provider, Discharge Disposition: Home or Self Care Social History Tobacco Use Types Packs/Day Years Used Date Smoking Tobacco: Never Assessed Comments Unknown Sex and Gender Information Value Date Recorded Sex Assigned at Not on file Legal Sex Female 18:23 EST Gender Identity Not on file Sexual Orientation Not on file documented as of this encounter Discharge Disposition Disposition Code Departure Means Destination Home or Self Group Home documented in this encounter Plan of Treatment Not on file documented as of this encounter Visit Diagnoses Not on filedocumented in this encounter Care Teams Director Of Front Office Relationship Specialty Start Date End Date Teofilo Aguila MD PCP - General 07/10/15 documented as of this encounter
--- NOTE | 2024-09-14 06:45 | DI.MAMMO_ITS ---
Exam(s) US BREAST LT COMPLETE MG MAMMO DIAGNOSTIC BI EXAM: MG MAMMO DIAGNOSTIC BI CLINICAL HISTORY: newly found lump in left breast,N63.20. COMPARISON: DIAGNOSTIC BILAT MAMMO W/CAD from 04/16/2013 MG mammo screening from 10/05/2018 US US BREAST LT COMPLETE from 09/14/2024 TECHNIQUE: Craniocaudal and mediolateral oblique Full Field Digital Mammography views of both breast s with Computer Aided Diagnosis followed by Tomosynthesis and left breast ultrasound. FINDINGS: Mammography/Tomosynthesis: Left breast: Masses/Architectural Distortion: Large irregular dense, spiculated mass noted in the upp er outer quadrant. Approximate measurements 4 x 4 x 3 cm. No additional masses are identified. Microcalcifications: No suspicious pleomorphic-type are seen. Skin Thickening/Nipple Retraction: None. Axilla: An abnormally enlarged lymph node is noted. Left breast US: Echotexture: Normal appearance of the glandular tissue. Cyst: None. Solid lesions: Irregular hypoechoic mass noted in the 1 o'clock position 7 cm from the nipple. The m ass is difficult to discretely measure due to multiple large projections. The mass extends to the le bran of the skin but no definite skin invasion. No skin edema. Ductal dilation: None. Axilla: Abnormally enlarged lymph nodes, 1 measuring 3.3 x 2.0 x 3.4 cm, with loss of fatty hilum and irregular hypoechoic appearance. Smaller node which also appears abnormal noted measuring 1.6 x 1.1 x 1.6 cm. Additional lymph node measuring 2.3 by 0.8 x 1.5 cm has an echogenic fatty hilum not defi nitely abnormal. Right breast: Masses/Architectural Distortion: None seen. Microcalcifications: No suspicious pleomorphic-type are seen. Skin Thickening/Nipple Retraction: None. IMPRESSION: 1. Highly suspicious mass in the upper outer quadrant of the left breast. Abnormally enlarged axilla ry lymph nodes. 2. Findings called to Dr. Stark, covering for Dr. Nilton redding. BI-RADS Category 5 - Highly Suggestive of Malignancy: Biopsy recommended Breast Density - Category B - Scattered areas of fibroglandular density A negative radiographic report should not delay biopsy if a dominant or clinically suspicious mass is present. Up to ten percent of cancers are not identified on mammography. A negative report may reinforce clinical impression. Adenosis and dense breasts may obscure an underlying neoplasm. False positive reports average 6 to 10%. Patient will receive a letter notifying them of these results.
== END 2024-09-14 00:42 ==
LOC: DI 00:23
PROVIDERS: PCP Family Medicine; Visit Provider Family Medicine
DX: N63.21 Unspecified lump in the left breast, upper outer quadrant (principal); Z12.31 Encounter for screening mammogram for malignant neoplasm of breast
CPT/HCPCS: 76642; 77062; 77066; G0279

== ENCOUNTER → 2024-09-18 14:08 | Outpatient (BNVA) | payer MEDICARE, BC, SELFPAY | PROVIDERS: PCP Family Medicine; Referring Provider Family Medicine; Visit Provider Surgery | DX: C50.112 Malignant neoplasm of central portion of left female breast (principal) | CPT/HCPCS: 19083; 99214 ==

== ENCOUNTER 2024-09-18 14:45 | Outpatient (REF) | payer MEDICARE, BC, SELFPAY ==
--- NOTE | 2024-09-18 14:50 | BREAST_PTH ---
PATIENT: Dorene Duque LOC: N U#:[id number] AGE/SX: 74/F ROOM: RE09/18/[address]: Vincent Palmer MD : 1950 BED: DIS: 09/18/2024 SPEC #: [id number] RECD: 09/18/24 17:58 STATUS: KAT REQ #: [id number] JOHANNY: 09/18/24 14:[address]: Vincent Palmer DEPT: Surgical Specimen RECD BY: Mare Monson ENTERED: 09/18/24 17:59 SP TYPE: Breast OTHR DR: Edin Conner MD Tissues: 1 - BREAST BX NEEDLE Procedures: GROSS AND MICRO LEVEL 4 Comments: [id number]
== END 2024-09-18 14:46 | disposition home or self-care (01) ==
LOC: LBN 14:45
PROVIDERS: PCP Family Medicine; Visit Provider Surgery
DX: N63.20 Unspecified lump in the left breast, unspecified quadrant (principal); D05.12 Intraductal carcinoma in situ of left breast
CPT/HCPCS: 88305

== ENCOUNTER 2024-11-19 15:42 | Outpatient (CLI) | payer MEDICARE, BC, SELFPAY ==
[2024-11-19 12:25] LABS: HCT 43.2 % (36.0-46.0); HGB 14.1 g/dL (11.2-15.7); MCH 30.3 pg (27.0-33.0); MCHC 32.6 % (32.0-36.0); MCV 93 fL (80-95); MPV 10.4 fL (8.0-11.0); Platelet Count 222 10^3/uL (130-400); RBC 4.65 10^6/uL (3.93-5.22); RDW 12.2 % (11.7-14.6); RDW-SD 41.8 fL; WBC 6.11 10^3/uL (4.4-10.8)
[2024-11-19 12:40] LABS: ALT 26 U/L (14-59); AST 21 U/L (15-37); Albumin 3.8 g/dL (3.4-5.0); Alkaline Phosphatase 90 U/L (46-116); Anion Gap 5.9 mmol/L (3-11); BUN 16 mg/dL (7-18); Bilirubin, Total 0.52 mg/dL (0.2-1.0); CO2 30.1 mmol/L (21.0-32.0); CREATININE 1.4 mg/dL (0.55-1.02); Calcium 9.7 mg/dL (8.5-10.1); Calculated LDL 91 mg/dL (<100); Chloride 107 mmol/L (98-107); Cholesterol 190 mg/dL (<200); Estimated GFR 39.23 (mL/min/1.73m2); Glucose 119 mg/dL (74-106); HDL Cholesterol 64 mg/dL (40-60); Potassium 4.2 mmol/L (3.5-5.1); Sodium 143 mmol/L (136-145); Triglyceride 177 mg/dL (<150)
[2024-11-19 12:56] LABS: Hemoglobin A1C 5.9 % (<5.7)
--- OUTSIDE RECORDS SUMMARY | 2024-11-19 15:46 | XMS_ITS | Continuity of Care Document ---
Author Organization [facility] Address [address] [place] [address] Support Name Relationship Address Phone FIGUEROA STRANGE Personal Relationship Unknown U navailable Encounter LTTL_OK FIN NBR [id number] Date(s): 07/25/24 - 07/25/[address] [address]- Encounter Diagnosis Nuclear age-related cataract, left eye(Discharge Diagnosis) - 07/22/24 Cortical age-related cataract, left eye(Discharge Diagnosis) - 07/22/24 Discharge Disposition: Home f/u External Provider Attending Physician: Pete Fernando MD Admitting Physician: Pete Fernando MD Allergies, Adverse Reactions, Alerts Substance Criticality Severity Reaction Reaction Severity Status penicillin Low criticality Mild Rash Act glenroy Latex Low criticality Mild Rash Acti ve Assessment and Plan Extracted from: Title:Preoperative surgical H&P Author:Pete orlando MD Date:07/25/24 1.??Nuclear age-related ton ract, left eye??H25.12 ??Assessment:?? Visually significant cataract, left eye.?Plan: Cataract extraction with lens implantation,?? 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 Visually significant cataract, left eye.?Plan: Cataract extraction with lens implantation,?? left eye Orders: midazolam/ketamine/ondansetron, 1 tab, Sublingual, Tab, PREOP, First Dose: 07/25/24 8:00:00 EDT, Physician Stop, Routine prednisolone/moxifloxacin/nepafenac 1%-0.5%-0.1% ophthalmic suspension, 1 drops, Ophthalmic, Soln-Ophth, As Directed, First Dose: 07/25/24 7:05:00 EDT, Physician Stop, Routine tropicamide-phenylephrine 1%-2.5% ophthalmic solution, 1 drops, Ophthalmic, Soln-Ophth, Government Relations Manager, First Dose: 07/25/24 7:05:00 EDT, Physician Stop, Routine tropicamide-phenylephrine 1%-2.5% ophthalmic solution, 1 drops, Ophthalmic, Soln-Ophth, Government Relations Manager, First Dose: 07/25/24 7:05:00 EDT, Physician Stop, Routine tropicamide-phenylephrine 1%-2.5% ophthalmic solution, 1 drops, Ophthalmic, Soln-Ophth, Government Relations Manager, First Dose: 07/25/24 7:05:00 EDT, Physician Stop, Routine Obtain consent, 07/25/24 7:05:00 EDT, Constant Order, 07/25/24 7:05:00 EDT Vital Signs, 07/25/24 7:05:00 EDT, Stop date 07/25/24 7:05:00 EDT, Routine Medications aspirin 81 mg oral delayed release tablet 81 mg = 1 tab, Oral, Daily, 0 Refill(s) Start Date: 07/24/24 Status: Ordered lamoTRIgine 25 mg oral tablet 25 mg = 1 tab, Oral, Daily, pt takes 225mg daily, 0 Refill(s) Start Date: 07/24/24 Status: Ordered lisinopril 20 mg oral tablet 20 mg = 1 tab, Oral, Daily, 0 Refill(s) Start Date: 07/24/24 Status: Ordered METOPROLOL SUCC ER 25 MG TAB METOPROLOL SUCC ER 25 MG TAB, 1 tab, Oral, Daily, 0 Refill(s) Start Date: 07/24/24 Status: Ordered multivitamin adult, oral tablet 1 tab, Oral, Daily, also takes areds, gelatin, 0 Refill(s) Start Date: 07/24/24 Status: Ordered prednisolone/moxifloxacin/nepafenac 1%-0.5%-0.1% ophthalmic suspension 1 drops, Ophthalmic, As Directed, 0 Refill(s) Start Date: 07/25/24 Status: Ordered rosuvastatin 40 mg oral tablet 40 mg = 1 tab, Oral, Daily, 0 Refill(s) Start Date: 07/24/24 Status: Ordered Problem List Condition Confirmation Course Effective Dates Status H ealth Status Informant Dentures 1 Confirmed Active History of myocardial infarction Confirmed Active HLD - Hyperlipidemia Confirmed Active HTN - Hypertension Confirmed Active Seizure 2 Confirmed Active TIA - transient ischemic attack Confirmed Active 1partial lower full upper 2x2 after TIA none since Procedures Procedure Date Related Diagnosis Body Site Status Cataract Extraction with IOL (Left) 1 07/25/24 Completed Cardiac catheterization 2 Completed Cataract surgery Complete d Hysterectomy Completed 1auto-populated from documented surgical case 2x3 stents Vital Signs Most recent to oldest [Reference Range]: 1 2 3 Temperature Temporal Artery [36-38 Deg C] 36.4 Deg C (07/25/24 12:30 PM) 36.3 Deg C (07/25/24 12:05 PM) 36.8 Deg C (07/25/24 10:27 AM) Temperature Temporal Artery (DegF) [97.3-100 Deg F] 97.34 Deg F (07/25/24 12:05 PM) Peripheral Pulse Rate [60-100 bpm] 50 bpm *LOW* (07/25/24 12:23 PM) 61 bpm (07/25/24 12:15 PM) 55 bpm *LOW* (07/25/24 12:05 PM) Heart Rate Monitored [60-100 bpm] 54 bpm *LOW* (07/25/24 10:27 AM) Respiratory Rate [12-24 br/min] 16 br/min (07/25/24 12:15 PM) 16 br/min (07/25/24 10:27 AM) Blood Pressure [90-140/60-90 mmHg] 169/73mmHg *HI* (07/25/24 12:22 PM) 172/89mmHg *HI* (07/25/24 12:05 PM) 172/87mmHg *HI* (07/25/24 12:04 PM) Mean Arterial Pressure, Cuff [65-140 mmHg] 117 mmHg (07/25/24 12:05 PM) Mean Arterial Pressure Cuff 101 mmHg (07/25/24 12:22 PM) 111 mmHg (07/25/24 12:04 PM) Weight 82 kg (07/24/24 2:28 PM) Weight Dosing 82.000 kg (07/24/24 2:28 PM) Height 165 cm (07/24/24 2:28 PM) Social History Social History Type Response Tobacco Former tobacco user Tobacco Use:. Sex Sex Representation Female (finding) Implantable Device List Procedure Provider Procedure Date Device Type Site Cataract Extraction with IOL Pete Fernando MD 07/25/24 Unknown Eye L Device Identifier Serial Number Lot or Batch Number Manufacturing Date Expiration Date Distinct Identification Code MRI Safety Implantable Status Assigning Authority Unknown [id number] Unknown Unknown 11/23/26 Unknown Unknown Active Unknown Hospital Discharge Instructions Patient Education 07/22/2024 16:24:37 [place] - Dr. Fernando - Post Op Cataract Instructions (CUSTOM) Post- OpCataract Instructions These instructions are for the next 24 hours; you will be given new instructions at your post-op appointment Because there may be medication in your system for the next 24 hours, you may feel drowsy and your coordination may be affected. Therefore: ??? Do not drive or operate dangerous equipment for 24 hours. ??? Do not drink alcoholic beverages for 24 hours (not even beer). ??? Plan to go home and rest for the day. DO NOT bend your head below waist. DO NOT lift objects heavier than 15 pounds. DO NOT sleep on surgical side or stomach. Sleep only on the non-surgical side or your back. Keep the eye shield on your operative eye in place today and tonight except when applying eye drops. You may remove the shield completely before your 7am drop tomorrow, but bring the shield with you to your post-op appointment. You will continue to wear it only at nighttime for one week following surgery. Use the antibiotic/steroid eye drops provided; place 1 drop in operative eye at: 5pm 6pm 7pm 8pm and tomorrow at 7am Please bring your eye drops with you to your appointment tomorrow with Dr. Fernando. To apply eye drops: ??? Wash your hands ??? Shake bottle vigorously ??? Administer drops by pressing the lower eyelid to the cheekbone and applying some downward pressure ??? DO NOT touch the eye with eyedropper or fingers ??? DO NOT touch, rub or apply pressure to the eyeball ??? The eye drops may cause a mild stinging or burning sensation If you use eye drops for glaucoma continue to use them as usual, even in the operative eye. It is normal for the eye to feel scratchy, light sensitive, and for you to have blurred or double vision for one or even several days after surgery. It is OK to watch television or read. Use acetaminophen (Tylenol) or ibuprofen (Motrin) according to package directions, as needed for any discomfort. You may notice eye redness and/or blood-tinged tears. This is normal and will subside. You may shower or bathe starting the day after surgery, but do not get water in the operative eye. A card with information about your lens implant has been given to you today to keep with your medical papers. Make a copy of the card to keep in your wallet or smart phone. If you are admitted to hospital for any reason, please let staff know you have a lens implant. You may resume all your regular medications unless directed otherwise. If you have any questions call the doctor at [facility] Emergency Department: [facility] Office: [place] Office: History and physical note * Pete Fernando MD: PERFORM Event Display: History and Physical Authored Date: [id number] DEYSI STRANGE :1950 Age:74 years Sex:Female Visit Date:07/25/2024 Chief Complaint Progressive decreased vision, ??left eye cateract removal History of Present Illness The patient is a??74-year-old lady who originally presented in??July 2023??with complaints of progressive decreased vision??in both eyes at both distance and near. ??She had to stop driving at night due to glare??and can no longer read road signs.?? She notes she needs a magnifying glass to readher medicine bottles.?? On examination she was noted to have??moderate nuclear with??significant??bilateral cortical spoking, right eye worse than left.?? She was significantly symptomatic that she desired cataract surgery??and attempt to improve and maximize her vision. ??She underwent cataract surgery in the right eye on 05/25/2024??and postoperatively is doing well with uncorrected vision of 20/20.?? She now presents for cataract surgery in the left eye. Review of Systems Constitutional:?No??fevers,?No??chills,?No??sweats Eye:?No??recent visual problems ENT:?No??ear pain,?No??nasal congestion,?No??sore throat Respiratory:?No??shortness of breath,?No??cough Cardiovascular:?No??Chest pain,?No??palpitations,?No??syncope Gastrointestinal:?Nonausea,?No??vomiting,?No??diarrhea Genitourinary:?No??hematuria Eagle/Lymph:?No??bruising tendency,?No??swollen lymph glands Endocrine:?No??excessive thirst,??No??excessive hunger Musculoskeletal:??No??back pain,??No??neck pain,??No??joint pain,??No??muscle pain,??No??decreased range of motion Integumentary:?No??rash,?No??pruritus,?No??abrasions Neurologic: Alert & oriented X 4 Psychiatric:?No??anxiety,?No??depression?? Physical Exam Vitals & Measurements T:??36.8?C ??(Temporal Artery)?? HR:??54??(Monitored)?? RR:??16?? BP:??149/72?? SpO2:??98%?? HT:??165??cm?? WT:??82??kg?? Pain Score:??0?? O2 Therapy:??Room air?? General: Alert and oriented, well nourished,?No??acute distress Eye: PERRL, EOMI,?Normal?conjunctivamost recent ocular examination is significant for uncorrected visual acuity of20/20 in the right eye, 20/30 in the left eye.Best corrected acuity in the lefteye is 20/40.Extraocular Last is normal.Intraocular pressure is15 OD, 18 OS. ?? Slit-lamp examination shows??a well-positioned PCIOLOD with clear posterior capsule.In the left eyethere??is a2+ nuclear with 2-3+cortical spoking.Pupils dilated to 6 mm. ?? Dilated funduscopic examination reveals disc cupping of 0.65 OU with normal vessels, macula, peripheral retina and vitreous. ?? HENT: Normocephalic, clear tympanic membranes,?Normal? hearing, moist oral mucosa,?No??scleral icterus,?No??sinus tenderness Neck: Supple, non-tender,?No??carotid bruits,?No??JVD,?No??lymphadenopathy Lungs: Clear to auscultation and percussion,?Non-labored?? respiration Heart:?Normal? rate,?Regular??rhythm,?No??murmur,?No??gallop,?No??edema Breast:?No??lumps,?No??bumps,?No??scars,?Normal? nipples Abdomen: Soft, non-tender, non-distended,?Normal? bowel sounds,?No??masses Musculoskeletal:?Normal? range of motion and strength,?No??tenderness,?No??swelling Skin: Skin is warm, dry and pink,?No??rashes,?No??lesions Neurologic: Awake, alert and oriented X4, CN II-XII intact Psychiatric: Cooperative, appropriate mood and affect Assessment/Plan 1.??Nuclear age-related cataract, left eye??H25.12 ??Assessment:?? Visually significant cataract, left eye.?Plan: Cataract extraction with lens implantation,?? 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 Visually significant cataract, left eye.?Plan: Cataract extraction with lens implantation,?? left eye Orders: midazolam/ketamine/ondansetron, 1 tab, Sublingual, Tab, PREOP, First Dose: 07/25/24 8:00:00 EDT, Physician Stop, Routine prednisolone/moxifloxacin/nepafenac 1%-0.5%-0.1% ophthalmic suspension, 1 drops, Ophthalmic, Soln-Ophth, As Directed, First Dose: 07/25/24 7:05:00 EDT, Physician Stop, Routine tropicamide-phenylephrine 1%-2.5% ophthalmic solution, 1 drops, Ophthalmic, Soln-Ophth, Government Relations Manager, First Dose: 07/25/24 7:05:00 EDT, Physician Stop, Routine tropicamide-phenylephrine 1%-2.5% ophthalmic solution, 1 drops, Ophthalmic, Soln-Ophth, Government Relations Manager, First Dose: 07/25/24 7:05:00 EDT, Physician Stop, Routine tropicamide-phenylephrine 1%-2.5% ophthalmic solution, 1 drops, Ophthalmic, Soln-Ophth, Government Relations Manager, First Dose: 07/25/24 7:05:00 EDT, Physician Stop, Routine Obtain consent, 07/25/24 7:05:00 EDT, Constant Order, 07/25/24 7:05:00 EDT Vital Signs, 07/25/24 7:05:00 EDT, Stop date 07/25/24 7:05:00 EDT, Routine Problem List/Past Medical History Ongoing Dentures History of myocardial infarction HLD - Hyperlipidemia HTN - Hypertension Seizure TIA - transient ischemic attack Historical No qualifying data Procedure/Surgical History ???Cardiac catheterization???Cataract surgery???Hysterectomy Medications Inpatient midazolam/ketamine/ondansetron, 1 tab, Sublingual, PREOP prednisolone/moxifloxacin/nepafenac 1%-0.5%-0.1% ophthalmic suspension, 1 drops, Ophthalmic, As Directed Home aspirin 81 mg oral delayed release tablet, 81 mg= 1 tab, Oral, Daily lamoTRIgine 25 mg oral tablet, 25 mg= 1 tab, Oral, Daily lisinopril 20 mg oral tablet, 20 mg= 1 tab, Oral, Daily METOPROLOL SUCC ER 25 MG TAB, 1 tab, Oral, Daily multivitamin adult, oral tablet, 1 tab, Oral, Daily rosuvastatin 40 mg oral tablet, 40 mg= 1 tab, Oral, Daily Allergies Latex??(Rash) penicillin??(Rash) Social History Alcohol Current, 1-2 times per month Electronic Cigarette/Vaping Electronic Cigarette Use: Never. Substance Use Never Tobacco Former tobacco user Tobacco Use:. Electronically Signed on 07/25/2024 11:19 EDT Pete Fernando MD * Event Display: History and Physical Patient Care team information Care Team Related Persons Name: FIGUEROA STRANGE Insurance Providers Guarantor name: PENNY Health Plan Information #: 2 Payer: [facility] Member Number: [id number] Policy Number: KARSTEN Health Plan Information #: 1 Payer: [facility] Member Number: [id number] Policy Number: KARSTEN
--- OUTSIDE RECORDS SUMMARY | 2024-11-19 15:47 | XMS_ITS | Encounter Summary ---
[place] [address] Care Team Providers Care Business Performance Manager Name Role Phone Edin Conner MD Primary Care Provider [phone] Encounter Details Date Type Department Care Team (Late st Contact Info) Description 11/12/2024 Patient Outreach Hematology [place] [address] Michelet Aponte RN Social History Tobacco Use Types Packs/Day Years Used Date Smoking Tobacco: Former Cigarettes Q uit: 07/23/2006 Smokeless Tobacco: Never Comments:social smoker for 1 0 years, about 3 cigarettes a week Alcohol Use Standard Drinks/Week Comments Yes 0 (1 standard drink = 0.6 oz pur e alcohol) 1 drink every other week B1300 Health Literacy Answer Date Recor ded How often do you need to hav e someone help you when you read instructions, pamphlets, or other written material from your doctor or pharmacy? Patient declines to respond 11/11/2024 [facility] Utilities Answer Date Recorded In the past 12 months has [employer], [employer], oil, or water [employer] threatened to shut off services in your home? Patient declined 11/11/2024 Overall Financial Resource Strain (CARDIA) Answe r Date Recorded How hard is it for you to pa y for the very basics like food, housing, medical care, and heating? Not hard at all 11/11/2024 Hunger Vital Sign Answer Date Recorded Within the past 12 months, y ou worried that your food would run out before you got the money to buy more. Patient declined Within the past 12 months, t he food you bought just didn't last and you didn't have money to get more. Patient declined 09/2025 PRAPARE - Transportation Answer Date Re corded In the past 12 months, has l ack of transportation kept you from medical appointments or from getting medications? Patient declined 11/11/2024 In the past 12 months, has l ack of transportation kept you from meetings, work, or from getting things needed for daily living? Patient declined 11/11/2024 Housing Stability Vital Sign Answer Cristhian e Recorded In the last 12 months, was t here a time when you were not able to pay the mortgage or rent on time? Patient declined 11/11/19 25 In the past 12 months, how m any times have you moved where you were living? 0 11/11/2024 At any time in the past [address] [facility] [place], were you homeless or living in a [facility] (including now)? Patient declined 11/11/2024 Sex and Gender Information Value Date Recorded Sex Assigned at Not on file Gender Identity Not on file Sexual Orientation Not on file documented as of this encounter Progress Notes * Michelet Aponte RN - 11/13/2024 2:00 PM EST [facility] Nurse Navigation Care Plan Comprehensive Breast Program (CBP) 11/12/24 Met with Dorene Quintana Dunia during her initial consult with Dr. Mcmanus. Multiple treatment options reviewed. Dorene shares that she feels quite strongly against IV chemotherapy as she has seen people in her life undergo it and have a very poor quality of life. She needs to think about proposed neoadjuvant therapy or if she would like to proceed with surgery. No barriers to treatment identified. She is accompanied by her , Josué. Plan: Nurse Navigation will follow up with patient later this week to help answer any outstanding questions regarding proposed treatment plans, and to update treatment team with Dorene's decision of whether or not to undergo NAC. Dorene was given my contact information and encouraged to reach out with any questions or concerns prior to my call or next clinic visit. documented in this encounter Plan of Treatment Upcoming Encounters Date Type Department Care Team (Late st Contact Info) Description 11/22/2024 7:00 AM EST Hospital Encounter Nuclear Medicine at [place] [phone] Kayla Mcmanus MD [facility] [place] [address] 11/22/2024 8:00 AM EST Appointment Nuclear Medicine at [place] [phone] Kayla Mcmanus MD [facility] [place] [address] 11/26/2024 12:00 PM EST Office Visit General Surgery at [place] [phone] Mariajose Albarran MD [facility] [place] [address] 11/01/2089 Hospital Encounter Main Operating Room [place] [phone] Naif Ng MD [facility] [address] Scheduled Procedures Name Priority Associated Diagnoses Date/Ti me REDUCTION MAMMOPLASTY, KRYSTAL ( [facility] 16.03) Malignant neoplasm of upper-outer quadrant of left breast in female, estrogen receptor positive documented as of this encounter Visit Diagnoses Not on filedocumented in this encounter Care Teams Business Performance Manager Relationship Specialty Start Date End Date Edin Conner MD [address] [place] [address] [address] [place] [address] PCP - General Family Medicine 02/28/21 documented as of this encounter
--- OUTSIDE RECORDS SUMMARY | 2024-11-19 15:47 | XMS_ITS | Encounter Summary ---
[place] [address] Care Team Providers Care Assurance Engineer Name Role Phone Edin Conner MD Primary Care Provider [phone] Reason for Referral * Diagnostic Test (Routine) - Closed Specialty Diagnoses / Procedures Referred By Contac t Referred To Contact Radiology Diagnoses Malignant neoplasm of left breast in female, estrogen receptor positive, unspecified site of breast Procedures NM Bone Scan Whole Body Mariajose Albarran MD [facility] [address] [place] [address] Referral ID Status Reason Start Date Expiration Date V isits Requested Visits Authorized [id number] Closed Specialty Service Requested 10/30/2024 04/29/2026 1 1 Reason for Visit * Diagnostic Test (Routine) - Closed Specialty Diagnoses / Procedures Referred By Contac t Referred To Contact Radiology Diagnoses Malignant neoplasm of left breast in female, estrogen receptor positive, unspecified site of breast Procedures NM Bone Scan Whole Body Mariajose Albarran MD [facility] [place] [address] [facility] [place] [address] Referral ID Status Reason Start Date Expiration Date V isits Requested Visits Authorized [id number] Closed Specialty Service Requested 10/30/2024 04/29/2026 1 1 Encounter Details Date Type Department Care Team (Latest Contact Info) Description 11/09/2024 10:07 AM EST - 11/09/2024 10:27 AM [facility] Hospital Encounter [place] [address] Mariajose Albarran MD [facility] [place] [address] Malignant neoplasm of left breast in female, estrogen receptor positive, unspecified site of breast Discharge Disposition: Home Social History Tobacco Use Types Packs/Day Years Used Date Smoking Tobacco: Former Cigarettes Q uit: 07/23/2006 Smokeless Tobacco: Never Comments:social smoker for 1 0 years, about 3 cigarettes a week Alcohol Use Standard Drinks/Week Comments Yes 0 (1 standard drink = 0.6 oz pur e alcohol) 1 drink every other week Overall Financial Resource Strain (CARDIA) Answe r Date Recorded How hard is it for you to pa y for the very basics like food, housing, medical care, and heating? Not very hard 10/04/2024 PRAPARE - Transportation Answer Date Re corded In the past 12 months, has l ack of transportation kept you from medical appointments or from getting medications? No 02/2024 In the past 12 months, has l ack of transportation kept you from meetings, work, or from getting things needed for daily living? No 10/04/2024 Sex and Gender Information Value Date Recorded Sex Assigned at Not on file Gender Identity Not on file Sexual Orientation Not on file documented as of this encounter Medications at Time of Discharge Medication Sig Dispensed Refills Start Date End Date lisinopriL (Zestril) 10 mg Tablet Take 20 mg by mouth daily. 11/14/2022 rosuvastatin (Crestor) [...] as of this encounter Plan of Treatment Upcoming Encounters Date Type Department Care Team (Late st Contact Info) Description 11/22/2024 7:00 AM EST Hospital Encounter [place] [phone] Kayla Mcmanus MD [facility] [place] [address] 11/22/2024 8:00 AM EST Appointment Nuclear Medicine at [place] [phone] Kayla Mcmanus MD [facility] [place] [address] 11/26/2024 12:00 PM EST Office [place] [phone] Mariajose Albarran MD [facility] [place] [address] 11/01/2089 Hospital Encounter Main Operating Room [place] [phone] Naif Ng MD [facility] [address] Scheduled Procedures Name Priority Associated Diagnoses Date/Ti me REDUCTION MAMMOPLASTY, KRYSTAL ( WRVU 16.03) Malignant neoplasm of upper-outer quadrant of left breast in female, estrogen receptor positive documented as of this encounter Procedures Procedure Name Priority Date/Time Associated Diagnosis Comments NM BONE SCAN WHOLE BODY Routine 11/09/2024 2:02 PM EST Malignant neoplasm of left breast in female, estrogen receptor positive, unspecified site of breast documented in this encounter Results * NM Bone Scan Whole Body (11/09/2024 2:02 PM EST) WORKSTATION ID [id number] RAD Anatomical Region Laterality Modality Nuclear Medicine Impressions 11/09/2024 2:22 PM EST No skeletal metastasis. Thank you for letting us participate in the care of this patient. ??If you are a health care provider and have any questions regarding this report, please contact the number below. ??For patients who have questions please contact the health critical care educator that requested your imaging first. ? Electronically signed by: Mario Beckwith MD, [facility] ([phone]), at 11/09/2024 2:22 PM Narrative 11/09/2024 2:22 PM EST EXAMINATION: NM BONE SCAN WHOLE BODY CLINICAL HISTORY: 6-7 abnormal nodes on ultrasound. C50.912, Malignant neoplasm of unspecified site of left female breast - Z17.0, Estrogen receptor positive status (ER+) TECHNIQUE: Three hours following the intravenous administration of 27 mCi of technetium-99m MDP, planar images of the skeleton in anterior and posterior projection were obtained. COMPARISON: CT scan November 09, 2024 FINDINGS: Increased activity is present in the right sternoclavicular joint. This corresponds to degenerative arthropathy noted in the current CT scan. Increased activity in the lower thoracic and lumbar spines is related to degenerative disc disease. There is also degenerative arthropathy of the left knee and both feet. There is no abnormal activity indicative of skeletal metastases. Normal activity is present in the kidneys and urinary bladder. Procedure Note Mario Beckwith MD - 11/09/2024 EXAMINATION: NM BONE SCAN WHOLE BODY CLINICAL HISTORY: 6-7 abnormal nodes on ultrasound. C50.912, Malignant neoplasm of unspecified site of left female breast -Z17.0, Estrogen receptor positive status (ER+) TECHNIQUE: Three hours following the intravenous administration of 27 mCiof technetium-99m MDP, planar images of the skeleton in anterior andposterior projection were obtained. COMPARISON: CT scan November 09, 2024 FINDINGS: Increased activity is present in the right sternoclavicular joint. This corresponds to degenerative arthropathy noted in the current CT scan.Increased activity in the lower thoracic and lumbar spines is related todegenerative disc disease. There is also degenerative arthropathy of the left knee and bothfeet. There is no abnormal activity indicative of skeletal metastases. Normal activity is present in the kidneys and urinary bladder. IMPRESSION No skeletal metastasis. Thank you for letting us participate in the care of this patient. If youare a health care provider and have any questions regarding this report,please contact the number below. For patients who have questions please contactthe health critical care educator that requested your imaging first. Electronically signed by: Mario Beckwith MD, [facility]([phone]), at 11/09/2024 2:22 PM Mariajose Albarran MD [facility] ORDERABLES documented in this encounter Visit Diagnoses Diagnosis Malignant neoplasm of left breast in female, estrogen receptor positive, unspecified site of breast documented in this encounter Administered Medications Inactive Administered Medications - up to 3 most recent administrations Medication Order MAR Action Action Date Dose Rate Site technetium (Tc-99m) methylene diphosphonate (MDP) injection 0-30 mCi 0-30 mCi, Intravenous, ONCE PRN, 1 dose, Starting on Tue11/09/24 at 1027, Until Tue11/09/24 at 1025, Per Protocol, Radiology Contrast, Routine Given 11/09/2024 10:25 AM EST 27 mCi Left Arm documented in this encounter Care Teams Assurance Engineer Relationship Specialty Start Date End Date Edin Conner MD [address] [facility] [address] [place] [address] PCP - General Family Medicine 02/28/21 documented as of this encounter
--- OUTSIDE RECORDS SUMMARY | 2024-11-19 15:47 | XMS_ITS | Encounter Summary ---
[place] [address] Care Team Providers Care Cash Reconciliation Specialist Name Role Phone Edin Conner MD Primary Care Provider [phone] Encounter Details Date Type Department Care Team (Late st Contact Info) Description 10/04/2024 [place] [address] Luana Robbins, RN Social History Tobacco Use Types Packs/Day [...] AM EST Hospital Encounter Nuclear Medicine at [place] [phone] Kayla Mcmanus MD [facility] [place] [address] 11/22/2024 8:00 AM EST Appointment [place] [phone] Kayla Mcmanus MD [facility] [place] [address] 11/26/2024 12:00 PM EST Office Visit General Surgery at [place] [phone] Mariajose Albarran MD [facility] [place] [address] 11/01/2089 Hospital Encounter Main Operating Room [place] [phone] Naif Ng MD [facility] [place] [address] Scheduled Procedures Name Priority Associated Diagnoses Date/Ti me REDUCTION MAMMOPLASTY, KRYSTAL ( WRVU 16.03) Malignant neoplasm of upper-outer quadrant of left breast in female, estrogen receptor positive documented as of this encounter Visit Diagnoses Not on filedocumented in this encounter Care Teams Cash Reconciliation Specialist Relationship Specialty Start Date End Date Edin Conner MD [address] [place] [address] [place] [address] PCP - General Family Medicine 02/28/21 documented as of this encounter
--- OUTSIDE RECORDS SUMMARY | 2024-11-19 15:47 | XMS_ITS | Encounter Summary ---
[place] [address] Care Team Providers Care [employer] Flatbed Driver Name Role Phone Edin Conner MD Primary Care Provider [phone] Encounter Details Date Type Department Care Team (Late st Contact Info) Description 10/04/2024 Patient Outreach [place]ematology [place] [address] Virginie Tenorio, RN Social History Tobacco Use Types Packs/Day [...] as of this encounter Progress Notes * Virginie Tenorio RN - 10/04/2024 4:10 PM EST [facility] Nurse Navigation Patient Care Plan for the Comprehensive Breast Program (CBP) Date of call: 10/04 Reason for call: contacted Dorene Duque via phone to assess for nurse navigation services, per CBP notification, and to see if she had any questions prior to her surgical and medical oncology consultations at [facility]. Introduced her to the CBP. Dorene Duque is a 74 y.o. 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 with Dr. Vincent Palmer, general surgeon). One of our [facility] radiologists recommended left axillary ultrasound and biopsywhich is scheduled on 10/22 at [facility]. PERSONAL HISTORY Dorene Duque has a history of a TIA and heart attack with stents placed (she states both happenedlast year). She has had cataract surgery also. Dorene sounds positive and has plenty of support. Her or a friend/family member will accompany her to appointments. She appears to be coping ok but is anxious to meet with a breast surgeon isidro medical oncologist to determine a treatment plan. She understands Dr. Albarran will discuss surgical options (partial mastectomy or mastectomy). She is open to either partial mastectomy or mastectomy, as recommended. We discussed that her breast medical oncologist will review systemic treatment options (may include endocrine therapy, chemotherapy)at her consultation and that she may consult with a radiation oncologist after surgery (she preferhis in [facility]). Dorene states she would like to avoid chemotherapy. We reviewed ER and MS results and implications for treatment. Menopausal status: Postmenopausal Romana is active. Plan: Dorene is aware of her appointments for left axillary ultrasound and biopsy (10/22) and consultations with a breast surgeon and a breast medical oncologist. She was introduced to the CBP and told she would receive information about her diagnosis and treatment for her review (the Breast Cancer Treatment Handbook). Plan to meet with Dorene on the day of her surgical oncology consultation. She understands that Caitlin Mauro, VASQUEZ, ASHWINI, our web content & social media manager, and I are available to her for support/concerns. Addressed her questions and encouraged her to contact me with any additional questions or concerns.She has our contact information. FAMILY HISTORY Breast Cancer: Sister (BRCA2 carrier) Ovarian Cancer: Same sister Dorene states she is a BRCA 2 carrier. She underwent genetic testing (after her sister's second diagnosis, possibly 10-15 years ago) for BRCA genes. She will bring her test results to he consultation. Dorene's son is a BRCA2 carrier. She does not believe her daughter tested positive for breast cancergene(s). Identified Barriers Patient comments or concerns: She has no immediate concerns regarding insurance, finances or transportation. documented in this encounter Plan of Treatment Upcoming Encounters Date Type Department Care Team (Late st Contact Info) Description 11/22/2024 7:00 AM EST Hospital Encounter [place] [phone] Kayla Mcmanus MD [facility] [place] [address] 11/22/2024 8:00 AM EST Appointment Nuclear Medicine at [place] [phone] Kayla Mcmanus MD [facility] [place] [address] 11/26/2024 12:00 PM EST Office Visit General Surgery at [place] [phone] Mariajose Albarran MD [facility] [place] [address] 11/01/2089 Hospital Encounter [place] [address] Naif Ng MD [facility] [place] [address] Scheduled Procedures Name Priority Associated Diagnoses Date/Ti me REDUCTION MAMMOPLASTY, KRYSTAL ( WRVU 16.03) Malignant neoplasm of upper-outer quadrant of left breast in female, estrogen receptor positive documented as of this encounter Visit Diagnoses Not on filedocumented in this encounter Care Teams [employer] Flatbed Driver Relationship Specialty Start Date End Date Edin Conner MD [address] [place] [address] [place] [address] PCP - General Family Medicine 02/28/21 documented as of this encounter
--- OUTSIDE RECORDS SUMMARY | 2024-11-19 15:47 | XMS_ITS | Encounter Summary ---
Author Organization [facility] Address [facility] [place] [address] Care Team Providers Care Dress Draper Name Role Phone Edin Conner MD Primary Care Provider [phone] [phone] Encounter Details Date Type Department Care Team (Latest Contact Info) Description 10/03/2024 12:10 PM EST Ancillary Procedure Radiology Library at [facility] [place] [phone] Mariajose Albarran MD [facility] [place] [address] Malignant neoplasm of left breast in female, estrogen receptor positive, unspecified site of breast Social History Tobacco Use Types Packs/Day Years [...] AM EST Hospital [place] [phone] Kayla Mcmanus MD [facility] [place] [address] 11/22/2024 8:00 AM EST Appointment [place] [phone] Kayla Mcmanus MD [facility] [place] [address] 11/26/2024 12:00 PM EST Office [place] [address] Mariajose Albarran MD [facility] [place] [address] 11/01/2089 Hospital Encounter [place] [phone] Naif Ng MD [facility] [place] [address] Scheduled Procedures Name Priority Associated Diagnoses Date/Ti me REDUCTION MAMMOPLASTY, KRYSTAL ( WRVU 16.03) Malignant neoplasm of upper-outer quadrant of left breast in female, estrogen receptor positive documented as of this encounter Procedures Procedure Name Priority Date/Time Associated Diagnosis Comments REQUEST FOR 2ND READ MAMMO Routine 10/03/2024 12:07 PM EST Malignant neoplasm of left breast in female, estrogen receptor positive, unspecified site of breast documented in this encounter Results * Request for 2nd read Mammo (10/03/2024 12:07 PM EST) WORKSTATION ID [id number] DH RAD Anatomical Region Laterality Modality SO Impressions 10/04/2024 11:23 AM EST 1. ??Left breast upper outer quadrant spiculated mass measuring 3.5 cm, 2:00 radian, 7 cm from the nipple. 2. ??At least 2 morphologically abnormal left axillary lymph nodes. FINAL ASSESSMENT: BI-RADS Category 5: Highly Suggestive of Malignancy - Appropriate Action Should Be Taken MANAGEMENT: * ??Ultrasound-guided biopsy of left upper outer quadrant mass at the 2:00 radian, 7 cm the nipple (lesion #1) and biopsy of an abnormal left axillary lymph node recommended. * ??Given that ultrasound is artificial log machine operator dependent, a repeat left axillary ultrasound is recommended to determine the number of abnormal lymph nodes; this ultrasound can be performed immediately prior to the axillary node biopsy. Please note: The interpretation of the [facility] Breast Imaging Radiologist subspecialist may differ from the original radiologists interpretation. This is usually not due to a deficiency of the original interpreting radiologist, rather due to the greater skill level afforded by sub-specialization in the field and/or reasonable variations in interpretations. If you have a concern regarding the D-H interpretation you may contact the D Breast Scouring Pads Supervisor Office at . I have personally reviewed the image(s) and the resident's interpretation and agree with the findings, Stephani Crouch MD at 10/04/2024 11:23 AM Thank you for letting us participate in the care of this patient. ??If you are a health care provider and have any questions regarding this report, please contact the number below. ??For patients who have questions please contact the health primary care provider that requested your imaging first. ? Narrative 10/04/2024 11:23 AM EST INTERPRETATION OF OUTSIDE BREAST IMAGING I have been asked to consult on this patient because a review of this study may change or alter the care of this patient. STUDIES FROM: [facility], [facility]. CLINICAL HISTORY: I believe a reinterpretation of this exam may alter care of Patient. Yes; What Modality is the exam? Mammography; Body Part (please add comments as necessary): Breast; Sending Institution [facility]; Date of exam [id number] DATES and TYPE OF EXAM: Diagnostic mammogram and ultrasound 09/14/2024 COMPARISONS: Prior mammograms dating back to 2007 BREAST DENSITY: There are scattered areas of fibroglandular density. FINDINGS: LEFT BREAST In the upper outer quadrant of the left breast, middle depth, there is an approximately 3.5 cm spiculated, high density mass with associated architectural distortion. Vascular calcifications are noted anterior to the mass, change from prior exam in 2018. Additionally on the MLO view there is at least three partially visualized enlarged left axillary lymph nodes. Targeted ultrasound performed 09/14/2024. Images labeled 1:00, 7 cm from nipple demonstrates 3.3 x 2.0 x 2.2 cm lobulated/spiculated mass with posterior acoustic shadowing and internal vascularity, corresponding to the above mammographic finding. Please note that by mammography, this mass appears to be located more at the 2:00 radian. Additional ultrasound images of the left axilla demonstrate at least 2 morphologically abnormal lymph nodes with cortical thickening, measuring 1.6 cm and 3.4 cm respectively. The largest imaged lymph node measuring 3.4 cm in maximal dimension demonstrates effacement of the fatty hilum, cortical thickening and possible extranodal extension. Left Breast Lesion # 1: 3.5 cm spiculated mass, 2:00 radian, 7 cm from the nipple. RIGHT BREAST: No suspicious masses, calcifications, or areas of architectural distortion. The pattern is stable. Procedure Note Stephani Crouch MD - 10/04/2024 INTERPRETATION OF OUTSIDE BREAST IMAGING I have been asked to consult on this patient because a review of thisstudy may change or alter the care of this patient. STUDIES FROM: [facility], [facility]. CLINICAL HISTORY: I believe a reinterpretation of this exam may alter careof Patient. Yes; What Modality is the exam? Mammography; Body Part (pleaseadd comments as necessary): Breast; Sending Institution [facility]; Date of [id number] DATES and TYPE OF EXAM: Diagnostic mammogram and ultrasound 09/14/2024 COMPARISONS: Prior mammograms dating back to 2007 BREAST DENSITY: There are scattered areas of fibroglandular density. FINDINGS: LEFT BREAST In the upper outer quadrant of the left breast, middle depth, there isan approximately 3.5 cm spiculated, high density mass with associatedarchitectural distortion. Vascular calcifications are noted anterior to the mass, changefrom prior exam in 2018. Additionally on the MLO view there is at least three partially visualized enlarged left axillary lymph nodes. Targeted ultrasound performed 09/14/2024. Images labeled 1:00, 7 cm fromnipple demonstrates 3.3 x 2.0 x 2.2 cm lobulated/spiculated mass with posterior acoustic shadowing and internal vascularity, corresponding to the above mammographic finding. Please note that by mammography, this mass appearsto be located more at the 2:00 radian. Additional ultrasound images of the left axilla demonstrate at least 2 morphologically abnormal lymph nodes with cortical thickening, measuring1.6 cm and 3.4 cm respectively. The largest imaged lymph node measuring 3.4 cmin maximal dimension demonstrates effacement of the fatty hilum, cortical thickening and possible extranodal extension. Left Breast Lesion # 1: 3.5 cm spiculated mass, 2:00 radian, 7 cm fromthe nipple. RIGHT BREAST: No suspicious masses, calcifications, or areas ofarchitectural distortion. The pattern is stable. IMPRESSION 1. Left breast upper outer quadrant spiculated mass measuring 3.5 cm,2:00 radian, 7 cm from the nipple. 2. At least 2 morphologically abnormal left axillary lymph nodes. FINAL ASSESSMENT: BI-RADS Category 5: Highly Suggestive of Malignancy - Appropriate ActionShould Be Taken MANAGEMENT: * Ultrasound-guided biopsy of left upper outer quadrant mass at the2:00 radian, 7 cm the nipple (lesion #1) and biopsy of an abnormal leftaxillary lymph node recommended. * Given that ultrasound is artificial log machine operator dependent, a repeat left axillary ultrasound is recommended to determine the number of abnormal lymph nodes;this ultrasound can be performed immediately prior to the axillary nodebiopsy. Please note: The interpretation of the [facility] BreastImaging Radiologist subspecialist may differ from the original radiologists interpretation. This is usually not due to a deficiency of the original interpreting radiologist, rather due to the greater skill level affordedby sub-specialization in the field and/or reasonable variations ininterpretations. If you have a concern regarding the D-H interpretation [facility] may [facility] at . I have personally reviewed the image(s) and the resident's interpretationand agree with the findings, Stephani Crouch MD at 10/04/2024 11:23 AM Thank you for letting us participate in the care of this patient. If youare a health care provider and have any questions regarding this report,please contact the number below. For patients who have questions please contactthe health primary care provider that requested your imaging first. Mariajose Albarran MD IMG OUTSIDE INTER PRETATION ORDERABLES documented in this encounter Visit Diagnoses Diagnosis Malignant neoplasm of left breast in female, estrogen receptor positive, unspecified site of breast documented in this encounter Care Teams Dress Draper Relationship Specialty Start Date End Date Edin Conner MD [address] [place] [address] PCP - General Family Medicine 02/28/21 documented as of this encounter
--- OUTSIDE RECORDS SUMMARY | 2024-11-19 15:47 | XMS_ITS | Encounter Summary ---
Author Organization [facility] [place] [address] Care Team Providers Care Plastic Die Maker Apprentice Name Role Phone Edin Conner MD Primary Care Provider [phone] [phone] Encounter Details Date Type Department Care Team (Latest Contact Info) Description 11/11/2024 Travel Social History Tobacco Use Types Packs/Day [...] or pharmacy? Patient declines to respond 11/11/2024 [facility] Utilities Answer Date Recorded In the past 12 months has e [employer], gas, oil, or water [employer] threatened to shut off services in your [...] any time in the past 12 m [facility], were you homeless or living in a assisted (including now)? Patient declined 11/11/2024 Sex and Gender Information Value Date Recorded Sex Assigned at Not on file Gender Identity Not on file Sexual Orientation Not on file documented as of this encounter Plan of Treatment Upcoming Encounters Date Type Department Care Team (Late st Contact Info) Description 11/22/2024 7:00 AM EST Hospital Encounter [place] [phone] Kayla Mcmanus MD [facility] [place] [address] 11/22/2024 8:00 AM EST Appointment [place] [phone] Kayla Mcmanus MD [facility] [place] [address] 11/26/2024 12:00 PM EST Office Visit [place] [phone] Mariajose Albarran MD [facility] [place] [address] 11/01/2089 Hospital Encounter Main [place] [address] Naif Ng MD [facility] [place] [address] Scheduled Procedures Name Priority Associated Diagnoses Date/Ti me REDUCTION MAMMOPLASTY, KRYSTAL ( WRVU 16.03) Malignant neoplasm of upper-outer quadrant of left breast in female, estrogen receptor positive documented as of this encounter Visit Diagnoses Not on filedocumented in this encounter Care Teams Plastic Die Maker Apprentice Relationship Specialty Start Date End Date Edin Conner MD [address] [place] [address] PCP - General Family Medicine 02/28/21 documented as of this encounter
--- OUTSIDE RECORDS SUMMARY | 2024-11-19 15:47 | XMS_ITS | Encounter Summary ---
Author Organization [facility] [place] [address] Care Team Providers Care Inside Account Representative Name Role Phone Edin Conner MD Primary Care Provider [phone] [phone] Encounter Details Date Type Department Care Team (Latest Contact Info) Description 10/18/2024 Travel Social History Tobacco Use Types Packs/Day [...] AM EST Hospital Encounter Nuclear Medicine at [place] [phone] Kayla Mcmanus MD [facility] [place] [address] 11/22/2024 8:00 AM EST Appointment [place] [address] Kayla Mcmanus MD [facility] [address] [place] [address] 11/26/2024 12:00 PM EST Office Visit General Surgery at [place] [phone] Mariajose Albarran MD [facility] [place] [address] 11/01/2089 Hospital Encounter Main Operating Room [place] [phone] Naif Ng MD [facility] [place] [address] Scheduled Procedures Name Priority Associated Diagnoses Date/Ti me REDUCTION MAMMOPLASTY, KRYSTAL ( WRVU 16.03) Malignant neoplasm of upper-outer quadrant of left breast in female, estrogen receptor positive documented as of this encounter Visit Diagnoses Not on filedocumented in this encounter Care Teams Inside Account Representative Relationship Specialty Start Date End Date Edin Conner MD [address] [place] [address] [address] [place] [address] PCP - General Family Medicine 02/28/21 documented as of this encounter
--- OUTSIDE RECORDS SUMMARY | 2024-11-19 15:47 | XMS_ITS | Encounter Summary ---
Author Organization [facility] [place] [address] Care Team Providers Care Process Improvement Engineer Name Role Phone Edin Conner MD Primary Care Provider [phone] [phone] Encounter Details Date Type Department Care Team (Latest Contact Info) Description 11/01/2024 Travel Social History Tobacco Use Types Packs/Day [...] AM EST Hospital Encounter Nuclear Medicine at [place] [phone] Kayla Mcmanus MD [facility] [place] [address] 11/22/2024 8:00 AM EST Appointment [place] [address] Kayla Mcmanus MD [facility] [place] [address] 11/26/2024 12:00 PM EST Office Visit General Surgery at [place] [phone] Mariajose Albarran MD [facility] [place] [address] 11/01/2089 Hospital Encounter Main Operating Room [place] [phone] Naif Ng MD [facility] [place] [address] Scheduled Procedures Name Priority Associated Diagnoses Date/Ti me REDUCTION MAMMOPLASTY, KRYSTAL ( WRVU 16.03) Malignant neoplasm of upper-outer quadrant of left breast in female, estrogen receptor positive documented as of this encounter Visit Diagnoses Not on filedocumented in this encounter Care Teams Process Improvement Engineer Relationship Specialty Start Date End Date Edin Conner MD [address] [place] [address] [address] [place] [address] PCP - General Family Medicine 02/28/21 documented as of this encounter
--- OUTSIDE RECORDS SUMMARY | 2024-11-19 15:47 | XMS_ITS | Encounter Summary ---
Author Organization [facility] [place] [address] Care Team Providers Care Kiln Furniture Caster Name Role Phone Edin Conner MD Primary Care Provider [phone] [phone] Reason for Visit * Diagnostic Test (Routine) - Closed Specialty Diagnoses / Procedures Referred By Contac t Referred To Contact Radiology Diagnoses Malignant neoplasm of left breast in female, estrogen receptor positive, unspecified site of breast Procedures NM Bone Scan Whole Body Mariajose Albarran MD [facility] [place] [address] [place] [address] Referral ID Status Reason Start Date Expiration Date V isits Requested Visits Authorized [id number] Closed Specialty Service Requested 10/30/2024 04/29/2026 1 1 Encounter Details Date Type Department Care Team (Latest Contact Info) Description 11/09/2024 1:26 PM EST - 11/09/2024 11:59 PM [facility] Hospital Encounter [place] [address] Mariajose Albarran MD [facility] [place] [address] Discharge Disposition: Home Social History Tobacco Use [...] AM EST Hospital Encounter [place] [phone] Kayla Mcmanus MD [facility] [place] [address] 11/22/2024 8:00 AM EST Appointment [place] [phone] Kayla Mcmanus MD [facility] [place] [address] 11/26/2024 12:00 PM EST Office [place] [address] Mariajose Albarran MD [facility] [place] [address] 11/01/2089 Hospital Encounter [place] [phone] Naif Ng MD [facility] [place] [address] Scheduled Procedures Name Priority Associated Diagnoses Date/Ti [...] Body (11/09/2024 2:02 PM EST) WORKSTATION ID [id number] [facility] Anatomical Region Laterality Modality Nuclear Medicine Impressions 11/09/2024 2:22 PM EST No skeletal metastasis. Thank you for letting us participate in the care of this patient. ??If you are a health care provider and have any questions regarding this report, please contact the number below. ??For patients who have questions please contact the health rn home care that requested your imaging first. ? Electronically signed by: Mario Beckwith MD, [facility] ([phone]), at 11/09/2024 2:22 PM Narrative 11/09/2024 2:22 [...] patients who have questions please contactthe health rn home care that requested your imaging first. Mariajose Albarran MD IMG NM ORDERABLES documented in this encounter Visit Diagnoses Not on filedocumented in this encounter Care Teams Kiln Furniture Caster Relationship Specialty Start Date End Date Edin Conner MD [address] [place] [address] PCP - General Family Medicine 02/28/21 documented as of this encounter
--- OUTSIDE RECORDS SUMMARY | 2024-11-19 15:47 | XMS_ITS | Encounter Summary ---
[place] [address] Care Team Providers Care Ribbon Inker Name Role Phone Edin Conner MD Primary Care Provider [phone] [phone] Encounter Details Date Type Department Care Team (Late st Contact Info) Description 10/03/2024 Telephone Hematology [place] [address] Sharona Oliver Social History Tobacco Use Types Packs/Day Years [...] encounter Miscellaneous Notes * Telephone Encounter - Sharona Oliver - 10/03/2024 9:48 AM EST Patient Name: Dorene Duque Patient : 1950 Attn: Image Library From: [facility] - [phone] Phone: Fax: [phone] Fed-Ex# [id number] - Please overnight [x] Urgent [] For Review [] Please Reply [] Please Recycle Pursuant to the Federal Mammography Quality Standards Act-Section 900.12(c), (4), (ii) Comments: Please send all Digital Breast Images. Also include any other scans pertaining to Breast Cancer (CD, Films, Electronic Transfer & Reports) to [facility], [place] [address] If Questions call [phone] Notice of Confidentiality: The documents accompanying this FAX transmission cover contain information from [facility] that is confidential and privileged. The information is intended for the use of the individual or entity named on this transmittal sheet. If you are not the intended recipient, be aware that any disclosure, copying, distribution or use of the contents is prohibited. If you have received the FAX in error, please notify us by telephone (collect) immediately to permit us to arrange for the retrieval of the documents at no cost to you. documented in this encounter Plan of Treatment Upcoming Encounters Date Type Department Care Team (Late st Contact Info) Description 11/22/2024 7:00 AM EST Hospital Encounter [place] [phone] Kayla Mcmanus MD [facility] [place] [address] 11/22/2024 8:00 AM EST Appointment [place] [address] Kayla Mcmanus MD [facility] [place] [address] 11/26/2024 12:00 PM EST Office Visit [place] [address] Mariajose Albarran MD [facility] GENERAL SURGERY [place], [place] [address] 11/01/2089 Hospital Encounter [place] [address] Naif Ng MD [facility] [place] [address] Scheduled Procedures Name Priority Associated Diagnoses Date/Ti me REDUCTION MAMMOPLASTY, KRYSTAL ( WRVU 16.03) Malignant neoplasm of upper-outer quadrant of left breast in female, estrogen receptor positive documented as of this encounter Visit Diagnoses Not on filedocumented in this encounter Care Teams Ribbon Inker Relationship Specialty Start Date End Date Edin Conner MD [address] [place] [address] [address] [facility] [address] [place] [address] PCP - General Family Medicine 02/28/21 documented as of this encounter
--- OUTSIDE RECORDS SUMMARY | 2024-11-19 15:47 | XMS_ITS | Encounter Summary ---
Author Organization [facility] Address [facility] [place] [address] Care Team Providers Care Captain Fishing Vessel Name Role Phone Edin Conner MD Primary Care Provider [phone] Encounter Details Date Type Department Care Team (Late st Contact Info) Description 10/04/2024 Orders [place] [address] Mariajose Albarran MD [facility] [place] [address] Malignant neoplasm of left breast in female, estrogen receptor positive, unspecified site of breast (Primary Dx); Axillary adenopathy Social History Tobacco Use Types Packs/Day Years Used Date Smoking Tobacco: Former Cigarettes Q uit: 07/23/2006 Smokeless Tobacco: Never Comments:social smoker for 1 0 years, about 3 cigarettes a week Alcohol Use Standard Drinks/Week Comments Yes 0 (1 standard drink = 0.6 oz pur e alcohol) 1 drink every other week Overall Financial Resource Strain (CARDIA) [place] r Date Recorded How hard is it [...] as of this encounter Progress Notes * Mary Noonan MD - 10/04/2024 8:05 AM EST Pre-procedure note for needle breast biopsies performed in radiology. Procedure date: 10/19/24 Procedure type: left breast ultrasound guided biopsy Allergies: Latex; Atorvastatin; Amoxicillin trihydrate; Gloves, latex; and Latex dams Medications: Current Outpatient Medications: lisinopriL (Zestril) 10 mg Tablet, Take 10 mg by mouth daily., Disp: , Rfl: rosuvastatin (Crestor) 40 mg Tablet, Take 40 mg by mouth daily., Disp: , Rfl: aspirin EC 81 mg Tablet, Delayed Release (E.C.), Take 81 mg by mouth daily., Disp: , Rfl: lamoTRIgine (LaMICtal) 25 mg Tablet, Take 50 mg by mouth daily., Disp: , Rfl: lamoTRIgine (LaMICtal) 200 mg Tablet, Take 200 mg by mouth daily., Disp: , Rfl: metoprolol succinate XL (Toprol-XL) 25 mg Tablet Sustained Release 24 hr, Take 1 tablet by mouth daily., Disp: 30 tablet, Rfl: 12 nitroGLYcerin (Nitrostat) 0.4 mg Tablet, Sublingual, Place 1 tablet under the tongue every 5 minutes as needed for Chest pain., Disp: 90 tablet, Rfl: 12 Anticoagulation status: low dose aspirin stopped on: N/A Imaging reviewed and procedural plan approved by Dr. MARY NOONAN MD documented in this encounter Plan of Treatment Upcoming Encounters Date Type Department Care Team (Late st Contact Info) Description 11/22/2024 7:00 AM EST Hospital Encounter [place] [id number] Kayla Mcmanus MD [facility] [place] [address] 11/22/2024 8:00 AM EST Appointment [place] [address] Kayla Mcmanus MD [facility] [place] [address] 11/26/2024 12:00 PM EST Office Visit General Surgery at [place] [phone] Mariajose Albarran MD [facility] [place] [address] 11/01/2089 Hospital Encounter Main Operating Room [place] [phone] Naif Ng MD [facility] [place] [place] [address] Scheduled Procedures Name Priority Associated Diagnoses Date/Ti me REDUCTION MAMMOPLASTY, KRYSTAL ( WRVU 16.03) Malignant neoplasm of upper-outer quadrant of left breast in female, estrogen receptor positive documented as of this encounter Results * Mammo US Biopsy Lymph Node Left (10/22/2024 11:38 AM EST) WORKSTATION ID [id number] 1 RAD Anatomical Region Laterality Modality Breast Left Mammography Impressions 10/25/2024 3:45 PM EST Concordant result RECOMMENDATION: Continue with medical/oncological management. The patient was informed of results by Luana Robbins RN REVIEW PATH CONFERENCE?: No Thank you for letting us participate in the care of this patient. ??If you are a health care provider and have any questions regarding this report, please contact the number below. ??For patients who have questions please contact the health resident care assistant that requested your imaging first. ? Electronically signed by: Mary Noonan MD, [facility] ([phone]), at 10/25/2024 3:[address] [facility] [address] [place], [place] ??[id number] Narrative 10/25/2024 3:45 PM EST EXAMINATION: MAMMO US BIOPSY LYMPH NODE LEFT ? CLINICAL HISTORY: (4cm cancer with abnormal nodes, BRCA+) ??Left axillary US + biopsy Scanning prior to the procedure showed a 6-7 abnormal RIGHT axillary nodes, the largest is 3.3 cm which was selected for biopsy LEFT axillary node 3.3 cm Mass ??2 Radian 20 cm from the nipple PROCEDURAL DETAILS: Informed consent was obtained. Sterile technique was deployed. Approximately 10 cc used for local anesthesia. A small skin incision was made and a biopsy was performed under ultrasound guidance. 2 core biopsy specimens were obtained using a Achieve 14g device. Biopsy specimens were not radiographed. N/A Satisfactory sampling was obtained. A AMGas 14G marker clip and a twirl clip was placed. No postprocedural mammography COMPLICATIONS: None. PROCEDURAL ATTESTATION: Resident: I performed the procedure without a resident. PRE BIOPSY POTENTIAL IMAGING DIAGNOSIS(S): Metastatic node PATHOLOGIC DIAGNOSIS: Metastatic breast cancer Mariajose Albarran MD IMG MAMMO ORDERAB LES documented in this encounter Visit Diagnoses Diagnosis Malignant neoplasm of left breast in female, estrogen receptor positive, unspecified site of breast- Primary Axillary adenopathy Enlargement of lymph nodes Malignant neoplasm of left breast in female, estrogen receptor positive, unspecified site of breast documented in this encounter Care Teams Captain Fishing Vessel Relationship Specialty Start Date End Date Edin Conner MD [address] [place] [address] PCP - General Family Medicine 02/28/21 documented as of this encounter
--- OUTSIDE RECORDS SUMMARY | 2024-11-19 15:47 | XMS_ITS | Encounter Summary ---
[place] [address] Care Team Providers Care Data Lead Name Role Phone Edin Conner MD Primary Care Provider [phone] Reason for Referral * Diagnostic Test (Routine) - Closed Specialty Diagnoses / Procedures Referred By Contac t Referred To Contact Radiology Diagnoses Malignant neoplasm of left breast in female, estrogen receptor positive, unspecified site of breast Procedures CT Chest Abdomen Pelvis w Contrast (Generic) Mariajose Albarran MD [facility] [place] [address] [facility] [place] [address] Referral ID Status Reason Start Date Expiration Date V isits Requested Visits Authorized [id number] Closed Specialty Service Requested 10/30/2024 04/29/2026 1 1 Reason for Visit * Diagnostic Test (Routine) - Closed Specialty Diagnoses / Procedures Referred By Contac t Referred To Contact Radiology Diagnoses Malignant neoplasm of left breast in female, estrogen receptor positive, unspecified site of breast Procedures CT Chest Abdomen Pelvis w Contrast (Generic) Mariajose Albarran MD [facility] [place] [address] [facility] [place] [address] Referral ID Status Reason Start Date Expiration Date V isits Requested Visits Authorized [id number] Closed Specialty Service Requested 10/30/2024 04/29/2026 1 1 Encounter Details Date Type Department Care Team (Latest Contact Info) Description 11/09/2024 10:28 AM EST - 11/09/2024 1:25 PM [facility] Hospital Encounter CT Scan at [facility] [place] [address] Mariajose Albarran MD [facility] [place] [address] Malignant neoplasm of left breast [...] AM EST Hospital Encounter Nuclear Medicine at [place] [phone] Kayla Mcmanus MD [facility] [place] [address] 11/22/2024 8:00 AM EST Appointment Nuclear Medicine at [place] [phone] Kayla Mcmanus MD [facility] [place] [address] 11/26/2024 12:00 PM EST Office Visit General Surgery at [place] [phone] Mariajose Albarran MD [facility] [place] [address] 11/01/2089 Hospital Encounter Main Operating Room [place] [phone] Naif Ng MD [facility] [place] [address] Scheduled Procedures Name Priority Associated Diagnoses Date/Ti me REDUCTION MAMMOPLASTY, KRYSTAL ( WRVU 16.03) Malignant neoplasm of upper-outer quadrant of left breast in female, estrogen receptor positive documented as of this encounter Procedures Procedure Name Priority Date/Time Associated Diagnosis Comments CT CHEST ABDOMEN PELVIS W CONTRAST (GENERIC) Routine 11/09/2024 12:45 PM EST Malignant neoplasm of left breast in female, estrogen receptor positive, unspecified site of breast CREATININE, POC Routine 11/09/2024 12:26 PM EST documented in this encounter Results * CT Chest Abdomen Pelvis w Contrast (Generic) (11/09/2024 12:45 PM EST) WORKSTATION ID [id number] RAD Anatomical Region Laterality Modality Abdomen, Pelvis Computed Tomogra phy Impressions 11/12/2024 10:34 AM EST 1. Left breast mass. 2. Left axillary and subpectoral lymphadenopathy. 3. Small nodules in the right middle lobe are indeterminate, maximum 0.8 cm. 4. Left hepatic lobe lesion near the falciform ligament, a common site for focal steatosis. Metastatic disease is not confidently excluded and liver MRI versus follow-up CT in 3-6 months are suggested. 5. Right thyroid nodule for which thyroid ultrasound is recommended based on size. 6. Bladder cystocele reflecting pelvic floor dysfunction. Thank you for letting us participate in the care of this patient. ??If you are a health care provider and have any questions regarding this report, please contact the number below. ??For patients who have questions please contact the health assurance services manager health care that requested your imaging first. ? Electronically signed by: Jd Camacho MD, [facility] ([phone]), at 11/12/2024 10:34 AM Narrative 11/12/2024 10:34 AM EST EXAMINATION: CT CHEST ABDOMEN PELVIS W CONTRAST (GENERIC) CLINICAL HISTORY: 6-7 abnormal nodes on ultrasound. C50.912, Malignant neoplasm of unspecified site of left female breast - Z17.0, Estrogen receptor positive status (ER+) TECHNIQUE: Helical CT of the chest, abdomen, and pelvis following the intravenous administration of 108.0 ml of OMNIPAQUE 350.00 mg/ml. Oral contrast was administered. COMPARISON: None FINDINGS: Chest: Lungs and large airways: 0.8 cm solid subpleural nodule in the right middle lobe. 0.5 cm solid perifissural nodule in the right middle lobe. Pleura: No effusion. Heart/vasculature: Normal. Lymph nodes: Enlarged left axillary and subpectoral lymph nodes. The largest contains a biopsy clip and measures 1.8 x 2.9 cm. Mediastinum and bebe: Normal. In the right thyroid lobe there is a 2.3 cm solid nodule. Chest wall: Lateral left breast solid mass partially imaged. Abdomen/pelvis: Liver: Normal size and attenuation. In the anterior left lobe (segment 3) there is an ill-defined 1.8 cm hypoattenuating area near the falciform ligament. Bile ducts: Nondilated. Gallbladder: No calcified gallstones. Normal caliber wall. Pancreas: Normal attenuation without ductal dilatation. Spleen: Normal. Adrenals: Normal. Kidneys: Moderate left renal atrophy. Normal right kidney. No lesions or hydronephrosis. Urinary Bladder: Decompressed. Long cystocele, inferior portion is not imaged (sagittal image 64). Vasculature: No abdominal aortic aneurysm. Mild atherosclerotic disease. Patent hepatic, portal, splenic, and superior mesenteric veins. Lymph Nodes: No enlarged lymph nodes. Bowel: Nondilated, no wall thickening. ?? Peritoneum and retroperitoneum: No free fluid or loculated fluid collection. No pneumoperitoneum. No mesenteric inflammation. Abdominal wall: Normal. Reproductive organs: Absent uterus. No adnexal masses. Osseous structures: No suspicious lesions. Procedure Note Jd Camacho MD - 11/12/2024 EXAMINATION: CT CHEST ABDOMEN PELVIS W CONTRAST (GENERIC) CLINICAL HISTORY: 6-7 abnormal nodes on ultrasound. C50.912, Malignant neoplasm of unspecified site of left female breast -Z17.0, Estrogen receptor positive status (ER+) TECHNIQUE: Helical CT of the chest, abdomen, and pelvis following the intravenous administration of 108.0 ml of OMNIPAQUE 350.00 mg/ml. Oralcontrast was administered. COMPARISON: None FINDINGS: Chest: Lungs and large airways: 0.8 cm solid subpleural nodule in the rightmiddle lobe. 0.5 cm solid perifissural nodule in the right middle lobe. Pleura: No effusion. Heart/vasculature: Normal. Lymph nodes: Enlarged left axillary and subpectoral lymph nodes. Thelargest contains a biopsy clip and measures 1.8 x 2.9 cm. Mediastinum and bebe: Normal. In the right thyroid lobe there is a 2.3 cmsolid nodule. Chest wall: Lateral left breast solid mass partially imaged. Abdomen/pelvis: Liver: Normal size and attenuation. In the anterior left lobe (segment 3)there is an ill-defined 1.8 cm hypoattenuating area near the falciformligament. Bile ducts: Nondilated. Gallbladder: No calcified gallstones. Normal caliber wall. Pancreas: Normal attenuation without ductal dilatation. Spleen: Normal. Adrenals: Normal. Kidneys: Moderate left renal atrophy. Normal right kidney. No lesions or hydronephrosis. Urinary Bladder: Decompressed. Long cystocele, inferior portion is notimaged (sagittal image 64). Vasculature: No abdominal aortic aneurysm. Mild atherosclerotic disease.Patent hepatic, portal, splenic, and superior mesenteric veins. Lymph Nodes: No enlarged lymph nodes. Bowel: Nondilated, no wall thickening. Peritoneum and retroperitoneum: No free fluid or loculated fluidcollection. No pneumoperitoneum. No mesenteric inflammation. Abdominal wall: Normal. Reproductive organs: Absent uterus. No adnexal masses. Osseous structures: No suspicious lesions. IMPRESSION 1. Left breast mass. 2. Left axillary and subpectoral lymphadenopathy. 3. Small nodules in the right middle lobe are indeterminate, maximum 0.8cm. 4. Left hepatic lobe lesion near the falciform ligament, a common site forfocal steatosis. Metastatic disease is not confidently excluded and liver MRIversus follow-up CT in 3-6 months are suggested. 5. Right thyroid nodule for which thyroid ultrasound is recommended basedon size. 6. Bladder cystocele reflecting pelvic floor dysfunction. Thank you for letting us participate in the care of this patient. If youare a health care provider and have any questions regarding this report,please contact the number below. For patients who have questions please contactthe health assurance services manager health care that requested your imaging first. Electronically signed by: Jd Camacho MD, [facility]([phone]), at 11/12/2024 10:34 AM Mariajose Albarran MD IMG CT ORDERABLES * (ABNORMAL) Creatinine, POC (11/09/2024 12:26 PM EST) Creatinine, POC 1.40(H) 0.70 - 1.20 mg/dL 11/09/2024 12:28 PM EST [facility] Est Glomerular Filtration Rate - Female - POC 39 mL/min/1.7 3 m?? 11/09/2024 12:28 PM EST [facility] Blood VENOUS BLOOD SPECIMEN / Unknown 11/09/2024 12:26 PM EST 11/09/2024 12:28 PM EST Mariajose Albarran MD POINT OF CARE KAMALJIT T ORDERABLES [facility] [place] [address] documented in this encounter Visit Diagnoses Diagnosis Malignant neoplasm of left breast in female, estrogen receptor positive, unspecified site of breast documented in this encounter Administered Medications Inactive Administered Medications - up to 3 most recent administrations Medication Order MAR Action Action Date Dose Rate Site iohexoL (Omnipaque) (350 mg/mL) solution 0-200 mL 0-200 mL, Intravenous, ONCE PRN, 1 dose, Starting on Tue11/09/24 at 1246, Until Tue11/09/24 at 1246, Per Protocol, Warning Vesicant/Irritant Medication , Radiology Contrast, Routine Given 11/09/2024 12:46 PM EST 108 mLs iohexoL (Omnipaque) (350 mg/mL) solution 0-50 mL 0-50 mL, Oral, ONCE, 1 dose, On Tue11/09/24 at 1345, Warning Vesicant/Irritant Medication , Radiology Contrast, Routine Given 11/09/2024 1:45 PM EST 50 mLs documented in this encounter Care Teams Data Lead Relationship Specialty Start Date End Date Edin Conner MD [address] [place] [address] PCP - General Family Medicine 02/28/21 documented as of this encounter
--- OUTSIDE RECORDS SUMMARY | 2024-11-19 15:47 | XMS_ITS | Encounter Summary ---
Author Organization [facility] [place] [address] Care Team Providers Care Level Vial Inspector And Tester Name Role Phone Edin Conner MD Primary Care Provider [phone] Encounter Details Date Type Department Care Team (Late st Contact Info) Description 10/03/2024 Orders Only [place] [address] Mariajose Albarran MD [facility] [place] [address] Malignant neoplasm of left breast in female, estrogen receptor positive, unspecified site of breast (Primary Dx) Social History Tobacco Use Types Packs/Day Years [...] AM EST Hospital Encounter [place] [phone] Kayla Mcmanus MD [facility] [place] [address] 11/22/2024 8:00 AM EST Appointment [place] [phone] Kayla Mcmanus MD [facility] [place] [address] 11/26/2024 12:00 PM EST Office Visit [place] [address] Mariajose Albarran MD [facility] [place] [place] [address] 11/01/2089 Hospital Encounter [place] [phone] Naif Ng MD [facility] [place] [address] Scheduled Procedures Name Priority Associated Diagnoses Date/Ti me REDUCTION MAMMOPLASTY, KRYSTAL ( WRVU 16.03) Malignant neoplasm of upper-outer quadrant of left breast in female, estrogen receptor positive documented as of this encounter Results * CBC (with Diff) (11/01/2024 4:30 PM EST) White Blood Cell 6.36 4.00 - 9.50 x10(3)/mcL 11/01/2024 4:48 PM [facility] Red Blood Cell 4.68 4.00 - 5.21 x10(6)/mcL 11/01/2024 4:48 PM [facility] Hemoglobin 14.3 11.7 - 15.5 g/dL 11/01/2024 4:48 PM [facility] Hematocrit 43.1 35.7 - 45.8 % 11/01/2024 4:48 PM [facility] Mean Cell Volume 92.1 82.6 - 94.4 fL 11/01/2024 4:48 PM [facility] Mean Cell Hemoglobin 30.6 27.1 - 32.0 pg 11/01/2024 4:48 PM [facility] Mean Cell Hemoglobin Concentration 33.2 31.7 - 35.0 g/dL 11/01/2024 4:48 PM [facility] Platelet 238 145 - 357 x10(3)/mcL 11/01/2024 4:48 PM [facility] Mean Platelet Volume 9.6 7.6 - 12.9 fL 11/01/2024 4:48 PM [facility] RDW Standard Deviation 41.5 37.0 - 46.0 fL 11/01/2024 4:48 PM [facility] RDW coefficient of variation 12.3 11.5 - 14.1 % 11/01/2024 4:48 PM [facility] NRBC% auto 0.0 % 11/01/2024 4:48 PM [facility] NRBC Absolute <0.01 <0.01 x10(3)/mcL 11/01/2024 4:48 PM [facility] Neutrophil % 64.7 % 11/01/2024 4:48 PM [facility] Neutrophil Absolute (ANC) - Automated 4.11 1.70 - 6.10 x10(3)/mcL 11/01/2024 4:48 PM [facility] Lymph % 23.7 % 11/01/2024 4:[address] [facility] Lymph Absolute 1.51 0.90 - 3.20 x10(3)/mcL 11/01/2024 4:[address] [facility] Monocyte % 7.1 % 11/01/2024 4:[address] [facility] Monocyte Absolute 0.45 0.30 - 0.90 x10(3)/mcL 11/01/2024 4:[address] [facility] Eos % 3.6 % 11/01/2024 4:[address] [facility] Eos Absolute 0.23 0.00 - 0.40 x10(3)/mcL 11/01/2024 4:[address] [facility] Basophil % 0.6 % 11/01/2024 4:48 PM [facility] Baso Absolute 0.04 0.00 - 0.10 x10(3)/mcL 11/01/2024 4:[address] [facility] Immature Gran % 0.3 % 4:[address] [facility] Immature Gran Absolute <0.04 0.00 - 0.04 x10(3)/mcL 11/01/2024 4:48 PM [facility] Blood VENOUS BLOOD SPECIMEN / Unknown Venipuncture / Unknown 11/01/2024 4:30 PM EST 11/01/2024 4:43 PM EST Mariajose Albarran MD HEMATOLOGY ORDERA BLES [facility] [place] [address] * (ABNORMAL) Comprehensive metabolic panel (11/01/2024 4:30 PM EST) Glucose 106 65 - 199 mg/dL 11/01/2024 5:[address] [facility] Comment:Glucose Concentratio n >=200 mg/dL plus symptoms is consistent with Diabetes Mellitus. Blood Urea Nitrogen 15 8 - 18 mg/dL 11/01/2024 5:14 PM [facility] Creatinine 1.33(H) 0.70 - 1.20 mg/dL 11/01/2024 5:14 PM [facility] Sodium 142 135 - 145 mMol/L 11/01/2024 5:14 PM [facility] Potassium 4.3 3.5 - 5.0 mMol/L 11/01/2024 5:14 PM [facility] Chloride 106 98 - 107 mMol/L 11/01/2024 5:14 PM [facility] Carbon Dioxide 26 22 - 31 mMol/L 11/01/2024 5:14 PM [facility] Anion Gap 10 5 - 15 mMol/L 11/01/2024 5:14 PM [facility] Calcium 9.7 8.5 - 10.5 mg/dL 11/01/2024 5:14 PM [facility] Protein, Total 7.3 6.1 - 8.0 g/dL 11/01/2024 5:14 PM [facility] Albumin 4.3 3.2 - 5.2 g/dL 11/01/2024 5:14 PM [facility] Aspartate Aminotransferase 26 <=30 unit/L 11/01/2024 5:14 PM [facility] Alanine Aminotransferase 25 0 - 30 unit/L 11/01/2024 5:14 PM [facility] Alkaline Phosphatase 91 35 - 105 unit/L 11/01/2024 5:14 PM [facility] Bilirubin, Total 0.4 <=1.3 mg/dL 11/01/2024 5:14 PM [facility] Est Glomerular Filtration Rate - Female 42 mL/min/1. 73 m?? 11/01/2024 5:14 PM [facility] Comment: This patient's estimated GFR was calculated using the 2020 CKD-EPI equation. The estimated GFR can vary from the measured GFR by up to 30% in the absence of rapidly changing kidney function. Assessment of the estimated GFR is not appropriate when creatinine concentrations are rapidly changing. For clinical situations in which a more precise estimate of GFR is necessary, consider alternative methods of GFR estimation such as a 24-hour urine creatinine clearance. Assignment of CKD stage 1 - 5 for patients with an eGFR near the transition point between stages may be based on clinical assessment of muscle mass and symptoms in addition to eGFR. Link: eGFR Calculator [employer] Fasting Status No 11/01/2024 5:[address] [facility] Blood VENOUS BLOOD SPECIMEN / Unknown Venipuncture / Unknown 11/01/2024 4:30 PM EST 11/01/2024 4:43 PM EST Mariajose Albarran MD CHEMISTRY ORDERAB LES [facility] [place] [address] * Request for 2nd read Mammo (10/03/2024 [...] node recommended. * ??Given that ultrasound is bottom crane operator dependent, a repeat left axillary ultrasound is recommended to determine the number of abnormal lymph nodes; this ultrasound can be performed immediately prior to the axillary node biopsy. Please note: The interpretation of the [facility] Breast Imaging Radiologist subspecialist may differ from the original radiologists interpretation. This is usually not due to a deficiency of the original interpreting radiologist, rather due to the greater skill level afforded by sub-specialization in the field and/or reasonable variations in interpretations. If you have a concern regarding the [facility] interpretation you may contact the [facility] Breast Fiberglass Quality Technician Office at . I have personally reviewed [...] who have questions please contact the health medicare specialist that requested your imaging first. ? Electronically signed by: Stephani Crouch MD, [facility] ([phone]), at 10/04/2024 11:23 AM Narrative 10/04/2024 11:23 AM EST INTERPRETATION OF OUTSIDE BREAST IMAGING I have been asked to consult on this patient because a review of this study may change or alter the care of this patient. STUDIES FROM: [facility], [facility]. CLINICAL HISTORY: I believe a reinterpretation of this exam may alter care of Patient. Yes; What Modality is the exam? Mammography; Body Part (please add comments as necessary): Breast; Sending Institution [facility]; Date of exam [id number] DATES and TYPE [...] the care of this patient. STUDIES FROM: [facility], [facility]. CLINICAL HISTORY: I believe a reinterpretation of this exam may alter careof Patient. Yes; What Modality is the exam? Mammography; Body Part (pleaseadd comments as necessary): Breast; Sending Institution [facility]; Date of [id number] DATES and TYPE OF EXAM: Diagnostic mammogram [...] node recommended. * Given that ultrasound is bottom crane operator dependent, a repeat left axillary ultrasound is recommended to determine the number of abnormal lymph nodes;this ultrasound can be performed immediately prior to the axillary nodebiopsy. Please note: The interpretation of the [facility] BreastImaging Radiologist subspecialist may differ from the original radiologists interpretation. This is usually not due to a deficiency of the original interpreting radiologist, rather due to the greater skill level affordedby sub-specialization in the field and/or reasonable variations ininterpretations. If you have a concern regarding the [facility] at . I have personally reviewed the image(s) and the resident's interpretationand agree with the findings, Stephani Crouch MD at 10/04/2024 11:23 AM Thank you for letting us participate in the care of this patient. If youare a health care provider and have any questions regarding this report,please contact the number below. For patients who have questions please contactthe health medicare specialist that requested your imaging first. Electronically signed by: Stephani Crouch MD, [facility] ([phone]), at 10/04/2024 11:23 AM Mariajose Albarran MD IMG OUTSIDE INTER PRETATION ORDERABLES documented in this encounter Visit Diagnoses Diagnosis Malignant neoplasm of left breast in female, estrogen receptor positive, unspecified site of breast- Primary Malignant neoplasm of left breast in female, estrogen receptor positive, unspecified site of breast documented in this encounter Care Teams Level Vial Inspector And Tester Relationship Specialty Start Date End Date Edin Conner MD [address] [place] [address] [address] PCP - General Family Medicine 02/28/21 documented as of this encounter
--- OUTSIDE RECORDS SUMMARY | 2024-11-19 15:47 | XMS_ITS | Encounter Summary ---
Author Organization [facility] [place] [address] Care Team Providers Care Placement Director Name Role Phone Edin Conner MD Primary Care Provider [phone] Encounter Details Date Type Department Care Team (Latest Contact Info) Description 11/09/2024 Travel Social History Tobacco Use Types Packs/Day [...] AM EST Hospital Encounter Nuclear Medicine at [place] [phone] Kayla Mcmanus MD [facility] [place] [address] 11/22/2024 8:00 AM EST Appointment [place] [address] Kayla Mcmanus MD [facility] [place] [address] 11/26/2024 12:00 PM EST Office Visit General Surgery at [place] [phone] Mariajose Albarran MD [facility] [place] [address] 11/01/2089 Hospital Encounter Main Operating Room [place] [phone] Naif Ng MD [facility] [place] [address] Scheduled Procedures Name Priority Associated Diagnoses Date/Ti me REDUCTION MAMMOPLASTY, KRYSTAL ( WRVU 16.03) Malignant neoplasm of upper-outer quadrant of left breast in female, estrogen receptor positive documented as of this encounter Visit Diagnoses Not on filedocumented in this encounter Care Teams Placement Director Relationship Specialty Start Date End Date Edin Conner MD [address] [place] [address] [address] [place] [address] PCP - General Family Medicine 02/28/21 documented as of this encounter
--- OUTSIDE RECORDS SUMMARY | 2024-11-19 15:47 | XMS_ITS | Encounter Summary ---
Author Organization [facility] [place] [address] Care Team Providers Care Custom Protection Officer Name Role Phone Edin Conner MD Primary Care Provider [phone] Reason for Visit * Consultation (Routine) - Closed Specialty Diagnoses / Procedures Referred By Charisma vergara Referred To Contact Plastic Surgery Diagnoses Breast cancer Mariajose Albarran MD [facility] [place] [address] [facility] [address] [address] Referral ID Status Reason Start Date Expiration Date Visits Re quested Visits Authorized [id number] Closed 11/01/2024 11/01/2025 1 1 Encounter Details Date Type Department Care Team (Late st Contact Info) Description 11/06/2024 3:15 PM EST Office [place] [address] Naif Ng MD [facility] [place] [address] Malignant neoplasm of upper-outer quadrant of left breast in female, estrogen receptor positive Social History Tobacco Use Types Packs/Day Years [...] Sign Reading Time Taken Comments Blood Pressure - - Pulse - - Temperature - - Respiratory Rate - - Oxygen Saturation - - Inhaled Oxygen Concentration - - Weight 83.9 kg (185 lb) 11/06/2024 2:54 PM EST Height 160 cm (5' 3) 11/06/2024 2:54 PM EST Body Mass Index 32.77 11/06/2024 2:54 PM EST documented in this encounter Patient Instructions * Patient Instructions* Peyton Iyer RN - 11/06/2024 3:15 PM EST Preoperative Instructions You have been scheduled to have plastic surgery. The instructions below are specific to your procedure. One Month prior to Surgery Schedule a pre-operative physical with your primary care doctor and obtain clearance from your Vessel Builder Two Weeks prior to Surgery Do not take any Aspirin or aspirin containing products for the 2 weeks leading up to surgery. You may resume taking 48 hours after surgery. Do not take medications containing Ibuprofen. Do not take any anti-steroidal's such as Advil, Aleve, Celebrex, Daypro, Indocin, Midol, Motrin, Naproxen, Nuprinand Toradol. These medications increase your risk of bleeding. You may resume taking any of these medications 48 hours after surgery. Stop Vitamin E, Garlic supplements, Ginseng, Fish Oil tablets, Ginkgo and Cally's Wort and any other herbals. You may resume taking 48 hours after surgery. If you need medication for pain, you may take Tylenol or extra strength Tylenol during this two week period. One Week prior to Surgery Please call if you feel ill, have cold or fever, have a rash or breaks in the skin near your surgical site. Stay hydrated. Avoid alcohol and recreational drugs Three Days before Surgery Do not shave near your surgical site One Day before Surgery Breast Surgery - Wash your chest and underarms for several minutes the night before and the morningof surgery using an antibacterial soap (Dial or Lever 2000) or Hibiclens wash. The Same Day Surgery Team will call you the day before your surgery to give you instructions specific to your procedure and your surgical time. Generally, you will be asked not to eat any solids after midnight. You are allowed clear liquids (water, jie kalpesh, apple juice, black coffee andplain tea) until 2 hours prior to your surgery. Day of Surgery A delivery driver assistant is required at time of discharge. If you are a Same Day procedure and do not have a driveryour surgery will be canceled. DO NOT wear any jewelry including body piercing's, makeup, nail indonesian or artificial nails the day of surgery. DO NOT apply any lotions, powders or deodorants on or near the surgical site the day of surgery. Do wear comfortable, loose fitting clothes. Anesthesia will meet with you the morning of surgery. They will perform an assessment and review your history with you. Contact Information: During regular office hours (Tuesday- Tuesday, non-holiday 8:00 am- 5:00 pm) For an appointment or insurance questions [phone] For questions pertaining to your surgical date [phone] For nursing related questions [phone] On weekends, holidays or after office hours: Call and ask the gripper machine operator to page the Plastic Surgery Resident television newscast director. Plastic surgery Clinic fax number: [phone] Marijuana and Surgery Did you know that marijuana use can impact your surgery and post-surgery success? Marijuana affects many parts of the body. These effects can impact your surgery through the following ways: Respiration: Marijuana affects the airways making it harder to place a breathing tube for anesthesia. Marijuana also affects the lungs and can cause wheezing, coughing, and chronic bronchitis. Cardiac effects: Marijuana affects heart rate and blood pressure and has the potential to increase risks of a heart attack and/or stroke. Pain management: Marijuana may interfere with pain control and the amount of pain medication neededto provide relief following an operation. You should discuss with your surgical team if you are using any form of marijuana or cannabis products. It can affect the outcome of your surgery. It is recommended to stop using marijuana products 72 hours before surgery. Can marijuana affect pain control after surgery? Patients with previous injuries who used marijuana before surgery reported higher amounts of pain. Higher dosages of opioids were used for a longer time after surgery to control pain, when compared to those who did not use marijuana. 7 Chronic marijuana use was associated with higher opioid use forpain relief compared with occasional marijuana users.7 CBD gel patches applied to the skin can reduce pain and itching in patients with peripheral neuropathy (pain at the nerve site).8 Gels containing CBD and a combination of CBD and THC had mixed results in decreasing pain in patients with cancer. Patients with cancer reported decreased neuropathic (nerve) pain after using cannabis compared withpatients who did not use marijuana.9 When should I stop using marijuana before surgery? The effects of marijuana peak at approximately 1 hour and can last 2-4 hours.10 Marijuana: Increases stress on the heart, and the chance for heart attacks and strokes in young, chronic users. It can cause lung complications such as airway obstruction and the need for higher doses of anesthesia. If you are having surgery, you should not use cannabis products within 72 hours of general anesthesia.10 Let your surgeon know if you are having difficulty stopping marijuana. You may be irritable, angry,nervous, and sleep deprived. You may have less appetite, feel depressed or anthony, and have tremors,sweating, fever, chills, and headache. If you feel you are addicted to marijuana: Work with your surgical team to meet with an addiction counselor. Call the Substance Abuse and Mental Health Services Administration (SAMHSA) National Addiction Hotline for help at 5-643-295-CMAG (9361). The call is free, confidential, and someone is available 24 hours per day. documented in this encounter Progress Notes * Naif Ng MD - 11/06/2024 3:15 PM EST Images from the original note were not included. Plastic Surgery Consultation Note Provider: NAIF NG MD PCP: Edin Conner MD Requesting surgeon: Mariajose Albarran MD CC: To discuss breast reconstruction HPI: Her breast surgeon requested this consultation for Dorene Duque, a 74 y.o. woman with breastcancer, to discuss options for breast reconstruction. She was accompanied by her for today's visit. Her breast cancer history began with an abnormal mass in left breast. Further imaging was ordered and a biopsy revealed infiltrating ductal carcinoma. She was then referred to Dr. Albarran who discussed a mastectomy versus breast conservation, and she is now considering a lumpectomy. Her intitial preference is for a partial mastectomy and an oncoplastic breast reduction. Radiation is planned and chemotherapy is possible. The patient reports that she has The patient's medical history is significant for heart attack, TIA and seizures. The patient reports that she currently has three stents placed. The patient reports that she is currently retired. Pertinent findings to emphasize are: No data to display No data to display Conservative Therapy Treatments: No data to display Past Medical History: Diagnosis Date BRCA gene mutation positive CVA (cerebral vascular accident) 2005 HLD (hyperlipidemia) HTN (hypertension) NSTEMI (non-ST elevated myocardial infarction) Seizure Past Surgical History: Procedure Laterality Date HYSTERECTOMY 2000 MAMMO US BIOPSY LYMPH NODE LEFT Left 10/22/2024 Mammo US Biopsy Lymph Node Left 10/22/[address] [facility] RAD MAMMOGRAPHY Social History Socioeconomic History Marital status: Spouse name: Not on file Number of children: Not on file Years of education: Not on file Highest education level: Not on file Occupational History Not on file Tobacco Use Smoking status: Former Current packs/day: 0.00 Types: Cigarettes Quit date: 07/23/2006 Years since quittin.3 Smokeless tobacco: Never Tobacco comments: social smoker for 10 years, about 3 cigarettes a week Vaping Use Vaping status: Never Used Substance and Sexual Activity Alcohol use: Yes Comment: 1 drink every other week Drug use: Never Sexual activity: Not Currently Other Topics Concern Not on file Social History Narrative Currently lives in [place], [place] with her . Able to perform ADLs. Is the youngest of 11 children, has 8 siblings in the area. Social Determinants of Health Financial Resource Strain: Low Risk (10/04/2024) Overall Financial Resource Strain (CARDIA) Difficulty of Paying Living Expenses: Not very hard Food Insecurity: Not on file Transportation Needs: No Transportation Needs (10/04/2024) PRAPARE - Transportation Lack of Transportation (Medical): No Lack of Transportation (Non-Medical): No Physical Activity: Not on file Intimate Partner Violence: Not on file Housing Stability: Not on file Family History Problem Relation Age of Onset Cerebrovascular Accident Mother Prostate Cancer Father Cerebrovascular Accident Sister Breast Cancer Sister alive in 2023 at age 81 Ovarian Cancer Sister had full hysterectomy Uterine Cancer Sister Hereditary Breast and Ovarian Cancer Syndrome Sister BRCA2 carrier Cerebrovascular Accident Brother Diabetes Brother Myocardial Infarction Brother [place] in 50-60s Cerebrovascular Accident Maternal Grandmother Hereditary Breast and Ovarian Cancer Syndrome Son BRCA2 carrier Heart Disease Neg Hx ROS: HEENT, GI, /Renal, Psych, Card, Pulm, Endo, Heme, Immun, Neuro: negative Examination: Ht 160 cm (5' 3) Wt 83.9 kg (185 lb) BMI 32.77 kg/m?? General: On my examination today, Ms. Droene Duque appears to be in good health. Her emotional outlook is positive and she asked appropriate questions throughout the visit. 38 D Anatomic Breast Measurements: Right Left Notch-nipple (cm) 35 33 Anticipated elev. of NAC (cm) 5 5 Base Diameter (cm) 18 18 Impression: Dorene Duque is a 74 y.o. patient with new diagnosis of left breast cancer. We discussed potential reconstruction options including both implant and autologous options including TRAM flaps, LISS, latissimus dorsi flaps and implants both immediate and two staged with tissue expanders and alloderm. In unilateral cases, we also discussed the possibility of a contralateral implant, mastopexy, or reduction mammoplasty to improve her symmetry. Prior to her visit today she watched the [employer] informational link on breast reconstruction. I also provided her with a comprehensive packet of printed information including: ASPS brochures and informed consent documents on breast reduction; TRAM and latissimus dorsi flap reconstruction; and implant reconstruction Postoperative brochures on what to expect after either flap reconstruction, breast implantation andbreast reduction Brochures on medications that may increase the risk of bleeding after surgery and on the possible side effects or drug interactions with herbal or dietary supplements Instructions on postmastectomy exercises; postoperative pain management; how to access to myD-H; and an ASPS brochure on making an informed decision Recommended web sites including: www.surgery.med.[facility] www.hoycqsjgtcmckk331.com www.breastimplantsafety.org www.breasthealthonline.com Brochure on the Section of Plastic Surgery's policy on cigarette smoking My business card including contact information and information on how to access myD-H. The risks of these procedures were covered either in the [employer] link , the informational materials and/or in our discussion. Risks covered included the following. General risks of surgery including reconstruction and mastectomy: Bleeding; delayed healing; asymmetry; tissue or flap loss; delayed inset or need for revision; immediate versus staged reconstructionof nipple-areolar complex. Latissimus dorsi complications: asymmetry; loss of terminal extension of the arm; donor scar; prolonged drainage and high rate of seroma formation. TRAM Flap: Flap loss or failure, fat necrosis, hernia or bulge, loss of umbilical remnant, need forrevision. Free flap or LISS flap complications: Flap loss or failure, microvascular anastomotic complications, fat necrosis, hernia or bulge, pneumothorax, loss of umbilical remnant, need for revision. Reduction mammoplasty/Mastopexy complications: tissue or nipple loss; fat necrosis. Implant related complications: The specific risks of implants were reviewed and she was provided with an ASPS informed consent document, the IOM report summary on the safety of silicone implants and the [place] brochure: Silicone implants, making an informed decision. We reviewed the general risksof implant reconstruction including: upper pole fullness; asymmetry; implant rupture, migration, infection, or contracture; visible rippling or waviness from the implant; likely need for revision or further surgery in the future. She is leaning towards partial mastectomy with and oncoplastic breast reduction. All questions wereacknowledged and answered to the patient's satisfaction. She will consider all the options providedto her, and will return to finalize her surgical plan once she has made an informed decision, and is ready to proceed. I will communicate this plan to Dr. Edin Conner MD, and her breast surge on Dr. Albarran Plan: Schedule surgery Surgical Grid: Surgeon: Hernandez Duration: 3 hours Timeframe: Coordinated Coordinated with: Dr. Albarran Procedure: Oncoplastic breast reduction CPT: 90008 Surgical site: Breast Side: Bilateral Anesthesia: General Follow up: 7-10 days w/ MARYA PAT: H&P PCP and cardiology clearance I, Luana Brasher, have performed the documentation for this encounter in the presence of and actingas a scribe for NAIF NG MD. documented in this encounter Plan of Treatment Upcoming Encounters Date Type Department Care Team (Late st Contact Info) Description 11/22/2024 7:00 AM EST Hospital Encounter Nuclear Medicine at [place] [phone] Kayla Mcmanus MD [facility] [place] [address] 11/22/2024 8:00 AM EST Appointment [place] [phone] Kayla Mcmanus MD [facility] [place] [address] 11/26/2024 12:00 PM EST Office Visit [place] [phone] Mariajose Albarran MD [facility] [place] [address] 11/01/2089 Hospital Encounter [place] [phone] Naif Ng MD [facility] [place] [address] Scheduled Orders Name Type Priority Associated Diagnoses Orde r Schedule SURGICAL CASE REQUEST: REDUCTION MAMMOPLASTY, KRYSTAL (WRVU 16.03) Procedures Routine Malignant neoplasm of upper-outer quadrant of left breast in female, estrogen receptor positive Ordered: 11/08/2024 Scheduled Procedures Name Priority Associated Diagnoses Date/Ti me REDUCTION MAMMOPLASTY, KRYSTAL ( WRVU 16.03) Malignant neoplasm of upper-outer quadrant of left breast in female, estrogen receptor positive documented as of this encounter Visit Diagnoses Diagnosis Malignant neoplasm of upper-outer quadrant of left breast in female, estrogen receptor positive documented in this encounter Care Teams Custom Protection Officer Relationship Specialty Start Date End Date Edin Conner MD [address] [place] [address] PCP - General Family Medicine 02/28/21 documented as of this encounter
--- OUTSIDE RECORDS SUMMARY | 2024-11-19 15:47 | XMS_ITS | Encounter Summary ---
Author Organization [facility] [place] [address] Care Team Providers Care Towel Rolling Machine Operator Name Role Phone Edin Conner MD Primary Care Provider [phone] Encounter Details Date Type Department Care Team (Latest Contact Info) Description 10/22/2024 Travel Social History Tobacco Use Types Packs/Day [...] AM EST Hospital Encounter Nuclear Medicine at [place] [phone] Kayla Mcmanus MD [facility] [place] [address] 11/22/2024 8:00 AM EST Appointment [place] [address] Kayla Mcmanus MD [facility] [place] [address] 11/26/2024 12:00 PM EST Office Visit General Surgery at [place] [phone] Mariajose Albarran MD [facility] [place] [address] 11/01/2089 Hospital Encounter Main Operating Room [place] [phone] Naif Ng MD [facility] [place] [address] Scheduled Procedures Name Priority Associated Diagnoses Date/Ti me REDUCTION MAMMOPLASTY, KRYSTAL ( WRVU 16.03) Malignant neoplasm of upper-outer quadrant of left breast in female, estrogen receptor positive documented as of this encounter Visit Diagnoses Not on filedocumented in this encounter Care Teams Towel Rolling Machine Operator Relationship Specialty Start Date End Date Edin Conner MD [address] [place] [address] [address] [place] [address] PCP - General Family Medicine 02/28/21 documented as of this encounter
--- OUTSIDE RECORDS SUMMARY | 2024-11-19 15:47 | XMS_ITS | Encounter Summary ---
Author Organization [facility] [place] [address] Care Team Providers Care Sign Hanger Name Role Phone Edin Conner MD Primary Care Provider [phone] Encounter Details Date Type Department Care Team (Latest Contact Info) Description 11/06/2024 Travel Social History Tobacco Use Types Packs/Day [...] AM EST Hospital Encounter Nuclear Medicine at [place] [phone] Kayla Mcmanus MD [facility] [place] [place] [address] 11/22/2024 8:00 AM EST Appointment [place] [address] Kayla Mcmanus MD [facility] [place] [address] 11/26/2024 12:00 PM EST Office Visit General Surgery at [place] [phone] Mariajose Albarran MD [facility] [place] [address] 11/01/2089 Hospital Encounter Main Operating Room [place] [phone] Naif Ng MD [facility] [place] [address] Scheduled Procedures Name Priority Associated Diagnoses Date/Ti me REDUCTION MAMMOPLASTY, KRYSTAL ( WRVU 16.03) Malignant neoplasm of upper-outer quadrant of left breast in female, estrogen receptor positive documented as of this encounter Visit Diagnoses Not on filedocumented in this encounter Care Teams Sign Hanger Relationship Specialty Start Date End Date Edin Conner MD [address] [place] [address] [address] [place] [address] PCP - General Family Medicine 02/28/21 documented as of this encounter
--- OUTSIDE RECORDS SUMMARY | 2024-11-19 15:47 | XMS_ITS | Encounter Summary ---
Author Organization [facility] [place] [address] Care Team Providers Care Beauty School Instructor Name Role Phone Edin Conner MD Primary Care Provider [phone] Reason for Visit * Reason Comments Follow-up * Consultation (Routine) - Closed Specialty Diagnoses / Procedures Referred By Charisma vergara Referred To Contact Hematology and Oncology Diagnoses Breast cancer Edin Conner MD [address] [place] [address] [facility] [address] [place] [address] Referral ID Status Reason Start Date Expiration Date Visits Re quested Visits Authorized [id number] Closed 10/03/2024 10/03/2025 1 1 Encounter Details Date Type Department Care Team (Late st Contact Info) Description 11/01/2024 3:00 PM EST Office Visit Hematology [place] [address] Leila Ching MD [facility] [place] [address] Malignant neoplasm of upper-outer quadrant [...] Sign Reading Time Taken Comments Blood Pressure 149/78 11/01/2024 3:08 PM EST Pulse 67 11/01/2024 3:08 PM EST Temperature 36.1 ??C (97 ??F) 11/01/2024 3:08 PM EST Respiratory Rate 18 11/01/2024 3:08 PM EST Oxygen Saturation 96% 11/01/2024 3:08 PM EST Inhaled Oxygen Concentration - - Weight 84 kg (185 lb 3.2 oz) 11/01/2024 3:08 PM EST Height 162 cm (5' 3.78) 11/01/2024 3:08 PM EST Body Mass Index 32.01 11/01/2024 3:08 PM EST documented in this encounter Progress Notes * Leila Ching MD - 11/01/2024 3:00 PM EST BREAST CLINIC OUTPATIENT CONSULTATION Patient: Dorene Duque : 1950 AGE: 74 y.o. CONSULTING PHYSICIAN: Leila Ching MD REFERRING PHYSICIAN: Edin Conner PRIMARY CARE PHYSICIAN: Edin Conner MD REASON FOR VISIT New patient visit HISTORY OF PRESENT ILLNESS: Dorene is a 74 y.o. female who presents today for a comprehensive breastclinic consultation regarding newly diagnosed left breast cancer. Patient palpated a lump in her left breast in July. On 09/14 left diagnostic mammogram showed a 3.5cm spiculated mass with associated architectural distortion in the left upper outer breast at middle depth along with three enlarged lymph nodes. Right breast showed no suspicious findings. Left breast ultrasound showed a 3.3 x 2.0x 2.2cm mass at 1:00 7cm FN along with at least two abnormal axillary nodes. 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 Newport clip was placed at the site. On 10/22 right axillary ultrasound at showed 6-7 abnormal lymph nodes, the largest of which was 3.3cm and was biopsied under ultrasound guidance with pathology showing metastatic carcinoma compatible with the breast primary. Twirl clip was placed. She denies other breast symptoms of masses, skin changes, nipple discharge, or adenopathy. She alsodenies any new constitutional symptoms of fatigue, weight loss, fever, or headache. No blurry vision, abdominal pain or deep bone or joint pain. 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 Takes ASA 81mg daily. 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 Past Medical History: Diagnosis Date BRCA gene mutation positive CVA (cerebral vascular accident) 2005 HLD (hyperlipidemia) HTN (hypertension) NSTEMI (non-ST elevated myocardial infarction) Seizure Past Surgical History: Procedure Laterality Date HYSTERECTOMY 2000 MAMMO US BIOPSY LYMPH NODE LEFT Left 10/22/2024 Mammo US Biopsy Lymph Node Left 10/22/2024 Gabby Noonan MD [facility] RAD MAMMOGRAPHY MEDICATIONS: aspirin EC, lamoTRIgine, lisinopriL, metoprolol succinate XL, nitroGLYcerin, and rosuvastatin Allergies Allergen Reactions Latex Rash Atorvastatin Other (See Comments) Elevated LFT's Amoxicillin Trihydrate Rash Gloves, Latex CIS - Localized Reaction Latex Dams CIS - Localized Reaction Family History Problem Relation Age of Onset Cerebrovascular Accident Mother Prostate Cancer Father Cerebrovascular Accident Sister Breast Cancer Sister alive in 2023 at age 81 Ovarian Cancer Sister had full hysterectomy Uterine Cancer Sister Hereditary Breast and Ovarian Cancer Syndrome Sister BRCA2 carrier Cerebrovascular Accident Brother Diabetes Brother Myocardial Infarction Brother ME in 50-60s Cerebrovascular Accident Maternal Grandmother Hereditary Breast and Ovarian Cancer Syndrome Son BRCA2 carrier Heart Disease Neg Hx Social History Tobacco Use Smoking status: Former Current packs/day: 0.00 Types: Cigarettes Quit date: 07/23/2006 Years since quittin.2 Smokeless tobacco: Never Tobacco comments: social smoker for 10 years, about 3 cigarettes a week Vaping Use Vaping status: Never Used Substance Use Topics Alcohol use: Yes Comment: 1 drink every other week Drug use: Never Age of menarche: [age] Age of menopause: 49 /Para: Age of first live : 16 OCP use: 5 yrs HRT use: short time after hysterectomy Prior breast biopsies: None prior REVIEW OF SYSTEMS: Relevant positive review of systems as above, remainder of a 14-point review of systems negative. Vitals: 11/01/24 1508 BP: 149/78 Patient Position: Sitting Pulse: 67 Resp: 18 Temp: 36.1 ??C (97 ??F) TempSrc: Temporal SpO2: 96% Weight: 84 kg (185 lb 3.2 oz) Height: 162 cm (5' 3.78) PHYSICAL EXAM: General: well appearing, alert and oriented x 3. No acute distress. Head and neck: Normocephalic, atraumatic. Sclerae are anicteric. Neck is soft and supple. No masses. No cervical or clavicular adenopathy. Chest/Lungs: CTAB Heart: RRR, no m/r/g Abdomen: Soft, nontender, and nondistended. No palpable masses. No organomegaly detected. Extremities: No cyanosis, clubbing, or edema. Breast exam: A multi-positional bilateral breast exam was performed. There is no nipple retraction. Right breast: no palpable dominant masses, no nipple discharge, no skin changes. Right axilla: no palpable adenopathy. Left breast: palpable mass in the left upper outer breast at 1:00 6-7cm FN measuring 4 x 4cm with some overlying skin dimpling, no nipple discharge, no skin changes. Left axilla: palpable low axillary lymph node measuring 2 x 2cm IMAGING: I personally reviewed the following radiology image(s) and report(s) in detail as part of today's consultation -- DH READ OF OUTSIDE IMAGING -- DATES and TYPE OF EXAM: Diagnostic mammogram and ultrasound 09/14/2024 FINDINGS: LEFT BREAST In the upper outer [...] demonstrates effacement of the fatty hilum, cortical thi ckening and possible extranodal extension. Left Breast Lesion # 1: 3.5 cm spiculated mass, 2:00 radian, 7 cm from the nipple. RIGHT BREAST: No suspicious masses, calcifications, or areas of architectural distortion. The pattern is stable. IMPRESSION 1. Left breast upper outer quadrant spiculated mass measuring 3.5 cm, 2:00 radian, 7 cm from the nipple. 2. At least 2 morphologically abnormal left axillary lymph nodes. FINAL ASSESSMENT: BI-RADS Category 5: Highly Suggestive of Malignancy - Appropriate Action Should Be Taken MANAGEMENT: * Ultrasound-guided biopsy of left upper outer quadrant mass at the 2:00 radian, 7 cm the nipple (lesion #1) and biopsy of an abnormal left axillary lymph node recommended. * Given that ultrasound is pure culture operator dependent, a repeat left axillary ultrasound is recommended to determine the number of abnormal lymph nodes; this ultrasound can be performed immediately prior to the axillary node biopsy. --- Left breast and axillary ultrasound guided biopsy 10/22/24: CLINICAL HISTORY: (4cm cancer with abnormal nodes, BRCA+) Left axillary US + biopsy Scanning prior to the procedure showed a 6-7 abnormal RIGHT axillary nodes, the largest is 3.3 cm which was selected for biopsy LEFT axillary node 3.3 cm Mass 2 Radian 20 cm from the nipple PROCEDURAL DETAILS: Informed consent was obtained. Sterile technique was deployed. Approximately 10 cc used for local anesthesia. A small skin incision was made and a biopsy was performed under ultrasound guidance. 2 core biopsy specimens were obtained using a Achieve 14g device. Biopsy specimens were not radiographed. N/A Satisfactory sampling was obtained. A Senomark Newport 14G marker clip and a twirl clip was placed. No postprocedural mammography COMPLICATIONS: None. PATHOLOGY: I personally reviewed the following pathology report(s) in detail as part of today's consultation Final Diagnosis CONSULTATION CASE Left breast, core needle biopsy: - Invasive ductal carcinoma with focal mucinous features, high grade (modified SBR score = 8), measuring at least 12 mm. - Lymphovascular invasion is not identified. 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 ER, DE, and HER2 studies (reviewed): ER: Positive (>90%, strong) DE: Positive (5%, weak to moderate) HER2 IHC: Negative (score 0) Final Diagnosis A. Left axillary lymph node, core needle biopsy - Metastatic carcinoma showing mucinous features, compatible with breast primary, measuring up to 13 mm greatest core measure. (see Discussion.) Discussion The tumor is compatible with the recent core biopsy (Consult case) [id number] ASSESSMENT: Dorene is a 74 y.o. woman with left IDC, G3, ER/DE+ HER2- (3.3cm), node positive (6-7 abnormal by USand palpable adenopathy) here to discuss management. We reviewed her breast cancer diagnosis in detail along with the general treatments utilized. Giventhe size of the cancers with overlying skin dimpling along with the palpable adenopathy we reviewedsequencing of treatments with possible neoadjuvant therapy to attempt to downstage her disease followed by surgery + adjuvant radiation. Patient is meeting with medical oncology on 11/12 to discuss this further. We also reviewed the rationale for staging scans which are scheduled on 11/09. We then reviewed surgical management of her breast cancer. She is a surgical candidate for either breast conservation or total mastectomy with or without immediate reconstruction. I discussed these options for the locoregional management of her breast cancer in detail and reviewed the survival and local recurrence data for both options. She understands that that risk of local recurrence is a bit higher with breast conservation and that radiation therapy is usually recommended if she opts for partial mastectomy to help reduce this risk, but that overall survival is equivalent regardless of hersurgical choice. She also understands that adjuvant systemic therapy recommendations (endocrine and/or chemotherapy) are also independent of her surgical choice and that she will meet with medical oncology after surgery to discuss this further. We discussed the fact that negative surgical margins are necessary, and that additional surgery may be required to achieve this depending on final pathology. I also explained that partial mastectomy may result in some asymmetry in comparison to the contralateral breast. She has always been interested in a breast reduction so we also discussed the possible option of doing the lumpectomy in the context of an oncoplastic reduction. Patient would like tohear more about this and will be scheduled with plastic surgery. We then reviewed her BRCA2 gene mutation and the risk of a second primary breast cancer with the option of bilateral mastectomy, whichshe is not interested in pursuing. We reviewed the rationale and technique of axillary staging. Given the palpable adenopathy and highvolume disease by ultrasound, she would need a complete axillary lymph node dissection with upfrontsurgery. We discussed the fact that if she underwent neoadjuvant therapy and had a good response with resolution fot he palpable adenopathy, we may be able to attempt a targeted axillary dissection. She understands she may still require an ALND even after neoadjuvant therapy . After discussion, the patient is leaning towards a lumpectomy with possible oncoplastic reduction pending the additional work up/consults and decision about neoadjuvant therapy. Will plan to follow up with her by phone after those are completed. FOLLOW-UP PLAN: - Staging scans on 11/09 - Medical oncology consult on 11/12 to discuss possible neoadjuvant therapy - Plastic surgery consult to discuss oncoplastic reduction - Will follow up by phone to finalize her plan after the above I have spent a total of 65 minutes on this patient's care today. This time includes [id number] time with the patient as well as time spent reviewing patient records, coordinating/communicating withcare teams and documenting the patient visit. LEILA CHING MD 11/01/2024 documented in this encounter Plan of Treatment Upcoming Encounters Date Type Department Care Team (Late st Contact Info) Description 11/22/2024 7:00 AM EST Hospital Encounter Nuclear Medicine at [place] [phone] Kayla Mcmanus MD [facility] [place] [address] 11/22/2024 8:00 AM EST Appointment Nuclear Medicine at [place] [phone] Kayla Mcmanus MD [facility] [place] [address] 11/26/2024 12:00 PM EST Office Visit General Surgery at [place] [phone] Leila Ching MD [facility] [place] [address] 11/01/2089 Hospital Encounter Main Operating Room [place] [phone] Naif Ng MD [facility] [place] [address] Scheduled Procedures Name Priority Associated Diagnoses Date/Ti me REDUCTION MAMMOPLASTY, KRYSTAL ( WRVU 16.03) Malignant neoplasm of upper-outer quadrant of left breast in female, estrogen receptor positive documented as of this encounter Visit Diagnoses Diagnosis Malignant neoplasm of upper-outer quadrant of left breast in female, estrogen receptor positive documented in this encounter Care Teams Beauty School Instructor Relationship Specialty Start Date End Date Edin Conner MD [address] [place] [address] [address] [facility] [address] [place] [address] PCP - General Family Medicine 02/28/21 documented as of this encounter
--- OUTSIDE RECORDS SUMMARY | 2024-11-19 15:47 | XMS_ITS | Encounter Summary ---
[place] [address] Care Team Providers Care Agriscience Instructor Name Role Phone Edin Conner MD Primary Care Provider [phone] Encounter Details Date Type Department Care Team (Late st Contact Info) Description 10/03/2024 Notes Only Hematology [place] [phone] Sharona Oliver Social History Tobacco Use Types [...] as of this encounter Progress Notes * Sharona Oliver - 10/03/2024 10:01 AM EST New Breast Cancer Referral Dorene Duque [id number] Biopsy Location:[facility] Biopsy Date:09/18/24 Date of referral: 10.03.24 [x]Packet sent [x]Patient notified of appointments [] Lacy to deliver packet at first appt Diagnoses: BREAST, LEFT, CORE BIOPSY - Adencarcinoma, invasive, ductal type with focal mucinous features - Positve for estrogen receptors (in >90% of tumor cells). - Nuclear staining intensity: Strong. - Positive for progesterone receptors (in 5% of tumor cells). - Nuclear staining intensity: Weak to Moderate. Receptors: ER [x]Positive []Negative NV [x]Positive []Negative Her2 []Positive [x]Negative []Equivocal ( Fish ordered) Tumor size: 4CM Scans: []MRI []CT []Bone scan []PET []ECHO []Other - Left axillary US + biopsy 10.22.24 []Lab Resources: [x]Lacy [x]Caitlin Surgeon: []Malcolm [x]Avis []Ruby Date of Surgery: Post/OP Date: Neoadjuvant: []Yes []No Surgical plan after Neoadjuvant chemo date- Plastics: []Dion []Nenainmaite []Ng Med/Onc: []James [x]Marietta []Samuel []Vahdat []Outside Facility Rad/Onc: []Bullard []Fariss []McVorran []Outside Facility Physical Therapy: []Yes []No FCP Referral: [] [x] Added care team Triage Provider and discussion notes: No MRI needed from my perspective Surgery + med onc (4cm cancer with abnormal nodes, BRCA+) Left axillary US + biopsy Thanks Alcira Eli and Lisette emmanuel to wait till October for Surgeon and Med/Onc appts Outside Records: [x]Path slides Requested []Path here [x] Images Request []Images here [x] Clinic notes Requested [x] Notes Here [x] Image review ordered [] Image Review complete documented in this encounter Plan of Treatment Upcoming Encounters Date Type Department Care Team (Late st Contact Info) Description 11/22/2024 7:00 AM EST Hospital Encounter Nuclear Medicine at [place] [phone] Kayla Mcmanus MD [facility] [place] [address] 11/22/2024 8:00 AM EST Appointment [place] [phone] Kayla Mcmanus MD [facility] [place] [address] 11/26/2024 12:00 PM EST Office Visit General Surgery at [place] [phone] Mariajose Albarran MD [facility] [place] [address] 11/01/2089 Hospital Encounter Main Operating Room [place] [phone] Naif Ng MD [facility] [place] [address] Scheduled Procedures Name Priority Associated Diagnoses Date/Ti me REDUCTION MAMMOPLASTY, KRYSTAL ( WRVU 16.03) Malignant neoplasm of upper-outer quadrant of left breast in female, estrogen receptor positive documented as of this encounter Visit Diagnoses Not on filedocumented in this encounter Care Teams Agriscience Instructor Relationship Specialty Start Date End Date Edin Conner MD [address] [address] [place] [address] PCP - General Family Medicine 02/28/21 documented as of this encounter
--- OUTSIDE RECORDS SUMMARY | 2024-11-19 15:47 | XMS_ITS | Encounter Summary ---
[place] [address] Care Team Providers Care Filter Tank Tender Helper Name Role Phone Edin Conner MD Primary Care Provider [phone] Reason for Referral * Diagnostic Test (Routine) - Closed Specialty Diagnoses / Procedures Referred By Contac t Referred To Contact Radiology Diagnoses Malignant neoplasm of left breast in female, estrogen receptor positive, unspecified site of breast Procedures NM Bone Scan Whole Body Mariajose Albarran MD [facility] [place] [address] [place] [address] Referral ID Status Reason Start Date Expiration Date V isits Requested Visits Authorized [id number] Closed Specialty Service Requested 10/30/2024 04/29/2026 1 1 * Diagnostic Test (Routine) - Closed Specialty Diagnoses / Procedures Referred By Contac t Referred To Contact Radiology Diagnoses Malignant neoplasm of left breast in female, estrogen receptor positive, unspecified site of breast Procedures CT Chest Abdomen Pelvis w Contrast (Generic) Mariajose Albarran MD [facility] [place] [address] [facility] [place] [address] Referral ID Status Reason Start Date Expiration Date V isits Requested Visits Authorized [id number] Closed Specialty Service Requested 10/30/2024 04/29/2026 1 1 Encounter Details Date Type Department Care Team (Late Contact Info) Description 10/30/2024 Orders Only [place] [phone] Mariajose Albarran MD [facility] [place] [address] Malignant neoplasm of left breast in female, [...] Encounters Date Type Department Care Team (Late Contact Info) Description 11/22/2024 7:00 AM EST Hospital Encounter [place] [phone] Kayla Mcmanus MD [facility] [place] [address] 11/22/2024 8:00 AM EST Appointment Nuclear Medicine at [place] [phone] Kayla Mcmanus MD [facility] DR MEDICAL ONCOLOGY [place], [place] [phone] 11/26/2024 12:00 PM EST Office Visit [place] [phone] Mariajose Albarran MD [facility] [place] [address] 11/01/2089 Hospital Encounter [place] [address] Naif Ng MD [facility] [place] [address] Scheduled Procedures Name Priority Associated Diagnoses Date/Ti me REDUCTION MAMMOPLASTY, KRYSTAL ( WRVU 16.03) Malignant neoplasm of upper-outer quadrant of left breast in female, estrogen receptor positive documented as of this encounter Results * NM Bone Scan Whole Body (11/09/2024 2:02 PM EST) WORKSTATION ID [id number] [facility] Anatomical Region Laterality Modality Nuclear Medicine Impressions 11/09/2024 2:22 PM EST No skeletal metastasis. Thank you for letting us participate in the care of this patient. ??If you are a health care provider and have any questions regarding this report, please contact the number below. ??For patients who have questions please contact the health primary care physician that requested your imaging first. ? Narrative 11/09/2024 2:22 PM EST EXAMINATION: NM [...] have questions please contactthe health primary care physician that requested your imaging first. Mariajose Albarran MD [facility] [place] ORDERABLES * CT Chest Abdomen Pelvis w Contrast (Generic) (11/09/2024 12:45 PM EST) WORKSTATION ID [id number] RAD Anatomical Region Laterality Modality Abdomen, Pelvis [...] questions please contact the health primary care physician that requested your imaging first. ? Narrative 11/12/2024 10:34 AM EST EXAMINATION: CT [...] have questions please contactthe health primary care physician that requested your imaging first. Mariajose Albarran MD IMG CT ORDERABLES documented in this encounter Visit Diagnoses Diagnosis Malignant neoplasm of left breast in female, estrogen receptor positive, unspecified site of breast- Primary Malignant neoplasm of left breast in female, estrogen receptor positive, unspecified site of breast Malignant neoplasm of left breast in female, estrogen receptor positive, unspecified site of breast documented in this encounter Care Teams Filter Tank Tender Helper Relationship Specialty Start Date End Date Edin Conner MD [address] [place] [address] PCP - General Family Medicine 02/28/21 documented as of this encounter
--- OUTSIDE RECORDS SUMMARY | 2024-11-19 15:47 | XMS_ITS | Encounter Summary ---
[place] [address] Care Team Providers Care Billing Clinician Name Role Phone Edin Conner MD Primary Care Provider [phone] Encounter Details Date Type Department Care Team (Latest Contact Info) Description 11/01/2024 4:00 PM EST Laboratory Appointment Lab [address] [place] [address] Malignant neoplasm of left breast in female, [...] AM EST Hospital Encounter Nuclear Medicine at [place] [phone] Kayla Mcmanus MD [facility] [place] [address] 11/22/2024 8:00 AM EST Appointment [place] [phone] Kayla Mcmanus MD [facility] [place] [address] 11/26/2024 12:00 PM EST Office Visit General Surgery at [place] [phone] Mariajose Albarran MD [facility] [place] [address] 11/01/2089 Hospital Encounter [place] [phone] Naif Ng MD [facility] [place] [address] Scheduled Procedures Name Priority Associated Diagnoses Date/Ti me REDUCTION MAMMOPLASTY, KRYSTAL ( WRVU 16.03) Malignant neoplasm of upper-outer quadrant of left breast in female, estrogen receptor positive documented as of this encounter Procedures Procedure Name Priority Date/Time Associated Diagnosis Comments CBC (WITH DIFF) Routine 11/01/2024 4:30 PM EST Malignant neoplasm of left breast in female, estrogen receptor positive, unspecified site of breast COMPREHENSIVE METABOLIC PANEL Routine 11/01/2024 4:30 PM EST Malignant neoplasm of left breast in female, estrogen receptor positive, unspecified site of breast documented in this encounter Results * (ABNORMAL) Comprehensive metabolic panel (11/01/2024 4:30 PM EST) Glucose 106 65 - 199 mg/dL 11/01/2024 5:14 PM [facility] Comment:Glucose Concentratio n >=200 mg/dL plus symptoms is consistent with Diabetes Mellitus. Blood Urea Nitrogen 15 8 - 18 mg/dL 11/01/2024 5:14 PM [facility] Creatinine 1.33(H) 0.70 - 1.20 mg/dL 11/01/2024 5:14 PM [facility] Sodium 142 135 - 145 mMol/L 11/01/2024 5:14 PM [facility] Potassium 4.3 3.5 - 5.0 mMol/L 11/01/2024 5:14 PM [facility] Chloride 106 98 - 107 mMol/L 11/01/2024 5:14 PM [facility] Carbon Dioxide 26 22 - 31 mMol/L 11/01/2024 5:14 PM [facility] Anion Gap 10 5 - 15 mMol/L 11/01/2024 5:14 PM [facility] Calcium 9.7 8.5 - 10.5 mg/dL 11/01/2024 5:14 PM [facility] Protein, Total 7.3 6.1 - 8.0 g/dL 11/01/2024 5:14 PM [facility] Albumin 4.3 3.2 - 5.2 g/dL 11/01/2024 5:14 PM [facility] Aspartate Aminotransferase 26 <=30 unit/L 11/01/2024 5:14 PM [facility] Alanine Aminotransferase 25 0 - 30 unit/L 11/01/2024 5:14 PM [facility] Alkaline Phosphatase 91 35 - 105 unit/L 11/01/2024 5:14 PM [facility] Bilirubin, Total 0.4 <=1.3 mg/dL 11/01/2024 5:14 PM EST [facility] Est Glomerular Filtration Rate - Female 42 mL/min/1. 73 m?? 11/01/2024 5:14 PM EST [facility] Comment: This patient's estimated [...] Foundation Fasting Status No 11/01/2024 5:14 PM [facility] Blood VENOUS BLOOD SPECIMEN / Unknown Venipuncture / Unknown 11/01/2024 4:30 PM EST 11/01/2024 4:43 PM EST Mariajose Albarran MD CHEMISTRY ORDERAB LES Performing Organization Address City/State/[facility] Co de Phone Number [facility] [place] [address] * CBC (with Diff) (11/01/2024 4:30 PM EST) White Blood Cell 6.36 4.00 - 9.50 x10(3)/mcL 11/01/2024 4:48 PM EST [facility] Red Blood Cell 4.68 4.00 - 5.21 x10(6)/mcL 11/01/2024 4:48 PM [facility] Hemoglobin 14.3 11.7 - 15.5 g/dL 11/01/2024 4:48 PM EST [facility] Hematocrit 43.1 35.7 - 45.8 % 11/01/2024 4:48 PM [facility] Mean Cell Volume 92.1 82.6 - 94.4 fL 11/01/2024 4:48 PM [facility] Mean Cell Hemoglobin 30.6 27.1 - 32.0 pg 11/01/2024 4:48 PM [facility] Mean Cell Hemoglobin Concentration 33.2 31.7 - 35.0 g/dL 11/01/2024 4:48 PM [facility] Platelet 238 145 - 357 x10(3)/mcL 11/01/2024 4:48 PM [facility] Mean Platelet Volume 9.6 7.6 - 12.9 fL 11/01/2024 4:48 PM [facility] RDW Standard Deviation 41.5 37.0 - 46.0 fL 11/01/2024 4:48 PM [facility] RDW coefficient of variation 12.3 11.5 - 14.1 % 11/01/2024 4:48 PM [facility] NRBC% auto 0.0 % 11/01/2024 4:48 PM [facility] NRBC Absolute <0.01 <0.01 x10(3)/mcL 11/01/2024 4:48 PM [facility] Neutrophil % 64.7 % 11/01/2024 4:48 PM [facility] Neutrophil Absolute (ANC) - Automated 4.11 1.70 - 6.10 x10(3)/mcL 11/01/2024 4:48 PM [facility] Lymph % 23.7 % 11/01/2024 4:48 PM [facility] Lymph Absolute 1.51 0.90 - 3.20 x10(3)/mcL 11/01/2024 4:48 PM [facility] Monocyte % 7.1 % 11/01/2024 4:48 PM [facility] Monocyte Absolute 0.45 0.30 - 0.90 x10(3)/mcL 11/01/2024 4:48 PM [facility] Eos % 3.6 % 11/01/2024 4:48 PM EST [facility] Eos Absolute 0.23 0.00 - 0.40 x10(3)/mcL 11/01/2024 4:48 PM EST [facility] Basophil % 0.6 % 11/01/2024 4:48 PM EST [facility] Baso Absolute 0.04 0.00 - 0.10 x10(3)/mcL 11/01/2024 4:48 PM EST [facility] Immature Gran % 0.3 % 4:48 PM [facility] Immature Gran Absolute <0.04 0.00 - 0.04 x10(3)/mcL 11/01/2024 4:48 PM [facility] Blood VENOUS BLOOD SPECIMEN / Unknown Venipuncture / Unknown 11/01/2024 4:30 PM EST 11/01/2024 4:43 PM EST Mariajose Albarran MD HEMATOLOGY ORDERA BLES [facility] [place] [address] documented in this encounter Visit Diagnoses Diagnosis Malignant neoplasm of left breast in female, estrogen receptor positive, unspecified site of breast documented in this encounter Care Teams Billing Clinician Relationship Specialty Start Date End Date Edin Conner MD [address] [place] [address] PCP - General Family Medicine 02/28/21 documented as of this encounter
--- OUTSIDE RECORDS SUMMARY | 2024-11-19 15:47 | XMS_ITS | Encounter Summary ---
Author Organization [place] [address] Care Team Providers Care Shear Operator Name Role Phone Edin Conner MD Primary Care Provider +1 [phone] Encounter Details Date Type Department Care Team (Latest Contact Info) Description 10/22/2024 10:14 AM EST - 10/22/2024 11:59 PM [facility] Hospital En[place] [phone] Mariajose Albarran MD [facility] [place] [address] Malignant neoplasm of left breast in female, [...] AM EST Hospital En[place] [address] Kayla Mcmanus MD [facility] [place] [address] 11/22/2024 8:00 AM EST Appointment [place] [address] Kayla Mcmanus MD [facility] [place] [address] 11/26/2024 12:00 PM EST Office Visit [place] [address] Mariajose Albarran MD [facility] [place] [address] 11/01/2089 Hospital Encounter [place] [phone] Naif Ng MD [facility] [place] [address] Scheduled Procedures Name Priority Associated Diagnoses Date/Ti me REDUCTION MAMMOPLASTY, KRYSTAL ( WRVU 16.03) Malignant neoplasm of upper-outer quadrant of left breast in female, estrogen receptor positive documented as of this encounter Procedures Procedure Name Priority Date/Time Associated Diagnosis Comments MAMMO US BIOPSY LYMPH NODE LEFT Routine 10/22/2024 11:38 AM EST Malignant neoplasm of left breast in female, estrogen receptor positive, unspecified site of breast SURGICAL PATHOLOGY Routine 10/22/2024 11 :35 AM EST Malignant neoplasm of left breast in female, estrogen receptor positive, unspecified site of breast documented in this encounter Results * Mammo US Biopsy [...] who have questions please contact the health care provider that requested your imaging first. ? [facility] [address] [place], [place] ??[address] Narrative 10/25/2024 3:45 PM EST EXAMINATION: MAMMO [...] radiographed. N/A Satisfactory sampling was obtained. A LogicMonitor 14G marker clip and a twirl clip was placed. No postprocedural mammography COMPLICATIONS: None. PROCEDURAL ATTESTATION: Resident: I performed the procedure without a resident. PRE BIOPSY POTENTIAL IMAGING DIAGNOSIS(S): Metastatic node PATHOLOGIC DIAGNOSIS: Metastatic breast cancer Mariajose Albarran MD IMG MAMMO ORDERAB LES * (ABNORMAL) Surgical Pathology (10/22/2024 11:35 AM EST) Case Report Surgical Pathology Report ? Case: [id number] ? Authorizing Provider: ??Mariajose Albarran MD ?? Collected: ? 10/22/2024 1135 ? [place]ing [place]: ? [place] [facility] [place]: ?10/22/2024 1306 ? Pathologist: ? Valentina Lal DO ? Specimen: ?Breast, Left, LEFT AXILLA US BIOPSY ? 10/23/2024 12:14 PM [facility] Final Diagnosis A. Left axillary lymph node, core needle biopsy - Metastatic carcinoma showing mucinous features, compatible with breast primary, measuring up to 13 mm greatest core measure. (see Discussion.) 10/23/2024 12:14 PM [facility] Discussion The tumor is compatible with the recent core biopsy (Consult case) [id number]. 10/23/2024 12:14 PM [facility] Clinical Information A. Breast, Left, LEFT AXILLA US BIOPSY Enlarged lymph node Rule out malignancy Malignant neoplasm of left breast in female, estrogen receptor positive, unspecified site of breast [C50.912, Z17.0] 10/23/2024 12:14 PM [facility] Gross Description A. Breast, Left, LEFT AXILLA US BIOPSY. A - Labeled/Fixati ve: Left axilla US biopsy, formalin. Quantity/Size: Two, 1.3 x 0.2 and 1.5 x 0.2 cm Tissue Description: [place]-yellow fibrofatty needle core biopsies. Sections/Proce ssing: Entirely submitted in 1 cassette labeled A1. Ischemic time: 1 minute Total fixation time in formalin: 7 hours 24 minutes The ASCO/CAP guideline related to formalin fixation time has been met (6-72 hours). The ASCO/CAP guideline related to cold ischemic time has been met (<1 hour). ajw 10/23/2024 12:14 PM EST [facility] Result Note THIS RESULT REQUIRES PHYSICIAN/MARYA FOLLOW UP(A) 10/23/2024 12:14 PM EST [facility] Tissue LEFT BREAST STRUCTURE / Unknown 10/22/2024 11:35 AM EST 10/22/2024 1:06 PM EST Mariajose Albarran MD PATHOLOGY/CYTOLOG Y ORDERABLES [facility] [place] [address] documented in this encounter Visit Diagnoses Diagnosis Malignant neoplasm of left breast in female, estrogen receptor positive, unspecified site of breast documented in this encounter Administered Medications Inactive Administered Medications - up to 3 most recent administrations Medication Order MAR Action Action Date Dose Rate Site lidocaine (Xylocaine) 1% (10 mg/mL) injection 0-200 mg 0-200 mg (0-20 mL), Subcutaneous, ONCE, 1 dose, On Tue10/22/24 at 1200, Radiology Protocol Medication, Routine Given 10/22/2024 11:25 AM EST 10 mg documented in this encounter Care Teams Shear Operator Relationship Specialty Start Date End Date Edin Conner MD [address] [place] [address] PCP - General Family Medicine 02/28/21 documented as of this encounter
--- OUTSIDE RECORDS SUMMARY | 2024-11-19 15:47 | XMS_ITS | Encounter Summary ---
[place] [address] Care Team Providers Care Dynamometer Repairer Name Role Phone Edin Conner MD Primary Care Provider +1 [phone] Encounter Details Date Type Department Care Team (Late st Contact Info) Description 11/01/2024 Patient Outreach [place]ematology [place] [address] Moses Nicole, RN Social History Tobacco Use Types Packs/Day [...] as of this encounter Progress Notes * Moses Nicole, RN - 11/01/2024 5:28 PM EST Comprehensive Breast Program (CBP) Nurse Navigator Note Dorene Duque is a 74 y.o. female with node positive, ER/TN+/HER2 negative left breast cancer. I met with the patient and her , Josué, after her surgical oncology consultation. Dorene understands she will meet with Dr. Mcmanus, medical oncologist, on 11/12 to discuss neoadjuvant versus adjuvant chemotherapy. She understand treatment may also include endocrine therapy. We reviewed that CT and bone scans, scheduled on 11/09, will further help her oncology team to determine her breast cancer stage. She understands Dr. Albarran will call her once the scan results are available. Dorene is leaning towards partial mastectomy with oncoplastic reduction and understands we will obtain a plastic surgery consultation for her in the near future. We will always attempt to coordinate her appts. related to her travel distance from [place]. SPECIFIC TEACHIN. Breast Cancer Treatment Handbook (Ivanna Fitzgerald, 2021) was sent via mail. 2. She understands she will meet with a medical oncologist (Dr. Mcmanus on 11/12 at [place]) and, possibly, a radiation oncologist (prefers [facility]) after surgery. Our CBP will arrange post operative appointments as well as a follow up with Dr. Albarran after surgery. 3. Contact phone number for questions or concerns during chemotherapy and in the immediate post-operative period. 4. Comprehensive Breast Program Binder provided. 5. Post Breast Surgery Exercises handout created by physical therapists at [place] to begin after partial mastectomy or mastectomy (not reviewed). 6. Breast Cancer Treatment Process care map provided and reviewed. 7. Contact information for our oncology triage nurses and plastic surgery clinic nurses was given and the doctor employee communications specialist system explained. 8. She was given contact information for our social and political studies professor and this senior underwriter. 9. Discussed hair loss during chemotherapy and resources for wigs, scarfs, hats. Local Resource Guide - Wigs and Personal Care handout ([place] 2023) and the [employer]'s [employer] catalogue provided. Twenty minutes was spent in education and providing support. She verbalized understanding of the plan of care and states all her questions were answered. Dorene has our contact information and was encouraged to call with questions or concerns. 11/01/2024 Cancer Distress Distress 0 Referrals made today Social work Dorene met with our CBP social and political studies professor today. MOSES NICOLE, RN documented in this encounter Plan of Treatment Upcoming Encounters Date Type Department Care Team (Late st Contact Info) Description 11/22/2024 7:00 AM EST Hospital Encounter [place] [phone] Kayla Mcmanus MD [facility] [place] [address] 11/22/2024 8:00 AM EST Appointment [place] [phone] Kayla Mcmanus MD [facility] [place] [address] 11/26/2024 12:00 PM EST Office [place] [phone] Mariajose Albarran MD [facility] [place] [place] [address] 11/01/2089 Hospital Encounter [place] [phone] Naif Ng MD [facility] [place] [address] Scheduled Procedures Name Priority Associated Diagnoses Date/Ti me REDUCTION MAMMOPLASTY, KRYSTAL ( WRVU 16.03) Malignant neoplasm of upper-outer quadrant of left breast in female, estrogen receptor positive documented as of this encounter Visit Diagnoses Not on filedocumented in this encounter Care Teams Dynamometer Repairer Relationship Specialty Start Date End Date Edin Conner MD [address] [place] [address] PCP - General Family Medicine 02/28/21 documented as of this encounter
--- OUTSIDE RECORDS SUMMARY | 2024-11-19 15:47 | XMS_ITS | Clinical Summary ---
Author Organization [facility] [place] [address] Care Team Providers Care Dye Weigher Name Role Phone Edin Conner MD Primary Care Provider [phone] Allergies Active Allergy Reactions Criticality Noted Date [...] Chest pain. 90 tablet 12 03/30/2021 Active Additional Information Patient not taking.Reported on 11/12/2024 aspirin EC 81 mg Tablet, Delayed Release (E.C.) Take 81 mg by mouth daily. 04/04/2013 Active lamoTRIgine (LaMICtal) 25 mg Tablet Take 50 mg by mouth daily. 01/22/2021 Active lamoTRIgine (LaMICtal) 200 mg Tablet Take 200 mg by mouth daily. 01/10/2021 Active lisinopriL (Zestril) 10 mg Tablet Take 20 mg by mouth daily. 11/14/2022 Active rosuvastatin (Crestor) 40 mg Tablet Take 40 mg by mouth daily. 12/11/2022 Active Active Problems Problem Noted Date Diagnosed Date Malignant neoplasm of upper- outer quadrant of left breast in female, estrogen receptor positive 10/04/2024 Overview (10/04/2024): 09/18/24 bx [facility] ([facility]): ER+/WV+/HER2 negative left breast IDC, intermediate to high grade and DCIS, intermediate grade 10/03/24 second read imaging [facility] [place]: left breast 3.5 cm, 2:00, 7 FN; left axilla at least 2 abnormal ALNs. Recommended left axillary U/S and bx NSTEMI (non-ST elevated myocardial infarction) 0 03/28/2021 Encounters Date Type Department Care Team Description 11/15/2024 Telephone Hematology and Oncology at [place] [phone] Michelet Aponte RN 11/14/2024 Multidisciplinary Ca re Committee Hematology and Oncology at [place] [phone] Emma Ramirez MD 11/12/2024 3:00 PM EST Office Visit Hematology and Oncology at [place] [phone] Kayla Mcmanus MD Malignant neoplasm of upper-outer quadrant of left breast in female, estrogen receptor positive (Primary Dx) 11/12/2024 Patient Outreach Hematology and Oncology at [place] [phone] Michelet Aponte RN 11/11/2024 Travel 11/09/2024 1:26 PM EST - 11/09/2024 11:59 PM EST Hospital Encounter [place] [address] Mariajose Albarran MD Discharge Disposition: Home 11/09/2024 12:05 PM EST Laboratory Appointment Lab [address] [place] [address] 11/09/2024 10:28 AM EST - 11/09/2024 1:25 PM EST Hospital Encounter CT Scan at [place] [phone] Mariajose Albarran MD Malignant neoplasm of left breast in female, estrogen receptor positive, unspecified site of breast Discharge Disposition: Home 11/09/2024 10:07 AM EST - 11/09/2024 10:27 AM EST Hospital Encounter Nuclear Medicine at [place] [phone] Mariajose Albarran MD Malignant neoplasm of left breast in female, estrogen receptor positive, unspecified site of breast Discharge Disposition: Home 11/09/2024 Travel 11/06/2024 3:15 PM EST [place] [address] Naif gN MD Malignant neoplasm of upper-outer quadrant of left breast in female, estrogen receptor positive 11/06/2024 Travel 11/01/2024 4:00 PM EST Laboratory Appointment Lab [address] [place] [address] Malignant neoplasm of left breast in female, estrogen receptor positive, unspecified site of breast 11/01/2024 3:00 PM EST Office Visit Hematology and Oncology at [place] [phone] Mariajose Albarran MD Malignant neoplasm of upper-outer quadrant of left breast in female, estrogen receptor positive 11/01/2024 Patient Outreach Hematology and Oncology at [place] [phone] Virginie Tenorio RN 11/01/2024 Travel 10/30/2024 Orders Only General Surgery at [place] [phone] Mariajose Albarran MD Malignant neoplasm of left breast in female, estrogen receptor positive, unspecified site of breast (Primary Dx) 10/25/2024 Telephone Mammography at [place] [phone] Luana Robbins RN 10/22/2024 10:14 AM EST - 10/22/2024 11:59 PM EST Hospital [place] [address] Mariajose Albarran MD Malignant neoplasm of left breast in female, estrogen receptor positive, unspecified site of breast Discharge Disposition: Home 10/22/2024 Travel 10/18/2024 Travel 10/05/2024 [place] [address] Mariajose Albarran MD 10/04/2024 Patient Outreach Hematology [place] [phone] Virginie Tenorio RN 10/04/2024 [place] [address] Luana Robbins RN 10/04/2024 Orders [place] [address] Mariajose Albarran MD Malignant neoplasm of left breast in female, estrogen receptor positive, unspecified site of breast (Primary Dx); Axillary adenopathy 10/03/2024 12:10 PM EST Ancillary Procedure Radiology Library at [facility] [place] [address] Mariajose Albarran MD Malignant neoplasm of left breast in female, estrogen receptor positive, unspecified site of breast 10/03/2024 Orders [place] [address] Mariajose Albarran MD Malignant neoplasm of left breast in female, estrogen receptor positive, unspecified site of breast (Primary Dx) 10/03/2024 Notes Only Hematology [place] [address] Sharona Oliver 10/03/2024 Telephone Hematology [place] [address] Sharona Oliver 10/03/2024 Telephone Hematology and Oncology at [facility] [place] [address] Sharona Oliver 09/14/2024 12:05 AM EST Ancillary Procedure Radiology Library [place] [address] Edin Conner MD 09/14/2024 Ancillary Procedure Radiology Library [place] [address] Edin Conner MD from Last 3 Months Immunizations Name Administration Dates Next Due Td Adult (not absorbed) 11/29/2006 Family History Medical History Relation Comments Cerebrovascular Accident Brother 1 Diabetes Brother 1 Myocardial Infarction Brother 2 PA in 50-6 0s Prostate Cancer Father Cerebrovascular Accident Maternal Grandmother Cerebrovascular Accident Mother Breast Cancer Sister alive in 2023 at age 81 Cerebrovascular Accident Sister Hereditary Breast and Ovaria n Cancer Syndrome Sister BRCA2 carrier Ovarian Cancer Sister had full hystere ctomy Uterine Cancer Sister Hereditary Breast and Ovaria n Cancer Syndrome Son BRCA2 carrier Heart Disease Neg Hx Relation Status Comments Brother 1 Brother 2 Father Maternal Grandmother Mother Sister Alive Son Alive Social History Tobacco Use Types Packs/Day Years [...] or pharmacy? Patient declines to respond 11/11/2024 [facility] Utilities Answer Date Recorded In the past 12 months has [employer], [employer], oil, or water [employer] threatened to shut off services in your [...] any time in the past 12 m onths, were you homeless or living in a custodial (including now)? Patient declined 11/11/2024 Sex and Gender Information Value Date Recorded Sex Assigned at Not on file Gender Identity Not on file Sexual Orientation Not on file Last Filed Vital Signs Vital Sign Reading Time Taken Comments Blood Pressure 138/77 11/12/2024 2:47 PM EST Pulse 67 11/12/2024 2:47 PM EST Temperature 36.6 ??C (97.9 ??F) 11/12/2024 2:47 PM ES T Respiratory Rate 18 11/12/2024 2:47 PM EST Oxygen Saturation 98% 11/12/2024 2:47 PM EST Inhaled Oxygen Concentration - - Weight 82.6 kg (182 lb 1.6 oz) 11/12/2024 2:47 P M EST Height 160 cm (5' 2.99) 11/12/2024 2:47 PM EST Body Mass Index 32.27 11/12/2024 2:47 PM EST Plan of Treatment Upcoming Encounters Date Type Department Care Team (Late st Contact Info) Description 11/22/2024 7:00 AM EST Hospital Encounter [place] [address] Kayla Mcmanus MD [facility] [place] [address] 11/22/2024 8:00 AM EST Appointment [place] [address] Kayla Mcmanus MD [facility] [place] [address] 11/26/2024 12:00 PM EST Office [place] [address] Mariajose Albarran MD [facility] [place] [address] 11/01/2089 Hospital Encounter Main Operating Room [place] [phone] Naif Ng MD [facility] [place] [address] Scheduled Procedures Name Priority Associated Diagnoses Date/Ti me REDUCTION MAMMOPLASTY, KRYSTAL ( WRVU 16.03) Malignant neoplasm of upper-outer quadrant of left breast in female, estrogen receptor positive Health Maintenance Due Date Last Done Comments CT Colonography 1949 Colonoscopy 1949 Colorectal Cancer Screening 1949 FIT DNA 1949 FIT 1949 Sigmoidoscopy (10 year) with FIT yearly 1949 Sigmoidoscopy 1949 Hepatitis C Screening 1967 Pneumoccocal Vaccine: 50+ (1 of 2 - PCV) 1968 Zoster vaccine (1 of 2) 1999 Tetanus/Diphtheria/Pertussis Vaccines (1 - Tdap) 11/3011/29/2006 Bone Density Scan 2014 Covid-19 Vaccine (1 - 2023- season) 2024 Influenza (Flu) vaccine (1 o f 1 - Influenza standard series) 07/01/2024 RSV Vaccine (1 - 1-dose 75+ series) 2024 Medical Devices Implanted Type Area Stage Producer Device Identifier Shelf Expiration Date Model / Serial / Lot Breast Clip-10/22/20 Implanted:Qty : 1 on 10/22/2024 by Gabby Noonan MD Breast Clip Left: Axilla BARD - JERRY [employer] / [id number] / [id number] Description:TWIRL Breast Clip-10/22/20 Implanted:Qty : 1 on 10/22/2024 by Gabby Noonan MD Breast Clip Left: Breast BARD - JERRY ULTRACOR TWIRL MARKER / [id number] / [id number] Description:TWIRL Procedures Procedure Name Priority Date/Time Associated Diagnosis Comments NM BONE SCAN WHOLE BODY Routine 11/09/2024 2:02 PM EST Malignant neoplasm of left breast in female, estrogen receptor positive, unspecified site of breast CT CHEST ABDOMEN PELVIS W CONTRAST (GENERIC) Routine 11/09/2024 12:45 PM EST Malignant neoplasm of left breast in female, estrogen receptor positive, unspecified site of breast CREATININE, POC Routine 11/09/2024 12:26 PM EST COMPREHENSIVE METABOLIC PANEL Routine 11/01/2024 4:30 PM EST Malignant neoplasm of left breast in female, estrogen receptor positive, unspecified site of breast CBC (WITH DIFF) Routine 11/01/2024 4:30 PM EST Malignant neoplasm of left breast in female, estrogen receptor positive, unspecified site of breast MAMMO US BIOPSY LYMPH NODE LEFT Routine 10/22/2024 11:38 AM EST Malignant neoplasm of left breast in female, estrogen receptor positive, unspecified site of breast SURGICAL PATHOLOGY Routine 10/22/2024 11 :35 AM EST Malignant neoplasm of left breast in female, estrogen receptor positive, unspecified site of breast REQUEST FOR 2ND READ MAMMO Routine 10/03/2024 12:07 PM EST Malignant neoplasm of left breast in female, estrogen receptor positive, unspecified site of breast CONSULTATION Routine 09/18/2024 2:50 PM EST FILM LIBRARY STORAGE ONLY MAMMO Routine 09/14/2024 12:05 AM EST FILM LIBRARY-STORAGE ONLY US BREAST Routine 09/14/2024 12:00 AM EST from Last 3 Months Results * NM Bone Scan Whole Body (11/09/2024 2:02 PM EST) WORKSTATION ID [id number] RAD Anatomical Region Laterality Modality Nuclear Medicine Impressions 11/09/2024 2:22 PM EST No skeletal metastasis. Thank you for letting us participate in the care of this patient. ??If you are a health care provider and have any questions regarding this report, please contact the number below. ??For patients who have questions please contact the health pharmacy customer care specialist that requested your imaging first. ? Narrative [...] patients who have questions please contactthe health pharmacy customer care specialist that requested your imaging first. Mariajose Albarran MD [facility] ORDERABLES * CT Chest Abdomen Pelvis w Contrast (Generic) (11/09/2024 12:45 PM EST) WORKSTATION ID [id number] RAD Anatomical Region Laterality Modality Abdomen, Pelvis [...] who have questions please contact the health pharmacy customer care specialist that requested your imaging first. ? Narrative [...] patients who have questions please contactthe health pharmacy customer care specialist that requested your imaging first. Mariajose Albarran MD G CT ORDERABLES * (ABNORMAL) Creatinine, POC (11/09/2024 12:26 PM EST) Creatinine, POC 1.40(H) 0.70 - 1.20 mg/dL 11/09/2024 12:28 PM EST [facility] Est Glomerular Filtration Rate - Female - POC 39 mL/min/1.7 3 m?? 11/09/2024 12:28 PM EST [facility] Blood VENOUS BLOOD SPECIMEN / Unknown 11/09/2024 12:26 PM EST 11/09/2024 12:28 PM EST Mariajose Albarran MD POINT OF CARE KAMALJIT T ORDERABLES [facility] [place] [address] * CBC (with Diff) (11/01/2024 4:30 PM EST) White Blood Cell 6.36 4.00 - 9.50 x10(3)/mcL 11/01/2024 4:48 PM EST [facility] Red Blood Cell 4.68 4.00 - 5.21 x10(6)/mcL 11/01/2024 4:48 PM [facility] Hemoglobin 14.3 11.7 - 15.5 g/dL 11/01/2024 4:48 PM [facility] Hematocrit 43.1 35.7 - 45.8 % 11/01/2024 4:48 PM [facility] Mean Cell Volume 92.1 82.6 - 94.4 fL 11/01/2024 4:48 PM [facility] Mean Cell Hemoglobin 30.6 27.1 - 32.0 pg 11/01/2024 4:48 PM [facility] Mean Cell Hemoglobin Concentration 33.2 31.7 - 35.0 g/dL 11/01/2024 4:48 PM [facility] Platelet 238 145 - 357 x10(3)/mcL 11/01/2024 4:48 PM [facility] Mean Platelet Volume 9.6 7.6 - 12.9 fL 11/01/2024 4:48 PM [facility] RDW Standard Deviation 41.5 37.0 - 46.0 fL 11/01/2024 4:48 PM [facility] RDW coefficient of variation 12.3 11.5 - 14.1 % 11/01/2024 4:48 PM [facility] NRBC% auto 0.0 % 11/01/2024 4:48 PM [facility] NRBC Absolute <0.01 <0.01 x10(3)/mcL 11/01/2024 4:48 PM [facility] Neutrophil % 64.7 % 11/01/2024 4:48 PM [facility] Neutrophil Absolute (ANC) - Automated 4.11 1.70 - 6.10 x10(3)/mcL 11/01/2024 4:48 PM [facility] Lymph % 23.7 % 11/01/2024 4:48 PM [facility] Lymph Absolute 1.51 0.90 - 3.20 x10(3)/mcL 11/01/2024 4:48 PM [facility] Monocyte % 7.1 % 11/01/2024 4:48 PM [facility] Monocyte Absolute 0.45 0.30 - 0.90 x10(3)/mcL 11/01/2024 4:48 PM [facility] Eos % 3.6 % 11/01/2024 4:48 PM [facility] Eos Absolute 0.23 0.00 - 0.40 x10(3)/mcL 11/01/2024 4:48 PM [facility] Basophil % 0.6 % 11/01/2024 4:48 PM [facility] Baso Absolute 0.04 0.00 - 0.10 x10(3)/mcL 11/01/2024 4:48 PM [facility] Immature Gran % 0.3 % 4:48 PM [facility] Immature Gran Absolute <0.04 0.00 - 0.04 x10(3)/mcL 11/01/2024 4:48 PM [facility] Blood VENOUS BLOOD SPECIMEN / Unknown Venipuncture / Unknown 11/01/2024 4:30 PM EST 11/01/2024 4:43 PM EST Mariajose Albarran MD HEMATOLOGY ORDERA BLES [facility] [place] [address] * (ABNORMAL) Comprehensive metabolic panel (11/01/2024 4:30 PM EST) Glucose 106 65 - 199 mg/dL 11/01/2024 5:14 PM [facility] Comment:Glucose Concentratio n >=200 mg/dL plus symptoms is consistent with Diabetes Mellitus. Blood Urea Nitrogen 15 8 - 18 mg/dL 11/01/2024 5:14 PM [facility] Creatinine 1.33(H) 0.70 - 1.20 mg/dL 11/01/2024 5:14 PM [facility] Sodium 142 135 - 145 mMol/L 11/01/2024 5:14 PM [facility] Potassium 4.3 3.5 - 5.0 mMol/L 11/01/2024 5:14 PM [facility] Chloride 106 98 - 107 mMol/L 11/01/2024 5:14 PM [facility] Carbon Dioxide 26 22 - 31 mMol/L 11/01/2024 5:14 PM [facility] Anion Gap 10 5 - 15 mMol/L 11/01/2024 5:14 PM [facility] Calcium 9.7 8.5 - 10.5 mg/dL 11/01/2024 5:14 PM [facility] Protein, Total 7.3 6.1 - 8.0 g/dL 11/01/2024 5:14 PM [facility] Albumin 4.3 3.2 - 5.2 g/dL 11/01/2024 5:14 PM [facility] Aspartate Aminotransferase 26 <=30 unit/L 11/01/2024 5:14 PM [facility] Alanine Aminotransferase 25 0 - 30 unit/L 11/01/2024 5:14 PM [facility] Alkaline Phosphatase 91 35 - 105 unit/L 11/01/2024 5:14 PM [facility] Bilirubin, Total 0.4 <=1.3 mg/dL 11/01/2024 5:14 PM [facility] Est Glomerular Filtration Rate - Female 42 mL/min/1. 73 m?? 11/01/2024 5:14 PM EST [facility] Comment: This patient's estimated [...] Fasting Status No 11/01/2024 5:14 PM EST [facility] Blood VENOUS BLOOD SPECIMEN / Unknown Venipuncture / Unknown 11/01/2024 4:30 PM EST 11/01/2024 4:43 PM EST Mariajose Albarran MD CHEMISTRY ORDERAB LES [facility] [place] [address] * Mammo US Biopsy Lymph Node Left (10/22/2024 11:38 AM EST) WORKSTATION ID [id number] DH RAD Anatomical Region Laterality Modality Breast Left [...] who have questions please contact the health pharmacy customer care specialist that requested your imaging first. ? Electronically signed by: Gabby Noonan MD, [facility] ([phone]), at 10/25/2024 3:45 PM [facility] [address] [place] ??[address] Narrative 10/25/2024 3:45 PM EST EXAMINATION: MAMMO [...] radiographed. N/A Satisfactory sampling was obtained. A [employer] 14G marker clip and a twirl clip was placed. No postprocedural mammography COMPLICATIONS: None. PROCEDURAL ATTESTATION: Resident: I performed the procedure without a resident. PRE BIOPSY POTENTIAL IMAGING DIAGNOSIS(S): Metastatic node PATHOLOGIC DIAGNOSIS: Metastatic breast cancer Mariajose Albarran MD IMG MAMMO ORDERAB LES * (ABNORMAL) Surgical Pathology (10/22/2024 11:35 AM EST) Case Report Surgical Pathology Report ? Case: [id number] ? Authorizing Provider: ??Mariajose Albarran MD ?? Collected: ? 10/22/2024 1135 ? Ordering Location: ? Mammography at [facility] [place] ?Received: ?10/22/2024 1306 ? Pathologist: ? Valentina Lal DO ? Specimen: ?Breast, Left, LEFT AXILLA US BIOPSY ? 10/23/2024 12:14 PM [facility] Final Diagnosis A. Left axillary lymph node, core needle biopsy - Metastatic carcinoma showing mucinous features, compatible with breast primary, measuring up to 13 mm greatest core measure. (see Discussion.) 10/23/2024 12:14 PM [facility] Discussion The tumor is compatible with the recent core biopsy (Consult case) [id number]. 10/23/2024 12:14 PM [facility] Clinical Information A. Breast, Left, LEFT AXILLA US BIOPSY Enlarged lymph node Rule out malignancy Malignant neoplasm of left breast in female, estrogen receptor positive, unspecified site of breast [C50.912, Z17.0] 10/23/2024 12:14 PM [facility] Gross Description A. Breast, Left, LEFT AXILLA US BIOPSY. A - Labeled/Fixati ve: Left axilla US biopsy, formalin. Quantity/Size: Two, 1.3 x 0.2 and 1.5 x 0.2 cm Tissue Description: [place]-yellow fibrofatty needle core biopsies. Sections/Proce ssing: Entirely submitted in 1 cassette labeled A1. Ischemic time: 1 minute Total fixation time in formalin: 7 hours 24 minutes The ASCO/CAP guideline related to formalin fixation time has been met (6-72 hours). The ASCO/CAP guideline related to cold ischemic time has been met (<1 hour). ajw 10/23/2024 12:14 PM EST [facility] Result Note THIS RESULT REQUIRES PHYSICIAN/MARYA FOLLOW UP(A) 10/23/2024 12:14 PM EST [facility] Tissue LEFT BREAST STRUCTURE / Unknown 10/22/2024 11:35 AM EST 10/22/2024 1:06 PM EST Mariajose Albarran MD PATHOLOGY/CYTOLOG Y ORDERABLES [facility] [place] [address] * Request for 2nd read Mammo (10/03/2024 12:07 PM EST) WORKSTATION ID [id number] DH RAD Anatomical Region Laterality Modality [...] node recommended. * ??Given that ultrasound is supervisor transcribing operators dependent, a repeat left axillary ultrasound is recommended to determine the number of abnormal lymph nodes; this ultrasound can be performed immediately prior to the axillary node biopsy. Please note: The interpretation of the [facility] Breast Imaging Radiologist subspecialist may differ from the original radiologists interpretation. This is usually not due to a deficiency of the original interpreting radiologist, rather due to the greater skill level afforded by sub-specialization in the field and/or reasonable variations in interpretations. If you have a concern regarding the D-H interpretation you may contact the [facility] Breast Network Support Technician Office at . I have personally [...] who have questions please contact the health pharmacy customer care specialist that requested your imaging first. ? Narrative 10/04/2024 11:23 AM EST INTERPRETATION OF OUTSIDE BREAST IMAGING I have been asked to consult on this patient because a review of this study may change or alter the care of this patient. STUDIES FROM: [facility], [facility]. CLINICAL HISTORY: I believe a reinterpretation of this exam may alter care of Patient. Yes; What Modality is the exam? Mammography; Body Part (please add comments as necessary): Breast; Sending Institution [facility]; Date of exam [id number] DATES and TYPE OF EXAM: Diagnostic mammogram and ultrasound 09/14/2024 COMPARISONS: Prior mammograms dating back to 2008 BREAST DENSITY: There are scattered areas of [...] of this patient. STUDIES FROM: [facility], [facility]. CLINICAL HISTORY: I believe a reinterpretation of this exam may alter careof Patient. Yes; What Modality is the exam? Mammography; Body Part (pleaseadd comments as necessary): Breast; Sending Institution [facility]; Date of [id number] DATES and TYPE OF EXAM: Diagnostic mammogram [...] node recommended. * Given that ultrasound is supervisor transcribing operators dependent, a repeat left axillary ultrasound is recommended to determine the number of abnormal lymph nodes;this ultrasound can be performed immediately prior to the axillary nodebiopsy. Please note: The interpretation of the [facility] BreastImaging Radiologist subspecialist may differ from the original radiologists interpretation. This is usually not due to a deficiency of the original interpreting radiologist, rather due to the greater skill level affordedby sub-specialization in the field and/or reasonable variations ininterpretations. If you have a concern regarding the -H interpretation [facility] may [facility] at . I have personally reviewed the image(s) and the resident's interpretationand agree with the findings, Stephani Crouch MD at 10/04/2024 11:23 AM Thank you for letting us participate in the care of this patient. If youare a health care provider and have any questions regarding this report,please contact the number below. For patients who have questions please contactthe health pharmacy customer care specialist that requested your imaging first. Electronically signed by: Stephani Crouch MD, [facility] ([phone]), at 10/04/2024 11:23 AM Mariajose Albarran MD IMG OUTSIDE INTER PRETATION ORDERABLES * Consultation (09/18/2024 2:50 PM EST) Case Report Surgical Pathology Report ? Case: [id number] ? Authorizing Provider: ??Mariajose Albarran MD ?? Collected: ? 09/18/2024 1450 ? Ordering Location: ? Laboratory ? Received: ?10/05/2024 0739 ? Pathologist: ? Herbert Price MD ? Specimen: ?Breast, Left ? 10/08/2024 4:19 PM EST [facility] LABORATORY Final Diagnosis CONSULTATION CASE Left breast, core needle biopsy: - Invasive ductal carcinoma with focal mucinous features, high grade (modified SBR score = 8), measuring at least 12 mm. - Lymphovascular invasion is not identified. 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 ER, WV, and HER2 studies (reviewed): ER: Positive (>90%, strong) WV: Positive (5%, weak to moderate) HER2 IHC: Negative (score 0) 10/08/2024 4:19 PM EST [facility] Clinical Information Palpable mass. 10/08/2024 4:19 PM [facility] Gross Description CONSULTATION CASE A - 6 slide(s) labeled [id number], collection date 09/18/2024. Requesting institution: [facility] – [place] Requesting provider: Dr. Mariajose Albarran Outside Institution: [facility] Surgical Pathology Department [facility], [facility], [address]nd Floor [address] [place] [address] [facility] ([facility]) pathology slide(s) are reviewed. For the full text of the [facility] report(s) please refer to the Chart Review Media tab in the electronic health record (eDH). 10/08/2024 4:19 PM [facility] Result Note Routine 10/08/2024 4:19 PM [facility] Tissue LEFT BREAST STRUCTURE / Unknown 09/18/2024 2:50 PM EST 10/05/2024 7:39 AM EST Mariajose Albarran MD PATHOLOGY/CYTOLOG Y ORDERABLES Performing Organization Address [facility] Co de Phone Number [facility] [place] [address] * Film Library- Storage Only Mammo (09/14/2024 12:05 AM EST) Narrative [facility] [place] - 10/03/2024 11:18 AM EST This exam is auto-finalizing. It's purpose is for storage only. Edin Conner MD [facility] [place] FILM LIBRARY ORDERABLES Performing Organization Address City/[facility]/ZIP Co de Phone Number [place], [place] * Film Library Storage Only US Breast (09/14/2024 12:00 AM EST) Narrative [facility] [place] - 10/03/2024 11:17 AM EST This exam is auto-finalizing. It's purpose is for storage only. Edin Conner MD IMG FILM LIBRARY ORDERABLES DH [place], [place] from Last 3 Months Insurance Payer Benefit Plan / Group Subscriber ID Effective Dates Phone Address Type MEDICARE MEDICARE PART A & B [id number] 2014-Prese nt [address] [facility] [place] [phone] 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
--- OUTSIDE RECORDS SUMMARY | 2024-11-19 15:47 | XMS_ITS | Encounter Summary ---
[place] [address] Care Team Providers Care Human Performance Technologist Name Role Phone Edin Conner MD Primary Care Provider [phone] Encounter Details Date Type Department Care Team (Late st Contact Info) Description 10/25/2024 [place] [phone] Luana Robbins, RN Social History Tobacco Use [...] AM EST Hospital Encounter Nuclear Medicine at [place] [phone] Kayla Mcmanus MD [facility] [place] [address] 11/22/2024 8:00 AM EST Appointment [place] [phone] Kayla Mcmanus MD [facility] [place] [address] 11/26/2024 12:00 PM EST Office Visit General Surgery at [place] [phone] Mariajose Albarran MD [facility] [place] [address] 11/01/2089 Hospital Encounter Main Operating Room [place] [phone] Naif Ng MD [facility] [place] [address] Scheduled Procedures Name Priority Associated Diagnoses Date/Ti me REDUCTION MAMMOPLASTY, KRYSTAL ( WRVU 16.03) Malignant neoplasm of upper-outer quadrant of left breast in female, estrogen receptor positive documented as of this encounter Visit Diagnoses Not on filedocumented in this encounter Care Teams Human Performance Technologist Relationship Specialty Start Date End Date Edin Conner MD [address] [facility] [place] [address] PCP - General Family Medicine 02/28/21 documented as of this encounter
--- OUTSIDE RECORDS SUMMARY | 2024-11-19 15:47 | XMS_ITS | Encounter Summary ---
Author Organization [place] [address] Care Team Providers Care Stemmer Machine Name Role Phone Edin Conner MD Primary Care Provider [phone] Encounter Details Date Type Department Care Team (Latest Contact Info) Description 11/14/2024 Multidisciplinary Ca re Committee Hematology [place] [phone] Emma Ramirez MD [facility] [address] [place] [address] Social History Tobacco Use Types Packs/Day Years [...] or pharmacy? Patient declines to respond 11/11/2024 [facility] Utilities Answer Date Recorded In the past 12 months has e electric, gas, oil, or water company threatened to shut off services in your [...] any time in the past 12 m [facility], were you homeless or living in a retirement (including now)? Patient declined 11/11/2024 Sex and Gender Information Value Date Recorded Sex Assigned at Not on file Gender Identity Not on file Sexual Orientation Not on file documented as of this encounter Progress Notes * Emma Ramirez MD - 11/14/2024 11:45 AM EST Breast - Tumor Board Note Date Presented: 11/14/2024 Presenting Physician: [place] Diagnosis/Tumor Site: Is this Metastatic Disease: No Synopsis of History/HPI: 74 yo with hx breast cancer 2016 , BRCA2+ Now with new left breast cancer , 3.5 cm, er/pr + her2 neg, 6/7 LN + Staging studies with inconclusive results. Imaging: CT shows hypodensities in liver dome, could be fatty infiltration vs mets. Several small 5-8 mm RLL lung nodules, too small for biopsy Pathology/Histology: not reviewed Stage: T2N1Mx Clinical Data (Exams, Labs, etc.): Molecular Pathology Results: Clinical Trial Availability: If ER+ metastatic disease, but no first line trials. Options Discussed: imaging to clarify liver and lung lesions, vs observe on first line therapy Recommendations: Additional testing to include: Liver MRI and PET scan DISCLAIMER: The patient was discussed and the tumor board made recommendations but it is ultimatelyup to the treatment provider(s) and the patient to determine the patient???s care. documented in this encounter Plan of Treatment Upcoming Encounters Date Type Department Care Team (Late st Contact Info) Description 11/22/2024 7:00 AM EST Hospital Encounter [place] [phone] Kayla Mcmanus MD [facility] [place] [address] 11/22/2024 8:00 AM EST Appointment [place] [phone] Kayla Mcmanus MD [facility] [address] 11/26/2024 12:00 PM EST Office Visit [place] [phone] Mariajose Albarran MD [facility] [address] 11/01/2089 Hospital Encounter Main [place] [phone] Naif Ng MD [facility] [place] [address] Scheduled Procedures Name Priority Associated Diagnoses Date/Ti me REDUCTION MAMMOPLASTY, KRYSTAL ( WRVU 16.03) Malignant neoplasm of upper-outer quadrant of left breast in female, estrogen receptor positive documented as of this encounter Visit Diagnoses Not on filedocumented in this encounter Care Teams Stemmer Machine Relationship Specialty Start Date End Date Edin Conner MD [address] [place] [address] PCP - General Family Medicine 02/28/21 documented as of this encounter
--- OUTSIDE RECORDS SUMMARY | 2024-11-19 15:47 | XMS_ITS | Encounter Summary ---
[place] [address] Care Team Providers Care Bracelet Maker Novelty Name Role Phone Edin Conner MD Primary Care Provider [phone] Encounter Details Date Type Department Care Team (Late st Contact Info) Description 11/09/2024 12:05 PM EST Laboratory Appointment Lab [address] [place] [address] Social History Tobacco Use Types Packs/Day Years [...] or pharmacy? Patient declines to respond 11/11/2024 [facility] Utilities Answer Date Recorded In the past 12 months has [employer], gas, oil, or water [employer] threatened to shut off services in your home? Patient declined 11/11/2024 Overall Financial Resource Strain (CARDIA) [place] r [...] any time in the past 12 m [facility], were you homeless or living in a halfway (including now)? Patient declined 11/11/2024 Sex and Gender Information Value Date Recorded Sex Assigned at Not on file Gender Identity Not on file Sexual Orientation Not on file documented as of this encounter Plan of Treatment Upcoming Encounters Date Type Department Care Team (Late st Contact Info) Description 11/22/2024 7:00 AM EST Hospital Encounter [place] [address] Kayla Mcmanus MD [facility] [place] [address] 11/22/2024 8:00 AM EST Appointment [place] [phone] Kayla Mcmanus MD [facility] [place] [address] 11/26/2024 12:00 PM EST Office [place] [phone] Mariajose Albarran MD [facility] [place] [address] 11/01/2089 Hospital Encounter [place] [phone] Naif Ng MD [facility] [place] [address] Scheduled Procedures Name Priority Associated Diagnoses Date/Ti me REDUCTION MAMMOPLASTY, KRYSTAL ( WRVU 16.03) Malignant neoplasm of upper-outer quadrant of left breast in female, estrogen receptor positive documented as of this encounter Visit Diagnoses Not on filedocumented in this encounter Care Teams Bracelet Maker Novelty Relationship Specialty Start Date End Date Edin Conner MD [address] [place] [address] PCP - General Family Medicine 02/28/21 documented as of this encounter
--- OUTSIDE RECORDS SUMMARY | 2024-11-19 15:47 | XMS_ITS | Encounter Summary ---
[place] [address] Care Team Providers Care Advertising Account Representative Name Role Phone Edin Conner MD Primary Care Provider [phone] Encounter Details Date Type Department Care Team (Late st Contact Info) Description 10/03/2024 Telephone [place]ology [place] [phone] Sharona Oliver Social History Tobacco [...] Telephone Encounter - Sharona Oliver - 10/03/2024 9:57 AM EST Patient Info: Dorene Duque 1950 Attn: Pathology Department [facility] From: [facility] Breast Program [phone] [x]Urgent [] For Review [] Please Reply []Please Recycle Please send the following materials ONLY (this may likely require review by an on-site pathologist at your institution to select appropriate slides): All breast cancer related pathology reports including any original HER2 FISH, OncotypeDX and other outside consultation reports. Diagnostic H&E slide(s) of tumor sufficient to confirm breast tumor type, grade, size, and to confirm presence of metastatic disease in lymph nodes if present. Send a scheduling representative slide for each separate focus of tumor if multiple tumors present. Please include unstained slides and blocks NOTE: All slides do not need to be sent. Immunohistochemistry stained slides of prognostic markers (ER, UT and HER2) performed on tumor(s) if available. If patient has metastatic disease (i.e. bone, lung, liver) that has been biopsied, send diagnostic H&E slide(s) of metastatic disease with immunohistochemistry if performed. Fed-Ex # [id number] to send overnight Mail to: Dr. Sirisha Holguin Department of Pathology [facility] Attn: Anatomic Pathology, [place] [address] If questions please call [phone] Notice of Confidentiality: The documents accompanying this FAX transmission cover contain information from [facility] that is confidential and privileged. The information [...] of the documents at no cost to you documented in this encounter Plan of Treatment Upcoming Encounters Date Type Department Care Team (Late st Contact Info) Description 11/22/2024 7:00 AM EST Hospital Encounter Nuclear Medicine at [place] [phone] Kayla Mcmanus MD [facility] [place] [address] 11/22/2024 8:00 AM EST Appointment Nuclear Medicine at [place] [phone] Kayla Mcmanus MD [facility] [place] [address] 11/26/2024 12:00 PM EST Office [place] [phone] Mariajose Albarran MD [facility] [place] [address] 11/01/2089 Hospital Encounter Main Operating Room [place] [phone] Naif Ng MD [facility] [place] [address] Scheduled Procedures Name Priority Associated Diagnoses Date/Ti me REDUCTION MAMMOPLASTY, KRYSTAL ( WRVU 16.03) Malignant neoplasm of upper-outer quadrant of left breast in female, estrogen receptor positive documented as of this encounter Visit Diagnoses Not on filedocumented in this encounter Care Teams Advertising Account Representative Relationship Specialty Start Date End Date Edin Conner MD [address] [place] [address] [address] [place] [address] PCP - General Family Medicine 02/28/21 documented as of this encounter
--- OUTSIDE RECORDS SUMMARY | 2024-11-19 15:47 | XMS_ITS | Encounter Summary ---
Author Organization [place] [address] Care Team Providers Care Income Tax Adjuster Name Role Phone Edin Conner MD Primary Care Provider [phone] Reason for Referral * Diagnostic Test (Routine) - Authorized Specialty Diagnoses / Procedures Referred By Contstiven t Referred To Contact Radiology Diagnoses Malignant neoplasm of upper-outer quadrant of left breast in female, estrogen receptor positive Procedures NM PET CT Skull Base to Mid-thigh Kayla Mcmanus MD [facility] [place] [address] [place] [address] Referral ID Status Reason Start Date Expiration Date Visits Requested Visits Authorized [id number] Authorized Specialty Service Requested 11/14/2024 05/14/2026 1 1 Reason for Visit * Reason Comments Advice Only * Consultation (Routine) - Closed Specialty Diagnoses / Procedures Referred By Contstiven t Referred To Contact Medical Oncology / Hematology and Oncology Diagnoses Breast cancer Procedures NEW PATIENT Edin Conner MD [address] [place] [address] Kayla Mcmanus MD [facility] [place] [address] Referral ID Status Reason Start Date Expiration Date Visits Re quested Visits Authorized [id number] Closed 11/12/2024 11/12/2025 1 1 Encounter Details Date Type Department Care Team (Late st Contact Info) Description 11/12/2024 3:00 PM EST Office Visit Hematology [place] [address] Kayla Mcmanus MD [facility] [place] [address] Malignant neoplasm of upper-outer quadrant of left breast in female, estrogen receptor positive (Primary Dx) Social History Tobacco Use Types [...] or pharmacy? Patient declines to respond 11/11/2024 [facility] Utilities Answer Date Recorded In the past 12 months has th e electric, gas, oil, or water [employer] threatened to shut off services in your [...] any time in the past 12 m [facility], were you homeless or living in a usp (including now)? Patient declined 11/11/2024 Sex and [...] Mass Index 32.27 11/12/2024 2:47 PM EST documented in this encounter Progress Notes * Kayla Mcmanus MD - 11/12/2024 3:00 PM EST Images from the original note were not included. [facility] Patient ID: Dorene Duque is a 74 y.o. female referred by Edin Conner for consultation regarding breast cancer CC: breast cancer DIAGNOSIS: cT2, N2 MX left breast cancer, clinical stage III at least PATH: ER over 90% positive, NV 5% weak to moderate positive HER2 unamplified, grade 3 CURRENT TX: TBD HPI and ONCOLOGIC HX: Dorene Duque is a 74 y.o. female with a past medical history of CVA in 2006 and NSTEMI in 2020 who is currently on aspirin. She is diagnosed with a breast cancer. Patient palpated a lump in her left breast in July 2024. 09/14/2024: Left diagnostic mammogram showing 3.5 cm spiculated mass with associated architectural distortion in the left upper outer breast at middle depth along with 3 enlarged lymph nodes. Right breast showing no suspicious finding. Same-day diagnostic ultrasound showing 3.3 x 2.2 cm mass at the 1 o'clock position 7 cm from the nipple along with at least 2 abnormal axillary lymph nodes. 09/18/2024: Core needle biopsy under ultrasound guidance showing invasive adenocarcinoma with focalmucinous features high-grade with ER over 90% strongly positive, NV 5% weak to moderate intensity and HER2 unamplified. 10/22/2024: Right axillary ultrasound at [facility] showing 6-7 abnormal lymph nodes, the largest ofwhich was 3.3 cm. Ultrasound-guided biopsy with pathology showing metastatic carcinoma compatible with breast primary. 11/09/2024: Bone scan did not show any evidence of skeletal metastasis. 11/09/2024: CT chest abdomen pelvis showing left breast mass, left axillary and subpectoral lymphadenopathy, small nodules in the right middle lobe are indeterminate with maximum diameter of 0.8 cm. Left hepatic lobe lesion near the falciform ligament, common site for focal steatosis. Metastatic disease not excluded. Bladder cystocele was noted as well. Risk Factors: history: A0. One child after 27 hours. 2 girls and 2 boys Age at delivery of first child: 16 OCP use: Yes Age at menarche: 11 Age at menopause: Hysterectomy when she was 49 . She had cystocele. Also had oophorectomy. HRT use: No Family history: Sister and brother's daughter's have breast cancer. Son had rectal cancer. Brother had pancreatic cancer. Another brother had some cancer that she knows of. Dad has prostate cancer. Sister had full genetic testing and she had BRCA2 gene. She is positive with BRCA2 positive as well. Prior breast biopsies: No Interval History: Dorene is here for initial consultation. She is accompanied by her . She felt a lump in her left breast in July 2024. She was leaning forward and changing her bra. She did not have any pain,any nipple changes or nipple discharge. She is feeling fine and has not noticed any changes in her general health. She is always tired at baseline. She denies any weight loss. No abdominal pain. No back pain. She was somewhat sore at the biopsy site. She does not have any history of diarrhea or constipation. He does have a history of hemorrhoids. She denies any fever or chills. She is taking multivitamins. She does not take any calcium. Review of Systems Eyes: Negative. Cardiovascular: Negative. Endocrine: Negative. Musculoskeletal: Negative. Skin: Negative. Neurological: Negative. Hematological: Negative. Psychiatric/Behavioral: Negative. All other systems reviewed and are negative. PAST MEDICAL HISTORY: Past Medical History: Diagnosis Date BRCA gene mutation positive CVA (cerebral vascular accident) 2005 HLD (hyperlipidemia) HTN (hypertension) NSTEMI (non-ST elevated myocardial infarction) Seizure Past Surgical History: Procedure Laterality Date HYSTERECTOMY 2000 MAMMO US BIOPSY LYMPH NODE LEFT Left 10/22/2024 Mammo US Biopsy Lymph Node Left 10/22/2024 Gabby Noonan MD [facility] RAD MAMMOGRAPHY Patient Active Problem List Diagnosis Code NSTEMI (non-ST elevated myocardial infarction) I21.4 Malignant neoplasm of upper-outer quadrant of left breast in female, estrogen receptor positive C50.412, Z17.0 MEDICATIONS: Current Outpatient Medications: lisinopriL (Zestril) 10 mg Tablet, Take 20 mg by mouth daily., Disp: , Rfl: [...] Chest pain., Disp: 90 tablet, Rfl: 12 ALLERGIES: Allergies Allergen Reactions Latex Rash Atorvastatin Other (See Comments) Elevated LFT's Amoxicillin Trihydrate Rash Gloves, Latex CIS - Localized Reaction Latex Dams CIS - Localized Reaction SOCIAL HISTORY: Social History Socioeconomic History Marital status: Spouse [...] file Social History Narrative Currently lives in [place], [place] with her . Able to perform [...] on file Housing Stability: Not on file FAMILY HISTORY: Family History Problem Relation Age of Onset Cerebrovascular Accident Mother Prostate Cancer Father Cerebrovascular Accident Sister Breast Cancer Sister alive in 2023 at age 81 Ovarian Cancer Sister had full hysterectomy Uterine Cancer Sister Hereditary Breast and Ovarian Cancer Syndrome Sister BRCA2 carrier Cerebrovascular Accident Brother Diabetes Brother Myocardial Infarction Brother DC in 50-60s Cerebrovascular Accident Maternal Grandmother Hereditary Breast and Ovarian Cancer Syndrome Son BRCA2 carrier Heart Disease Neg Hx She smoked rarely. She stopped in 2005. Social drinking Objective: Physical Exam No data found. There is no height or weight on file to calculate BSA. Wt Readings from Last 3 Encounters: 11/06/24 83.9 kg (185 lb) 11/01/24 84 kg (185 lb 3.2 oz) 04/10/21 80.3 kg (177 lb) ECOG PS: 0 Constitutional: She is oriented to person, place, and time. She appears well- developed and well-nourished. No distress. HENT: Nose: Nose normal. Mouth/Throat: Oropharynx is clear and moist. Eyes: Conjunctivae are normal. Pupils are equal, round, and reactive to light. No scleral icterus. Neck: Neck supple. No thyromegaly present. Cardiovascular: Normal rate, regular rhythm and intact distal pulses. No murmur heard. Pulmonary/Chest: Effort normal and breath sounds normal. She has no wheezes. Right breast exhibits no inverted nipple, no mass, no nipple discharge and no skin change. Left breast exhibits approximately 4 to 4 cm mass in the upper outer quadrant nontender with palpable axillary lymphadenopathy. No change in the nipple or nipple discharge. Abdominal: Soft. Bowel sounds are normal. She exhibits no distension. There is no tenderness. Thereis no guarding. Musculoskeletal: Normal range of motion. She exhibits no edema or tenderness. Lymphadenopathy: She has no cervical adenopathy. Neurological: She is alert and oriented to person, place, and time. No cranial nerve deficit. Skin: Skin is warm and dry. No rash noted. No erythema. Psychiatric: She has a normal mood and affect. Her behavior is normal. LABORATORY TESTS: No results found for this or any previous visit (from the past 24 hour(s)). Last wbc, hgb, hct plt No results for input(s): WBC, HGB, HCT in the last 72 hours. Invalid input(s): PLATELETT Last 3 wbc, hgb, hct plt Recent Labs 11/01/24 1630 WBC 6.36 HGB 14.3 HCT 43.1 PLATELET 238 Last 3 Lytes Recent Labs 11/01/24 1630 NA 142 K 4.3 CL 106 CO2 26 BUN 15 CREATININE 1.33* Last 3 LFTs Recent Labs 11/01/24 1630 AST 26 ALT 25 ALKPHOS 91 BILITOT 0.4 Last Ca, Mg, Phos No results for input(s): CALCIUM, PHOS, MAGNESIUM in the last 168 hours. Last 3 Coags No results for input(s): PT, INR, PTT in the last 168 hours. Last 3 ProBNP, Trop, CK No results for input(s): CK, TROPONINT, PROBNP in the last 168 hours. Last 3 TFT No results for input(s): TSH in the last 7068 hours. Invalid input(s): T4, FT4 Last 3 Lipids No results for input(s): CHLPL, HDL, LDLCHOL, LDLDIRECT, TRIG in the last 7068 hours. Last 3 HgbA1C No results for input(s): HA1C in the last 7068 hours. Last CRP, SEDRATENo results for input(s): CRP, SEDRATE in the last 7068 hours. Last 3 CBC Recent Labs 11/01/24 1630 WBC 6.36 IMAGING: I personally reviewed the images as reported above. Assessment and Plan: Dorene Duque is a 74 y.o. female with a past medical history of CVA in 2005 and NSTEMI in 2020 who is currently on aspirin. She is diagnosed with a breast cancer. #1 Breast cancer --stage III versus stage IV high-grade left breast cancer ER/NV positive and HER2 unamplified. NV is weakly positive. She has seen Dr. Albarran for surgical sedation. Due to aggressive disease, multiple lymph node involvement neoadjuvant chemotherapy is being considered. I reviewedher pathology with her. Reviewed the significance of ER/NV status, significance of the wisam statusand its impact on her treatment. I discussed with her and concur with that due to significantly pronounced I reviewed disease, she qualifies for axillary wisam dissection and neoadjuvant chemotherapy would increase her chances to avoid axillary dissection in case of additional pathological response from neoadjuvant chemotherapy. I also reviewed the role of radiation therapy and systemic therapy. I then reviewed the data chemotherapy with her. One standard systemic chemotherapy for a node-positive patient would be four cycles of adriamycin and cyclophosphamide followed by four cycles of paclitaxel. The adriamycin and cyclophosphamide are given IV over two hours every two weeks for a total of four cycles. The side effects of AC include near-complete scalp alopecia, nausea, vomiting, mouth sores, diarrhea, a fall in the blood counts, which might predispose her to developing a fever or an infection, a 1% risk of heart muscle injury, and a 0.2% risk of developing preleukemia or leukemia. Paclitaxel is given IV over four hours every two weeks for a total of four treatments. Paclitaxel isassociated with a small risk of allergic reactions consisting of flushing, shortness of breath or rashes. She may also develop minor nausea, a fall in the blood counts, which might predispose her to developing a fever or an infection, aches and pains in the legs, worsening of the chronic numbness and tingling in her feet and in her hands, and continuing hair loss. I discussed other poorly-definedlong term toxicities of chemotherapy, which may include fatigue, arthralgias, and cognitive dysfunction. CALGB 9741 found a 26% relative reduction (and a 7% absolute reduction) in the risk of recurrence at four years of followup following treatment with AC- paclitaxel on an every two week dose dense schedule rather than an every three week schedule. There was no additional CHF, leukemia, or febrile neutropenia seen with the every two week schedule. She would need injections of Neulasta given the day following chemotherapy if she were to receive the dose dense regimen. The Neulasta may cause skeletal pain for 24 hours after each injection. I also reviewed S2206 trial with her in the neoadjuvant setting that incorporate Durvalumab that isassociated with improvement in PCR for up to 50 to 60% based on early phase trials. I also reviewed with her that she would be a candidate for adjuvant endocrine therapy such as letrozole as well as CDK 4 6 inhibitor such as abemaciclib. She is very reluctant to receive chemotherapy. I provided her information about the chemotherapy and consent form for S2206. She will think about it and will get back to me if she would be interestedin proceeding with neoadjuvant chemotherapy. Her staging scan did show a lesion in her liver and lung that to me looks nonspecific however due to her aggressive disease we will rule out metastasis by doing the PET scan. If PET scan is negative,we could consider MRI of the abdomen to better evaluate the liver lesion. She does have a history of CVA back in 2005 that NSTEMI requiring 2 stents in 2020. However she is medically optimized and have no active cardiac symptoms. If she decides to proceed with chemotherapy, I will dose reduce her but I think due to aggressive nature of her disease, she would qualify for anthracycline based therapy as her echocardiogram is unremarkable. #2 Chemotherapy/Clinical trial --TBD. Patient likely opting for no chemotherapy #3 Fatigue --none #4 Menopausal symptoms --none #5 Bone health --she will need baseline bone density scan #6 Medication management --TBD #7 Genetics-- BRCA2 positive. Will send her to genetic counselor for further discussion. Potential Clinical Trials: S2206 trial candidate however she may not offer chemotherapy. Plan Summary and Follow up: -Patient informed me about her decision to proceed with neoadjuvant chemotherapy - PET scan to evaluate liver and lung lesion. If PET scan is negative, will consider MRI of the abdomen - Consent form for S2206 was provided - Information about chemotherapy and letrozole was provided - Referral for genetic counseling - Patient case was discussed in tumor board and they agree with the plan - RTC to be determined. If no chemotherapy, I will see her 2 to 3 weeks after surgery. 95 minutes were spent on date of visit, including non-face to face time. Emerald Mcmanus MD, MS [facility] lead Medical Oncology, Comprehensive Breast Oncology Program Page # [phone] 11/10/24, 11:00 PM documented in this encounter Plan of Treatment Upcoming Encounters Date Type Department Care Team (Late st Contact Info) Description 11/22/2024 7:00 AM EST Hospital Encounter [place] [address] Kayla Mcmanus MD [facility] [place] [address] 11/22/2024 8:00 AM EST Appointment [place] [address] Kayal Mcmanus MD [facility] [place] [address] 11/26/2024 12:00 PM EST Office [place] [phone] Mariajose Albarran MD [facility] [place] [address] 11/01/2089 Hospital Encounter [place] [address] Naif Ng MD [facility] [place] [address] Scheduled Orders Name Type Priority Associated Diagnoses Orde r Schedule NM PET CT Skull Base to Mid-thigh Imaging Routine Malignant neoplasm of upper-outer quadrant of left breast in female, estrogen receptor positive Expected: 11/21/2024 (Approximate), Expires: 05/23/2025 Scheduled Procedures Name Priority Associated Diagnoses Date/Ti me REDUCTION MAMMOPLASTY, KRYSTAL ( WRVU 16.03) Malignant neoplasm of upper-outer quadrant of left breast in female, estrogen receptor positive documented as of this encounter Visit Diagnoses Diagnosis Malignant neoplasm of upper-outer quadrant of left breast in female, estrogen receptor positive- Primary documented in this encounter Care Teams Income Tax Adjuster Relationship Specialty Start Date End Date Edin Conner MD [address] [facility] [address] [place] [address] PCP - General Family Medicine 02/28/21 documented as of this encounter
--- OUTSIDE RECORDS SUMMARY | 2024-11-19 15:47 | XMS_ITS | Encounter Summary ---
[place] [address] Care Team Providers Care Ship Rigger Name Role Phone Edin Conner MD Primary Care Provider [phone] Encounter Details Date Type Department Care Team (Late st Contact Info) Description 11/15/2024 Telephone Hematology [place] [address] Michelet Aponte RN Social History [...] or pharmacy? Patient declines to respond 11/11/2024 [facility] Utilities Answer Date Recorded In the past 12 months has e [employer], gas, oil, or water [employer] threatened to shut off services in your [...] any time in the past 12 m [facility], were you homeless or living in a halfway (including now)? Patient declined 11/11/2024 Sex and Gender Information Value Date Recorded Sex Assigned at Not on file Gender Identity Not on file Sexual Orientation Not on file documented as of this encounter Miscellaneous Notes * Telephone Encounter - Michelet Aponte RN - 11/15/2024 10:07 AM EST [facility] Nurse Navigation Care Plan Comprehensive Breast Program (CBP) 11/14/2024 Phone call Dorene Duque follow up on 11/[address] Mcmanus. Her , Josué is also on the line. Dorene did have time over the past couple of days to review the information presented by Dr. Mcmanus and recommendation for chemotherapy before surgery. At this time, she feels that she does NOT want toproceed with chemotherapy before surgery. We discussed her upcoming PET scan, currently scheduled for 12/06, and how that may guide the plan for surgery. As Dr. Mcmanus discussed on Tuesday, if the suspicious lung or liver spots show evidence of cancer, she would be considered Stage 4 and surgery may not be recommended. She verbalizes understanding of this recommendation. She is hopeful that a sooner PET scan is available. If she is stage 4, she understands that Dr. Mcmanus may recommend chemotherapy, likely pill form. Shewould prefer to avoid IV chemo infusion if possible but is open to chemo pill. I shared that I would relay her decision for no neoadjuvant chemotherapy to Dr. Mcmanus, Dr. Dawson team. Dorene understands that she will likely need to return to see Dr. Albarran to finalize surgical plan. Addendum: I spoke with Ethan Wang, and was able to move PET scan to 11/22. Called Dorene back to relay this new scan time. She is very appreciative and will be able to make this appointment. Encouraged to reach out with any other questions or concerns in the meantime. Michelet LANTIGUAN, RN, OCN Breast Nurse Navigator [facility] [phone] documented in this encounter Plan of Treatment Upcoming Encounters Date Type Department Care Team (Late st Contact Info) Description 11/22/2024 7:00 AM EST Hospital Encounter [place] [address] Kayla Mcmanus MD [facility] [place] [address] 11/22/2024 8:00 AM EST Appointment [place] [address] Kayla Mcmanus MD [facility] [place] [address] 11/26/2024 12:00 PM EST Office [place] [phone] Mariaojse Albarran MD [facility] [place] [address] 11/01/2089 Hospital Encounter Main [place] [address] Naif Ng MD [facility] [place] [address] Scheduled Procedures Name Priority Associated Diagnoses Date/Ti me REDUCTION MAMMOPLASTY, KRYSTAL ( WRVU 16.03) Malignant neoplasm of upper-outer quadrant of left breast in female, estrogen receptor positive documented as of this encounter Visit Diagnoses Not on filedocumented in this encounter Care Teams Ship Rigger Relationship Specialty Start Date End Date Edin Conner MD [address] [place] [address] PCP - General Family Medicine 02/28/21 documented as of this encounter
--- OUTSIDE RECORDS SUMMARY | 2024-11-19 15:48 | XMS_ITS | Encounter Summary ---
[place] [address] Care Team Providers Care Operations Dispatcher Name Role Phone Edin Conner MD Primary Care Provider [phone] Encounter Details Date Type Department Care Team (Late st Contact Info) Description 03/31/2021 [place] [address] Sirisha Gifford RN Social History Tobacco Use [...] AM EST Hospital Encounter Nuclear Medicine at [place] [phone] Kayla Mcmanus MD [facility] [place] [address] 11/22/2024 8:00 AM EST Appointment [place] [address] Kayla Mcmanus MD [facility] [place] [address] 11/26/2024 12:00 PM EST Office Visit General Surgery at [place] [phone] Mariajose Albarran MD [facility] [place] [address] 11/01/2089 Hospital Encounter Main Operating Room [place] [phone] Naif Ng MD [facility] [place] [address] Scheduled Procedures Name Priority Associated Diagnoses Date/Ti me REDUCTION MAMMOPLASTY, KRYSTAL ( WRVU 16.03) Malignant neoplasm of upper-outer quadrant of left breast in female, estrogen receptor positive documented as of this encounter Visit Diagnoses Not on filedocumented in this encounter Care Teams Operations Dispatcher Relationship Specialty Start Date End Date Edin Conner MD [address] [place] [address] PCP - General Family Medicine 02/28/21 documented as of this encounter
--- OUTSIDE RECORDS SUMMARY | 2024-11-19 15:48 | XMS_ITS | Encounter Summary ---
Author Organization [facility] [place] [address] Care Team Providers Care Receiving Dock Checker Name Role Phone Edin Conner MD Primary Care Provider [phone] Encounter Details Date Type Department Care Team (Late st Contact Info) Description 10/05/2024 Lab [place] [address] [facility] [place] [address] Social History Tobacco Use Types Packs/Day Years [...] AM EST Hospital Encounter Nuclear Medicine at [place] [phone] Kayla Mcmanus MD [facility] [place] [address] 11/22/2024 8:00 AM EST Appointment Nuclear Medicine at [place] [phone] Kayla Mcmanus MD [facility] [place] [address] 11/26/2024 12:00 PM EST Office Visit [place] [phone] Mariajose Albarran MD [facility] [place] [address] 11/01/2089 Hospital Encounter [place] [phone] Naif Ng MD [facility] [place] [address] Scheduled Procedures Name Priority Associated Diagnoses Date/Ti me REDUCTION MAMMOPLASTY, KRYSTAL ( WRVU 16.03) Malignant neoplasm of upper-outer quadrant of left breast in female, estrogen receptor positive documented as of this encounter Procedures Procedure Name Priority Date/Time Associated Diagnosis Comments CONSULTATION Routine 09/18/2024 2:50 PM EST documented in this encounter Results * Consultation (09/18/2024 2:50 PM EST) Case Report Surgical Pathology Report ? Case: [id number] ? Authorizing Provider: ??Mariajose Albarran MD ?? Collected: ? 09/18/2024 1450 ? Ordering Location: ? Laboratory ? Received: ?10/05/2024 0739 ? Pathologist: ? Herbert Price MD ? Specimen: ?Breast, Left ? 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 - Lymphovascular invasion is not identified. 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 ER, RI, and HER2 studies (reviewed): ER: Positive (>90%, strong) RI: Positive (5%, weak to moderate) HER2 IHC: Negative (score 0) 10/08/2024 4:19 PM [facility] Clinical Information Palpable mass. 10/08/2024 4:19 PM EST [facility] Gross Description CONSULTATION CASE A - 6 slide(s) labeled [id number], collection date 09/18/2024. Requesting institution: [facility] Requesting provider: Dr. Mariajose Albarran Outside Institution: [facility] Surgical Pathology Department [facility], [facility], 2nd Floor [address] [place] [address] [facility] ([facility]) pathology slide(s) are reviewed. For the full text of the [facility] report(s) please refer to the Chart Review Media tab in the electronic health record (eDH). 10/08/2024 4:19 PM [facility] Result Note Routine 10/08/2024 4:19 PM [facility] Tissue LEFT BREAST STRUCTURE / Unknown 09/18/2024 2:50 PM EST 10/05/2024 7:39 AM EST Mariajose Albarran MD PATHOLOGY/CYTOLOG Y ORDERABLES Performing Organization Address City/State/[facility] Co de Phone Number [facility] [place] [address] documented in this encounter Visit Diagnoses Not on filedocumented in this encounter Care Teams Receiving Dock Checker Relationship Specialty Start Date End Date Edin Conner MD [address] [facility] [address] [place] [address] PCP - General Family Medicine 02/28/21 documented as of this encounter
--- OUTSIDE RECORDS SUMMARY | 2024-11-19 15:48 | XMS_ITS | Encounter Summary ---
[place] [address] Care Team Providers Care Transit Mechanic Name Role Phone Edin Conner MD Primary Care Provider [phone] Reason for Referral * Consultation (Routine) - Closed Specialty Diagnoses / Procedures Referred By Contact Referred To Contact Cardiac Rehabilitation Diagnoses S/P coronary artery stent placement Kevon Vega MD [facility] [place] [address] Cardiac Rehab, [address] [place] [address] Referral ID Status Reason Start Date Expiration Date V isits Requested Visits Authorized [id number] Closed Consult, Test & Treat 04/06/2021 10/03/2021 36 36 Encounter Details Date Type Department Care Team (Late st Contact Info) Description 04/06/2021 Orders [place] [address] Sirisha Gifford RN S/p bare metal coronary [...] PM EDT Cardiac rehab referral sent to [facility] per patient request. documented in this encounter Plan of Treatment Upcoming Encounters Date Type Department Care Team (Late st Contact Info) Description 11/22/2024 7:00 AM EST Hospital Encounter [place] [phone] Kayla Mcmanus MD [facility] [place] [address] 11/22/2024 8:00 AM EST Appointment [place] [phone] Kayla Mcmanus MD [facility] [place] [address] 11/26/2024 12:00 PM EST Office Visit General Surgery at [place] [phone] Mariajose Albarran MD [facility] [place] [address] 11/01/2089 Hospital Encounter [place] [address] Naif Ng MD [facility] [place] [address] Scheduled Procedures Name Priority Associated Diagnoses Date/Ti me REDUCTION MAMMOPLASTY, KRYSTAL ( WRVU 16.03) Malignant neoplasm of upper-outer quadrant of left breast in female, estrogen receptor positive Scheduled Referrals Name Type Priority Associated Diagnoses Orde r Schedule Referral to Cardiac Rehab Outpatient Referral Routine S/P coronary artery stent placement Ordered: 04/06/2021 documented as of this encounter Visit Diagnoses Diagnosis S/p bare metal coronary artery stent S/P coronary artery stent placement Postsurgical percutaneous transluminal coronary angioplasty status documented in this encounter Care Teams Transit Mechanic Relationship Specialty Start Date End Date Edin Conner MD [address] [place] [address] [place] [address] PCP - General Family Medicine 02/28/21 documented as of this encounter
--- OUTSIDE RECORDS SUMMARY | 2024-11-19 15:48 | XMS_ITS | Encounter Summary ---
[place] [address] Care Team Providers Care Transfill Technician Name Role Phone Edin Conner MD Primary Care Provider [phone] Encounter Details Date Type Department Care Team (Late Contact Info) Description 09/14/2024 12:05 AM EST Ancillary Procedure Radiology Library at [facility] [place] [address] Edin Conner MD [address] [place] [address] [address] [place] [address] [place], [place] [id number] Social History Tobacco Use Types Packs/Day Years [...] AM EST Hospital Encounter Nuclear Medicine at [facility] [place] [address] [facility] [place] [address] 11/22/2024 8:00 AM EST Appointment Nuclear Medicine at [place] [phone] [facility] [place] [address] 11/26/2024 12:00 PM EST Office [place] [phone] [facility] [place] [address] 11/01/2089 Hospital Encounter [place] [phone] [facility] [place] [address] Scheduled Procedures Name Priority Associated Diagnoses Date/Ti me REDUCTION MAMMOPLASTY, KRYSTAL ( WRVU 16.03) Malignant neoplasm of upper-outer quadrant of left breast in female, estrogen receptor positive documented as of this encounter Procedures Procedure Name Priority Date/Time Associated Diagnosis Comments FILM LIBRARY STORAGE ONLY MAMMO Routine 09/14/2024 12:05 AM EST documented in this encounter Results * Film Library- Storage Only Mammo (09/14/2024 12:05 AM EST) Narrative [facility] - 10/03/2024 11:18 AM EST This exam is auto-finalizing. It's purpose is for storage only. Edin Conner MD IMG FILM LIBRARY ORDERABLES [place], [place] documented in this encounter Visit Diagnoses Not on filedocumented in this encounter Care Teams Transfill Technician Relationship Specialty Start Date End Date Edin Conner MD [address] [place] [address] [place] [address] PCP - General Family Medicine 02/28/21 documented as of this encounter
--- OUTSIDE RECORDS SUMMARY | 2024-11-19 15:48 | XMS_ITS | Encounter Summary ---
Author Organization [facility] [place] [address] Care Team Providers Care Decorating Supervisor Name Role Phone Edin Conner MD Primary Care Provider [phone] Reason for Visit * Auth/Cert Specialty Diagnoses / Procedures Referred By Contac t Referred To Contact Diagnoses NSTEMI, initial episode of care NSTEMI Procedures PRO PERC TRLUML CORONRY TOT OCCLUS REVASC AR ONE VESSEL Referral ID Status Reason Start Date Expiration Date Visits Re quested Visits Authorized [id number] 1 1 Encounter Details Date Type Department Care Team (Latest Contact Info) Description 03/28/2021 3:35 PM EDT - 03/30/2021 1:37 PM EDT Hospital Encounter [place] [address] Wallace Vega MD [facility] [place] [address] NSTEMI (non-ST elevated myocardial infarction) Discharge Disposition: [...] as ASA Class III. The [facility] clinical frailty scale is 3: Managing Well. Diagnostic Tests: Medications Prior to Procedure: Aspirin, Beta Alicia and Statin. Indications for Diagnostic Cath: The priority of the diagnostic procedure was Urgent. The indication for the laborer landscape visit is ACS less than or equal [...] dose administered prior to arrival in the laborer landscape. Recommended anti-platelet/anti-thrombotic regimen: Start aspirin 81 mg daily now and continue for indefinitely. Start clopidogrel 75 mg daily now and continue for 12 months then stop. These recommendations are made at the time of the intervention. Patient and provider preferences or a changing clinical situation may require modification of this regimen. Consult [facility] Interventional Cardiology for questions. The 1 year [...] pain. This prompted her to go to [facility] on 03/24 and had an EKG that was reportedly normal and she was discharged home. ?? On , patient was mowing her lawn and she had another episode of chest tightness, that improved with rest. On Tuesday, she developed dizziness with vision changes and nausea which led to 3 episodes of clear emesis, which prompted her to present to the [facility]. At that time, she reported some chest tightness, but denies any shortness of breath. ?? In the [facility] ED, EKG notable for HR 69, [...] gtt. Patient was initially admitted to the [facility] ICU. Troponin-I remained flat (0.24, 0.22, 0.23). Heparin gtt was continued, and patient's vertiginous symptoms and chest pain resolved. Patient was transferred to [facility]. ?? At [facility], patient reports feeling well, back to her baseline. She reports mild chest tightness with deep inspiration. Otherwise, patient denied any chest pain, palpitations, shortness of breath, cough, nausea, vomiting, abdominal pain, constipation, diarrhea, dysuria, numbness or tingling, vision changes. ?? Currently lives in [place], [place] with her . Able to perform ADLs. Is the youngest of 11 children, has 8 siblings in the area. Family history notable for several CVAs, brother with an AR in 50s.Hx of smoking 3cigarettes/week x 10 [...] her PCP and with cardiology here at [facility]. Important Studies and Lab Data: Labs: Recent [...] MV E-wave Vmax 0.73 m/sec MV deceleration [id number] msec MV A-wave Vmax 0.79 m/sec MV [...] Normal Mid-Posterolateral Normal Mid-Inferior Normal Mid-Inferoseptal Normal Weston-Septal Normal Weston-Anterior Normal Weston-Lateral Normal Weston-Inferior Normal Weston-Tip Normal ?? Pending Studies and Lab Data: [...] appointments: During 8am-5pm Tuesday through Tuesday call [phone] to speak with a nurse in the cardiology clinic All other times call [phone] and ask to speak to the art glass setter teacher education director. Activity level: - No heavy lifting (more [...] for VNA/home care: none Follow up Appointments: [employer]: 04/10/[address] Haider at [facility] Cardiology PCP: scheduled for 03/03/21 Your Inpatient Doctor(s) at [facility]: MD Taran Rodriguez MD Your Primary Care Provider: Edin Conner MD [address] [place] [address] [address] [facility] [id number] For questions regarding issues relating to your hospitalization on the Hospital Medicine Service, please contact your inpatient physician through the [facility] Gold Leaf Printer [phone]. Issues after hours and on weekends will be handled by the Hospitalist staff on-call. General Instructions None Future Appointments and Orders Future Appointments and Orders Future Appointments Provider Department Dept Phone 04/10/2021 11:20 AM El Sawyer MD Cardiology at [facility] Arrive at: Transonic Engineer Area 4A [phone] Discharge References/Attachments: Discharge References/Attachments Cardiac Rehabilitation (Russian) PCI (Percutaneous Coronary Intervention): Post-op (Russian) Heart Attack: Medicine for Secondary Prevention (Russian) Statins (Russian) Inpatient Provider Contact Information: Please call the hospital monogram machine operator at [phone] and ask to be connected with Cardiology Team S1 (pager [phone]). Electronically Signed By: Taran Kim MD 03/31/2021 Associated attestation - Wallace Vega MD - 04/01/2021 10:37 AM EDT Dear Colleagues, I was the attending at the time of discharge. Please call or email me if you have questions. Wallace Vega MD, SHIRA Cardiovascular Medicine [phone] documented in this encounter Discharge Instructions * [...] appointments: During 8am-5pm Tuesday through Tuesday call [phone] to speak with a nurse in the cardiology clinic All other times call [phone] and ask to speak to the art glass setter teacher education director. Activity level: - No heavy lifting (more [...] none Follow up Appointments: No future appointments. [employer]: Our Cardiology department will call you to set up an appointment. PCP: Edin Conner MD at [phone] Your Inpatient Doctor(s) at [facility]: MD Taran Rodriguez MD Your Primary Care Provider: Edin Conner MD [address] [facility] [id number] For questions regarding issues relating to your hospitalization on the Hospital Medicine Service, please contact your inpatient physician through the [facility] Gold Leaf Printer [phone]. Issues after hours and on weekends will be handled by the Hospitalist staff on-call. * Attachments The following attachments cannot be sent through Care Everywhere. * Cardiac Rehabilitation (Russian) * PCI (Percutaneous Coronary Intervention): Post-op (Russian) * Heart Attack: Medicine for Secondary Prevention (Russian) * Statins (Russian) documented in this encounter Medications at Time [...] Dressing c/d/i.No tenderness to palpation. Abd: No West Dennis's sign. Ext: UE and LE warm with warm and well perfused. Sensation intact in all extremities. Back: No flank or back tenderness. No retroperitoneal ecchymosis/ Goff Pruett's sign. A/P: S/p cardiac catheterization with benign appearing right radial access site. Shira Ha MD Internal Medicine, PGY-2 S1 Team, Pager #[phone] * Serge Palacio RN - 03/29/2021 6:52 PM EDT OUTCOME EVALUATION NOTE: OUTCOME SUMMARY: VSS. RA. AUOP, occurences. -BM. Tolerating diet. Denies pain. TR band removed following guidelines. Some swelling noted and outlined, team notified and assessed.Plan to monitor overnight. slab depiler operator with stenting today. Tolerated well. See OR [...] to participate in this patient's care. * Segre Palacio RN - 03/29/2021 2:06 PM EDT Report received, Pt returned from laborer landscape, A+O, VSS. RA. TR band intact. Denies Numbness/ Tinglingon R hand. CMST intact, hand appropriately cool. R arm labeled, no BP's for 24 hrs post cath. TR band to remain on per conversation with charger operator helper r/t ACT level. Patient updated. Per report: [...] HLD, and epilepsy who was transferred from [facility] for an NSTEMI. 24 hr events/Subjective: -Changed [...] HLD, and epilepsy who was transferred from [facility] for an NSTEMI. Received two stents today in laborer landscape without apparent complication. Will monitor overnight post-cath, no further need for heparin gtt. Will start ANNAMARIE/ARB tomorrow AM to fully capitulate GDMT if renal function continues to improve. Rest of plan per below. PLAN: #Acute bvh-DA-rfluwsdxh myocardial infarction #Hypertension #Hyperlipidemia #History of cerebrovascular accident -Aspirin 81mg qd -Plavix 75mg qd -Rosuvastatin 40mg qhs -Metoprolol 12.5mg BID -Will likely start lisinopril 20mg qd back up tomorrow AM (day team's discretion) -TTE pending #Epilepsy -Lamotrigine 250mg qd Code Status: FULL Dispo: Floors Tl Chowdhury MD Internal Medicine PGY-2 Cardiology S1, Pager #[phone] 03/29/2021 Cardiology Staff Addendum ?? Deysi Strange [...] PCP: Edin Conner MD PCP phone number: [phone] Date of Admission: 03/28/2021 ( Hospital Day 0 days ) Attending:Wallace Vega MD ID: Deysi Strange is a 70 y.o. female with history of prior CVA, HTN, HLD, CKD 3, epilepsy who wastransferred from [facility] for an NSTEMI. HPI: Patient initially presented [...] pain. This prompted her to go to [facility] on 03/24 and had an EKG that was reportedly normal and she was discharged home. On , patient was mowing her lawn and she had another episode of chest tightness, that improved with rest. On Tuesday, she developed dizziness with vision changes and nausea which led to 3 episodes of clear emesis, which prompted her to present to the [facility]. At that time, she reported some chest tightness, but denies any shortness of breath. In the [facility] ED, EKG notable for HR 69, [...] gtt. Patient was initially admitted to the [facility] ICU. Troponin-I remained flat (0.24, 0.22, 0.23). Heparin gtt was continued, and patient's vertiginous symptoms and chest pain resolved. Patient was transferred to [facility]. At [facility], patient reports feeling well, back to her baseline. She reports mild chest tightness with deep inspiration. Otherwise, patient denied any chest pain, palpitations, shortness of breath, cough, nausea, vomiting, abdominal pain, constipation, diarrhea, dysuria, numbness or tingling, vision changes. Currently lives in [place], [place] with her . Able to perform ADLs. Is the youngest of 11 children, has 8 siblings in the area. Family history notable for several CVAs, brother with an AR in 50s.Hx of smoking 3cigarettes/week x 10 [...] in the last 7068 hours. Invalid input(s): [id number] No results for input(s): POCGLU in the last 168 hours. Heme No results for input(s): LDH, HAPTOGLOBIN, URICACID in the last 168 hours. ABG (Arterial Blood Gas) No results found for: PHART, PO2ART, ENN6VFV, YOE0CFW Microbiology: Microbiology Results (Last 30 days) No [...] HTN, HLD, epilepsy who was transferred from [facility] for an NSTEMI. Patient initially presented with 2 weeks of dyspnea on exertion after walking 1 mile associated with chest tightness and bilateral arm heaviness and weakness; at baseline she is able to walk 2.5 miles + without symptoms. On Tuesday, she developed dizziness with vision changes and nausea which led to3 episodes of clear emesis, which prompted her to present to the [facility]. In the [facility] ED, EKG notable for HR 69, [...] gtt. Patient was initially admitted to the [facility] ICU. Troponin-I remained flat (0.24, 0.22, 0.23). Heparin gtt was continued, and patient's vertiginous symptoms and chest pain resolved. Patient was transferred to [facility]. Anticipate cardiac cath tomorrow. Plan to continue [...] COVID test: Lab Results Component Value Date [id number] Not Detected 03/28/2021 Past medical History: Past [...] spouse would be surrogate decision maker per [place] surrogate decision making law. (Only good for 90 days) Any patient receiving care at [facility] must abide by [place] law. The hierarchy for surrogate decision making [...] (i) The agent with financial power of commercial real estate attorney or a conservator appointed in accordance with RSA 464-A. (j) The guardian of the patient???s estate. Current Coping/Education/Information Needs: No questions or concerns Current Functional Ability: Independent Functional Status Prior to Admission: Independent Home Environment: People in home: spouse. Current Living Arrangements: home/apartment/condo. Accessibility Concerns:2 story home. No reported issues with mobility. Current DME: none Home Address confirmed as: [address] [address] Social & Family Supports: All names listed below confirmed with patient as current and correct Extended Emergency Contact Information Primary Emergency Contact: JOSUÉ STRANGE Address: [address] [place] [address] [facility] Mobile Relation: Spouse Secondary Emergency Contact: GILDARDO STRANGE Address: [address] [place] [address] [facility] [place] Relation: Child Current Care Provided by: [...] Type: *No Product type* / Secondary Insurance: [employer] [facility] Prescription Coverage: Yes Preferred Pharmacy: [facility] [address] [place] Status: Patient is a : No Primary Care Provider: Edin Conner MD [phone] Patient/Caregiver Goals of Treatment: DC home Potential [...] of care planning. Romi Mayo RN, MSN Mink Rancher - Cardiology Office of Care Management Pager: [phone] * Brief Op Note - Tl Johnston MD - 03/29/2021 1:14 PM EDT Images from the original note were not included. Preliminary Cardiac Catheterization Procedure Note: Patient Name: Deysi Strange : 165000 MR#: [id number] Case Date: 03/29/2021 Gold Leaf Printer: Surgeon(s) and Role: * Tl Johnston MD [...] st Contact Info) Description 11/22/2024 7:00 AM [facility] Hospital Encounter [place] [address] Kayla Mcmanus MD [facility] [place] [address] 11/22/2024 8:00 AM EST Appointment [place] [address] Kayla Mcmanus MD [facility] [place] [address] 11/26/2024 12:00 PM EST Office [place] [phone] Mariajose Albarran MD [facility] [place] [address] 11/01/2089 Hospital Encounter [place] [phone] Naif Ng MD [facility] PLASTIC SURGERY [place], [place] [phone] Scheduled Procedures Name Priority Associated Diagnoses Date/Ti [...] 03/30/2021 5:32 AM EDT CARDIAC CATHETERIZATION Routine 05/30/20 21 1:10 PM EDT HC UNFRACTIONATED HEPARIN (HEP [...] 4:58 PM EDT DIFFERENTIAL, AUTOMATED Routine 03/28/20 21 4:58 PM EDT HC VENIPUNCTURE Routine 03/28/2021 [...] 12:57 PM EDT Procedure: ?Transthoracic Echocardiogram Patient: ?ALIE JO R ?(Age): 1950(70y) Med Rec#: ? [id number] ?Sex: ?F ? Site Loc: ? [facility] ?Ht / Wt: ??163(cm)/80(kg) Pt. Loc: ?Adult Floor ? BSA: ?1.86 Study Date: ?? 03/30/2021 ?Pt. Type: Inpatient Tape: ? Referring: RITESH Reading: Wallace Vega ??([id number]) Cribbing Setter: Gildardo Lowe RDCS Diagnosis: *Non-ST elevation (NSTEMI) [...] Vmax ?0.73 ? m/sec ? MV deceleration [id number] ?msec ? MV A-wave Vmax ?0.79 ? [...] ? Mid-Inferior ?Normal ? Mid-Inferoseptal ?Normal ? Weston-Septal ? Normal ? Weston-Anterior ? Normal ? Weston-Lateral ?Normal ? Weston-Inferior ? Normal ? Weston-Tip ?Normal ? This report has been electronically signed by: Wallace Vega MD ? 03/30/2021 12:56:23 Images reviewed and interpretation verified [facility] Cardiac Ultrasound Laboratory Procedure Note Wallace Vega MD - 03/30/2021 Procedure: Transthoracic Echocardiogram Patient: ALIE ALFARO(Age): 1950(70y) Med Rec#: [id number] Sex: F Site Loc: [facility] Ht / Wt: 163(cm)/80(kg) Pt. Loc: Adult Floor BSA: 1.86 Study Date: 03/30/2021 Pt. Type: Inpatient Tape: Referring: [facility] Reading: Wallace Vega ([id number]) Cribbing Setter: Gildardo Lowe [facility] Diagnosis: *Non-ST elevation (NSTEMI) myocardial infarction (I21.4) [...] MV E-wave Vmax 0.73 m/sec MV deceleration [id number] msec MV A-wave Vmax 0.79 m/sec MV [...] Normal Mid-Posterolateral Normal Mid-Inferior Normal Mid-Inferoseptal Normal Weston-Septal Normal Weston-Anterior Normal Weston-Lateral Normal Weston-Inferior Normal Weston-Tip Normal This report has been electronically signed by: Wallace Vega MD 03/30/2021 12:56:23 Images reviewed and interpretation verified [facility] Cardiac Ultrasound Laboratory Wallace Vega MD ECHO ORDERABLES * Bilirubin, Direct (03/30/2021 6:36 AM EDT) [facility] Bilirubin, Direct 0.1 0.0 - 0.3 mg/dL [facility] Blood 03/30/2021 6:36 AM EDT 03/30/2021 6:41 AM EDT Narrative Resulting Agency Comment Spec In Lab Wallace Vega MD CHEMISTRY ORDERABLES Performing Organization Address City/[facility]/ZIP Co de Phone Number [facility] [place] [address] * (ABNORMAL) Aspartate Aminotransferase (03/30/2021 6:36 AM EDT) [facility] Aspartate Aminotransferase 42(H) 0 - 30 unit/L [facility] Comment:result rechecked- vh Blood 03/30/2021 6:36 AM EDT 03/30/2021 6:41 AM EDT Narrative Resulting Agency Comment Spec In Lab Wallace Vega MD CHEMISTRY ORDERABLES [facility] [place] [place] [address] * Differential, Automated (03/30/2021 5:32 AM EDT) [facility] Neutrophil % 73.4 % [facility] Neutrophil Absolute 5.60 1.70 - 6.10 x10(3)/mcL [facility] Lymph % 16.5 % [facility] Lymphocytes Abs 1.3 0.9 - 3.2 x10(3)/[facility] LAB[facility] Monocyte % 7.1 % [facility] Monocyte Abs 0.5 0.3 - 0.9 x10(3)/[facility] LABORATORY Eos % 2.5 % [facility] Eosinophils Abs 0.2 0.0 - 0.4 x10(3)/[facility] LABORATORY Basophil % 0.4 % [facility] Baso Absolute 0.0 0.0 - 0.1 x10(3)/[facility] LABORATORY Immature Gran % 0.10 % [facility] Comment: Immature granulocytes(IG's)percentage and absolute count will include metamyelocytes, myelocytes, and promyelocytes. Blood smears from CBCs yielding IG's will be scanned manually for concordance. If this scan disagrees with the automated IG or if promyelocytes are noted, a manual differential will be performed. Immature Gran Absolute 0.01 0.00 - 0.04 x10(3)/[facility] LAB[facility] Blood 03/30/2021 5:32 AM EDT 03/30/2021 5:44 AM EDT Narrative Resulting Agency Comment Spec In Lab Rosalee Birmingham MD HEMATOLOGY ORDERAB LES [facility] [place] [place] [address] * Hemogram (03/30/2021 5:32 AM EDT) White Blood Cell 7.6 4.0 - 9.5 x10(3)/[facility] LABORATORY Red Blood Cell 4.31 4.00 - 5.21 x10(6)/[facility] LAB[facility]ORY Hemoglobin 13.1 11.7 - 15.5 gm/dL [facility] Hematocrit 39.0 35.7 - 45.8 % [facility] Mean Cell Volume 90.5 82.6 - 94.4 fL [facility] Mean Cell Hemoglobin 30.4 27.1 - 32.0 pg [facility] Mean Cell Hemoglobin Concentration 33.6 31.7 - 35.0 gm/dL [facility] Platelet 208 145 - 357 x10(3)/[facility] LAB[facility]ATORY RDW Standard Deviation 40.3 37.0 - 46.0 fL [facility] RDW coefficient of variation 12.1 11.5 - 14.1 % [facility] Mean Platelet Volume 10.4 7.6 - 12.9 fL [facility] NRBC% auto 0.0 % [facility] NRBC Absolute 0.000 0.000 - 0.000 x10(3)/[facility] Blood 03/30/2021 5:32 AM EDT 03/30/2021 5:44 AM EDT Narrative Resulting Agency Comment Spec In Lab Rosalee Birmingham MD HEMATOLOGY ORDERAB LES [facility] [place] [address] * (ABNORMAL) Basic Metabolic Panel (non-fasting) (03/30/2021 5:32 AM EDT) Glucose 114 65 - 199 mg/dL [facility] Comment:Diabetes: >=200 mg/d L plus symptoms Blood Urea Nitrogen 15 8 - 18 mg/dL [facility] Creatinine 1.09 0.70 - 1.20 mg/dL [facility] Sodium 140 135 - 145 mmol/L [facility] Potassium 4.3 3.5 - 5.0 mmol/L [facility] Comment: Please note: ??Patients with WBC >100,000 may have falsely elevated Potassium levels. ??For accurate Potassium quantification in these patients send serum separator tube (gold top) for subsequent determinations. ??Contact the Clinical Chemistry Laboratory if there are any questions. Chloride 106 98 - 107 mmol/L [facility] Carbon Dioxide 24 22 - 31 mmol/L [facility] Anion Gap 10 5 - 15 mmol/L [facility] Calcium 9.4 8.5 - 10.5 mg/dL [facility] Est Glomerular Filtration Rate 51(L) >=60 mL/min/1. 73 m?? [facility] Comment: This patient? s [...] Vega MD CHEMISTRY ORDERABLES Performing Organization Address City/[facility] Co de Phone Number [facility] [place] [address] * Magnesium (03/30/2021 5:32 AM EDT) Magnesium 0.89 0.69 - 1.07 mmol/L [facility] Blood 03/30/2021 5:32 AM EDT 03/30/2021 5:44 AM EDT Narrative Resulting Agency Comment Spec In Lab Wallace Vega MD CHEMISTRY ORDERABLES Performing Organization Address [facility]/ZIP Co de Phone Number [facility] [place] [address] * Hepatic Function Panel (03/30/2021 5:32 AM EDT) Protein, Total 6.4 6.1 - 8.0 gm/dL [facility] Albumin 3.9 3.2 - 5.2 gm/dL [facility] Aspartate Aminotransferase Not Perf 0 - 30 [facility] Comment: Unable to quantitate due to sample hemolysis. ??Sample redraw suggested. Called by: cliff, Read back by: jorje casillas, Date/Time:03/30/21 06:19. Alanine Aminotransferase 28 0 - 30 unit/L [facility] Alkaline Phosphatase 77 35 - 105 unit/L [facility] Bilirubin, Total 0.4 0.2 - 1.3 mg/dL [facility] Bilirubin, Direct Not Perf 0.0 - 0.3 [facility] Comment: Unable to quantitate due to sample hemolysis. ??Sample redraw suggested. Called by: cliff, Read back by: jorje casillas, Date/Time:03/30/21 06:19. Blood 03/30/2021 5:32 AM EDT 03/30/2021 5:44 AM EDT Narrative Resulting Agency Comment Spec In Lab Wallace Vega MD CHEMISTRY ORDERABLES Performing Organization Address City/State/[facility] Co de Phone Number [facility] [place] [address] * CARDIAC CATHETERIZATION (03/29/2021 1:10 PM EDT) Anatomical Region Laterality Modality Other Narrative 03/29/2021 3:29 PM EDT ?[facility] [facility]terization/Intervention Report ? Patient Name: DEYSI STRANGE. ? Procedure Date: 03/29/2021 ? A #: [id number] ? Primary Physician: Preston, Tl T ? Case #: [id number] ? File Name: [id number] ? Catheterization Order Number: [id number] ? [facility] ? Final Report [place], [place] ? Patient Name: ? DEYSI R. CAMBER ?ID#: ?[id number] ? : ?1950 ? Procedure Date: ? March 29, 2021 ? Case #: ? [id number] ? Room: ? 6 ? Case Physician: [...] was ?designated as ASA Class III. The [facility] clinical frailty scale is 3: ?Managing Well. ? Diagnostic Tests: ?Electrocardiography: ? EKG was assessed by ECG. EKG was Abnormal. EKG showed other ? abnormality. ?Medications Prior to Procedure: ? Aspirin, Beta Alicia and Statin. ? Indications for Diagnostic Cath: ?The priority of the diagnostic procedure was Urgent. The indication for ?the laborer landscape visit is ACS less than or equal [...] dose administered prior to arrival in the laborer landscape. ?Recommended anti-platelet/anti-thrombotic regimen: ?Start aspirin 81 mg daily now and continue for indefinitely. ?Start clopidogrel 75 mg daily now and continue for 12 months then stop. ?These recommendations are made at the time of the intervention. Patient ?and provider preferences or a changing clinical situation may require ?modification of this regimen. Consult [facility] Interventional Cardiology for ?questions. ?The 1 year [...] Procedure Note Tl Johnston MD - 06/04/2021 [facility] Cardiac Catheterization/Intervention Report Patient Name: DEYSI STRANGE Procedure Date: 03/29/2021 A #: [id number] Primary Physician: Tl Johnston Case #: [id number] File Name: [id number] Catheterization Order Number: [id number] [facility] FinalReport [place], [place] Patient Name: DEYSI STRANGE ID#:[id number] :1950 Procedure Date: March 29, 2021 Case #: [id number] Room: 6 Case Physician: Tl Johnston M.D. [...] as ASA Class III. The [facility] clinical frailty scale is 3: Managing Well. Diagnostic Tests: Electrocardiography: EKG was assessed by ECG. EKG was Abnormal. EKG showed other abnormality. Medications Prior to Procedure: Aspirin, Beta Alicia and Statin. Indications for Diagnostic Cath: The priority of the diagnostic procedure was Urgent. The indicationfor the laborer landscape visit is ACS less than or equal [...] dose administered prior to arrival in the laborer landscape. Recommended anti-platelet/anti-thrombotic regimen: Start aspirin 81 mg daily now and continue for indefinitely. Start clopidogrel 75 mg daily now and continue for 12 months thenstop. These recommendations are made at the time of the intervention.Patient and provider preferences or a changing clinical situation mayrequire modification of this regimen. Consult [facility] Interventional Cardiologyfor questions. The 1 year bleeding [...] Heparin (unfractionated) Level (03/29/2021 11:19 AM EDT) [facility] UF Heparin 0.62 IU/mL [facility] Comment: Guidelines for therapeutic unfractionated [...] Lab Wallace Vega MD HEMATOLOGY ORDERABLE S [facility] [place] [place] [address] * Differential, Automated (03/29/2021 3:52 AM EDT) [facility] Neutrophil % 53.7 % [facility] Neutrophil Absolute 3.07 1.70 - 6.10 x10(3)/mcL [facility] Lymph % 34.6 % [facility] Lymphocytes Abs 2.0 0.9 - 3.2 x10(3)/[facility] Monocyte % 7.7 % [facility] Monocyte Abs 0.4 0.3 - 0.9 x10(3)/[facility] Eos % 3.1 % [facility] Eosinophils Abs 0.2 0.0 - 0.4 x10(3)/[facility] Basophil % 0.7 % [facility] Baso Absolute 0.0 0.0 - 0.1 x10(3)/[facility] Immature Gran % 0.20 % [facility] Comment: Immature granulocytes(IG's)percentage and absolute count will include metamyelocytes, myelocytes, and promyelocytes. Blood smears from CBCs yielding IG's will be scanned manually for concordance. If this scan disagrees with the automated IG or if promyelocytes are noted, a manual differential will be performed. Immature Gran Absolute 0.01 0.00 - 0.04 x10(3)/[facility] Blood 03/29/2021 3:52 AM EDT 03/29/2021 4:16 AM EDT Narrative Resulting Agency Comment Spec In Lab Rosalee Birmingham MD HEMATOLOGY ORDERAB LES [facility] [place] [address] * Hemogram (03/29/2021 3:52 AM EDT) White Blood Cell 5.7 4.0 - 9.5 x10(3)/[facility] Red Blood Cell 4.42 4.00 - 5.21 x10(6)/[facility] Hemoglobin 13.5 11.7 - 15.5 gm/dL [facility] Hematocrit 40.4 35.7 - 45.8 % [facility] Mean Cell Volume 91.4 82.6 - 94.4 fL [facility] Mean Cell Hemoglobin 30.5 27.1 - 32.0 pg [facility] Mean Cell Hemoglobin Concentration 33.4 31.7 - 35.0 gm/dL [facility] Platelet 209 145 - 357 x10(3)/[facility] RDW Standard Deviation 40.9 37.0 - 46.0 fL [facility] RDW coefficient of variation 12.2 11.5 - 14.1 % [facility] Mean Platelet Volume 10.5 7.6 - 12.9 fL [facility] NRBC% auto 0.0 % [facility] NRBC Absolute 0.000 0.000 - 0.000 x10(3)/[facility] Blood 03/29/2021 3:52 AM EDT 03/29/2021 4:16 AM EDT Narrative Resulting Agency Comment Spec In Lab Rosalee Birmingham MD HEMATOLOGY ORDERAB LES [facility] [place] [address] * Heparin (unfractionated) Level (03/29/2021 3:52 AM EDT) UF Heparin 0.75 IU/mL [facility] Comment: Guidelines for therapeutic unfractionated [...] MD HEMATOLOGY ORDERABLE S Performing Organization Address [facility] de Phone Number [facility] [place] [address] * Hepatic Function Panel (03/29/2021 3:52 AM EDT) Pathologist [facility] Protein, Total 6.2 6.1 - 8.0 gm/dL [facility] Albumin 3.8 3.2 - 5.2 gm/dL [facility] Aspartate Aminotransferase 19 0 - 30 unit/L [facility] Alanine Aminotransferase 19 0 - 30 unit/L [facility] Alkaline Phosphatase 77 35 - 105 unit/L [facility] Bilirubin, Total 0.3 0.2 - 1.3 mg/dL [facility] Bilirubin, Direct 0.1 0.0 - 0.3 mg/dL [facility] Blood 03/29/2021 3:52 AM EDT 03/29/2021 4:16 AM EDT Narrative Resulting Agency Comment Spec In Lab Wallace Vega MD CHEMISTRY ORDERABLES Performing Organization Address [facility] de Phone Number [facility] [place] [address] * (ABNORMAL) Basic Metabolic Panel (non-fasting) (03/29/2021 3:52 AM EDT) Glucose 111 65 - 199 mg/dL [facility] Comment:Diabetes: >=200 mg/d L plus symptoms Blood Urea Nitrogen 19(H) 8 - 18 mg/dL [facility] Creatinine 1.26(H) 0.70 - 1.20 mg/dL [facility] Sodium 139 135 - 145 mmol/L [facility] Potassium 4.2 3.5 - 5.0 mmol/L [facility] Comment: Please note: ??Patients with WBC >100,000 may have falsely elevated Potassium levels. ??For accurate Potassium quantification in these patients send serum separator tube (gold top) for subsequent determinations. ??Contact the Clinical Chemistry Laboratory if there are any questions. Chloride 107 98 - 107 mmol/L [facility] Carbon Dioxide 23 22 - 31 mmol/L [facility] Anion Gap 9 5 - 15 mmol/L [facility] Calcium 9.4 8.5 - 10.5 mg/dL [facility] Est Glomerular Filtration Rate 43(L) >=60 mL/min/1. 73 m?? [facility] Comment: This patient? s [...] In Lab Wallace Vega MD CHEMISTRY ORDERABLES [facility] [place] [address] * Magnesium (03/29/2021 3:52 AM EDT) Magnesium 0.89 0.69 - 1.07 mmol/L [facility] Blood 03/29/2021 3:52 AM EDT 03/29/2021 4:16 AM EDT Narrative Resulting Agency Comment Spec In Lab Wallace Vega MD CHEMISTRY ORDERABLES [facility] [place] [address] * Lipid Panel (Reflex Direct LDL) (03/29/2021 3:52 AM EDT) Cholesterol, Total 187 mg/dL [facility] Comment: Lower Risk: <200 mg/dL Average Risk: 200-239 mg/dL Higher Risk: >zr=067 mg/dL Triglyceride 144 mg/dL [facility] Comment: Average Risk/Lower Risk: <150 mg/dL Borderline High Risk: 150-199 mg/dL High Risk: 200-499 mg/dL Very High Risk: >zk=597 mg/dL HDL Cholesterol 57 mg/dL [facility] Comment: Males: ?? Higher Risk: <40 mg/dL Females: ?? Higher Risk: <50 mg/dL LDL Cholesterol 101 mg/dL [facility] Comment: Lowest Risk: <100 mg/dL Lower Risk: 100-129 mg/dL Borderline High Risk: 130-159 mg/dL High Risk: 160-189 mg/dL Very High Risk: >ks=907 mg/dL Cholesterol/HDL Ratio 3.3 ratio [facility] Lipid Interpretation See Note [facility] Comment: Lipid management should be guided by a patient? s ASCVD risk, goals and preferences. ACC/AHA Guidelines recommend high intensity statin if clinical ASCVD or LDL greater than or equal to 190 mg/dL. http://BitTorrenturl.com/BDG-QQJ-Wqlyzcgqm Adults aged 40-75 with LDL 70-189 mg/dL should have their 10 year ASCVD risk estimated with the ACC/AHA ASCVD risk relationship specialist http://tools.acc.org/JPLZG-Qqnr-Memesbulq/ Statin should be discussed if risk greater [...] Vega MD CHEMISTRY ORDERABLES Performing Organization Address [facility] de Phone Number [facility] [place] [address] * Heparin (unfractionated) Level (03/28/2021 9:44 PM EDT) UF Heparin 0.65 IU/mL [facility] Comment: Guidelines for therapeutic unfractionated [...] MD HEMATOLOGY ORDERABLE S Performing Organization Address [facility] de Phone Number [facility] [place] [address] * EKG 12 Lead (03/28/2021 5:49 PM EDT) Ventricular rate 62 BPM MUSE SYSTEM Atrial Rate 62 BPM MUSE SYSTEM P-R Interval 178 ms MUSE SYSTEM QRS Duration 74 ms MUSE SYSTEM Q-T Interval 408 ms MUSE SYSTEM QTC Calculated (Bezet) 414 ms MUSE SYSTEM Calculated P [place] 35 degrees MUSE SYSTEM Calculated R [place] 7 degrees MUSE SYSTEM Calculated T [place] 83 degrees MUSE SYSTEM INTERPRETATION Normal sinus rhythm Nonspecific ST and T wave abnormality Abnormal ECG No previous ECGs available Confirmed by MD Edmond, Camilo Quintana ([id number]) on 03/29/2021 9:41:01 AM MUSE SYSTEM 03/28/2021 5:49 PM EDT 03/29/2021 9:41 AM EDT Wallace Vega MD ECG ORDERABLES MUSE SYSTEM * COVID-19 PCR (03/28/2021 5:38 PM EDT) Pathologist [facility] SARS-CoV-2 RNA (Rapid) Not Detected Not Detected [facility] Comment: This result should [...] using the Simplexa COVID-19 Direct Assay by Sapient as authorized by the FDA issued Emergency [...] Department of Pathology and Laboratory Medicine at [facility], certified under the Clinical Laboratory Improvement [...] fact sheets at the following FDA website: https://www.fda.gov/medical-devices/aofpqyczeix-ylvfvxf-9270-empdk-43-qywdbhlul- use-a omysdnmbujqwv-ygvbrae-fsxkoxt/fthnz-yobmgyhqcpf-yjak SARS-CoV-[address] [facility] Nasopharyngeal Swab 03/28/20 5:38 PM EDT 03/28/2021 6:03 PM EDT Comment:Symptoms->Surveillan ce Narrative Resulting Agency Comment Spec In Lab Wallace Vega MD MICROBIOLOGY - GENER AL ORDERABLES [facility] [place] [address] * Hepatic Function Panel (03/28/2021 4:58 PM EDT) Protein, Total 6.8 6.1 - 8.0 gm/dL [facility] Albumin 4.4 3.2 - 5.2 gm/dL [facility] Aspartate Aminotransferase 21 0 - 30 unit/L [facility] Alanine Aminotransferase 23 0 - 30 unit/L [facility] Alkaline Phosphatase 84 35 - 105 unit/L [facility] Bilirubin, Total 0.3 0.2 - 1.3 mg/dL [facility] Bilirubin, Direct 0.1 0.0 - 0.3 mg/dL [facility] Blood Venous Draw / Unknown 03/28/2021 4:58 PM EDT 03/28/2021 5:09 PM EDT Narrative Resulting Agency Comment Spec In Lab Rosalee Birmingham MD CHEMISTRY ORDERABL ES [facility] [place] [address] * Differential, Automated (03/28/2021 4:58 PM EDT) Neutrophil % 54.7 % [facility] Neutrophil Absolute 3.18 1.70 - 6.10 x10(3)/[facility] Lymph % 32.9 % [facility] Lymphocytes Abs 1.9 0.9 - 3.2 x10(3)/[facility] Monocyte % 8.1 % [facility] Monocyte Abs 0.5 0.3 - 0.9 x10(3)/[facility] Eos % 3.3 % [facility] Eosinophils Abs 0.2 0.0 - 0.4 x10(3)/[facility] Basophil % 0.7 % [facility] Baso Absolute 0.0 0.0 - 0.1 x10(3)/[facility] Immature Gran % 0.30 % [facility] Comment: Immature granulocytes(IG's)percentage and absolute count will include metamyelocytes, myelocytes, and promyelocytes. Blood smears from CBCs yielding IG's will be scanned manually for concordance. If this scan disagrees with the automated IG or if promyelocytes are noted, a manual differential will be performed. Immature Gran Absolute 0.02 0.00 - 0.04 x10(3)/[facility] Blood 03/28/2021 4:58 PM EDT 03/28/2021 5:04 PM EDT Narrative Resulting Agency Comment Spec In Lab Rosalee Birmingham MD HEMATOLOGY ORDERAB LES [facility] [place] [address] * Hemogram (03/28/2021 4:58 PM EDT) White Blood Cell 5.8 4.0 - 9.5 x10(3)/[facility] Red Blood Cell 4.61 4.00 - 5.21 x10(6)/[facility] Hemoglobin 13.7 11.7 - 15.5 gm/dL [facility] Hematocrit 41.6 35.7 - 45.8 % [facility] Mean Cell Volume 90.2 82.6 - 94.4 [facility] Mean Cell Hemoglobin 29.7 27.1 - 32.0 pg [facility] Mean Cell Hemoglobin Concentration 32.9 31.7 - 35.0 gm/dL [facility] Platelet 235 145 - 357 x10(3)/[facility] RDW Standard Deviation 40.5 37.0 - 46.0 [facility] RDW coefficient of variation 12.2 11.5 - 14.1 % [facility] Mean Platelet Volume 10.0 7.6 - 12.9 [facility] NRBC% auto 0.0 % [facility] NRBC Absolute 0.000 0.000 - 0.000 x10(3)/[facility] Blood 03/28/2021 4:58 PM EDT 03/28/2021 5:04 PM EDT Narrative Resulting Agency Comment Spec In Lab Rosalee Birmingham MD HEMATOLOGY ORDERAB LES [facility] [place] [address] * Troponin (03/28/2021 4:58 PM EDT) [facility] Troponin-T <0.01 0.00 - 0.00 ng/mL [facility] Comment: The 99th percentile for Troponin T is less than 0.01 ng/mL, any detectable cTnT concentration using this assay should be considered elevated. According to the third universal definition of myocardial infarction the following criteria with a clinical presentation consistent with acute myocardial ischemia meets the diagnosis for a myocardial infarction (AR). Detection of a rise and/or fall of cTnT, with at least one value greater than the 99th percentile (> or = 0.01) and with at least one of the following ?? Symptoms of ischemia ?? New or presumed new significant CE-tnjrhtg-T wave (ST-T) changes or new left bundle [...] additional sample may be indicated. Reference: Third [place] Definition of Myocardial Infarction. Journal of the [place] [employer] 2012;60:1581-98 Blood 03/28/2021 4:58 PM EDT 03/28/2021 5:04 PM EDT Narrative Resulting Agency Comment Spec In Lab Wallace Vega MD CHEMISTRY ORDERABLES [facility] [address] * (ABNORMAL) Basic Metabolic Panel (non-fasting) (03/28/2021 4:58 PM EDT) [facility] Glucose 97 65 - 199 mg/dL [facility] Comment:Diabetes: >=200 mg/d L plus symptoms Blood Urea Nitrogen 16 8 - 18 mg/dL [facility] Creatinine 1.40(H) 0.70 - 1.20 mg/dL [facility] Sodium 140 135 - 145 mmol/L [facility] Potassium 4.0 3.5 - 5.0 mmol/L [facility] Comment: Please note: ??Patients with WBC >100,000 may have falsely elevated Potassium levels. ??For accurate Potassium quantification in these patients send serum separator tube (gold top) for subsequent determinations. ??Contact the Clinical Chemistry Laboratory if there are any questions. Chloride 106 98 - 107 mmol/L [facility] Carbon Dioxide 23 22 - 31 mmol/L [facility] Anion Gap 11 5 - 15 mmol/L [facility] Calcium 9.8 8.5 - 10.5 mg/dL [facility] Est Glomerular Filtration Rate 38(L) >=60 mL/min/1. 73 m?? [facility] Comment: This patient? s [...] In Lab Wallace Vega MD CHEMISTRY ORDERABLES [facility] [place] [address] * Magnesium (03/28/2021 4:58 PM EDT) Magnesium 0.86 0.69 - 1.07 mmol/L [facility] Blood 03/28/2021 4:58 PM EDT 03/28/2021 5:04 PM EDT Narrative Resulting Agency Comment Spec In Lab Wallace Vega MD CHEMISTRY ORDERABLES [facility] [place] [address] * Hemoglobin A1c (03/28/2021 4:58 PM EDT) Hemoglobin A1c 5.5 4.3 - 5.6 % [facility] Comment: Reference Range: 4.3 [...] Mellitus, Diabetes Care 2013; 36: Suppl. 1, F17-62 Estimated Average Glucose See note mg/dL [facility] Comment: Estimated Average Glucose [...] into estimated average glucose values. ??Diabetes Care 2008:31(8):2589-8851. Blood 03/28/2021 4:58 PM EDT 03/28/2021 5:04 PM EDT Narrative Resulting Agency Comment Spec In Lab Wallace Vega MD CHEMISTRY ORDERABLES Performing Organization Address [facility] Co de Phone Number [facility] [place] [address] * TSH [place] (03/28/2021 4:58 PM EDT) Thyroid Stimulating Hormone 2.05 0.27 - 4.20 mcIU/mL [facility] Blood 03/28/2021 4:58 PM EDT 03/28/2021 5:04 PM EDT Narrative Resulting Agency Comment Spec In Lab Wallace Vega MD CHEMISTRY ORDERABLES Performing Organization Address [facility] Co de Phone Number [facility] [place] [address] documented in this encounter Visit Diagnoses Diagnosis [...] 6 mg, Oral, NIGHTLY, First dose on Tue03/30/21 at 0130, Until Discontinued, Routine Given 03/30/2021 [...] PRN, Starting on 03/29/21 at 1337, Until Tue03/30/21 at 1537, Chest pain, May repeat every [...] infusion 50 mL/hr, Intravenous, CONTINUOUS, Starting on 03/29/21 at 1400, Until 03/29/21 at 1759, Recovery (Recovery-Hospital Unit) New Bag 03/29/2021 1:40 PM EDT 50 mL/h r 50 mL/hr documented in this encounter Active and Recently Administered Medications Times are shown in EDT. Scheduled Medication Order 03/28/2021 03/29/2021 03/30/2021 aspirin chewable tablet 81 mg 81 mg, Oral, DAILY, First dose on 03/29/21 at 0900, Until Discontinued, Routine 0851 (Given - Provider: Serge Palacio RN)1228 ([facility] Hold - Provider: Admin Adt - Reason: Transfer to a Procedural area)1339 ([facility] Unhold - Provider: Admin Adt) 0858 (Given - Provider: Elvia Lui RN) clopidogreL (Plavix) tablet 75 mg 75 mg, Oral, DAILY, First dose on 03/29/21 at 0900, Until Discontinued, Routine 0851 (Given - Provider: Serge Palacio RN)1228 ([facility] Hold - Provider: Admin Adt - Reason: Transfer to a Procedural area)1339 ([facility] Unhold - Provider: Admin Adt) 0858 (Given - Provider: Elvia Lui RN) lamoTRIgine (LaMICtal) tablet 250 mg 250 mg, Oral, DAILY, First dose on 03/29/21 at 0900, Until Discontinued, Routine 0851 (Given - Provider: Serge Palacio RN)1228 ([facility] Hold - Provider: Admin Adt - Reason: Transfer to a Procedural area)1339 ([facility] Unhold - Provider: Admin Adt) 0900 (Given - Provider: Elvia Lui RN) melatonin tablet 6 mg 6 mg, Oral, NIGHTLY, First dose on 03/30/21 at 0130, Until Discontinued, Routine 0127 (Given - Provider: Alexi Guzman, RN) metoprolol tartrate (Lopressor) tablet 12.5 mg 12.5 mg, Oral, EVERY 12 HOURS SCHEDULED (2 times per day), First dose on 03/28/21 at 1715, Until Discontinued, Routine 1719 (Given - Provider: Mariajose Luong, RN) 0854 (Given - Provider: Serge Palacio, TREY)1228 ([facility] Hold - Provider: Admin Adt - [...] Procedural area)1339 ([facility] Unhold - Provider: Admin Adt)1817 (Stopped - [...] Devika Smith RN)1305 (Given - Provider: Suleman Smith, TREY) iohexoL (Omnipaque) (350 mg/mL) injection solution (CANCELED) ONCE PRN, Starting on 03/29/21 at 1312, Until 03/29/21 at 1316, Cath (Intra-Procedure), Routine 1312 (Given - Provider: Tl Johnston MD) meclizine (Antivert) tablet 25 mg 25 mg, Oral, 3 TIMES DAILY PRN, Starting on 03/28/21 at 1614, Until 03/30/21 at 1537, Dizziness, Routine 1228 ([facility] Hold - Provider: Admin Adt - Reason: Transfer to a Procedural area)1339 ([facility] Unhold - Provider: Admin Adt) midazolam (pf) (Versed) (1 mg/mL) multi-dose injection (CANCELED) ONCE PRN, Starting on 03/29/21 at 1218, Until 03/29/21 at 1316, Cath (Intra-Procedure), Routine 1218 (Given - Provider: Devika Smith RN)1249 (Given - Provider: Suleman Smith, TREY) nitroGLYcerin (Nitrostat) disintegrating tablet 0.4 mg 0.4 [...] Routine documented in this encounter Care Teams Decorating Supervisor Relationship Specialty Start Date End Date Edin Conner MD [address] [place] [address] PCP - General Family Medicine 02/28/21 documented as of this encounter
--- OUTSIDE RECORDS SUMMARY | 2024-11-19 15:48 | XMS_ITS | Encounter Summary ---
[place] [address] Care Team Providers Care Automobile Sales Representative Name Role Phone Alice Montilla MD Primary Care Provider [phone] Encounter Details Date Type Department Care Team (Late st Contact Info) Description 10/16/2010 Ancillary Procedure Radiology Library at [facility] [place] [address] Edin Conner MD [address] [place] [address] [address] [place], [place] [id number] Social History Tobacco Use Types Packs/Day Years [...] AM EST Hospital Encounter [place] [phone] Kayla Mcmanus MD [facility] [place] [address] 11/22/2024 8:00 AM EST Appointment [place] [address] Kayla Mcmanus MD [facility] [place] [address] 11/26/2024 12:00 PM EST Office [place] [address] Mariajose Albarran MD [facility] [place] [address] 11/01/2089 Hospital Encounter [place] [address] Naif Ng MD [facility] [place] [address] Scheduled Procedures Name Priority Associated Diagnoses Date/Ti me REDUCTION MAMMOPLASTY, KRYSTAL ( WRVU 16.03) Malignant neoplasm of upper-outer quadrant of left breast in female, estrogen receptor positive documented as of this encounter Procedures Procedure Name Priority Date/Time Associated Diagnosis Comments FILM LIBRARY STORAGE ONLY MAMMO Routine 10/16/2010 12:00 AM EST documented in this encounter Results * Film Library- Storage Only Mammo (10/16/2010 12:00 AM EST) Narrative [facility] [place] 2] - 10/03/2024 11:18 AM EST This exam is auto-finalizing. It's purpose is for storage only. Edin Conner MD IMG FILM LIBRARY ORDERABLES [place], [place] documented in this encounter Visit Diagnoses Not on filedocumented in this encounter Care Teams Automobile Sales Representative Relationship Specialty Start Date End Date Alice Montilla MD [address] [place] [address] PCP - General 09/22/10 02/27/21 documented as of this encounter
--- OUTSIDE RECORDS SUMMARY | 2024-11-19 15:48 | XMS_ITS | Encounter Summary ---
Author Organization [place] [address] Care Team Providers Care Operations Project Manager Name Role Phone Edin Conner MD Primary Care Provider [phone] Reason for Referral * Consultation (Routine) - Closed Specialty Diagnoses / Procedures Referred By Contac t Referred To Contact Dermatology Diagnoses Skin lesion Edin Conner MD [address] [place] [address] Josué Hernandez MD [address] [place] [address], [place] [address] Referral ID Status Reason Start Date Expiration Date V isits Requested Visits Authorized [id number] Closed Consult, Test & Treat PCP Updated and/or Approved 11/08/2022 11/08/2023 6 6 Encounter Details Date Type Department Care Team (Late st Contact Info) Description 11/08/2022 Transcribe Orders eDH Incoming Referrals [phone] Edin Conner MD [address] [place] [address] Skin lesion Social History Tobacco Use Types [...] AM EST Hospital Encounter [place] [address] Kayla Mcmanus MD [facility] [place] [address] 11/22/2024 8:00 AM EST Appointment [place] [address] Kayla Mcmanus MD [facility] [place] [address] 11/26/2024 12:00 PM EST Office [place] [address] Mariajose Albarran MD [facility] [place] [address] 11/01/2089 Hospital Encounter [place] [address] Naif Ng MD [facility] [place] [address] Scheduled Procedures Name Priority Associated Diagnoses Date/Ti [...] tissue documented in this encounter Care Teams Operations Project Manager Relationship Specialty Start Date End Date Edin Conner MD [address] [place] [address] PCP - General Family Medicine 02/28/21 documented as of this encounter
--- OUTSIDE RECORDS SUMMARY | 2024-11-19 15:48 | XMS_ITS | Encounter Summary ---
Author Organization [facility] [place] [address] Care Team Providers Care Mechanic'S Assistant Name Role Phone Edin Conner MD Primary Care Provider [phone] Encounter Details Date Type Department Care Team (Latest Contact Info) Description 12/31/2022 8:39 PM EST - 12/31/2022 11:59 PM EST Hospital [place] [phone] Discharge Disposition: Home Social History Tobacco Use [...] AM EST Hospital Encounter [place] [address] Kayla Mcmanus MD [facility] [place] [address] 11/22/2024 8:00 AM EST Appointment [place] [address] Kayla Mcmanus MD [facility] [place] [address] 11/26/2024 12:00 PM EST Office [place] [phone] Mariajose Albarran MD [facility] [place] [address] 11/01/2089 Hospital Encounter [place] [phone] Naif Ng MD [facility] [place] [place] [address] Scheduled Procedures Name Priority Associated Diagnoses Date/Ti me REDUCTION MAMMOPLASTY, KRYSTAL ( WRVU 16.03) Malignant neoplasm of upper-outer quadrant of left breast in female, estrogen receptor positive documented as of this encounter Procedures Procedure Name Priority Date/Time Associated Diagnosis Comments SURGICAL PATHOLOGY REPORT Routine 12/31/2022 11:20 AM EST documented in this encounter Results * Surgical Pathology Report (12/31/2022 11:20 AM EST) Final Diagnosis [id number] ? Location: OPW The signing pathologist has (i) examined the relevant preparation(s) for the specimen(s) and (ii) rendered or confirmed the diagnosis(es). . ?Surgical Pathology DIAGNOSIS Right breast, skin punch biopsy: - Superficial dermal pigment incontinence and sparse superficial perivascular lymphocytic infiltrate (see discussion) Electronically signed by: ?Janis NAVAS, PhD, Frandy Salvador Verified: ??01/18/2023 11:31 ??Dermatopathologist, Bone & Soft Tissue Pathologist Performed at: ??-[facility] [place], [place] [address] Stock Puller: Ainsley Bowers MD, AP, ??CLIA Certificate: [id number] DISCUSSION The histopathologic findings are non-specific. There [...] labeled A1. ??sdy 01/18/2023 11:31 AM EDT [facility] SPECIMEN FROM SKIN / Unknown 12/31/2022 11:20 AM EST 12/31/2022 11:20 AM EST Josué Hernandez MD PATHOLOGY/CYTOLOGY O RDERABLES [facility] [address] [place] [address] documented in this encounter Visit Diagnoses Not on filedocumented in this encounter Care Teams Mechanic'S Assistant Relationship Specialty Start Date End Date Edin Conner MD [address] [place] [address] PCP - General Family Medicine 02/28/21 documented as of this encounter
--- OUTSIDE RECORDS SUMMARY | 2024-11-19 15:48 | XMS_ITS | Encounter Summary ---
Author Organization [facility] [place] [address] Care Team Providers Care Cathode Maker Name Role Phone Edin Conner MD Primary Care Provider [phone] Reason for Visit * Reason Comments Suture / Staple Removal Encounter Details Date Type Department Care Team (Late st Contact Info) Description 01/13/2023 9:15 AM EDT Office Visit Dermatology at [address] [address] Josué Hernandez MD [address] [facility] A DERMATOLOGY [place], [place] [phone] Nevus of abdominal wall; Solar lentigo; Visit [...] EDT Problem: Follow-up for suture moved by angélica Catherine follows up by results are not yet [...] AM EST Hospital Encounter Nuclear Medicine at [place] [phone] Kayla Mcmanus MD [facility] [place] [address] 11/22/2024 8:00 AM EST Appointment [place] [address] Kayla Mcmanus MD [facility] [place] [address] 11/26/2024 12:00 PM EST Office [place] [address] Mariajose Albarran MD [facility] [place] [address] 11/01/2089 Hospital Encounter [place] [address] Naif Ng MD [facility] [place] [address] Scheduled Procedures Name Priority Associated Diagnoses Date/Ti [...] sutures documented in this encounter Care Teams Cathode Maker Relationship Specialty Start Date End Date Edin Conner MD [address] [place] [address] PCP - General Family Medicine 02/28/21 documented as of this encounter
--- OUTSIDE RECORDS SUMMARY | 2024-11-19 15:48 | XMS_ITS | Encounter Summary ---
[place] [address] Care Team Providers Care Head Of Operation And Logistics Name Role Phone Edin Conenr MD Primary Care Provider [phone] Encounter Details Date Type Department Care Team [...] AM EST Hospital Encounter [place] [phone] Kayla Mcmanus MD [facility] [place] [address] 11/22/2024 8:00 AM EST Appointment [place] [address] Kayla Mcmanus MD [facility] [place] [address] 11/26/2024 12:00 PM EST Office [place] [address] Mariajose Albarran MD [facility] [place] [address] 11/01/2089 Hospital Encounter [place] [address] Naif Ng MD [facility] [place] [address] Scheduled Procedures Name Priority Associated Diagnoses Date/Ti me REDUCTION MAMMOPLASTY, KRYSTAL ( WRVU 16.03) Malignant neoplasm of upper-outer quadrant of left breast in female, estrogen receptor positive documented as of this encounter Visit Diagnoses Not on filedocumented in this encounter Care Teams Head Of Operation And Logistics Relationship Specialty Start Date End Date Edin Conner MD [address] [facility] [place] [address] PCP - General Family Medicine 02/28/21 documented as of this encounter
--- OUTSIDE RECORDS SUMMARY | 2024-11-19 15:48 | XMS_ITS | Encounter Summary ---
[place] [address] Care Team Providers Care Cnc Programmer Name Role Phone Edin Conner MD Primary Care Provider [phone] Encounter Details Date Type Department Care Team [...] AM EST Hospital Encounter [place] [address] Kayla Mcmanus MD [facility] [place] [address] 11/22/2024 8:00 AM EST Appointment [place] [address] Kayla Mcmanus MD [facility] [place] [address] 11/26/2024 12:00 PM EST Office Visit [place] [address] [facility] [place] [address] 11/01/2089 Hospital Encounter [place] [address] [facility] [place] [address] Scheduled Procedures Name Priority Associated Diagnoses Date/Ti me REDUCTION MAMMOPLASTY, KRYSTAL ( WRVU 16.03) Malignant neoplasm of upper-outer quadrant of left breast in female, estrogen receptor positive documented as of this encounter Visit Diagnoses Not on filedocumented in this encounter Care Teams Cnc Programmer Relationship Specialty Start Date End Date Edin Conner MD [address] [facility] 1 [place] [address] PCP - General Family Medicine 02/28/21 documented as of this encounter
--- OUTSIDE RECORDS SUMMARY | 2024-11-19 15:48 | XMS_ITS | Encounter Summary ---
Author Organization [facility] [place] [address] Care Team Providers Care Dust Collector Attendant Name Role Phone Edin Conner MD Primary Care Provider [phone] Encounter Details Date Type Department Care Team (Late st Contact Info) Description 04/10/2021 11:20 AM EDT Office Visit Cardiology at [address] [phone] El Sawyer MD [facility] [place] [address] NSTEMI (non-ST elevated myocardial infarction) Social History [...] is that all of them are <130/80. [phone] [facility] [...] RCA 02/2021 (2.5 x 15 mm resolute [place] x 2) #Last studies: -TTE: 02/2021. LVEF 67%. Normal diastolic function. Mild MR/TR -LHC: 02/2021: PCI to proximal LAD and mid RCA 02/2021 (2.5 x 15 mm resolute [place] x 2). No residual obstructive disease. Constellation of symptoms over the course of a week prior to SD: [place] like I had been running and sucking [...] effects to medications. Social: Work at the [employer] on [employer]. 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 Lives with Josué. She is 1 of 11 children. OB: 3 children, 1 other full term pregnancies: no medical issues FH: Brother: Jani POTTER, age [id number] Brother: Joe, 3 stents, physically fit, non-smoker [...] Prostate Cancer Father ??? Myocardial Infarction Brother [place] in 50-60s ??? Heart Disease Neg Hx [...] AM EST Hospital Encounter Nuclear Medicine at [place] [phone] Kayla Mcmanus MD [facility] [place] [address] 11/22/2024 8:00 AM EST Appointment Nuclear Medicine at [place] [phone] Kayla Mcmanus MD [facility] [place] [address] 11/26/2024 12:00 PM EST Office [place] [address] Mariajose Albarran MD [facility] DR [place] [address] 11/01/2089 Hospital Encounter [place] [address] Naif Ng MD [facility] [place] [address] Scheduled Procedures Name Priority Associated Diagnoses Date/Ti me REDUCTION MAMMOPLASTY, KRYSTAL ( WRVU 16.03) Malignant neoplasm of upper-outer quadrant of left breast in female, estrogen receptor positive documented as of this encounter Visit Diagnoses Diagnosis NSTEMI (non-ST elevated myocardial infarction) Acute myocardial infarction, subendocardial infarction, episode of care unspecified documented in this encounter Care Teams Dust Collector Attendant Relationship Specialty Start Date End Date Edin Conner MD [address] [place] [address] [address] [place] [address] PCP - General Family Medicine 02/28/21 documented as of this encounter
--- OUTSIDE RECORDS SUMMARY | 2024-11-19 15:48 | XMS_ITS | Encounter Summary ---
[place] [address] Care Team Providers Care Deckhand Crab Boat Name Role Phone Alice Montilla MD Primary Care Provider [phone] Encounter Details Date Type Department Care Team (Late st Contact Info) Description 10/05/2018 Ancillary Procedure Radiology Library at [facility] [place] [address] Edin Conner MD [address] [place] [address] [address] [facility] 1 [place], [place] [id number] Social History Tobacco Use Types Packs/Day Years [...] AM EST Hospital Encounter [place] [phone] Kayla Mcmanus MD [facility] [place] [address] 11/22/2024 8:00 AM EST Appointment [place] [address] Kayla Mcmanus MD [facility] [place] [address] 11/26/2024 12:00 PM EST Office Visit [place] [address] Mariajose Albarran MD [facility] [place] [address] 11/01/2089 Hospital Encounter [place] [address] Naif Ng MD [facility] [place] [address] Scheduled Procedures Name Priority Associated Diagnoses Date/Ti me REDUCTION MAMMOPLASTY, KRYSTAL ( WRVU 16.03) Malignant neoplasm of upper-outer quadrant of left breast in female, estrogen receptor positive documented as of this encounter Procedures Procedure Name Priority Date/Time Associated Diagnosis Comments FILM LIBRARY STORAGE ONLY MAMMO Routine 10/05/2018 12:00 AM EST documented in this encounter Results * Film Library- Storage Only Mammo (10/05/2018 12:00 AM EST) Narrative [facility] - 10/03/2024 11:17 AM EST This exam is auto-finalizing. It's purpose is for storage only. Edin Conner MD IMG FILM LIBRARY ORDERABLES [place], [place] documented in this encounter Visit Diagnoses Not on filedocumented in this encounter Care Teams Deckhand Crab Boat Relationship Specialty Start Date End Date Alice Montilla MD [address] [place] [address] PCP - General 09/22/10 02/27/21 documented as of this encounter
--- OUTSIDE RECORDS SUMMARY | 2024-11-19 15:48 | XMS_ITS | Clinical Summary ---
Author Organization [facility] Address [address] [place] [address] Care Team Providers Care Guyline Operator Name Role Phone Unknown, Provider MD Primary Care Provider Unava ilable Encounters Date Type Department Care Team Description 09/19/2024 Lab Requisition [facility] Pathology & Laboratory Medicine - [facility] [address] [place] [address] Vincent Palmer MD Encounter for other general examination from Last 3 Months Social History Tobacco Use Types Packs/Day Years [...] Years) (1 - 1-dose 75+ series) 2024 Procedures Procedure Name Priority Date/Time Associated Diagnosis Comments SURGICAL PATHOLOGY Today 09/18/2024 14 :50 EST Encounter for other general examination from Last 3 Months Results * SURGICAL PATHOLOGY (09/18/2024 14:50 EST) Ancillary Studies Addendum ER/VA RESULTS: Tissue submitted: Paraffin embedded tissue block labelled [id number] Immunohistochemical assays for estrogen receptors (SP1, Walker) and progesterone receptors (16, Leica) have been performed on this specimen. Intranuclear receptor complexes were visualized on tissue sections using an HRP polymer immunohistochemical technique. This assay is intended for paraffin-embedded tissue fixed in 10% neutral buffered formalin for 6-72 hours. Results are reported as negative (<1% nuclear staining) or positive with the proportion of positive cells noted. Estrogen receptor expression in <5% of tumor cells may not have a strong interaction with estrogen receptor modulators such as Tamoxifen. Reference: ASCO-CAP Guideline Recommendations for IHC testing of ER and VA. J Clin Oncol 2010;28:7020-1006. NOTE: One or more of the reagents used in immunoperoxidase testing in this case may not have been cleared or approved by the U.S. Food and Drug Administration (FDA). The FDA has determined that such clearance or approval is not necessary. These tests are used for clinical purposes. They should not be regarded as investigational or for research. These reagents' performance characteristics have been determined by [facility] and/or by the referring laboratory. The positive and negative controls worked appropriately. If immunoperoxidase staining has been performed on alcohol fixed cytology specimens, which has not been fully validated, the assays should be interpreted with caution and correlated with clinical data. This laboratory is certified under the Clinical Laboratory Improvement Amendments of 1988 (CLIA-88) as qualified to perform high complexity clinical laboratory testing. INTERPRETATION: BREAST, LEFT, CORE BIOPSY - Adencarcinoma, invasive, ductal type with focal mucinous features - Positve for estrogen receptors (in >90% of tumor cells). - Nuclear staining intensity: Strong. - Positive for progesterone receptors (in 5% of tumor cells). - Nuclear staining intensity: Weak to Moderate. COMMENT: Cold ischemic time and total formalin fixation time appropriate: Yes Internal control benign epithelium is appropriately staining for estrogen and progesterone receptors NOTE: This assay has not been validated on decalcified tissues. Results should be interpreted with caution given the likelihood of false negativity on decalcified specimens. HER2/YANG RESULTS: Tissue submitted: Paraffin embedded tissue block labelled [id number] [facility] Fixative: Formalin This immunohistochemical assay is intended to paraffin-embedded tissue fixed in 10% neutral buffered formalin for 6-72 hours; 18-24 hour fixation with maximum tissue thickness of 3-4 millimeters is recommended for best assay performance. Time from biopsy to placement in formalin (cold ischemic time) should be minimized to less than one hour. Her2 should not be performed on alcohol fixed tissues. The assay was performed under appropriate conditions according to the general production laborer's instructions with appropriate assay and tissue controls using an Anti-Her2 (4B5) Rabbit Monoclonal Antibody (Walker). Her2 Scoring Guidelines (invasive tumor component only) 0 negative No staining or membrane staining in less than 10% of cells 1+ negative Faint partial membrane staining in more than 10% of cells 2+ weakly positive Moderate complete membrane staining in more than 10% of cells 3+ positive Strong complete membrane staining in more than 10% of cells Reference: ASCO-CAP Recommendations for Her2 Testing. J Clin Oncol 2018; epub (www.jco.org April 18, 2018) *FDA statement Assay results Her2 IHC Score: 0/negative Tumor location: Left Breast Cold ischemic time and total formalin fixative time appropriate: Yes Cells with complete membrane staining: None Membrane staining intensity: Faint Partial membrane staining: Present in 5% of cells Cytoplasmic staining: Absent Staining pattern: N/A Staining in benign epithelium: Faint The Her2 assay performed is interpreted as: NEGATIVE 10/01/2024 12:56 [facility] Addendum electronically signed by Alireza Rangel MD on 10/01/2024 at 1256 Note to Patient The following pathology results have been interpreted by your pathologist and may be available to you before your health provider has had the opportunity to review them. Please allow time for your provider to receive these results and explore management options, if applicable. 10/01/2024 12:56 [facility] Final Diagnosis A. BREAST, LEFT, NOT OTHERWISE SPECIFIED, CORE NEEDLE BIOPSY: - Adenocarcinoma, invasive, ductal with focal mucinous features, nuclear grade 2-3. See comment. 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 10/01/2024 12:56 [facility] Diagnosis Comment Estrogen and progesterone receptor assays and Her2 studies have been ordered and results will be issued in an Addendum. Immunoperoxidase stains were performed on this case to further characterize the lesion. ANTIBODY(CLONE)(BLOCK ):RESULT E-cadherin (36B5, Leica) (A1): positive (ductal phenotype) NOTE: One or more of the reagents used in immunoperoxidase testing in this case may not have been cleared or approved by the U.S. Food and Drug Administration (FDA). The FDA has determined that such clearance or approval is not necessary. These tests are used for clinical purposes. They should not be regarded as investigational or for research. These reagents' performance characteristics have been determined by [facility] and/or by the referring laboratory. The positive and negative controls worked appropriately. If immunoperoxidase staining has been performed on alcohol fixed cytology specimens, which has not been fully validated, the assays should be interpreted with caution and correlated with clinical data. This laboratory is certified under the Clinical Laboratory Improvement Amendments of 1988 (CLIA-88) as qualified to perform high complexity clinical laboratory testing. 10/01/2024 12:56 [facility] Attestation There was significan t resident/fellow involvement in the diagnostic evaluation of this case. By the signature below, the attending physician certifies that they have personally conducted a gross and/or microscopic examination of the described specimens and rendered or confirmed the above diagnosis. 10/01/2024 12:56 [facility] at 0923 Clinical History Palpable mass 10/01/2024 12:56 [facility] Gross Description A. Received in formalin labelled with proper patient identification (initials C, D) and L breast core needle bx are 3 yellow and white fibrofatty tissue cores (1.6 cm to 1.0 cm in length, and each 0.15 cm in diameter). Entirely submitted in A1-A2. Time removed from patient: 14:50 hours 09/18/2024 Time placed in formalin: 14:50 hours 09/18/2024 Time out of formalin: 00:30 hours 09/20/2024 Olga Phillips 09/19/2024 10:00 10/01/2024 12:56 [facility] Resident/Fell ow: Sathish Stafford DO 10/01/2024 12:56 [facility] Performing Lab [facility] 10/01/2024 12:56 [facility] Scanned Images 10/01/2024 12:56 [facility] Tissue BREAST STRUCTURE / Unknown 09/18/2024 14:50 EST 09/19/2024 8:25 EST us Vincent Palmer MD PATHOLOGY ORDERABLES Edited Res ult - Final [facility] [address] [place] [address] from Last 3 Months Insurance MEDICARE [facility] Member Subscriber Plan / Payer (Ef fective 2018-Present) Name:Dorene Duque Relation to Subscriber:Self Name:Dorene Duque Payer ID:[id number] (NAIC) Type:[facility] GL Address: [address] [address] Care Teams Guyline Operator Relationship Specialty Start Date End Date Unknown, Provider, PCP - General 09/30/24
--- OUTSIDE RECORDS SUMMARY | 2024-11-19 15:48 | XMS_ITS | Encounter Summary ---
[place] [address] Care Team Providers Care Patient Accounts Specialist Name Role Phone Alice Montilla MD Primary Care Provider [phone] Encounter Details Date Type Department Care Team (Late st Contact Info) Description 10/18/2011 Ancillary Procedure Radiology Library at [facility] [place] [address] Edin Conner MD [address] [place] [address] [address] [place], [place] [id number] Social History Tobacco Use Types Packs/Day Years [...] AM EST Hospital Encounter [place] [phone] Kayla Mcmanus MD [facility] [place] [address] 11/22/2024 8:00 AM EST Appointment [place] [address] Kayla Mcmanus MD [facility] [place] [address] 11/26/2024 12:00 PM EST Office Visit [place] [address] Mariajose Albarran MD [facility] [place] [address] 11/01/2089 Hospital Encounter [place] [phone] Naif Ng MD [facility] [place] [address] Scheduled Procedures Name Priority Associated Diagnoses Date/Ti me REDUCTION MAMMOPLASTY, KRYSTAL ( WRVU 16.03) Malignant neoplasm of upper-outer quadrant of left breast in female, estrogen receptor positive documented as of this encounter Procedures Procedure Name Priority Date/Time Associated Diagnosis Comments FILM LIBRARY STORAGE ONLY MAMMO Routine 10/18/2011 12:00 AM EST documented in this encounter Results * Film Library- Storage Only Mammo (10/18/2011 12:00 AM EST) Narrative [facility] - 10/03/2024 11:17 AM EST This exam is auto-finalizing. It's purpose is for storage only. Edin Conner MD IMG FILM LIBRARY ORDERABLES [place], [place] documented in this encounter Visit Diagnoses Not on filedocumented in this encounter Care Teams Patient Accounts Specialist Relationship Specialty Start Date End Date Alice Montilla MD [address] [place] [address] PCP - General 09/22/10 02/27/21 documented as of this encounter
--- OUTSIDE RECORDS SUMMARY | 2024-11-19 15:48 | XMS_ITS | Encounter Summary ---
[place] [address] Care Team Providers Care Portfolio Consultant Name Role Phone Edin Conner MD Primary Care Provider [phone] Encounter Details Date Type Department Care Team (Late st Contact Info) Description 09/14/2024 Ancillary Procedure Radiology Library at [facility] [place] [address] Edin Conner MD [address] [place], [place] [id number] Social History Tobacco Use Types Packs/Day Years [...] AM EST Hospital Encounter [place] [address] Kayla Mcmanus MD [facility] [place] [address] 11/22/2024 8:00 AM EST Appointment Nuclear Medicine at [place] [phone] Kayla Mcmanus MD [facility] [place] [address] 11/26/2024 12:00 PM EST Office [place] [address] Mariajose Albarran MD [facility] [place] [address] 11/01/2089 Hospital Encounter Main Operating Room [place] [phone] Naif Ng MD [facility] [place] [address] Scheduled Procedures Name Priority Associated Diagnoses Date/Ti me REDUCTION MAMMOPLASTY, KRYSTAL ( WRVU 16.03) Malignant neoplasm of upper-outer quadrant of left breast in female, estrogen receptor positive documented as of this encounter Procedures Procedure Name Priority Date/Time Associated Diagnosis Comments FILM LIBRARY-STORAGE ONLY US BREAST Routine 09/14/2024 12:00 AM EST documented in this encounter Results * Film Library Storage Only US Breast (09/14/2024 12:00 AM EST) Narrative [facility] - 10/03/2024 11:17 AM EST This exam is auto-finalizing. It's purpose is for storage only. Edin Conner MD IMG FILM LIBRARY ORDERABLES [place], [place] documented in this encounter Visit Diagnoses Not on filedocumented in this encounter Care Teams Portfolio Consultant Relationship Specialty Start Date End Date Edin Conner MD [address] [place] [address] PCP - General Family Medicine 02/28/21 documented as of this encounter
--- OUTSIDE RECORDS SUMMARY | 2024-11-19 15:48 | XMS_ITS | Encounter Summary ---
Author Organization [facility] [place] [address] Care Team Providers Care Tennis Ball Coverer Hand Name Role Phone Edin Conner MD Primary Care Provider [phone] Encounter Details Date Type Department Care Team (Late st Contact Info) Description 03/27/2021 Telephone Cardiology at [address] [phone] Jenny Solomon APRN [facility] [place] [address] Social History Tobacco Use Types Packs/Day Years Used Date Smoking Tobacco: Never Assessed Sex and Gender Information Value Date Recorded Sex Assigned at Not on file Gender Identity Not on file Sexual Orientation Not on file documented as of this encounter Miscellaneous Notes * Telephone Encounter - Jenny Solomon APRN - 03/27/2021 12:05 PM EDT 03/27/2021 Dorene Duque Initial Contact Date: 03/27/2021 Initial contact time: 12:05 PM Referring Provider: Dr. Vera Patient [facility] Past Medical History: HTN HLD Remote CVA, [...] not personally interviewed or examined this patient. DAVE Sutherland, BUS ASSISTANT-BC, HOOP EXPANDER [facility] Cardiovascular Medicine documented in this encounter Plan of Treatment Upcoming Encounters Date Type Department Care Team (Late st Contact Info) Description 11/22/2024 7:00 AM EST Hospital Encounter [place] [phone] Kayla Mcmanus MD [facility] [place] [address] 11/22/2024 8:00 AM EST Appointment [place] [phone] Kayla Mcmanus MD [facility] [place] [address] 11/26/2024 12:00 PM EST Office Visit General Surgery at [place] [phone] Mariajose Albarran MD [facility] [place] [place] [address] 11/01/2089 Hospital Encounter [place] [address] Naif Ng MD [facility] [place] [place] [address] Scheduled Procedures Name Priority Associated Diagnoses Date/Ti me REDUCTION MAMMOPLASTY, KRYSTAL ( WRVU 16.03) Malignant neoplasm of upper-outer quadrant of left breast in female, estrogen receptor positive documented as of this encounter Visit Diagnoses Not on filedocumented in this encounter Care Teams Tennis Ball Coverer Hand Relationship Specialty Start Date End Date Edin Conner MD [address] [place] [address] [address] [facility] 1 [place] [address] PCP - General Family Medicine 02/28/21 documented as of this encounter
--- OUTSIDE RECORDS SUMMARY | 2024-11-19 15:48 | XMS_ITS | Encounter Summary ---
[place] [address] Care Team Providers Care Rv Repair Technician Name Role Phone Edin Conner MD Primary Care Provider [phone] Encounter Details Date Type Department Care Team (Late st Contact Info) Description 04/06/2021 Tele[place] [address] Beth Camejo RN Social History Tobacco Use [...] AM EST Hospital Encounter Nuclear Medicine at [place] [phone] Kayla Mcmanus MD [facility] [place] [address] 11/22/2024 8:00 AM EST Appointment [place] [address] Kayla Mcmanus MD [facility] [place] [address] 11/26/2024 12:00 PM EST Office [place] [address] Mariajose Albarran MD [facility] [place] [address] 11/01/2089 Hospital Encounter Main Operating Room [place] [phone] Naif Ng MD [facility] [place] [address] Scheduled Procedures Name Priority Associated Diagnoses Date/Ti me REDUCTION MAMMOPLASTY, KRYSTAL ( WRVU 16.03) Malignant neoplasm of upper-outer quadrant of left breast in female, estrogen receptor positive documented as of this encounter Visit Diagnoses Not on filedocumented in this encounter Care Teams Rv Repair Technician Relationship Specialty Start Date End Date Edin Conner MD [address] [place] [address] PCP - General Family Medicine 02/28/21 documented as of this encounter
--- OUTSIDE RECORDS SUMMARY | 2024-11-19 15:48 | XMS_ITS | Encounter Summary ---
[place] [address] Care Team Providers Care Terrazzo Polisher Name Role Phone Alice Montilla MD Primary Care Provider [phone] Encounter Details Date Type Department Care Team (Late st Contact Info) Description 04/16/2013 Ancillary Procedure Radiology Library at [facility] [place] [address] Edin Conner MD [address] [place] [address] [address] [facility] [address] [place], [place] [id number] Social History Tobacco Use Types Packs/Day Years [...] AM EST Hospital Encounter [place] [phone] Kayla Mcmanus MD [facility] [place] [address] 11/22/2024 8:00 AM EST Appointment [place] [address] Kayla Mcmanus MD [facility] [place] [address] 11/26/2024 12:00 PM EST Office [place] [address] Mariajose Albarran MD [facility] [place] [address] 11/01/2089 Hospital Encounter [place] [phone] Naif Ng MD [facility] [place] [address] Scheduled Procedures Name Priority Associated Diagnoses Date/Ti me REDUCTION MAMMOPLASTY, KRYSTAL ( WRVU 16.03) Malignant neoplasm of upper-outer quadrant of left breast in female, estrogen receptor positive documented as of this encounter Procedures Procedure Name Priority Date/Time Associated Diagnosis Comments FILM LIBRARY STORAGE ONLY MAMMO Routine 04/16/2013 12:00 AM EDT documented in this encounter Results * Film Library- Storage Only Mammo (04/16/2013 12:00 AM EDT) Narrative [facility][NOTE 3] - 10/03/2024 11:17 AM EST This exam is auto-finalizing. It's purpose is for storage only. Edin Conner MD IMG FILM LIBRARY ORDERABLES [place], [place] documented in this encounter Visit Diagnoses Not on filedocumented in this encounter Care Teams Terrazzo Polisher Relationship Specialty Start Date End Date Alice Montilla MD [address] [place] [address] PCP - General 09/22/10 02/27/21 documented as of this encounter
--- OUTSIDE RECORDS SUMMARY | 2024-11-19 15:48 | XMS_ITS | Encounter Summary ---
Author Organization [facility] [place] [address] Care Team Providers Care New Home Sales Consultant Name Role Phone Edin Conner MD Primary Care Provider [phone] Encounter Details Date Type Department Care Team (Late st Contact Info) Description 01/18/2023 Telephone Dermatology at [address] [place] [address] Nickie Jerome LPN Social History Tobacco [...] AM EST Hospital Encounter Nuclear Medicine at [place] [phone] Kayla Mcmanus MD [facility] [place] [address] 11/22/2024 8:00 AM EST Appointment [place] [address] Kayla Mcmanus MD [facility] [place] [address] 11/26/2024 12:00 PM EST Office Visit General Surgery at [place] [phone] Mariajose Albarran MD [facility] [place] [address] 11/01/2089 Hospital Encounter Main Operating Room [place] [phone] Naif Ng MD [facility] [place] [place] [address] Scheduled Procedures Name Priority Associated Diagnoses Date/Ti me REDUCTION MAMMOPLASTY, KRYSTAL ( WRVU 16.03) Malignant neoplasm of upper-outer quadrant of left breast in female, estrogen receptor positive documented as of this encounter Visit Diagnoses Not on filedocumented in this encounter Care Teams New Home Sales Consultant Relationship Specialty Start Date End Date Edin Conner MD [address] [place] [address] [address] [place] [address] PCP - General Family Medicine 02/28/21 documented as of this encounter
--- OUTSIDE RECORDS SUMMARY | 2024-11-19 15:48 | XMS_ITS | Encounter Summary ---
Author Organization [facility] [place] [address] Care Team Providers Care Commercial Journeyman Electrician Name Role Phone Edin Conner MD Primary Care Provider [phone] Reason for Visit * Reason Comments Skin Lesion * Consultation (Routine) - Closed Specialty Diagnoses / Procedures Referred By Charisma vergara Referred To Contact Dermatology Diagnoses Skin lesion Edin Conner MD [address] [facility] 1 [place] [address] Josué Hernandez MD [address] [facility] [place] [address] Referral ID Status Reason Start Date Expiration Date V isits Requested Visits Authorized [id number] Closed Consult, Test & Treat PCP Updated and/or Approved 11/08/2022 11/08/2023 6 6 Encounter Details Date Type Department Care Team (Late st Contact Info) Description 12/31/2022 10:45 AM EST Office Visit Dermatology at [address] [address] Josué Hernandez MD [address] [facility] [address] Solar lentigo; Nevus of abdominal [...] has a solar lentigo on her right restoration and 1 on her right lateral cheek. [...] AM EST Hospital [place] [address] Kayla Mcmanus MD [facility] [place] [address] 11/22/2024 8:00 AM EST Appointment [place] [phone] Kayla Mcmanus MD [facility] [place] [address] 11/26/2024 12:00 PM EST Office [place] [phone] Mariajose Albarran MD [facility] [place] [place] [address] 11/01/2089 Hospital Encounter [place] [address] Naif Ng MD [facility] [place] [address] Scheduled Procedures Name Priority Associated Diagnoses Date/Ti me REDUCTION MAMMOPLASTY, KRYSTAL ( WRVU 16.03) Malignant neoplasm of upper-outer quadrant of left breast in female, estrogen receptor positive documented as of this encounter Visit Diagnoses Diagnosis Solar lentigo Other dyschromia Nevus of abdominal wall Benign neoplasm of skin of trunk, except scrotum documented in this encounter Care Teams Commercial Journeyman Electrician Relationship Specialty Start Date End Date Edin Conner MD [address] [place] [address] [address] [facility] 1 [place] [address] PCP - General Family Medicine 02/28/21 documented as of this encounter
--- OUTSIDE RECORDS SUMMARY | 2024-11-19 15:48 | XMS_ITS | Referral Summary ---
Author Organization [facility] Address [address] [place] [address] Care Team Providers Care Inventory Control Assistant Name Role Phone Unknown, Provider MD Primary Care Provider Unava ilable Encounters Date Type Department Care Team Description 09/19/2024 Lab Requisition [facility] Pathology & Laboratory Medicine - [facility] [address] [place] [address] Vincent Palmer MD Encounter for other general [...] file Plan of Treatment Not on file Procedures Procedure Name Priority Date/Time Associated Diagnosis Comments SURGICAL PATHOLOGY Today 09/18/2024 14 :50 EST Encounter for other general examination from Last 3 Months Results * SURGICAL PATHOLOGY (09/18/2024 14:50 EST) Ancillary Studies Addendum ER/MT RESULTS: Tissue submitted: Paraffin embedded tissue block labelled [id number] Immunohistochemical assays for estrogen receptors (SP1, Webster) and progesterone receptors (16, Leica) have been [...] Recommendations for IHC testing of ER and MT. J Clin Oncol 2010;28:7746-4922. NOTE: One or more of the reagents [...] performance characteristics have been determined by [facility] and/or by the referring laboratory. The [...] Tissue submitted: Paraffin embedded tissue block labelled [id number] [facility] Fixative: Formalin This immunohistochemical assay is [...] performed under appropriate conditions according to the braille duplicating machine operator's instructions with appropriate assay and tissue controls using an Anti-Her2 (4B5) Rabbit Monoclonal Antibody (Webster). Her2 Scoring Guidelines (invasive tumor component only) [...] performed is interpreted as: NEGATIVE 10/01/2024 12:56 [facility] Addendum electronically signed by Alireza Rangel MD on 10/01/2024 at 1256 Note to Patient The following pathology results have been interpreted by your pathologist and may be available to you before your health provider has had the opportunity to review them. Please allow time for your provider to receive these results and explore management options, if applicable. 10/01/2024 12:56 [facility] Final Diagnosis A. BREAST, LEFT, NOT OTHERWISE SPECIFIED, CORE NEEDLE BIOPSY: - Adenocarcinoma, invasive, ductal with focal mucinous features, nuclear grade 2-3. See comment. 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 10/01/2024 12:56 [facility] Diagnosis Comment Estrogen and progesterone [...] performance characteristics have been determined by [facility] and/or by the referring laboratory. The [...] high complexity clinical laboratory testing. 10/01/2024 12:56 [facility] Attestation There was significan t resident/fellow involvement in the diagnostic evaluation of this case. By the signature below, the attending physician certifies that they have personally conducted a gross and/or microscopic examination of the described specimens and rendered or confirmed the above diagnosis. 10/01/2024 12:56 [facility] at 0923 Clinical History Palpable mass 10/01/2024 12:56 [facility] Gross Description A. Received in [...] out of formalin: 00:30 hours 09/20/2024 Olga Pihllips 09/19/2024 10:00 10/01/2024 12:56 [facility] Resident/Fell ow: Sathish Stafford DO 10/01/2024 12:56 [facility] Performing Lab [facility] 10/01/2024 12:56 [facility] Scanned Images 10/01/2024 12:56 [facility] Tissue BREAST STRUCTURE / Unknown 09/18/2024 14:50 EST 09/19/2024 8:25 EST us Vincent Palmer MD PATHOLOGY ORDERABLES Edited Res ult - Final [facility] [address] [place] [address] from Last 3 Months Insurance MEDICARE [facility] Address: [address] [address] Care Teams Inventory Control Assistant Relationship Specialty Start Date End Date Unknown, Provider, PCP - General 09/30/24
--- OUTSIDE RECORDS SUMMARY | 2024-11-19 15:48 | XMS_ITS | Encounter Summary ---
Author Organization [facility] [place] [address] Care Team Providers Care Pulp And Paper Tester Name Role Phone Edin Conner MD Primary Care Provider [phone] Reason for Visit * Auth/Cert Specialty Diagnoses / Procedures Referred By Charisma t Referred To Contact Diagnoses NSTEMI, initial episode of care NSTEMI Procedures PRO PERC TRLUML CORONRY TOT OCCLUS REVASC [place] ONE VESSEL Referral ID Status Reason Start Date Expiration Date Visits Re quested Visits Authorized [id number] 1 1 Encounter Details Date Type Department Care Team (Late st Contact Info) Description 03/29/2021 11:55 AM EDT - 03/29/2021 1:29 PM EDT Surgery [place] [id number] Tl Johnston MD [facility] [place] [address] CARDIAC CATHETERIZATION Social History Tobacco Use Types [...] as ASA Class III. The [facility] clinical frailty scale is 3: Managing Well. Diagnostic Tests: Medications Prior to Procedure: Aspirin, Beta Alicia and Statin. Indications for Diagnostic Cath: The priority of the diagnostic procedure was Urgent. The indication for the clinical laboratory aides teacher visit is ACS less than or [...] dose administered prior to arrival in the clinical laboratory aides teacher. Recommended anti-platelet/anti-thrombotic regimen: Start aspirin 81 mg daily now and continue for indefinitely. Start clopidogrel 75 mg daily now and continue for 12 months then stop. These recommendations are made at the time of the intervention. Patient and provider preferences or a changing clinical situation may require modification of this regimen. Consult [facility] Interventional Cardiology for questions. The 1 year [...] pain. This prompted her to go to [facility] on 03/24 and had an EKG that was reportedly normal and she was discharged home. ?? On , patient was mowing her lawn and she had another episode of chest tightness, that improved with rest. On Tuesday, she developed dizziness with vision changes and nausea which led to 3 episodes of clear emesis, which prompted her to present to the [facility]. At that time, she reported some chest tightness, but denies any shortness of breath. ?? In the [facility] ED, EKG notable for HR 69, [...] gtt. Patient was initially admitted to the [facility] ICU. Troponin-I remained flat (0.24, 0.22, 0.23). Heparin gtt was continued, and patient's vertiginous symptoms and chest pain resolved. Patient was transferred to [facility]. ?? At [facility], patient reports feeling well, back to her baseline. She reports mild chest tightness with deep inspiration. Otherwise, patient denied any chest pain, palpitations, shortness of breath, cough, nausea, vomiting, abdominal pain, constipation, diarrhea, dysuria, numbness or tingling, vision changes. ?? Currently lives in [place], [place] with her . Able to perform ADLs. Is the youngest of 11 children, has 8 siblings in the area. Family history notable for several CVAs, brother with an [place] in 50s.Hx of smoking 3cigarettes/week x 10 [...] her PCP and with cardiology here at [facility]. Important Studies and Lab Data: Labs: Recent [...] MV E-wave Vmax 0.73 m/sec MV deceleration cstx125 msec MV A-wave Vmax 0.79 m/sec MV [...] Normal Mid-Posterolateral Normal Mid-Inferior Normal Mid-Inferoseptal Normal Urbanna-Septal Normal Urbanna-Anterior Normal Urbanna-Lateral Normal Urbanna-Inferior Normal Urbanna-Tip Normal ?? Pending Studies and Lab Data: [...] appointments: During 8am-5pm Tuesday through Tuesday call [phone] to speak with a nurse in the cardiology clinic All other times call [phone] and ask to speak to the genetic technologist classification counselor. Activity level: - No heavy lifting (more [...] for VNA/home care: none Follow up Appointments: Resilient Tile Installer: 04/10/[address] Haider at [facility] Cardiology PCP: scheduled for 03/03/21 Your Inpatient Doctor(s) at [facility]: MD Taran Rodriguez MD Your Primary Care Provider: Edin Conner MD [address] [place] [address] [address] [facility] [[email or web address] / [facility] [id number] For questions regarding issues relating to your hospitalization on the Hospital Medicine Service, please contact your inpatient physician through the [facility] Bread Jockey [phone]. Issues after hours and on weekends will be handled by the Hospitalist staff on-call. General Instructions None Future Appointments and Orders Future Appointments and Orders Future Appointments Provider Department Dept Phone 04/10/2021 11:20 AM El Sawyer MD Cardiology at [facility] Arrive at: Stencil Sprayer Area 4A [phone] Discharge References/Attachments: Discharge References/Attachments Cardiac Rehabilitation (Chinese) PCI (Percutaneous Coronary Intervention): Post-op (Chinese) Heart Attack: Medicine for Secondary Prevention (Chinese) Statins (Chinese) Inpatient Provider Contact Information: Please call the hospital fulling mill operator at [phone] and ask to be connected with Cardiology Team S1 (pager [phone]). Electronically Signed By: Taran Kim MD 03/31/2021 Associated attestation - Kevon Vega MD - 04/01/2021 10:37 AM EDT Dear Colleagues, I was the attending at the time of discharge. Please call or email me if you have questions. Kevon Vega MD, SHIRA Cardiovascular Medicine [phone] documented in this encounter Discharge Instructions * [...] of your follow up appointments: During 8am-5pm [place] through Tuesday call [phone] to speak with a nurse in the cardiology clinic All other times call [phone] and ask to speak to the genetic technologist classification counselor. Activity level: - No heavy lifting (more [...] none Follow up Appointments: No future appointments. Resilient Tile Installer: Our Cardiology department will call you to set up an appointment. PCP: Edin Conner MD at [phone] Your Inpatient Doctor(s) at [facility]: MD Taran Rodriguez MD Your Primary Care Provider: Edin Conner MD [address] [address] / [place] [address] For questions regarding issues relating to your hospitalization on the Hospital Medicine Service, please contact your inpatient physician through the [facility] Bread Jockey [phone]. Issues after hours and on weekends will be handled by the Hospitalist staff on-call. * Attachments The following attachments cannot be sent through Care Everywhere. * Cardiac Rehabilitation (Chinese) * PCI (Percutaneous Coronary Intervention): Post-op (Chinese) * Heart Attack: Medicine for Secondary Prevention (Chinese) * Statins (Chinese) documented in this encounter Medications at Time [...] Dressing c/d/i.No tenderness to palpation. Abd: No Torrington's sign. Ext: UE and LE warm with warm and well perfused. Sensation intact in all extremities. Back: No flank or back tenderness. No retroperitoneal ecchymosis/ Goff Pruett's sign. A/P: S/p cardiac catheterization with benign appearing right radial access site. Shira Ha MD Internal Medicine, PGY-2 S1 Team, Pager #[phone] * Serge Palacio RN - 03/29/2021 6:52 PM EDT OUTCOME EVALUATION NOTE: OUTCOME SUMMARY: VSS. RA. AUOP, occurences. -BM. Tolerating diet. Denies pain. TR band removed following guidelines. Some swelling noted and outlined, team notified and assessed.Plan to monitor overnight. shrimp pond laborer with stenting today. Tolerated well. See OR [...] PM EDT Report received, Pt returned from clinical laboratory aides teacher, A+O, VSS. RA. TR band intact. Denies Numbness/ Tinglingon R hand. CMST intact, hand appropriately cool. R arm labeled, no BP's for 24 hrs post cath. TR band to remain on per conversation with charger operator r/t ACT level. Patient updated. Per report: [...] HLD, and epilepsy who was transferred from [facility] for an NSTEMI. 24 hr [...] HLD, and epilepsy who was transferred from [facility] for an NSTEMI. Received two stents today in clinical laboratory aides teacher without apparent complication. Will monitor overnight post-cath, no further need for heparin gtt. Will start ANNAMARIE/ARB tomorrow AM to fully capitulate GDMT if renal function continues to improve. Rest of plan per below. PLAN: #Acute zcd-HG-wktnihknr myocardial infarction #Hypertension #Hyperlipidemia #History of cerebrovascular accident -Aspirin 81mg qd -Plavix 75mg qd -Rosuvastatin 40mg qhs -Metoprolol 12.5mg BID -Will likely start lisinopril 20mg qd back up tomorrow AM (day team's discretion) -TTE pending #Epilepsy -Lamotrigine 250mg qd Code Status: FULL Dispo: Floors Tl Chowdhury MD Internal Medicine PGY-2 Cardiology S1, Pager #[phone] 03/29/2021 Cardiology Staff Addendum ?? Deysi Strange [...] PCP: Edin Conner MD PCP phone number: [phone] Date of Admission: 03/28/2021 ( Hospital Day 0 days ) Attending:Kevon Vega MD ID: Deysi Strange is a 70 y.o. female with history of prior CVA, HTN, HLD, CKD 3, epilepsy who was[facility]red from [facility] for an NSTEMI. HPI: Patient [...] pain. This prompted her to go to [facility] on 03/24 and had an EKG that was reportedly normal and she was discharged home. On , patient was mowing her lawn and she had another episode of chest tightness, that improved with rest. On Tuesday, she developed dizziness with vision changes and nausea which led to 3 episodes of clear emesis, which prompted her to present to the [facility]. At that time, she reported some chest tightness, but denies any shortness of breath. In the [facility] ED, EKG notable for HR 69, [...] gtt. Patient was initially admitted to the [facility] ICU. Troponin-I remained flat (0.24, 0.22, 0.23). Heparin gtt was continued, and patient's vertiginous symptoms and chest pain resolved. Patient was transferred to [facility]. At [facility], patient reports feeling well, back to her baseline. She reports mild chest tightness with deep inspiration. Otherwise, patient denied any chest pain, palpitations, shortness of breath, cough, nausea, vomiting, abdominal pain, constipation, diarrhea, dysuria, numbness or tingling, vision changes. Currently lives in [place], [place] with her . Able to perform ADLs. Is the youngest of 11 children, has 8 siblings in the area. Family history notable for several CVAs, brother with an [place] in 50s.Hx of smoking 3cigarettes/week x 10 [...] in the last 7068 hours. Invalid input(s): [id number] No results for input(s): POCGLU in the last 168 hours. Heme No results for input(s): LDH, HAPTOGLOBIN, URICACID in the last 168 hours. ABG (Arterial Blood Gas) No results found for: PHART, PO2ART, PTP1GXS, INJ4CDT Microbiology: Microbiology Results (Last 30 days) No [...] HTN, HLD, epilepsy who was transferred from [facility] for an NSTEMI. Patient initially [...] which prompted her to present to the [facility]. In the [facility] ED, EKG notable for HR 69, [...] gtt. Patient was initially admitted to the [facility] ICU. Troponin-I remained flat (0.24, 0.22, 0.23). Heparin gtt was continued, and patient's vertiginous symptoms and chest pain resolved. Patient was transferred to [facility]. Anticipate cardiac cath tomorrow. Plan to continue [...] COVID test: Lab Results Component Value Date [id number] Not Detected 03/28/2021 Past medical History: Past [...] spouse would be surrogate decision maker per [place] surrogate decision making law. (Only good for 90 days) Any patient receiving care at [facility] must abide by [place] law. The hierarchy for surrogate decision making [...] (i) The agent with financial power of search specialist or a conservator appointed in accordance with RSA 464-A. (j) The guardian of the patient???s estate. Current Coping/Education/Information Needs: No questions or concerns Current Functional Ability: Independent Functional Status Prior to Admission: Independent Home Environment: People in home: spouse. Current Living Arrangements: home/apartment/condo. Accessibility Concerns:2 story home. No reported issues with mobility. Current DME: none Home Address confirmed as: [address] [address] Social & Family Supports: All names listed below confirmed with patient as current and correct Extended Emergency Contact Information Primary Emergency Contact: JOSUÉ STRANGE Address: [address] [place] [address] [employer] [facility] [place] Relation: Spouse Secondary Emergency Contact: GILDARDO STRANGE Address: [address] [place] [address] [employer] [place] Relation: Child Current Care Provided by: [...] Type: *No Product type* / Secondary Insurance: [employer] [facility] Prescription Coverage: Yes Preferred Pharmacy: [facility] [place], [place] - [address] [place] [id number] Status: Patient is a : No Primary Care Provider: Edin Conner MD [phone] Patient/Caregiver Goals of Treatment: DC home Potential [...] of care planning. Romi Mayo RN, MSN [employer] Launch Commander - Cardiology Office of Care Management Pager: [phone] * Brief Op Note - Tl Johnston MD - 03/29/2021 1:14 PM EDT Images from the original note were not included. Preliminary Cardiac Catheterization Procedure Note: Patient Name: Deysi Strange : [id number] MR#: [id number] Case Date: 03/29/2021 Bread Jockey: Surgeon(s) and Role: * Tl Johnston MD [...] AM EST Hospital Encounter [place] [address] Kayla Mcmanus MD [facility] [place] [address] 11/22/2024 8:00 AM EST Appointment [place] [phone] Kayla Mcmanus MD [facility] [place] [address] 11/26/2024 12:00 PM EST Office [place] [address] Mariajose Albarran MD [facility] [address] 11/01/2089 Hospital Encounter [place] [address] Naif Ng MD [facility] PLASTIC SURGERY [place], [place] [id number] Scheduled Procedures Name Priority Associated Diagnoses Date/Ti [...] JO R ?(Age): 1950(70y) Med Rec#: ? [id number] ?Sex: ?F ? Site Loc: ? [facility] ?Ht / Wt: ??163(cm)/80(kg) Pt. Loc: ?Adult Floor ? BSA: ?1.86 Study Date: ?? 03/30/2021 ?Pt. Type: Inpatient Tape: ? Referring: RITESH Reading: Kevon Vega ??([id number]) Seismic Prospecting Supervisor: Gildardo Lowe SHOAIB Diagnosis: *Non-ST elevation (NSTEMI) myocardial infarction (I21.4) [...] Vmax ?0.73 ? m/sec ? MV deceleration vxfw105 ?msec ? MV A-wave Vmax ?0.79 ? [...] ? Mid-Inferior ?Normal ? Mid-Inferoseptal ?Normal ? Urbanna-Septal ? Normal ? [place]-Anterior ? Normal ? [place]-Lateral ?Normal ? [place]-Inferior ? Normal ? [place]-Tip ?Normal ? This report has been electronically signed by: Kevon Vega MD ? 03/30/2021 12:56:23 Images reviewed and interpretation verified [facility] Cardiac Ultrasound Laboratory Procedure Note Kevon Vega MD - 03/30/2021 Procedure: Transthoracic Echocardiogram Patient: ALIE Quintana DOB(Age): 1950(70y) Med Rec#: [id number] Sex: F Site Loc: [facility] Ht / Wt: 163(cm)/80(kg) Pt. Loc: Adult Floor BSA: 1.86 Study Date: 03/30/2021 Pt. Type: Inpatient Tape: [facility] Reading: Kevon Vega ([id number]) Seismic Prospecting Supervisor: Gildardo Lowe, [facility] Diagnosis: *Non-ST elevation (NSTEMI) myocardial infarction [...] MV E-wave Vmax 0.73 m/sec MV deceleration hyom190 msec MV A-wave Vmax 0.79 m/sec MV [...] Normal Mid-Posterolateral Normal Mid-Inferior Normal Mid-Inferoseptal Normal Urbanna-Septal Normal Urb[place]-Anterior Normal [place]-Lateral Normal [place]-Inferior Normal [place]-Tip Normal This report has been electronically signed by: Kevon Vega MD 03/30/2021 12:56:23 Images reviewed and interpretation verified [facility] Cardiac Ultrasound Laboratory Kevon Vega MD ECHO ORDERABLES * Bilirubin, Direct (03/30/2021 6:36 AM EDT) [facility] Bilirubin, Direct 0.1 0.0 - 0.3 mg/dL [facility] Blood 03/30/2021 6:36 AM EDT 03/30/2021 6:41 AM EDT Narrative Resulting Agency Comment Spec In Lab Kevon Vega MD CHEMISTRY ORDERABLES Performing Organization Address [facility]/ZIP Co de Phone Number [facility] [place] [address] * (ABNORMAL) Aspartate Aminotransferase (03/30/2021 6:36 AM EDT) [facility] Aspartate Aminotransferase 42(H) 0 - 30 unit/L [facility] Comment:result rechecked- Blood 03/30/2021 6:36 AM EDT 03/30/2021 6:41 AM EDT Narrative Resulting Agency Comment Spec In Lab Kevon Vega MD CHEMISTRY ORDERABLES Performing Organization Address City/[facility]/ZIP Co de Phone Number [facility] [place] [address] * Differential, Automated (03/30/2021 5:32 AM EDT) [facility] Neutrophil % 73.4 % [facility] Neutrophil Absolute 5.60 1.70 - 6.10 x10(3)/mcL [facility] Lymph % 16.5 % [facility] Lymphocytes Abs 1.3 0.9 - 3.2 x10(3)/[facility] Monocyte % 7.1 % [facility] Monocyte Abs 0.5 0.3 - 0.9 x10(3)/[facility] Eos % 2.5 % [facility] Eosinophils Abs 0.2 0.0 - 0.4 x10(3)/[facility] Basophil % 0.4 % [facility] Baso Absolute 0.0 0.0 - 0.1 x10(3)/[facility] Immature Gran % 0.10 % [facility] Comment: Immature granulocytes(IG's)percentage and absolute count will include metamyelocytes, myelocytes, and promyelocytes. Blood smears from CBCs yielding IG's will be scanned manually for concordance. If this scan disagrees with the automated IG or if promyelocytes are noted, a manual differential will be performed. Immature Gran Absolute 0.01 0.00 - 0.04 x10(3)/[facility] Blood 03/30/2021 5:32 AM EDT 03/30/2021 5:44 AM EDT Narrative Resulting Agency Comment Spec In Lab Rosalee Birmingham MD HEMATOLOGY ORDERAB LES [facility] [place] [address] * Hemogram (03/30/2021 5:32 AM EDT) White Blood Cell 7.6 4.0 - 9.5 x10(3)/[facility] Red Blood Cell 4.31 4.00 - 5.21 x10(6)/[facility] Hemoglobin 13.1 11.7 - 15.5 gm/dL [facility] Hematocrit 39.0 35.7 - 45.8 % [facility] Mean Cell Volume 90.5 82.6 - 94.4 fL [facility] Mean Cell Hemoglobin 30.4 27.1 - 32.0 pg [facility] Mean Cell Hemoglobin Concentration 33.6 31.7 - 35.0 gm/dL [facility] Platelet 208 145 - 357 x10(3)/[facility] RDW Standard Deviation 40.3 37.0 - 46.0 fL [facility] RDW coefficient of variation 12.1 11.5 - 14.1 % [facility] Mean Platelet Volume 10.4 7.6 - 12.9 fL [facility] NRBC% auto 0.0 % [facility] NRBC Absolute 0.000 0.000 - 0.000 x10(3)/[facility] Blood 03/30/2021 5:32 AM EDT 03/30/2021 5:44 AM EDT Narrative Resulting Agency Comment Spec In Lab Rosalee Birmingham MD HEMATOLOGY ORDERAB LES [facility] [place] [id number] * (ABNORMAL) Basic Metabolic Panel (non-fasting) (03/30/2021 5:32 AM EDT) Glucose 114 65 - 199 mg/dL [facility] Comment:Diabetes: >=200 mg/d L plus symptoms Blood Urea Nitrogen 15 8 - 18 mg/dL [facility] Creatinine 1.09 0.70 - 1.20 mg/dL [facility] Sodium 140 135 - 145 mmol/L [facility] Potassium 4.3 3.5 - 5.0 mmol/L [facility] Comment: Please note: ??Patients with WBC >100,000 may have falsely elevated Potassium levels. ??For accurate Potassium quantification in these patients send serum separator tube (gold top) for subsequent determinations. ??Contact the Clinical Chemistry Laboratory if there are any questions. Chloride 106 98 - 107 mmol/L [facility] Carbon Dioxide 24 22 - 31 mmol/L [facility] Anion Gap 10 5 - 15 mmol/L [facility] Calcium 9.4 8.5 - 10.5 mg/dL [facility] Est Glomerular Filtration Rate 51(L) >=60 mL/min/1. 73 m?? [facility] Comment: This patient? [...] Vega MD CHEMISTRY ORDERABLES Performing Organization Address City/[facility]/ZIP Co de Phone Number [facility] [place] [address] * Magnesium (03/30/2021 5:32 AM EDT) Magnesium 0.89 0.69 - 1.07 mmol/L [facility] Blood 03/30/2021 5:32 AM EDT 03/30/2021 5:44 AM EDT Narrative Resulting Agency Comment Spec In Lab Kevon Vega MD CHEMISTRY ORDERABLES Performing Organization Address City/[facility]/ZIP Co de Phone Number [facility] [place] [address] * Hepatic Function Panel (03/30/2021 5:32 AM EDT) Protein, Total 6.4 6.1 - 8.0 gm/dL [facility] Albumin 3.9 3.2 - 5.2 gm/dL [facility] Aspartate Aminotransferase Not Perf 0 - 30 [facility] Comment: Unable to quantitate due to sample hemolysis. ??Sample redraw suggested. Called by: cliff, Read back by: jorje casillas, Date/Time:03/30/21 06:19. Alanine Aminotransferase 28 0 - 30 unit/L [facility] Alkaline Phosphatase 77 35 - 105 unit/L [facility] Bilirubin, Total 0.4 0.2 - 1.3 mg/dL [facility] Bilirubin, Direct Not Perf 0.0 - 0.3 [facility] Comment: Unable to quantitate due to sample hemolysis. ??Sample redraw suggested. Called by: cliff, Read back by: jorje casillas, Date/Time:03/30/21 06:19. Blood 03/30/2021 5:32 AM EDT 03/30/2021 5:44 AM EDT Narrative Resulting Agency Comment Spec In Lab Kevon Vega MD CHEMISTRY ORDERABLES Performing Organization Address City/State/[facility] Co de Phone Number [facility] [place] [address] * CARDIAC CATHETERIZATION (03/29/2021 1:10 PM EDT) Anatomical Region Laterality Modality Other Narrative 03/29/2021 3:29 PM EDT ?[facility] ? Cardiac Catheterization/Intervention Report ? Patient Name: DEYSI STRANGE R. ? Procedure Date: 03/29/2021 ? A #: [id number] ? Primary Physician: Preston, Tl T ? Case #: [id number] ? File Name: [id number] ? Catheterization Order Number: [id number] ? [facility] ? Final Report [place], [place] ? Patient Name: ? DEYSI R. CAMBER ?ID#: ?[id number] ? : ?1950 ? Procedure Date: ? March 29, 2021 ? Case #: ? [id number] ? Room: ? 6 ? Case Physician: [...] as ASA Class III. The [facility] clinical frailty scale is 3: ?Managing Well. ? Diagnostic Tests: ?Electrocardiography: ? EKG was assessed by ECG. EKG was Abnormal. EKG showed other ? abnormality. ?Medications Prior to Procedure: ? Aspirin, Beta Alicia and Statin. ? Indications for Diagnostic Cath: ?The priority of the diagnostic procedure was Urgent. The indication for ?the clinical laboratory aides teacher visit is ACS less than or [...] dose administered prior to arrival in the clinical laboratory aides teacher. ?Recommended anti-platelet/anti-thrombotic regimen: ?Start aspirin 81 mg daily now and continue for indefinitely. ?Start clopidogrel 75 mg daily now and continue for 12 months then stop. ?These recommendations are made at the time of the intervention. Patient ?and provider preferences or a changing clinical situation may require ?modification of this regimen. Consult [facility]ventional [facility] for ?questions. ?The 1 year [...] Procedure Note Tl Johnston MD - 06/04/2021 [facility] Cardiac Catheterization/Intervention Report Patient Name: DEYSI STRANGE Procedure Date: 03/29/2021 A #: [id number] Primary Physician: Tl Johnston Case #: [id number] File Name: [id number] Catheterization Order Number: [id number] [facility] FinalReport [place], [place] Patient Name: DEYSI STRANGE ID#:[id number] :1950 Procedure Date: March 29, 2021 Case [...] as ASA Class III. The [facility] clinical frailty scale is 3: Managing Well. Diagnostic Tests: Electrocardiography: EKG was assessed by ECG. EKG was Abnormal. EKG showed other abnormality. Medications Prior to Procedure: Aspirin, Beta Alicia and Statin. Indications for Diagnostic Cath: The priority of the diagnostic procedure was Urgent. The indicationfor the clinical laboratory aides teacher visit is ACS less than or equal to 24 hrs. Chest pain symptom assessment was: Typical Angina. Technique: A 6 SLFr sheath was inserted in the right radial artery utilizingthe Seldinger technique. The left coronary artery was injected utilizinga 5Fr SNOIA RADIAL catheter. A 5Fr SONIA RADIAL catheter [...] dose administered prior to arrival in the clinical laboratory aides teacher. Recommended anti-platelet/anti-thrombotic regimen: Start aspirin 81 mg daily now and continue for indefinitely. Start clopidogrel 75 mg daily now and continue for 12 months thenstop. These recommendations are made at the time of the intervention.Patient and provider preferences or a changing clinical situation mayrequire modification of this regimen. Consult [facility]iology[facility] questions. The 1 year bleeding [...] Heparin (unfractionated) Level (03/29/2021 11:19 AM EDT) [facility] UF Heparin 0.62 IU/mL [facility] Comment: Guidelines for therapeutic unfractionated [...] Lab Kevon Vega MD HEMATOLOGY ORDERABLE S [facility] [place] [address] * Differential, Automated (03/29/2021 3:52 AM EDT) [facility] Neutrophil % 53.7 % [facility] Neutrophil Absolute 3.07 1.70 - 6.10 x10(3)/[facility] LAB[facility] Lymph % 34.6 % [facility] Lymphocytes Abs 2.0 0.9 - 3.2 x10(3)/[facility] Monocyte % 7.7 % [facility] Monocyte Abs 0.4 0.3 - 0.9 x10(3)/[facility] Eos % 3.1 % [facility] Eosinophils Abs 0.2 0.0 - 0.4 x10(3)/[facility] Basophil % 0.7 % [facility] Baso Absolute 0.0 0.0 - 0.1 x10(3)/[facility] Immature Gran % 0.20 % [facility] Comment: Immature granulocytes(IG's)percentage and absolute count will include metamyelocytes, myelocytes, and promyelocytes. Blood smears from CBCs yielding IG's will be scanned manually for concordance. If this scan disagrees with the automated IG or if promyelocytes are noted, a manual differential will be performed. Immature Gran Absolute 0.01 0.00 - 0.04 x10(3)/[facility] Blood 03/29/2021 3:52 AM EDT 03/29/2021 4:16 AM EDT Narrative Resulting Agency Comment Spec In Lab Rosalee Birmingham MD HEMATOLOGY ORDERAB LES [facility] [place] [address] * Hemogram (03/29/2021 3:52 AM EDT) White Blood Cell 5.7 4.0 - 9.5 x10(3)/[facility] Red Blood Cell 4.42 4.00 - 5.21 x10(6)/[facility] Hemoglobin 13.5 11.7 - 15.5 gm/dL [facility] Hematocrit 40.4 35.7 - 45.8 % [facility] Mean Cell Volume 91.4 82.6 - 94.4 fL [facility] Mean Cell Hemoglobin 30.5 27.1 - 32.0 pg [facility] Mean Cell Hemoglobin Concentration 33.4 31.7 - 35.0 gm/dL [facility] Platelet 209 145 - 357 x10(3)/[facility] RDW Standard Deviation 40.9 37.0 - 46.0 [facility] RDW coefficient of variation 12.2 11.5 - 14.1 % [facility] Mean Platelet Volume 10.5 7.6 - 12.9 fL [facility] NRBC% auto 0.0 % [facility] NRBC Absolute 0.000 0.000 - 0.000 x10(3)/[facility] Blood 03/29/2021 3:52 AM EDT 03/29/2021 4:16 AM EDT Narrative Resulting Agency Comment Spec In Lab Rosalee Birmingham MD HEMATOLOGY ORDERAB LES Performing Organization Address City/State/[facility] Co de Phone Number [facility] [place] [address] * Heparin (unfractionated) Level (03/29/2021 3:52 AM EDT) UF Heparin 0.75 IU/mL [facility] Comment: Guidelines for therapeutic unfractionated [...] MD HEMATOLOGY ORDERABLE S Performing Organization Address [facility] de Phone Number [facility] [place] [address] * Hepatic Function Panel (03/29/2021 3:52 AM EDT) Protein, Total 6.2 6.1 - 8.0 gm/dL [facility] Albumin 3.8 3.2 - 5.2 gm/dL [facility] Aspartate Aminotransferase 19 0 - 30 unit/L [facility] Alanine Aminotransferase 19 0 - 30 unit/L [facility] Alkaline Phosphatase 77 35 - 105 unit/L [facility] Bilirubin, Total 0.3 0.2 - 1.3 mg/dL [facility] Bilirubin, Direct 0.1 0.0 - 0.3 mg/dL [facility] Blood 03/29/2021 3:52 AM EDT 03/29/2021 4:16 AM EDT Narrative Resulting Agency Comment Spec In Lab Kevon Vega MD CHEMISTRY ORDERABLES Performing Organization Address [facility] Phone Number [facility] [place] [address] * (ABNORMAL) Basic Metabolic Panel (non-fasting) (03/29/2021 3:52 AM EDT) Glucose 111 65 - 199 mg/dL [facility] Comment:Diabetes: >=200 mg/d L plus symptoms Blood Urea Nitrogen 19(H) 8 - 18 mg/dL [facility] Creatinine 1.26(H) 0.70 - 1.20 mg/dL [facility] Sodium 139 135 - 145 mmol/L [facility] Potassium 4.2 3.5 - 5.0 mmol/L [facility] Comment: Please note: ??Patients with WBC >100,000 may have falsely elevated Potassium levels. ??For accurate Potassium quantification in these patients send serum separator tube (gold top) for subsequent determinations. ??Contact the Clinical Chemistry Laboratory if there are any questions. Chloride 107 98 - 107 mmol/L [facility] Carbon Dioxide 23 22 - 31 mmol/L [facility] Anion Gap 9 5 - 15 mmol/L [facility] Calcium 9.4 8.5 - 10.5 mg/dL [facility] Est Glomerular Filtration Rate 43(L) >=60 mL/min/1. 73 m?? [facility] Comment: This patient? [...] In Lab Kevon Vega MD CHEMISTRY ORDERABLES [facility] [place] [address] * Magnesium (03/29/2021 3:52 AM EDT) Magnesium 0.89 0.69 - 1.07 mmol/L [facility] Blood 03/29/2021 3:52 AM EDT 03/29/2021 4:16 AM EDT Narrative Resulting Agency Comment Spec In Lab Kevon Vega MD CHEMISTRY ORDERABLES [facility] [place] [address] * Lipid Panel (Reflex Direct LDL) (03/29/2021 3:52 AM EDT) Cholesterol, Total 187 mg/dL [facility] Comment: Lower Risk: <200 mg/dL Average Risk: 200-239 mg/dL Higher Risk: >xo=530 mg/dL Triglyceride 144 mg/dL [facility] Comment: Average Risk/Lower Risk: <150 mg/dL Borderline High Risk: 150-199 mg/dL High Risk: 200-499 mg/dL Very High Risk: >up=148 mg/dL HDL Cholesterol 57 mg/dL [facility] Comment: Males: ?? Higher Risk: <40 mg/dL Females: ?? Higher Risk: <50 mg/dL LDL Cholesterol 101 mg/dL [facility] Comment: Lowest Risk: <100 mg/dL Lower Risk: 100-129 mg/dL Borderline High Risk: 130-159 mg/dL High Risk: 160-189 mg/dL Very High Risk: >eh=423 mg/dL Cholesterol/HDL Ratio 3.3 ratio [facility] Lipid Interpretation See Note [facility] Comment: Lipid management should be guided by a patient? s ASCVD risk, goals and preferences. ACC/AHA Guidelines recommend high intensity statin if clinical ASCVD or LDL greater than or equal to 190 mg/dL. http://Viscose Closuresurl.com/ULX-PDZ-Cocvdusam Adults aged 40-75 with LDL 70-189 mg/dL should have their 10 year ASCVD risk estimated with the ACC/AHA ASCVD risk supervisor estimator and drafter http://tools.acc.org/BLASQ-Njif-Nyxwvjgsz/ Statin should be discussed if risk greater [...] Vega MD CHEMISTRY ORDERABLES Performing Organization Address [facility] de Phone Number [facility] [place] [address] * Heparin (unfractionated) Level (03/28/2021 9:44 PM EDT) Pathologist [facility] UF Heparin 0.65 IU/mL [facility] Comment: Guidelines for therapeutic unfractionated [...] MD HEMATOLOGY ORDERABLE S Performing Organization Address [facility] Co de Phone Number [facility] [place] [address] * EKG 12 Lead (03/28/2021 5:49 PM EDT) Ventricular rate 62 BPM MUSE SYSTEM Atrial Rate 62 BPM MUSE SYSTEM P-R Interval 178 ms MUSE SYSTEM QRS Duration 74 ms MUSE SYSTEM Q-T Interval 408 ms MUSE SYSTEM QTC Calculated (Bezet) 414 ms MUSE SYSTEM Calculated P [place] 35 degrees MUSE SYSTEM Calculated R [place] 7 degrees MUSE SYSTEM Calculated T [place] 83 degrees MUSE SYSTEM INTERPRETATION Normal sinus rhythm Nonspecific ST and T wave abnormality Abnormal ECG No previous ECGs available Confirmed by MD Edmond, Camilo Quintana ([id number]) on 03/29/2021 9:41:01 AM MUSE SYSTEM 03/28/2021 5:49 PM EDT 03/29/2021 9:41 AM EDT Kevon Vega MD ECG ORDERABLES MUSE SYSTEM * COVID-19 PCR (03/28/2021 5:38 PM EDT) [facility] SARS-CoV-2 RNA (Rapid) Not Detected Not Detected [facility] Comment: This result [...] using the Simplexa COVID-19 Direct Assay by Aicent as authorized by the FDA issued Emergency [...] Department of Pathology and Laboratory Medicine at [facility], certified under the Clinical Laboratory Improvement [...] fact sheets at the following FDA website: https://www.fda.gov/medical-devices/sliijugebwh-ungggpq-2096-xoyoq-61-xgeeauvta- use-a qwsputkplniop-lbydfet-qwqbwmn/aocoi-woifhgktgcx-ajyp SARS-CoV-2 Source [employer] Swab [place] [facility] Nasopharyngeal Swab 03/28/20 5:38 PM EDT 03/28/2021 6:03 PM EDT Comment:Symptoms->Surveillan ce Narrative Resulting Agency Comment Spec In Lab Kevon Vega MD MICROBIOLOGY - GENER AL ORDERABLES [facility] [place] [address] * Hepatic Function Panel (03/28/2021 4:58 PM EDT) Protein, Total 6.8 6.1 - 8.0 gm/dL [facility] Albumin 4.4 3.2 - 5.2 gm/dL [facility] Aspartate Aminotransferase 21 0 - 30 unit/L [facility] Alanine Aminotransferase 23 0 - 30 unit/L [facility] Alkaline Phosphatase 84 35 - 105 unit/L [facility] Bilirubin, Total 0.3 0.2 - 1.3 mg/dL [facility] Bilirubin, Direct 0.1 0.0 - 0.3 mg/dL [facility] Blood Venous Draw / Unknown 03/28/2021 4:58 PM EDT 03/28/2021 5:09 PM EDT Narrative Resulting Agency Comment Spec In Lab Rosalee Birmingham MD CHEMISTRY ORDERABL ES [facility] [place] [address] * Differential, Automated (03/28/2021 4:58 PM EDT) Neutrophil % 54.7 % [facility] Neutrophil Absolute 3.18 1.70 - 6.10 x10(3)/[facility] Lymph % 32.9 % [facility] Lymphocytes Abs 1.9 0.9 - 3.2 x10(3)/[facility] Monocyte % 8.1 % [facility] Monocyte Abs 0.5 0.3 - 0.9 x10(3)/[facility] Eos % 3.3 % [facility] Eosinophils Abs 0.2 0.0 - 0.4 x10(3)/[facility] Basophil % 0.7 % [facility] Baso Absolute 0.0 0.0 - 0.1 x10(3)/[facility] Immature Gran % 0.30 % [facility] Comment: Immature granulocytes(IG's)percentage and absolute count will include metamyelocytes, myelocytes, and promyelocytes. Blood smears from CBCs yielding IG's will be scanned manually for concordance. If this scan disagrees with the automated IG or if promyelocytes are noted, a manual differential will be performed. Immature Gran Absolute 0.02 0.00 - 0.04 x10(3)/[facility] Blood 03/28/2021 4:58 PM EDT 03/28/2021 5:04 PM EDT Narrative Resulting Agency Comment Spec In Lab Rosalee Birmingham MD HEMATOLOGY ORDERAB LES [facility] [place] [address] * Hemogram (03/28/2021 4:58 PM EDT) White Blood Cell 5.8 4.0 - 9.5 x10(3)/[facility] Red Blood Cell 4.61 4.00 - 5.21 x10(6)/[facility] Hemoglobin 13.7 11.7 - 15.5 gm/dL [facility] Hematocrit 41.6 35.7 - 45.8 % [facility] Mean Cell Volume 90.2 82.6 - 94.4 [facility] Mean Cell Hemoglobin 29.7 27.1 - 32.0 pg [facility] Mean Cell Hemoglobin Concentration 32.9 31.7 - 35.0 gm/dL [facility] Platelet 235 145 - 357 x10(3)/[facility] RDW Standard Deviation 40.5 37.0 - 46.0 [facility] RDW coefficient of variation 12.2 11.5 - 14.1 % [facility] Mean Platelet Volume 10.0 7.6 - 12.9 [facility] NRBC% auto 0.0 % [facility] NRBC Absolute 0.000 0.000 - 0.000 x10(3)/[facility] Blood 03/28/2021 4:58 PM EDT 03/28/2021 5:04 PM EDT Narrative Resulting Agency Comment Spec In Lab Rosalee Birmingham MD HEMATOLOGY ORDERAB LES [facility] [place] [address] * Troponin (03/28/2021 4:58 PM EDT) Pathologist [facility] Troponin-T <0.01 0.00 - 0.00 ng/mL [facility] Comment: The 99th percentile for Troponin T is less than 0.01 ng/mL, any detectable cTnT concentration using this assay should be considered elevated. According to the third universal definition of myocardial infarction the following criteria with a clinical presentation consistent with acute myocardial ischemia meets the diagnosis for a myocardial infarction (VT). Detection of a rise and/or fall of cTnT, with at least one value greater than the 99th percentile (> or = 0.01) and with at least one of the following ?? Symptoms of ischemia ?? New or presumed new significant WW-pmivdww-N wave (ST-T) changes or new left bundle [...] additional sample may be indicated. Reference: Third Hines Definition of Myocardial Infarction. Journal of the [place] [employer] 2012;60:1581-98 Blood 03/28/2021 4:58 PM EDT 03/28/2021 5:04 PM EDT Narrative Resulting Agency Comment Spec In Lab Kevon Vega MD CHEMISTRY ORDERABLES [facility] [place] [address] * (ABNORMAL) Basic Metabolic Panel (non-fasting) (03/28/2021 4:58 PM EDT) [facility] Glucose 97 65 - 199 mg/dL [facility] Comment:Diabetes: >=200 mg/d L plus symptoms Blood Urea Nitrogen 16 8 - 18 mg/dL [facility] Creatinine 1.40(H) 0.70 - 1.20 mg/dL [facility] Sodium 140 135 - 145 mmol/L [facility] Potassium 4.0 3.5 - 5.0 mmol/L [facility] Comment: Please note: ??Patients with WBC >100,000 may have falsely elevated Potassium levels. ??For accurate Potassium quantification in these patients send serum separator tube (gold top) for subsequent determinations. ??Contact the Clinical Chemistry Laboratory if there are any questions. Chloride 106 98 - 107 mmol/L [facility] Carbon Dioxide 23 22 - 31 mmol/L [facility] Anion Gap 11 5 - 15 mmol/L [facility] Calcium 9.8 8.5 - 10.5 mg/dL [facility] Est Glomerular Filtration Rate 38(L) >=60 mL/min/1. 73 m?? [facility] Comment: This patient? [...] In Lab Kevon Vega MD CHEMISTRY ORDERABLES [facility] [place] [address] * Magnesium (03/28/2021 4:58 PM EDT) Magnesium 0.86 0.69 - 1.07 mmol/L [facility] Blood 03/28/2021 4:58 PM EDT 03/28/2021 5:04 PM EDT Narrative Resulting Agency Comment Spec In Lab Kevon Vega MD CHEMISTRY ORDERABLES [facility] [place] [address] * Hemoglobin A1c (03/28/2021 4:58 PM EDT) Hemoglobin A1c 5.5 4.3 - 5.6 % [facility] Comment: Reference Range: [...] Mellitus, Diabetes Care 2013; 36: Suppl. 1, J07-07 Estimated Average Glucose See note mg/dL [facility] Comment: Estimated Average [...] into estimated average glucose values. ??Diabetes Care 2008:31(8):5777-6500. Blood 03/28/2021 4:58 PM EDT 03/28/2021 5:04 PM EDT Narrative Resulting Agency Comment Spec In Lab Kevon Vega MD CHEMISTRY ORDERABLES Performing Organization Address [facility] Co de Phone Number [facility] [place] [address] * TSH [place] (03/28/2021 4:58 PM EDT) Thyroid Stimulating Hormone 2.05 0.27 - 4.20 mcIU/mL [facility] Blood 03/28/2021 4:58 PM EDT 03/28/2021 5:04 PM EDT Narrative Resulting Agency Comment Spec In Lab Kevon Vega MD CHEMISTRY ORDERABLES Performing Organization Address [facility] Co de Phone Number [facility] [place] [address] documented in this encounter Visit Diagnoses Not [...] mg/mL) injection solution ONCE PRN, Starting on Tue03/29/21 at 1312, Until Tue03/29/21 at 1316, Cath (Intra-Procedure), Routine Given 03/29/2021 [...] [facility] Unhold - Provider: Admin Adt)2112 (Given [...] Admin Adt) 0859 (Given - Provider: Elvia Lui RN) Continuous Medication Order 03/28/2021 03/29/2021 03/30/2021 heparin [...] area)1339 (DEC Unhold - Provider: Admin Adt) heparin (porcine) [...] Until 03/30/21 at 1537, Dizziness, Routine 1228 (DEC Hold - Provider: Admin Adt - Reason: Transfer to a Procedural area)1339 (DEC Unhold - Provider: Admin Adt) midazolam (pf) (Versed) (1 mg/mL) multi-dose injection (CANCELED) ONCE PRN, Starting on 03/29/21 at 1218, Until 03/29/21 at 1316, Cath (Intra-Procedure), Routine 1218 (Given - Provider: Devika Smith, TREY)1249 (Given - Provider: Suleman Smith RN) nitroGLYcerin [...] Routine documented in this encounter Care Teams Pulp And Paper Tester Relationship Specialty Start Date End Date Edin Conner MD [address] [place] [address] PCP - General Family Medicine 02/28/21 documented as of this encounter
--- OUTSIDE RECORDS SUMMARY | 2024-11-19 15:49 | XMS_ITS | Encounter Summary ---
Author Organization [facility] Address [address] [place] [address] Care Team Providers Care Pelt Inspector Name Role Phone Unknown, Provider Primary Care Provider Unava ilable Encounter Details Date Type Department Care Team (Late st Contact Info) Description 09/19/2024 Lab Requisition [facility] Pathology & Laboratory Medicine - [address] [address] Vincent Palmer MD [address] [place] [address], [address] [place], [place] [id number] Encounter for other general examination Social History Tobacco Use Types Packs/Day Years [...] :50 EST Encounter for other general examination documented in this encounter Results * SURGICAL PATHOLOGY (09/18/2024 14:50 EST) Ancillary Studies Addendum ER/CA RESULTS: Tissue submitted: Paraffin embedded tissue block labelled [id number] Immunohistochemical assays for estrogen receptors (SP1, Helemano) and progesterone receptors (16, Leica) have been [...] Recommendations for IHC testing of ER and CA. J Clin Oncol 2010;28:4506-5791. NOTE: One or more of the reagents [...] performance characteristics have been determined by [facility] and/or by the referring laboratory. The positive [...] Tissue submitted: Paraffin embedded tissue block labelled [id number] A1 From [facility] Fixative: Formalin This immunohistochemical assay is intended [...] performed under appropriate conditions according to the consumer banker's instructions with appropriate assay and tissue controls using an Anti-Her2 (4B5) Rabbit Monoclonal Antibody (Helemano). Her2 Scoring Guidelines (invasive tumor component only) [...] performed is interpreted as: NEGATIVE 10/01/2024 12:56 [facility] Addendum electronically signed by Alireza Rangel MD on 10/01/2024 at 1256 Note to Patient The following pathology results have been interpreted by your pathologist and may be available to you before your health provider has had the opportunity to review them. Please allow time for your provider to receive these results and explore management options, if applicable. 10/01/2024 12:56 [facility] Final Diagnosis A. BREAST, LEFT, NOT OTHERWISE SPECIFIED, CORE NEEDLE BIOPSY: - Adenocarcinoma, invasive, ductal with focal mucinous features, nuclear grade 2-3. See comment. 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 10/01/2024 12:56 [facility] Diagnosis Comment Estrogen and progesterone [...] performance characteristics have been determined by [facility] and/or by the referring laboratory. The positive [...] high complexity clinical laboratory testing. 10/01/2024 12:56 [facility] Attestation There was significan t resident/fellow involvement in the diagnostic evaluation of this case. By the signature below, the attending physician certifies that they have personally conducted a gross and/or microscopic examination of the described specimens and rendered or confirmed the above diagnosis. 10/01/2024 12:56 [facility] at 0923 Clinical History Palpable mass 10/01/2024 12:56 [facility] Gross Description A. Received in [...] 09/20/2024 Olga Phillips 09/19/2024 10:00 10/01/2024 12:56 [facility] Resident/Fell ow: Sathish Stafford DO 10/01/2024 12:56 [facility] Performing Lab [facility] 10/01/2024 12:56 [facility] Scanned Images 10/01/2024 12:56 [facility] Tissue BREAST STRUCTURE / Unknown 09/18/2024 14:50 EST 09/19/2024 8:25 EST us Vincent Palmer MD PATHOLOGY ORDERABLES Edited Res ult - Final [facility] [address] [place] [address] documented in this encounter Visit Diagnoses Diagnosis Encounter for other general examination documented in this encounter Care Teams Pelt Inspector Relationship Specialty Start Date End Date Unknown, Provider, PCP - General 09/30/24 documented as of this encounter
--- OUTSIDE RECORDS SUMMARY | 2024-11-19 15:49 | XMS_ITS | Encounter Summary ---
Author Organization [facility] Address [address] [place] [address] Care Team Providers Care Slitter Scorer Name Role Phone Unavailable Primary Care Provider Unavailabl e Encounter Details Date Type Department Care Team (Late st Contact Info) Description 12/05/2000 Results Only [facility] - Maple conversion [address] [place] [address] Teofilo Bird MD [address] [place], [place] [phone] Social History Tobacco Use Types Packs/Day Years [...] ? DORENE STRANGE ? Accession #: ? [id number] ? : ? 1950 (Age: 50) ??F ? Collect Date: ? 12/05/2000 ? Location: ? [facility] ? Receive Date: ? 12/06/2000 ? Provider: TEOFILO BIRD MD Copy to: GWEN CHEUNG MD ? Final Pathologic Diagnosis: ? Vaginal mucosa, excision: - Mild acanthosis with mild focal chronic inflammation. Document reviewed and electronically signed by: Edward Harry [facility] Report ??Date: 12/08/2000 17:37 By the signature [...] ORDERABLES Final Resul t [facility]ER[facility] PEREZ [address] [place] [address] documented in this encounter Visit Diagnoses Not on filedocumented in this encounter
--- OUTSIDE RECORDS SUMMARY | 2024-11-19 15:49 | XMS_ITS | Encounter Summary ---
Author Organization [facility] Address [address] [place] [address] Care Team Providers Care Assisted Living Nursing Director Name Role Phone Teofilo Aguila MD Primary Care Provider [phone] Encounter Details Date Type Department Care Team (Latest Contact Info) Description 11/07/2018 14:51 EST - 11/07/2018 23:59 EST Hospital Encounter [address] [address] Unknown, Provider, Discharge Disposition: Home or Self [...] Code Departure Means Destination Home or Self Nursing Home documented in this encounter Plan of Treatment Not on file documented as of this encounter Visit Diagnoses Not on filedocumented in this encounter Care Teams Assisted Living Nursing Director Relationship Specialty Start Date End Date Teofilo Aguila MD PCP - General 07/10/15 03/31/22 documented as of this encounter
--- OUTSIDE RECORDS SUMMARY | 2024-11-19 15:49 | XMS_ITS | Encounter Summary ---
Author Organization [facility] Address [address] [place] [address] Care Team Providers Care Interior Design Teacher Name Role Phone Unavailable Primary Care Provider Unavailabl e Encounter Details Date Type Department Care Team (Late st Contact Info) Description 11/09/2000 Results Only [facility] - [place] conversion [address] [place] [address] Teofilo Bird MD [address] [place], [place] [phone] Social History Tobacco Use Types Packs/Day Years [...] ? DORENE STRANGE ? Accession #: ? [id number] : ? 1950 (Age: 50) ??F ?Collect [...] Document reviewed and electronically signed by: ? Jackie Sales, DEREK(ASCP) ? Report Date: ??11/14/2000 09:50 End of Report [facility] 11/09/2000 11/11/2000 us Teofilo Bird MD PATHOLOGY ORDERABLES Final Resul t [facility] PEREZ [address] [place] [address] documented in this encounter Visit Diagnoses Not on filedocumented in this encounter
--- OUTSIDE RECORDS SUMMARY | 2024-11-19 15:49 | XMS_ITS | Encounter Summary ---
Author Organization [facility] Address [address] [place] [address] Care Team Providers Care Manager House Name Role Phone Unknown, Provider Primary Care Provider Unava ilable Encounter Details Date Type Department Care Team (Late st Contact Info) Description 10/13/2022 Lab Requisition [facility] Pathology & Laboratory Medicine - [address] [address] Outr Resulting Lab, Provider Social History Tobacco [...] Lyme Ab Negative Negative 10/14/2022 9:30 EST [facility] Blood VENOUS BLOOD / Unknown 10/13/2022 10:46 EST 10/13/2022 21:42 EST us Provider Outr Resulting Lab IMMUNOLOGY AND SEROL OGY ORDERABLES Final Result [facility] [address] [place] [address] documented in this encounter Visit Diagnoses Not on filedocumented in this encounter Care Teams Manager House Relationship Specialty Start Date End Date Unknown, Provider, PCP - General 09/30/24 documented as of this encounter
--- OUTSIDE RECORDS SUMMARY | 2024-11-19 15:49 | XMS_ITS | Encounter Summary ---
Author Organization [facility] Address [address] [place] [address] Care Team Providers Care Vehicle Trimmer Name Role Phone Unavailable Primary Care Provider Unavailabl e Encounter Details Date Type Department Care Team (Late st Contact Info) Description 02/19/2008 Results Only [facility] - Maple conversion [address] [place] [address] El Goetz MD [address] [place] [address] [address] [place] [address] Social History Tobacco Use Types [...] ? DORENE STRANGE ? Accession #: ? [id number] : ? 1950 (Age: 57) ??F ?Collect Date: ? 02/19/2008 Location: ? [facility] ? Receive Date: ? 02/19/2008 Provider: ?EL GOETZ MD Copy to: ? Specimen/Source: ?ThinPrep Pap Test, Vagina, processed on [employer] ThinPrep Imaging System, with manual evaluation Last [...] ORDERABLES Final Resu lt [facility] PEREZ [address] [place] [address] documented in this encounter Visit Diagnoses Not on filedocumented in this encounter
--- OUTSIDE RECORDS SUMMARY | 2024-11-19 15:49 | XMS_ITS | Encounter Summary ---
Author Organization [facility] Address [address] [place] [address] Care Team Providers Care Page Makeup System Operator Name Role Phone Teofilo Aguila MD Primary Care Provider [phone] Encounter Details Date Type Department Care Team (Late st Contact Info) Description 11/07/2018 Results Only [facility] [phone] Danilo Brown MD [address] [place] [address] [address] [place], [place] [phone] Social History Tobacco Use Types Packs/Day Years [...] x 0.2 cm). Submitted intact in [facility] [place] 11/08/2018 9:20 AM End of Report [facility] 11/07/2018 9:11 EST 11/07/2018 9:11 EST us Danilo Brown MD PATHOLOGY ORDERABLES Fin al Result [facility] [address] [place] [address] documented in this encounter Visit Diagnoses Not on filedocumented in this encounter Care Teams Page Makeup System Operator Relationship Specialty Start Date End Date Teofilo Aguila MD PCP - General 07/10/15 03/31/22 documented as of this encounter
== END 2024-11-19 15:43 | disposition home or self-care (01) ==
LOC: LOS 15:45
PROVIDERS: PCP Family Medicine; Visit Provider Nurse Practitioner Family
DX: G40.909 Epilepsy, unspecified, not intractable, without status epilepticus (principal); Z00.00 Encounter for general adult medical examination without abnormal findings; C50.919 Malignant neoplasm of unspecified site of unspecified female breast; D64.9 Anemia, unspecified; R73.03 Prediabetes; I10 Essential (primary) hypertension; E78.5 Hyperlipidemia, unspecified
CPT/HCPCS: 36415; 80053; 80061; 85027; 83036

== ENCOUNTER → 2025-01-15 09:44 | Outpatient (BNVA) | payer MEDICARE, BC, SELFPAY | PROVIDERS: PCP Family Medicine; Visit Provider Psychiatry & Neurology Neurology | DX: I10 Essential (primary) hypertension (principal); I25.2 Old myocardial infarction; N20.0 Calculus of kidney; G40.109 Localization-related (focal) (partial) symptomatic epilepsy and epileptic syndromes with simple partial seizures, not intractable, without status epilepticus; G25.0 Essential tremor | CPT/HCPCS: 99214 ==

== ENCOUNTER 2025-01-18 00:21 | Outpatient (CLI) | payer MEDICARE, BC, SELFPAY ==
[2025-01-18 10:53] LABS: Absolute Eosinophil Count 0.04 10^3/uL (0.0-0.7); HCT 37.7 % (36.0-46.0); HGB 12.6 g/dL (11.2-15.7); MCH 30.8 pg (27.0-33.0); MCHC 33.4 % (32.0-36.0); MCV 92 fL (80-95); MPV 9.3 fL (8.0-11.0); Platelet Count 126 10^3/uL (130-400); RBC 4.09 10^6/uL (3.93-5.22); RDW 13.3 % (11.7-14.6); RDW-SD 41.1 fL
[2025-01-18 11:06] LABS: Absolute Basophil Count 0.04 10^3/uL (0.0-0.2); Absolute Lymphocyte Count 0.63 10^3/uL (1.2-3.4); Absolute Monocyte Count 0.09 10^3/uL (0.1-0.8); Absolute Neutrophil Count 1.04 10^3/uL (1.2-6.7); Atypical Lymphocytes % 3 %
[2025-01-18 11:07] LABS: Diff Comment Manual Differential; RBC Morphology Normal
[2025-01-18 11:13] LABS: WBC 1.86 10^3/uL (4.4-10.8)
[2025-01-18 11:39] LABS: ALT 31 U/L (14-59); AST 21 U/L (15-37); Albumin 3.7 g/dL (3.4-5.0); Alkaline Phosphatase 115 U/L (46-116); Anion Gap 10.9 mmol/L (3-11); BUN 16 mg/dL (7-18); Bilirubin, Total 0.8 mg/dL (0.2-1.0); CO2 25.1 mmol/L (21.0-32.0); CREATININE 1.9 mg/dL (0.55-1.02); Calcium 9.8 mg/dL (8.5-10.1); Chloride 105 mmol/L (98-107); Glucose 136 mg/dL (74-106); Potassium 3.7 mmol/L (3.5-5.1); Sodium 141 mmol/L (136-145); Total Protein 7.2 g/dL (6.4-8.2)
[2025-01-20 10:23] LABS: Cystatin C, S 1.28 mg/L; eGFR by Cystatin C 49 mL/min/BSA (>60)
== END 2025-01-18 00:22 | disposition home or self-care (01) ==
LOC: LBO 00:21
PROVIDERS: PCP Family Medicine; Visit Provider Internal Medicine
DX: Z17.0 Estrogen receptor positive status [ER+] (principal); C50.412 Malignant neoplasm of upper-outer quadrant of left female breast
CPT/HCPCS: 36415; 80053; 82610; 85025; 93005

== ENCOUNTER 2025-01-18 10:50 | Outpatient (CLI) | payer MEDICARE, BC, SELFPAY ==
--- NOTE | 2025-01-18 10:45 | RT.EKG_ITS ---
APPROVED REPORT Exam: Resting ECG Reason for Exam: LEFT BREAST CA Patient Location: O HR:62 bpm ECG Measurements Heart Rate 62 AXIS TN 200 P 31 QRSd 79 QRS -5 QT 416 T 38 QTc 423 Conclusion Sinus rhythm...normal P axis, V-rate 50- 99 Normal Electrocardiogram
== END 2025-01-18 10:51 | disposition home or self-care (01) ==
PROVIDERS: PCP Family Medicine; Visit Provider Internal Medicine
DX: C50.412 Malignant neoplasm of upper-outer quadrant of left female breast (principal); Z79.899 Other long term (current) drug therapy
CPT/HCPCS: 93005; 93010

== ENCOUNTER 2025-01-25 01:02 | Outpatient (CLI) | payer MEDICARE, BC, SELFPAY ==
[2025-01-25 15:14] LABS: Absolute Basophil Count 0.05 10^3/uL (0.0-0.2); HGB 13.3 g/dL (11.2-15.7); MCH 31.4 pg (27.0-33.0); MCHC 34.1 % (32.0-36.0); MCV 92 fL (80-95); MPV 9.3 fL (8.0-11.0); Platelet Count 231 10^3/uL (130-400); RBC 4.24 10^6/uL (3.93-5.22); RDW 14.3 % (11.7-14.6); RDW-SD 43.1 fL; WBC 2.54 10^3/uL (4.4-10.8)
[2025-01-25 15:47] LABS: Absolute Eosinophil Count 0.03 10^3/uL (0.0-0.7); Absolute Lymphocyte Count 1.12 10^3/uL (1.2-3.4); Absolute Monocyte Count 0.18 10^3/uL (0.1-0.8); Absolute Neutrophil Count 1.17 10^3/uL (1.2-6.7); Atypical Lymphocytes % 12 %; Bands % 0 %; Diff Comment Manual Differential; RBC Morphology Normal
[2025-01-25 15:54] LABS: ALT 26 U/L (14-59); AST 20 U/L (15-37); Albumin 3.9 g/dL (3.4-5.0); Alkaline Phosphatase 116 U/L (46-116); Anion Gap 9.7 mmol/L (3-11); BUN 20 mg/dL (7-18); Bilirubin, Total 0.4 mg/dL (0.2-1.0); CO2 25.3 mmol/L (21.0-32.0); CREATININE 2.1 mg/dL (0.55-1.02); Calcium 9.8 mg/dL (8.5-10.1); Chloride 107 mmol/L (98-107); Estimated GFR 24.12 (mL/min/1.73m2); Glucose 132 mg/dL (74-106); Sodium 142 mmol/L (136-145); Total Protein 7.6 g/dL (6.4-8.2)
[2025-01-29 13:39] LABS: Cystatin C, S 1.52 mg/L; eGFR by Cystatin C 39 mL/min/BSA (>60)
== END 2025-01-25 01:03 | disposition home or self-care (01) ==
PROVIDERS: PCP Family Medicine; Visit Provider Internal Medicine
DX: C50.412 Malignant neoplasm of upper-outer quadrant of left female breast (principal); Z17.0 Estrogen receptor positive status [ER+]
CPT/HCPCS: 36415; 80053; 82610; 85025

== ENCOUNTER 2025-02-18 03:28 | Outpatient (CLI) | payer MEDICARE, BC, SELFPAY ==
[2025-02-18 10:40] LABS: Abs Immature Grans 0.02 10^3/uL (0.0-0.06); Absolute Basophil Count 0.13 10^3/uL (0.0-0.2); Absolute Eosinophil Count 0.65 10^3/uL (0.0-0.7); Absolute Lymphocyte Count 1.17 10^3/uL (1.2-3.4); Absolute Monocyte Count 0.47 10^3/uL (0.1-0.8); Absolute Neutrophil Count 3.75 10^3/uL (1.2-6.7); Basophils % 2.1 %; Eosinophils % 10.5 %; HCT 41.8 % (36.0-46.0); HGB 13.4 g/dL (11.2-15.7); Immature Grans % 0.3 %; Lymphocytes % 18.9 %; MCH 31.4 pg (27.0-33.0); MCHC 32.1 % (32.0-36.0); MCV 98 fL (80-95); MPV 9.8 fL (8.0-11.0); Monocytes % 7.6 %; Neutrophils % 60.6 %; Platelet Count 276 10^3/uL (130-400); RBC 4.27 10^6/uL (3.93-5.22); RDW 15.2 % (11.7-14.6); RDW-SD 54.9 fL; WBC 6.19 10^3/uL (4.4-10.8)
[2025-02-18 11:47] LABS: ALT 438 U/L (14-59); AST 202 U/L (15-37); Albumin 3.6 g/dL (3.4-5.0); Alkaline Phosphatase 160 U/L (46-116); BUN 19 mg/dL (7-18); Bilirubin, Total 0.6 mg/dL (0.2-1.0); CREATININE 1.6 mg/dL (0.55-1.02); Calcium 9.6 mg/dL (8.5-10.1); Chloride 106 mmol/L (98-107); Estimated GFR 33.42 (mL/min/1.73m2); Glucose 158 mg/dL (74-106); Potassium 4.1 mmol/L (3.5-5.1); Sodium 140 mmol/L (136-145)
[2025-02-20 17:13] LABS: Cancer Ag 15-3 23 U/mL (<30)
[2025-02-20 17:53] LABS: Cystatin C, S 1.49 mg/L; eGFR by Cystatin C 40 mL/min/BSA (>60)
== END 2025-02-18 03:29 | disposition home or self-care (01) ==
LOC: LBO 03:29
PROVIDERS: PCP Family Medicine; Visit Provider Internal Medicine
DX: C50.412 Malignant neoplasm of upper-outer quadrant of left female breast (principal); Z17.0 Estrogen receptor positive status [ER+]; M85.88 Other specified disorders of bone density and structure, other site
CPT/HCPCS: 36415; 80053; 82610; 86300; 85025

== ENCOUNTER 2025-02-18 09:53 | Outpatient (CLI) | payer MEDICARE, BC, SELFPAY ==
--- NOTE | 2025-02-18 09:45 | RT.EKG_ITS ---
APPROVED REPORT Exam: Resting ECG Reason for Exam: BREAST CA Patient Location: O HR:61 bpm ECG Measurements Heart Rate 61 AXIS PA 202 P 44 QRSd 90 QRS -9 QT 397 T 42 QTc 400 Conclusion Sinus rhythm...normal P axis, V-rate 50- 99 Normal Electrocardiogram
== END 2025-02-18 09:54 | disposition home or self-care (01) ==
LOC: CARDOPNVT 09:53
PROVIDERS: PCP Family Medicine; Visit Provider Internal Medicine
DX: I51.7 Cardiomegaly (principal)
CPT/HCPCS: 36415; 80053; 82610; 86300; 85025; 93005; 93010

== ENCOUNTER 2025-03-18 04:14 | Outpatient (CLI) | payer MEDICARE, BC, SELFPAY ==
[2025-03-18 12:08] LABS: Abs Immature Grans 0.03 10^3/uL (0.0-0.06); Absolute Basophil Count 0.07 10^3/uL (0.0-0.2); Absolute Eosinophil Count 0.21 10^3/uL (0.0-0.7); Absolute Monocyte Count 0.56 10^3/uL (0.1-0.8); Absolute Neutrophil Count 4.62 10^3/uL (1.2-6.7); Eosinophils % 3.1 %; HCT 40.8 % (36.0-46.0); HGB 13.6 g/dL (11.2-15.7); Immature Grans % 0.4 %; Lymphocytes % 17.9 %; MCH 32.1 pg (27.0-33.0); MCHC 33.3 % (32.0-36.0); MCV 96 fL (80-95); MPV 10.1 fL (8.0-11.0); Monocytes % 8.4 %; Neutrophils % 69.2 %; Platelet Count 158 10^3/uL (130-400); RBC 4.24 10^6/uL (3.93-5.22); RDW 14.8 % (11.7-14.6); RDW-SD 52.4 fL; WBC 6.69 10^3/uL (4.4-10.8)
[2025-03-18 12:54] LABS: ALT 135 U/L (14-59); AST 88 U/L (15-37); Albumin 3.4 g/dL (3.4-5.0); Alkaline Phosphatase 117 U/L (46-116); Anion Gap 8.1 mmol/L (3-11); BUN 29 mg/dL (7-18); Bilirubin, Total 0.7 mg/dL (0.2-1.0); CO2 24.9 mmol/L (21.0-32.0); CREATININE 1.7 mg/dL (0.55-1.02); Calcium 9.3 mg/dL (8.5-10.1); Chloride 106 mmol/L (98-107); Estimated GFR 31.08 (mL/min/1.73m2); Glucose 115 mg/dL (74-106); Potassium 4.2 mmol/L (3.5-5.1); Sodium 139 mmol/L (136-145); Total Protein 7.1 g/dL (6.4-8.2)
[2025-03-19 18:16] LABS: Cystatin C, S 1.53 mg/L; eGFR by Cystatin C 39 mL/min/BSA (>60)
[2025-03-20 20:54] LABS: Cancer Ag 15-3 21 U/mL (<30)
== END 2025-03-18 04:15 | disposition home or self-care (01) ==
PROVIDERS: PCP Family Medicine; Visit Provider Internal Medicine
DX: C50.412 Malignant neoplasm of upper-outer quadrant of left female breast (principal)
CPT/HCPCS: 36415; 80053; 82610; 86300; 85025

== ENCOUNTER 2025-04-01 04:18 | Outpatient (CLI) | payer MEDICARE, BC, SELFPAY ==
[2025-04-01 15:45] LABS: Abs Immature Grans 0.01 10^3/uL (0.0-0.06); Absolute Basophil Count 0.05 10^3/uL (0.0-0.2); Absolute Eosinophil Count 0.16 10^3/uL (0.0-0.7); Absolute Lymphocyte Count 1.52 10^3/uL (1.2-3.4); Absolute Monocyte Count 0.57 10^3/uL (0.1-0.8); Absolute Neutrophil Count 3.83 10^3/uL (1.2-6.7); Basophils % 0.8 %; Eosinophils % 2.6 %; HGB 13.6 g/dL (11.2-15.7); Immature Grans % 0.2 %; Lymphocytes % 24.8 %; MCH 31.8 pg (27.0-33.0); MCHC 33.2 % (32.0-36.0); MCV 96 fL (80-95); MPV 10.3 fL (8.0-11.0); Monocytes % 9.3 %; Neutrophils % 62.3 %; Platelet Count 186 10^3/uL (130-400); RBC 4.28 10^6/uL (3.93-5.22); RDW 13.9 % (11.7-14.6); RDW-SD 49.1 fL; WBC 6.14 10^3/uL (4.4-10.8)
[2025-04-01 16:27] LABS: ALT 40 U/L (14-59); AST 31 U/L (15-37); Albumin 3.5 g/dL (3.4-5.0); Alkaline Phosphatase 103 U/L (46-116); Anion Gap 9.1 mmol/L (3-11); BUN 20 mg/dL (7-18); Bilirubin, Total 0.6 mg/dL (0.2-1.0); CO2 24.9 mmol/L (21.0-32.0); CREATININE 1.7 mg/dL (0.55-1.02); Calcium 9.6 mg/dL (8.5-10.1); Chloride 106 mmol/L (98-107); Estimated GFR 31.08 (mL/min/1.73m2); Glucose 135 mg/dL (74-106); Potassium 4.3 mmol/L (3.5-5.1); Sodium 140 mmol/L (136-145); Total Protein 7.1 g/dL (6.4-8.2)
== END 2025-04-01 04:19 | disposition home or self-care (01) ==
PROVIDERS: Registered Nurse School; PCP Family Medicine; Visit Provider Internal Medicine
DX: C50.412 Malignant neoplasm of upper-outer quadrant of left female breast (principal); Z17.0 Estrogen receptor positive status [ER+]
CPT/HCPCS: 36415; 80053; 85025

== ENCOUNTER → 2025-04-11 13:23 | Outpatient (BNVA) | payer MEDICARE, BC, SELFPAY | PROVIDERS: PCP Family Medicine; Visit Provider Internal Medicine Cardiovascular Disease | DX: I25.10 Atherosclerotic heart disease of native coronary artery without angina pectoris (principal) | CPT/HCPCS: 99213 ==

== ENCOUNTER 2025-04-29 12:50 | Outpatient (CLI) | payer MEDICARE, BC, SELFPAY ==
[2025-04-29 12:32] LABS: Abs Immature Grans 0.01 10^3/uL (0.0-0.06); Absolute Basophil Count 0.04 10^3/uL (0.0-0.2); Absolute Eosinophil Count 0.16 10^3/uL (0.0-0.7); Absolute Lymphocyte Count 1.26 10^3/uL (1.2-3.4); Absolute Monocyte Count 0.62 10^3/uL (0.1-0.8); Absolute Neutrophil Count 4.13 10^3/uL (1.2-6.7); Basophils % 0.6 %; Eosinophils % 2.6 %; HCT 41.6 % (36.0-46.0); HGB 13.8 g/dL (11.2-15.7); Immature Grans % 0.2 %; Lymphocytes % 20.3 %; MCH 31.3 pg (27.0-33.0); MCHC 33.2 % (32.0-36.0); MCV 94 fL (80-95); Neutrophils % 66.3 %; Platelet Count 199 10^3/uL (130-400); RBC 4.41 10^6/uL (3.93-5.22); RDW 12.5 % (11.7-14.6); RDW-SD 43.8 fL; WBC 6.22 10^3/uL (4.4-10.8)
[2025-04-29 13:16] LABS: ALT 30 U/L (14-59); AST 27 U/L (15-37); Albumin 3.8 g/dL (3.4-5.0); Alkaline Phosphatase 101 U/L (46-116); Anion Gap 9.9 mmol/L (3-11); BUN 16 mg/dL (7-18); Bilirubin, Total 0.8 mg/dL (0.2-1.0); CO2 24.1 mmol/L (21.0-32.0); CREATININE 1.5 mg/dL (0.55-1.02); Calcium 9.7 mg/dL (8.5-10.1); Chloride 105 mmol/L (98-107); Estimated GFR 36.12 (mL/min/1.73m2); Glucose 113 mg/dL (74-106); Sodium 139 mmol/L (136-145); Total Protein 7.3 g/dL (6.4-8.2)
== END 2025-04-29 12:51 | disposition home or self-care (01) ==
LOC: LBO 12:50
PROVIDERS: PCP Family Medicine; Visit Provider Internal Medicine
DX: C50.412 Malignant neoplasm of upper-outer quadrant of left female breast (principal); Z17.0 Estrogen receptor positive status [ER+]
CPT/HCPCS: 36415; 80053; 85025

== ENCOUNTER 2025-05-27 09:37 | Outpatient (CLI) | payer MEDICARE, BC, SELFPAY ==
[2025-05-27 10:15] LABS: HCT 38.5 % (36.0-46.0); HGB 12.9 g/dL (11.2-15.7); MCH 31.5 pg (27.0-33.0); MCHC 33.5 % (32.0-36.0); MCV 94 fL (80-95); MPV 9.4 fL (8.0-11.0); Platelet Count 190 10^3/uL (130-400); RBC 4.10 10^6/uL (3.93-5.22); RDW 12.1 % (11.7-14.6); RDW-SD 41.5 fL; WBC 3.47 10^3/uL (4.4-10.8)
[2025-05-27 10:43] LABS: Abs Immature Grans 0.00 10^3/uL (0.0-0.06); Immature Grans % 0.0 %; RBC Morphology Normal
[2025-05-27 10:49] LABS: ALT 65 U/L (14-59); AST 37 U/L (15-37); Albumin 3.5 g/dL (3.4-5.0); Alkaline Phosphatase 102 U/L (46-116); Anion Gap 9.8 mmol/L (3-11); BUN 21 mg/dL (7-18); Bilirubin, Total 0.5 mg/dL (0.2-1.0); CO2 25.2 mmol/L (21.0-32.0); Calcium 9.8 mg/dL (8.5-10.1); Chloride 105 mmol/L (98-107); Estimated GFR 22.81 (mL/min/1.73m2); Glucose 157 mg/dL (74-106); Potassium 3.9 mmol/L (3.5-5.1); Sodium 140 mmol/L (136-145); Total Protein 7.0 g/dL (6.4-8.2)
[2025-05-28 19:53] LABS: Cystatin C, S 1.81 mg/L
== END 2025-05-27 09:38 | disposition home or self-care (01) ==
LOC: LBO 09:38
PROVIDERS: PCP Family Medicine; Visit Provider Internal Medicine
DX: C50.412 Malignant neoplasm of upper-outer quadrant of left female breast (principal)
CPT/HCPCS: 36415; 80053; 82610; 85025

== ENCOUNTER 2025-06-19 03:02 | Outpatient (CLI) | payer MEDICARE, BC, SELFPAY ==
[2025-06-19 09:37] LABS: Abs Immature Grans 0.01 10^3/uL (0.0-0.06); HCT 35.9 % (36.0-46.0); HGB 12.1 g/dL (11.2-15.7); Immature Grans % 0.4 %; MCH 32.1 pg (27.0-33.0); MCHC 33.7 % (32.0-36.0); MCV 95 fL (80-95); MPV 9.1 fL (8.0-11.0); Platelet Count 187 10^3/uL (130-400); RBC 3.77 10^6/uL (3.93-5.22); RDW 14.5 % (11.7-14.6); RDW-SD 47.5 fL; WBC 2.82 10^3/uL (4.4-10.8)
[2025-06-19 10:02] LABS: ALT 38 U/L (14-59); AST 31 U/L (15-37); Albumin 3.7 g/dL (3.4-5.0); Alkaline Phosphatase 94 U/L (46-116); Anion Gap 8.1 mmol/L (3-11); BUN 15 mg/dL (7-18); Bilirubin, Total 0.5 mg/dL (0.2-1.0); CO2 27.9 mmol/L (21.0-32.0); Calcium 9.5 mg/dL (8.5-10.1); Chloride 107 mmol/L (98-107); Estimated GFR 31.08 (mL/min/1.73m2); Glucose 127 mg/dL (74-106); Potassium 4.4 mmol/L (3.5-5.1); Sodium 143 mmol/L (136-145); Total Protein 6.9 g/dL (6.4-8.2)
== END 2025-06-19 03:03 | disposition home or self-care (01) ==
LOC: LBO 03:02
PROVIDERS: PCP Family Medicine; Visit Provider Internal Medicine
DX: C50.412 Malignant neoplasm of upper-outer quadrant of left female breast (principal); Z17.0 Estrogen receptor positive status [ER+]
CPT/HCPCS: 36415; 80053; 82610; 85025

== ENCOUNTER 2025-07-03 18:37 | Outpatient (CLI) | payer MEDICARE, BC, SELFPAY ==
[2025-07-03 15:50] LABS: Abs Immature Grans 0.01 10^3/uL (0.0-0.06); HCT 37.6 % (36.0-46.0); HGB 12.4 g/dL (11.2-15.7); Immature Grans % 0.2 %; MCH 31.6 pg (27.0-33.0); MCHC 33.0 % (32.0-36.0); MCV 96 fL (80-95); MPV 9.4 fL (8.0-11.0); Platelet Count 263 10^3/uL (130-400); RBC 3.93 10^6/uL (3.93-5.22); RDW 14.6 % (11.7-14.6); RDW-SD 51.8 fL; WBC 4.52 10^3/uL (4.4-10.8)
[2025-07-03 16:06] LABS: ALT 56 U/L (14-59); AST 35 U/L (15-37); Albumin 3.7 g/dL (3.4-5.0); Alkaline Phosphatase 94 U/L (46-116); Anion Gap 6.8 mmol/L (3-11); BUN 24 mg/dL (7-18); Bilirubin, Total 0.6 mg/dL (0.2-1.0); CO2 28.2 mmol/L (21.0-32.0); Calcium 9.7 mg/dL (8.5-10.1); Chloride 105 mmol/L (98-107); Estimated GFR 25.57 (mL/min/1.73m2); Glucose 117 mg/dL (74-106); Potassium 4.6 mmol/L (3.5-5.1); Sodium 140 mmol/L (136-145); Total Protein 7.1 g/dL (6.4-8.2)
== END 2025-07-03 18:38 | disposition home or self-care (01) ==
LOC: LBO 18:38
PROVIDERS: PCP Family Medicine; Visit Provider Nurse Practitioner Family
DX: C50.412 Malignant neoplasm of upper-outer quadrant of left female breast (principal); Z17.0 Estrogen receptor positive status [ER+]
CPT/HCPCS: 36415; 80053; 85025

== ENCOUNTER 2025-07-24 04:18 | Outpatient (CLI) | payer MEDICARE, BC, SELFPAY ==
[2025-07-24 09:46] LABS: Abs Immature Grans 0.01 10^3/uL (0.0-0.06); HCT 34.9 % (36.0-46.0); HGB 11.7 g/dL (11.2-15.7); MCH 32.7 pg (27.0-33.0); MCHC 33.5 % (32.0-36.0); MCV 98 fL (80-95); MPV 8.7 fL (8.0-11.0); Platelet Count 121 10^3/uL (130-400); RBC 3.58 10^6/uL (3.93-5.22); RDW 15.3 % (11.7-14.6); RDW-SD 54.4 fL; WBC 2.23 10^3/uL (4.4-10.8)
[2025-07-24 10:00] LABS: ALT 38 U/L (14-59); AST 29 U/L (15-37); Albumin 3.6 g/dL (3.4-5.0); Alkaline Phosphatase 84 U/L (46-116); Anion Gap 7.0 mmol/L (3-11); BUN 15 mg/dL (7-18); Bilirubin, Total 0.6 mg/dL (0.2-1.0); CO2 28.0 mmol/L (21.0-32.0); Calcium 9.3 mg/dL (8.5-10.1); Chloride 106 mmol/L (98-107); Estimated GFR 30.89 (mL/min/1.73m2); Glucose 156 mg/dL (74-106); Potassium 4.0 mmol/L (3.5-5.1); Sodium 141 mmol/L (136-145); Total Protein 6.8 g/dL (6.4-8.2)
[2025-07-24 10:18] LABS: RBC Morphology Normal
[2025-07-25 16:59] LABS: Cystatin C, S 1.54 mg/L
== END 2025-07-24 04:19 | disposition home or self-care (01) ==
LOC: LBO 04:18
PROVIDERS: PCP Family Medicine; Visit Provider Internal Medicine
DX: C50.412 Malignant neoplasm of upper-outer quadrant of left female breast (principal)
CPT/HCPCS: 36415; 80053; 82610; 85025

== ENCOUNTER 2025-08-19 10:45 | Outpatient (CLI) | payer MEDICARE, BC, SELFPAY ==
[2025-08-19 14:18] LABS: Abs Immature Grans 0.00 10^3/uL (0.0-0.06); HCT 34.4 % (36.0-46.0); HGB 11.7 g/dL (11.2-15.7); Immature Grans % 0.0 %; MCH 33.9 pg (27.0-33.0); MCHC 34.0 % (32.0-36.0); MCV 100 fL (80-95); MPV 9.2 fL (8.0-11.0); Platelet Count 110 10^3/uL (130-400); RBC 3.45 10^6/uL (3.93-5.22); RDW 15.5 % (11.7-14.6); RDW-SD 57.3 fL; WBC 2.78 10^3/uL (4.4-10.8)
[2025-08-19 15:14] LABS: ALT 29 U/L (14-59); AST 23 U/L (15-37); Albumin 3.6 g/dL (3.4-5.0); Alkaline Phosphatase 83 U/L (46-116); Anion Gap 8.0 mmol/L (3-11); BUN 23 mg/dL (7-18); Bilirubin, Total 0.5 mg/dL (0.2-1.0); CO2 27.0 mmol/L (21.0-32.0); Calcium 9.2 mg/dL (8.5-10.1); Chloride 105 mmol/L (98-107); Estimated GFR 27.03 (mL/min/1.73m2); Glucose 107 mg/dL (74-106); Potassium 4.4 mmol/L (3.5-5.1); Sodium 140 mmol/L (136-145); Total Protein 6.9 g/dL (6.4-8.2)
[2025-08-21 20:31] LABS: Cystatin C, S 1.44 mg/L
== END 2025-08-19 10:46 | disposition home or self-care (01) ==
PROVIDERS: Nurse Practitioner Family; PCP Family Medicine; Visit Provider Internal Medicine
DX: C50.412 Malignant neoplasm of upper-outer quadrant of left female breast (principal); Z17.0 Estrogen receptor positive status [ER+]
CPT/HCPCS: 36415; 80053; 82610; 85025

== ENCOUNTER 2025-09-16 02:06 | Outpatient (CLI) | payer MEDICARE, BC, SELFPAY ==
[2025-09-16 09:39] LABS: Abs Immature Grans 0.00 10^3/uL (0.0-0.06); HCT 33.4 % (36.0-46.0); HGB 11.6 g/dL (11.2-15.7); Immature Grans % 0.0 %; MCH 35.9 pg (27.0-33.0); MCHC 34.7 % (32.0-36.0); MCV 103 fL (80-95); MPV 9.0 fL (8.0-11.0); Platelet Count 109 10^3/uL (130-400); RBC 3.23 10^6/uL (3.93-5.22); RDW 14.8 % (11.7-14.6); RDW-SD 56.1 fL
[2025-09-16 10:14] LABS: ALT 21 U/L (10-49); AST 28 U/L (<34); Albumin 3.9 g/dL (3.4-5.0); Alkaline Phosphatase 74 U/L (46-116); Anion Gap 8.1 mmol/L (3-11); BUN 17 mg/dL (9-23); Bilirubin, Total 0.60 mg/dL (0.2-1.2); CO2 25.9 mmol/L (20.0-31.0); Calcium 9.2 mg/dL (8.3-10.6); Chloride 108 mmol/L (98-107); Glucose 155 mg/dL (74-106); Potassium 4.1 mmol/L (3.5-5.1); Sodium 142 mmol/L (136-145); Total Protein 6.4 g/dL (5.7-8.2)
[2025-09-16 10:16] LABS: Anisocytosis 1+; Macrocytosis 2+
[2025-09-16 14:25] LABS: WBC 1.96 10^3/uL (4.4-10.8)
[2025-09-18 21:16] LABS: Cystatin C, S 1.50 mg/L
== END 2025-09-16 02:07 | disposition home or self-care (01) ==
LOC: LBO 02:06
PROVIDERS: PCP Family Medicine; Visit Provider Internal Medicine
DX: C50.412 Malignant neoplasm of upper-outer quadrant of left female breast (principal); Z17.0 Estrogen receptor positive status [ER+]
CPT/HCPCS: 36415; 80053; 82610; 85025

== ENCOUNTER 2025-09-23 13:27 | Outpatient (CLI) | payer MEDICARE, BC, SELFPAY ==
[2025-09-23 14:31] LABS: Abs Immature Grans 0.01 10^3/uL (0.0-0.06); HCT 34.7 % (36.0-46.0); HGB 12.2 g/dL (11.2-15.7); Immature Grans % 0.3 %; MCH 36.1 pg (27.0-33.0); MCHC 35.2 % (32.0-36.0); MCV 103 fL (80-95); MPV 9.1 fL (8.0-11.0); Platelet Count 173 10^3/uL (130-400); RBC 3.38 10^6/uL (3.93-5.22); RDW 14.5 % (11.7-14.6); RDW-SD 54.8 fL; WBC 3.55 10^3/uL (4.4-10.8)
== END 2025-09-23 13:28 | disposition home or self-care (01) ==
LOC: LBO 13:28
PROVIDERS: PCP Family Medicine; Visit Provider Internal Medicine
DX: C50.412 Malignant neoplasm of upper-outer quadrant of left female breast (principal); Z17.0 Estrogen receptor positive status [ER+]
CPT/HCPCS: 36415; 85025

== ENCOUNTER 2025-10-14 00:55 | Outpatient (CLI) | payer MEDICARE, BC, SELFPAY ==
[2025-10-14 12:43] LABS: Abs Immature Grans 0.01 10^3/uL (0.0-0.06); HCT 35.8 % (36.0-46.0); HGB 12.3 g/dL (11.2-15.7); MCH 35.1 pg (27.0-33.0); MCHC 34.4 % (32.0-36.0); MCV 102 fL (80-95); MPV 9.4 fL (8.0-11.0); Platelet Count 135 10^3/uL (130-400); RBC 3.50 10^6/uL (3.93-5.22); RDW 13.3 % (11.7-14.6); RDW-SD 50.1 fL; WBC 2.29 10^3/uL (4.4-10.8)
[2025-10-14 13:40] LABS: ALT 18 U/L (10-49); AST 24 U/L (<34); Albumin 4.2 g/dL (3.2-5.0); Alkaline Phosphatase 79 U/L (46-116); Anion Gap 10.2 mmol/L (3-11); BUN 25 mg/dL (9-23); Bilirubin, Total 0.5 mg/dL (0.2-1.2); CO2 21.8 mmol/L (20.0-31.0); Calcium 9.3 mg/dL (8.3-10.6); Chloride 108 mmol/L (98-107); Glucose 149 mg/dL (74-106); Potassium 4.1 mmol/L (3.5-5.1); Sodium 140 mmol/L (136-145); Total Protein 6.9 g/dL (5.7-8.2)
[2025-10-14 14:09] LABS: Immature Grans % 0.0 %
[2025-10-14 14:10] LABS: RBC Morphology Normal
[2025-10-15 17:40] LABS: Cancer Ag 15-3 28 U/mL (<30)
[2025-10-17 21:10] LABS: Cystatin C, S 1.74 mg/L
== END 2025-10-14 00:56 | disposition home or self-care (01) ==
LOC: LBO 00:55
PROVIDERS: Internal Medicine; PCP Family Medicine; Visit Provider Nurse Practitioner Adult Health
DX: Z79.899 Other long term (current) drug therapy (principal); C50.919 Malignant neoplasm of unspecified site of unspecified female breast
CPT/HCPCS: 36415; 80053; 82610; 86300; 85025